=== PATIENT | male | born 1950 | race Caucasian/White ===

== ENCOUNTER 2022-02-27 10:12 | Emergency (ER) | payer MEDICARE, BC, SELFPAY ==
[2022-02-27 11:20] VITALS: BP 164/84; PULSE 88; RESP 22; TEMP 36.7; O2SAT 98; BMI 25.8
[2022-02-27] MEDS: MORPHINE 10 MG/ML inj IM (11:42)
--- NOTE | 2022-02-27 11:45 | ED_ITS ---
HPI - General Adult General Time Seen by Provider: 11:46 Date Seen: 02/27/22 Chief complaint: Lower Extremity Swelling Stated complaint: Sciatica Time Seen by Provider: 02/27/22 11:38 Source: patient Mode of arrival: wheelchair Limitations: no limitations History of Present Illness HPI narrative: Patient is a 71 year white male who [facility] but has had intermittent bouts of sciatic pain on the left leg. He has had an MRI in the past that showed some degenerative changes by his report. I do not have records of these visits. He reports increasing pain over the last couple of days in his left leg, no swelling, no history of blood bleeding or clotting problems. It feels very similar to the sciatica he has had. He has tried a st eroid pack as well as some muscle relaxant that have been that successful. He comes in today quite uncomfortable with pain in his left lateral hip area down into his left thigh. Related Data Home Medications Medication Instructions Recorded Confirmed atorvastatin 40 mg tablet 40 mg PO QHS 02/27/22 02/27/22 buprenorphine 8 mg-naloxone 2 mg 1 film sublingual DAILY 02/27/22 02/27/22 sublingual film cetirizine 10 mg capsule (All Day 10 mg PO DAILY PRN 02/27/22 02/27/22 Allergy (cetirizine)) cholecalciferol (vitamin D3) 25 25 mcg PO DAILY 02/27/22 02/27/22 mcg (1,000 unit) capsule duloxetine HCL 60 mg DAILY 02/27/22 folic acid 1 mg tablet 1 mg PO DAILY 02/27/22 02/27/22 indomethacin 50 mg capsule 50 mg PO TID 02/27/22 02/27/22 lithium carbonate 450 mg 450 mg PO QHS 02/27/22 02/27/22 tablet,extended release methocarbamol 750 mg tablet 750 mg PO TID 02/27/22 02/27/22 polyethylene glycol 3350 17 17 g PO DAILY 02/27/22 02/27/22 gram/dose oral powder (ClearLax) terazosin 2 mg capsule 2 mg PO QHS 02/27/22 02/27/22 Previous Rx's Medication Instructions Recorded hydrocodone 5 mg-acetaminophen 325 1 tab PO Q4-6H PRN pain #14 tabs 02/27/22 mg tablet Allergies Allergy/AdvReac Type Severity Reaction Status Date / Time No Known Drug Allergies Allergy Verified 02/27/22 11:26 Review of Systems Status of ROS: Reports: 6 or more systems reviewed and unremarkable except as noted in History and below [facility] Social History Smoking Status: Never smoker Do you use any of these nicotine containing products: None How often do you have a drink containing alcohol: never How often do you have six or more drinks on one occasion: Never AUDIT-C Alcohol total score: 0 Non-prescribed substance use: denies use Exam Narrative: Exam Narrative: Objective: Patient is in mild distress and discomfort Vital signs show slightly elevated blood pressure otherwise unremarkable Left lower extremity shows positive straight leg raise on the left no swelling or edema the lower extremity Normal strength that is symmetric in the lower extremities Normal sensation in the lower extremities to palpation Procedure: The patient got 10 mg IM morphine Const: Vital Signs, click to edit/add: Vital Signs - 24 hr 02/27/22 11:20 Temperature 98.0 F Pulse Rate [Right Pulse Oximeter] 88 Respiratory Rate 22 Blood Pressure [Ri ght Upper Arm] 164/84 H Pulse Oximetry 98 Oxygen Delivery Me thod Room Air Course Vital Signs Vital signs: Initial Vital Signs Temperature 98.0 F 02/27/22 11:20 Temperature Source Temporal Artery Scan 02/27/22 11:20 Pulse Rate 88 02/27/22 11:20 Respiratory Rate 22 02/27/22 11:20 Blood Pressure 164/84 H 02/27/22 11:20 Blood Pressure Mean 110 02/27/22 11:20 Blood Pressure Position Sitting 02/27/22 11:20 Pulse Oximetry 98 02/27/22 11:20 Oxygen Delivery Method 02/27/22 11:20 Vital Signs Temperature 98.0 F 02/27/22 11:20 Pulse Rate 88 02/27/22 11:20 Respiratory Rate 22 02/27/22 11:20 Blood Pressure 164/84 H 02/27/22 11:20 Pulse Oximetry 98 02/27/22 11:20 Oxygen Delivery Method 02/27/22 11:20 Temperature 98.0 F 02/27/22 11:20 Pulse Rate 88 02/27/22 11:20 Respiratory Rate 22 02/27/22 11:20 Blood Pressure 164/84 H 02/27/22 11:20 Pulse Oximetry 98 02/27/22 11:20 Oxygen Delivery Method 02/27/22 11:20 Medical Decision Making MDM Narrative Medical decision making narrative: Patient has had a history of left-sided sciatica, he has done steroid medication, and muscle relaxant. At this point will give a dose of IM pain medicine, rest light activity icing to the low back, gentle range of motion position of comfort At this point he does not have any swelling or edema consistent with DVT, he has had similar sciatic pain in the past. He will need follow up with his regular physician within the next couple of days for reassessment possible PT needs a possible assessment for repeat MRI scan or consideration of epidural steroid injection in the lumbar spine. Discharge Plan Discharge Clinical Impression: Sciatica Patient Disposition: Home w/ Parent or Adult Additional Instructions: Vicodin as needed short order for pain control, update primary care doctor in the next 48 hours, recommend appointment [facility]. Activity Level: Light activity Discharge Diet: Regular Prescriptions: New hydrocodone-acetaminophen 5-325 mg tablet 1 tab PO Q4-6H PRN (Reason: pain) Qty: 14 0RF No Action duloxetine HCL 60 mg DAILY methocarbamol 750 mg tablet 750 mg PO TID buprenorphine-naloxone 8-2 mg film 1 film sublingual DAILY polyethylene glycol 3350 [ClearLax] 17 gram/dose powder 17 g PO DAILY All Day Allergy (cetirizine) 10 mg capsule 10 mg PO DAILY PRN terazosin 2 mg capsule 2 mg PO QHS folic acid 1 mg tablet 1 mg PO DAILY atorvastatin 40 mg tablet 40 mg PO QHS cholecalciferol (vitamin D3) 25 mcg (1,000 unit) capsule 25 mcg PO DAILY lithium carbonate 450 mg tablet extended release 450 mg PO QHS indomethacin 50 mg capsule 50 mg PO TID Rx Instructions: administer with food or milk Follow Up/Referrals: Maria G Sanon MD [Primary Care Provider] - Stand Alone Forms: [employer] Info Instructions
== END 2022-02-27 14:00 | disposition home or self-care (01) ==
LOC: ED 13:38
PROVIDERS: Emergency Provider Family Medicine; PCP Family Medicine
DX: M54.32 Sciatica, left side (principal)
CPT/HCPCS: 96372; 99283; 99284; J2270

== ENCOUNTER 2023-04-28 07:43 | Outpatient (CLI) | payer MEDICARE, BC, SELFPAY ==
--- OUTSIDE RECORDS SUMMARY | 2023-04-28 07:46 | XMS_ITS | Continuity of Care Document ---
Author Name Unknown Organization [facility] Address [address] [place] [address] Phone Care Team Providers Care News Video Editor Name Role Phone Katherine Patino MD Unavailable Unavailable Allergies, Adverse Reactions, Alerts Substance Reaction Status Criticality No Known Allergies Resolved No Inform ation Medications Medication Instructions Dosage Effective Dates (start - stop) Status Comments allopurinol 100 mg tablet take 2 tablet by oral route every day, take with 300 mg tabs for total dose of 500 mg daily - Active allopurinol 300 mg tablet take 1 tablet by oral route every day 300 MG - Active indomethacin 50 mg capsule take 1 capsule by oral route 3 times every day as needed - Active venlafaxine 75 mg tablet take 2 tablet by oral route 2 times every day with food 150 MG - Active trazodone 50 mg tablet one at bedtime - Ac tive gabapentin 300 mg capsule take 1 capsule by oral route 3 times every day 300 MG - Active Zyrtec 10 mg tablet take 1 Tablet by ora l route every day 10 MG - Active Procedures Procedure Date Office/Outpatient Visit, Est Routine Venipuncture Complete Cbc WAuto Diff Wbc Rbc Sed Rate, Nonautomated Assay Of Serum Albumin Assay Of Creatinine Transferase (Ast) (Sgot) Alanine Amino (Alt) (Sgpt) Assay Of Blood/Uric Acid CReactive Protein X-Ray Exam Of Foot 2v Office/Outpatient Visit, New X-Ray Exam Of Foot 2v Advance Directives Directive Yes / No Effective Date File Name No Information Encounters Encounter Description Practice Location Reason(s) For Visit Diagnoses Date Provider Providers Copied on Encounter [facility], [address], [place], [address], [place] tel:[phone] [facility] , No Information 7 Sukumar Murphy. [facility] [address], [place], [address], [place]. tel:[phone] [facility], [address], [place], [address], [place] tel:[phone] [facility] , No Information 7 Sukumar Murphy. [facility] [address], [place], [address], [place]. tel:[phone] Office/Outpa tient Visit, Est [facility], [address], [place], [address], [place] tel:[phone] [facility] , Follow Up of Gout (chief complaint) Chronic gout w/ tophiOther alf (current) drug therapy 6 Sukumar Murphy. [facility] [address], [place], [address], [place]. tel:[phone] Referring Provider: Katherine Monte, [facility] [address], [place], [address]. tel:[phone] Office/Outpa tient Visit, New [facility], [address], [place], [address], [place] tel:[phone] [facility] , Gout (chief complaint) Chronic gout w/ tophi 201 6 Sukumar Murphy. [facility] [address], [place], [address], [place]. tel:[phone] Referring Provider: Katherine Monte, [facility] [address], [place], [address]. tel:[phone] Family History Family Member Type Diagnosis Age At Onset Father Problem (finding) gout Brother Problem (finding) gout Payers Payer name Insurance type Covered green party ID Authoriza tion(s) [employer] Medicare Advantage/Plat in[employer] Blue [id number] Social History Type Description Quantity Date Captured Comments Alcohol Use Details Unknown Caffeine Use Details Unknown Tobacco Use Status No Information Smoking Status No Information Sex Male Chief Complaint And Reason For Visit No Information Reason For Referral Reason For Referral No Information Plan Of Treatment Date Type Action Status Referral Ordered: X-Ray Exam Of Foot 2v ordered History Of Present Illness Encounter Date Complaint History Of Prese nt Illness Follow Up of Gout Gout Functional Status Date Functional Assessmen t No Information Instructions Date Instruction Additional Infor mation No Information Assessments Type Assessment Date No Information Patient Care Teams Name Effective Dates (start - stop) Status Members No Information
--- OUTSIDE RECORDS SUMMARY | 2023-04-28 07:46 | XMS_ITS | Continuity of Care Document ---
Author Name Unknown Organization [facility] Address [address] [place] [address] Phone Care Team Providers Care Medical Massage Therapist Name Role Phone Stella LLOYD, Amir Unavailable Unavailable Allergies, Adverse Reactions, Alerts Substance Reaction Status Criticality No Known Allergies Active No Inform ation Medications Medication Instructions Dosage Effective Dates (start - stop) Status Comments ATORVASTATIN CALCIUM (unknown strength) Not Available - Active BUPRENORPHINE-NALOXONE (unknown strength) Not Available - Active VITAMIN D3 (unknown strength) Not Available - Active DULOXETINE HCL (unknown strength) Not Available - Active FOLIC ACID (unknown strength) Not Available - Active INDOMETHACIN (unknown strength) Not Available - Active LITHIUM CARBONATE (unknown strength) Not Available - Active NALOXONE HCL (unknown strength) Not Available - Active POLYETHYLENE GLYCOL (unknown strength) Not Available - Active CETIRIZINE HCL (unknown strength) Not Available - Active TACROLIMUS (unknown strength) Not Available - Active TERAZOSIN HCL (unknown strength) Not Available - Active Procedures Procedure Date Office/Outpatient Visit,Est, Mod 2022 Postop Followup Visit TLIF - Includes PSF at the same level - PA TLIF - Additional Level(s) Includes PSF at the same level - PA SYKES FACETC/FRMT ARTHRD LUM 1 SYKES FACTC/FRMT ARTHRD LUM EA Posterior Instrumentation, 3-6 Segments - PA PEEK/ Cage/ Implant, For Interbody Fusio n - PA Autograft, From Same Incision Pa Assist TLIF - Includes PSF at the same level De TLIF - Additional Level(s) Includes PSF at the same level SYKES FACETC/FRMT ARTHRD LUM 1 SYKES FACTC/FRMT ARTHRD LUM EA Posterior Instrumentation, 3-6 Segments PEEK/ Cage/ Implant, For Interbody Fusio n Allograft, Morcelized, and/or BMP Autograft, From Same Incision 2 Office/Outpatient Visit,Est, Mod 2021 X-Ray Exam Lower Spine 2-3 Views 2021 Office/Outpatient Visit,Est, Mod 2021 Office/Outpatient Visit,New, Mod 2019 Advance Directives Directive Yes / No Effective Date File Name No Information Encounters Encounter Description Practice Location Reason(s) For Visit Diagnoses Date Provider Providers Copied on Encounter Office/Outpat ient Visit,Est, Mod [facility], [address], [place], [place], [id number], [place] tel:[phone] [facility] Arthrodesis status 3 Mehbod Amir. [facility], [address] [place] [address], [id number] , [place]. tel:[phone] Referring Provider: Hiram Skeltonformerly [facility] [place], [address]. tel:[phone] [facility], [address], [place], [place], [id number], [place] tel:[phone] [facility] Encounter for other specified surgical aftercare 3 Mehbod Amir. [facility], [address] [place] [address], [place], [place], [id number] , [place]. tel:[phone] Referring Provider: Hiram Skelton[address], [place], [address]. tel:[phone] [facility], [address], [place], [id number], [place] tel:[phone] [facility] No Information 2 Joe Mata. [address] [place] [address], [place], [id number] , [place]. tel: [phone] Referring Provider: Maria G Sanon [facility] [address] [facility], [place], [address]. tel:[phone] [facility], [address], [place], [id number], [place] tel:[phone] [facility] No Information 2 Mehbod Amir. [facility], [address] [place] [address], [facility] [place], [id number] , [place]. tel: [phone] Referring Provider: Maria G Sanon [address], [place], [address]. tel:[phone] Office/Outpat ient Visit,Est, Mod [facility], [address], [place], [id number], [place] tel:[phone] [facility] Spinal stenosis, lumbar region with neurogenic claudicationR adiculopathy, lumbar regionSpinal stenosis, lumbar region without neurogenic jamaal Nov- 2 Mehbod Amir. [facility], [address] [place] [address], [place], [place], [id number] , [place]. tel: [phone] Referring Provider: Maria G Sanon [facility] [address] [facility], [place], [address]. tel:[phone] Office/Outpat ient Visit,Est, Mod [facility], [address], [place], [id number], [place] tel:[phone] [facility] Spinal stenosis, lumbar region with neurogenic claudication Feb- 2 Joe Mata. [address] [place] [address], [facility] [place], [id number] , [place]. tel: [phone] Referring Provider: Maria G Sanon [facility] [address] [facility], [place], [address]. tel:[phone] Office/Outpat ient Visit,New, [facility], [address], [place], [id number], [place] tel:[phone] [facility] No Information 0 Mehbod Amir. [facility], [address], [place], [place], [id number] , [place]. [phone] Referring Provider: Maria G Sanon [facility] [address] [facility], [place], [address]. tel:[phone] Family History Family Member Type Diagnosis Age At Onset No Information Payers Payer name Insurance type Covered republican ID Av francisco(s) [facility] [id number] Medicare [facility] [id number] Social History Type Description Quantity Date Captured Comments Alcohol Use Details Unknown Caffeine Use Details Unknown Tobacco Use Status Ex-cigarette smoker 023 Smoking Status Former smoker Smoking Tobacco Use Details Cigarette: No Details Available Cigarette: No Details Available Non-Smoking Tobacco Use Details : No Details Available : No Details Available Sex Male Vital Signs Date / Time: Height Weight BMI Pulse Rate Blood Pressure Temperature Respiratory Rate Body Surface Area Head Circumference Head Circ. Percentile Wt./Gabe. Percentile BMI percentile Pulse Ox Inhaled Ox 10:39 AM 72.00 in 87.997 kg (194.00 lbs) 26.3 1 kg/m eter (2) Chief Complaint And Reason For Visit No Information Reason For Referral Reason For Referral No Information Plan Of Treatment Date Type Action Status Future Order: Radiology Order AP Lateral Lumbar (APLatLumb), Ordered on: Ordered History Of Present Illness Encounter Date Complaint History Of Prese nt Illness No Information Functional Status Date Functional Assessmen t No Information Instructions Date Instruction Additional Infor mation No Information Assessments Type Assessment Date No Information Patient Care Teams Name Effective Dates (start - stop) Status Members No Information
--- NOTE | 2023-04-28 09:14 | W.ANESCHARGE ---
Anesthesia Charges Start Date/Time Anesthesia Start Date: 04/28/23 Anesthesia Start Time: 08:41 Stop Date/Time Anesthesia Stop Date: 04/28/23 Anesthesia Stop Time: 09:12
--- NOTE | 2023-04-28 11:51 | W.ANESCHARGE ---
Anesthesia Charges Start Date/Time Anesthesia Start Date: 04/28/23 Anesthesia Start Time: 08:41 Stop Date/Time Anesthesia Stop Date: 04/28/23 Anesthesia Stop Time: 09:12 Summary Extremes of Age - Over 70 or under 1: MDA
== END 2023-04-28 07:44 | disposition home or self-care (01) ==
LOC: OP CLINIC 07:44
PROVIDERS: PCP Family Medicine; Visit Provider Internal Medicine Gastroenterology
DX: Z12.11 Encounter for screening for malignant neoplasm of colon (principal); K63.5 Polyp of colon; K62.1 Rectal polyp; Z86.010 Personal history of colon polyps
CPT/HCPCS: 00811; 45380; 88305; 99100; J2704

== ENCOUNTER 2024-06-04 10:09 | Emergency (ER) | payer MEDICARE, BC, SELFPAY ==
--- OUTSIDE RECORDS SUMMARY | 2024-06-04 10:13 | XMS_ITS | Clinical Summary ---
Author Organization [facility] Address [place], [place] [address] Care Team Providers Care Tram Driver Name Role Phone Maria G Sanon MD Primary Care Provide r Allergies No known active allergies Medications folic acid 1 mg tablet Take 1 mg by mouth once daily. Active DULoxetine (CYMBALTA) 60 mg Delayed-release capsule TAKE 1 CAPSULE BY MOUTH EVERY MORNING FOR MOOD 05/16/20 20 Active cetirizine (ZYRTEC) 10 mg tablet Take 10 mg by mouth once daily. 09/22/19 22 Active terazosin (HYTRIN) 2 mg capsule 4 mg at bedtime. 07/26/19 22 Active cholecalciferol (VITAMIN D3) 1,000 unit tablet Take 1,000 units by mouth once daily. Active calcium polycarbophiL (FIBERCON) 625 mg tablet Take 625 mg by mouth two times daily. Active polyethylene glycol (Miralax) 17 g packet Mix 1 Packet in liquid then take by mouth once daily in the afternoon. Active buprenorphine-na loxone (SUBOXONE) 8-2 mg sublingual filmIndications: Encounter for monitoring Suboxone maintenance therapy Place 1 Film under the tongue two times daily. TAKE DIFFERENTLY: starting 05/04 take 0.5 film twice daily. Starting 05/07 take 0.5 films three times daily. Starting 05/09 take 1 film twice daily. 30 Film 05/03/20 22 Active atorvastatin (LIPITOR) 40 mg tablet Take 40 mg by mouth at bedtime. 09/06/19 23 Active gabapentin (NEURONTIN) 300 mg capsule Take 600 mg by mouth three times daily. 03/25/20 Active cyproheptadine (PERIACTIN) 4 mg tablet Take 8 mg by mouth one time if needed. 10/08/19 Active naloxone 8 mg/actuation spry SPRAY 1 DOSE IN ONE NOSTRIL DIRECTED FOR UNRESPONSIVENESS THEN CALL 911 08/07/19 Active Active Problems Problem Noted Date Diagnosed Date Colon polyp 05/05/2023 Overview (05/05/2023): Colonoscopy 04/2023 SSA. TA, repeat in 5 years Bleeding diathesis 04/22/2023 Alcohol dependence 04/30/2022 Cannabis abuse 04/30/2022 Gastroesophageal reflux disease 04/30/2022 Hyperlipidemia 04/30/2022 Sciatica 04/30/2022 Opioid dependence in remission 04/30/2022 Spinal stenosis of lumbar re gion with neurogenic claudication 04/30/2022 S/P posterior lumbar spinal fusion with instrumentation: L3-5 04/30/2022 Suboxone maintenance therapy 04/30/2022 Depression with anxiety 04/30/2022 CKD (chronic kidney disease) stage 3, GFR 30-59 ml/min 04/30/2022 Chronic pain syndrome 04/30/2022 ACP (advance care planning) 04/22/2022 Overview (04/24/2022): Patient has attended the virtual ACP class on 04/24/22 at 10 am. Patient plans to bring HCD with him to surgery- please scan into medical record. TARIQ Vargas Advance Care Planning Educator Sleep apnea 03/19/2018 Katrina bennett 10/17/2015 Chronic fatigue syndrome 06/13/2015 PTSD (post-traumatic stress disorder) 02/23/2015 S/P cervical spinal fusion C6-7 06/10/2011 DDD C4-5 and C5-6 06/10/2011 Displacement of lumbar inter vertebral disc without myelopathy 05/25/2007 Resolved Problems Problem Noted Date Diagnosed Date Resolved Date Cervicalgia 04/30/2022 04/30/2022 Major depressive disorder, r ecurrent episode, moderate 02/23/2015 04/30/2022 S/P cervical spinal fusion 06/10/2011 0 06/10/2011 Major depressive disorder, r ecurrent episode, unspecified 05/25/2007 02/23/2015 Dysthymic disorder 05/25/2007 2 Encounters Date Type Department Care Team Description 06/02/2024 9:10 AM SPA ATTENDANT Telemedicine [facility] [address] [place] [address] Louisa Sena NP Error-please disregard (appt cancellation) 06/02/2024 Travel from Last 3 Months Immunizations Name Administration Dates Next Due AMB Influenza, IIV3 (Age >=3 years)(Flu Clinic Only) 04/13/2010 COVID-19 vaccine (Pfizer-Bio NTech 30mcg/0.3mL) 12YO+ BIVALENT PF, MDV 02/14/2022 COVID-19 vaccine (Pfizer-Bio NTech 30mcg/0.3mL) PF, MDV 03/05/2021,07/31/2020,07/10/2020 HepA-HepB (Twinrix) 10/08/2011,05/09/2011,2010 Influenza A (H1N1), Inactiva jessica (Age >=3 Years) 03/06/2017 Influenza Virus, Unspecified 02/08/2021, 03/14/2020,06/24/2019,2011,02/19/2011,03/10/2003 Influenza, High-dose Inactivated 020,04/01/2017,02/16/2017,2015,04/21/2015,02/16/2015 Influenza, High-dose Quadriv alent Inactivated 01/28/2023 Influenza, IIV3 (Age >=3 years) 02/13/2009,03/02,03/24/2006 Influenza, Inactivated AIIV4 (Age 65+ Years) Preserv Free 02/11/2022 Influenza, Inactivated IIV3 (Age 65+ Years) Preserv Free 03/14/2020,03/19/2018 Pneumococcal Poly,23-Valent (Pneumovax) 05/22/2018 Pneumococcal conj 13-Valent (Prevnar 13) 04/21/2015 Pneumococcal, Unspecified 06/18/2012 Td (Age >=7 Years) 08/21/2003 Tdap 09/05/2022, 3,04/02/2011,2010 Zoster (Shingrix-RZV, recombinant) 05/22/2018, Zoster (Zostavax-ZVL, live) 08/07/2011 Family History Medical History Relation Name Comments Arthritis Father Asthma Father Other Father copd Relation Name Status Comments Father Social History Tobacco Use Types Packs/Day Years Used Date Smoking Tobacco: Former Cigarettes 0.5 45 1 06/13/1963 - 04/13/2009 Passive Smoke Exposure: Never Smokeless Tobacco: Never Tobacco Cessation:Counseling Given: Not Answered Alcohol Use Standard Drinks/Week Comments No 0 (1 standard drink = 0.6 oz pur e alcohol) PHQ-2 Answer Date Recorded PHQ-2 Score 2 07/16/2019 Social Connections Answer Date Recorded Do you often feel lonely or isolated from those around you? 0 04/22/2023 Financial Resource Strain Answer Date R ecorded Difficulty of Paying Living Expenses 3 04/22/2023 Difficulty of Paying Living Expenses Not on file 04/22/2023 Food Insecurity Answer Date Recorded Do you worry your food will run out before you are able to buy more? 1 04/22/2023 Transportation Needs Answer Date Record ed Does lack of transportation keep you from medica l appointments? 1 04/22/2023 Does lack of transportation keep you from work, meetings or getting things that you need? 1 04/22/2023 Housing Stability Answer Date Recorded What is your housing situation today? 1 04/22/2023 Sex and Gender Information Value Date Recorded Sex Assigned at Not on file Legal Sex Male 5:26 AM SPA ATTENDANT Gender Identity Not on file Sexual Orientation Not on file Obstetrics History Last Filed Vital Signs Vital Sign Reading Time Taken Comments Blood Pressure 122/72 04/22/2023 3:51 PM SPA ATTENDANT Pulse 56 04/22/2023 3:51 PM SPA ATTENDANT Temperature 36.6 C (97.9 F) 05/03/2022 11:25 AM SPA ATTENDANT Respiratory Rate 16 05/03/2022 11:25 AM SPA ATTENDANT Oxygen Saturation 97% 04/22/2023 3:51 PM SPA ATTENDANT Inhaled Oxygen Concentration - - Weight 85.1 kg (187 lb 9.6 oz) 04/22/2023 3:51 P M SPA ATTENDANT Height 180.3 cm (5' 11) 04/30/2022 7:03 AM SPA ATTENDANT Body Mass Index 26.16 04/30/2022 7:03 AM SPA ATTENDANT Plan of Treatment Health Maintenance Due Date Last Done Comments Hepatitis C screening for ag e 18-79 09/07/1967 RSV vaccine for adults or (1 - Risk 60-74 years 1-dose series) 2009 Lipids for age 45-75 04/17/2014 04/17/2009, 07/03/2007, 07/14/2006 Medicare Wellness for age 65+ [address] (for lung CA) ag e 50-80 07/07/2018 07/07/2017, 07/16/2016 Depression screening for age 12+ 07/16/2020 07/16/2019, 03/19/2018, 07/07/2017, Additional history exists BMI (ht and wt on same day) for age 18+ 04/19/2023 04/19/2022, 05/02/2020, 04/05/2020, Additional history exists COVID-19 vaccine series (2023- season) 2024 05/28/2023, 02/14/2022, 03/05/2021, Additional history exists Influenza for age 65+ 01/18/2024 01/28/2023 , 02/11/2022, 02/08/2021, Additional history exists Tetanus booster 09/05/2032 09/05/2022, 12/17, 04/02/2011, Additional history exists Colonoscopy through age 75 04/28/203304/28, 04/28/2023, 08/28/2017, Additional history exists Pneumococcal series for age 50+ Completed 05/22/2018, 04/21/2015, 06/18/2012 Zoster (shingles) series for age 50+ Completed 05/22/2018, 02/04/2018, 08/07/2011 Tdap Completed 09/05/2022, 12/17, 04/02/2011, Additional history exists Medical Devices Implanted Type Area Veneer Stock Grader Device Identifier Shelf Expiration Date Model / Serial / Lot [id number] one Matrix 3cc [place] Dbf Putty Dbm Implanted:Qty: 1 on 04/30/2022 by Ella Douglas MD at [facility] [employer] Spine[employer] 02/26/2024 [id number] / [id number] / Bone Matrix 3cc [place] Dbf Putty Db - [id number] Implanted:Qty: 1 on 04/30/2022 by Ella Douglas MD at [facility] [employer] Spine[employer]Orth[employer] 02/26/2024 [id number] / [id number] / Bone 1-4mm 60cc Medtronic Fine Canclls Freeze Dried - [id number] Implanted:Qty: 1 on 04/30/2022 by Ella Douglas MD at [facility] [employer] Spine[employer]Orth[employer] 02/19/2026 [id number] / [id number] / Spacer Lmbr 79m18qn [employer] Tlif Peek - [id number] Implanted:Qty: 1 on 04/30/2022 by Ella Douglas MD at [facility] [employer] Spine/Ortho 05/22/2025 [id number] / / [id number] Spacer Lmbr 66g46ea [employer]stone Tlif Peek - [id number] Implanted:Qty: 1 on 04/30/2022 by Ella Douglas MD at [facility] [employer] Spine/Orth[employer] 12/06/2024 [id number] / / [id number] Set Screw Lmbr Ant 5.5mm Solera Break Off - [id number] Implanted:Qty: 6 on 04/30/2022 by Ella Douglas MD at [facility] [employer] Spine[employer] [id number] / / Wong Lmbr 70x5.5mm Solera 5.5/6 Cvd Titnm - [id number] Implanted:Qty: 2 on 04/30/2022 by Ella Douglas MD at [facility] [employer] Spine[employer]Ortho [id number] / / Screw Lmbr Post 6.5x50mm Solera 5.5/6 Va Cocr - [id number] Implanted:Qty: 6 on 04/30/2022 by Ella Douglas MD at [facility] [employer] Spine[employer]Ortho [id number] / / Procedures Procedure Name Priority Date/Time Associated Diagnosis Comments COLONOSCOPY SCREENING Routine 04/28/2023 8:07 AM SPA ATTENDANT History of colon polyps CT CHEST WO Routine 07/07/2017 11:47 AM SPA ATTENDANT Lung nodule < 6cm on CT LIPID PANEL Routine 04/17/2009 7:59 AM SPA ATTENDANT Unspecified Chest Pain from Last 3 Months or Most Recently Relevant to Health Maintenance Results * CO COLONOSCOPY W/BIOPSY SINGLE/MULTIPLE (04/28/2023 12:00 AM SPA ATTENDANT) us Beto Brito MD PB - DIGESTIVE SYSTEM SER VICES Final Result * CT CHEST WO (07/07/2017 11:47 AM SPA ATTENDANT) Anatomical Region Laterality Modality CHEST, THORAX, HEART Computed To mography 07/07/2017 12:4 0 PM SPA ATTENDANT Narrative 07/07/2017 12:40 PM SPA ATTENDANT INDICATION: Followup ground-glass right upper lobe pulmonary nodule. TECHNIQUE: Unenhanced helical CT of the chest. Sagittal coronal reformats generated. Please add little CT scans at this facility use dose modulation, iterative reconstruction and/or weight-based dosing when appropriate to reduce radiation dose to as low as reasonably achievable. COMPARISON: 07/16/2016. FINDINGS: There is a stable 8 mm ground-glass nodule in the right upper lobe on series 3, image 28. No new significant nodules or pulmonary infiltrates identified. By size criteria, no significantly enlarged intrathoracic lymph nodes are seen. Calcified right hilar lymph nodes consistent with old granulomatous disease. No suspicious axillary lymph nodes are identified. The thoracic aorta is normal in caliber. Mild coronary artery calcifications are seen. The visualized thyroid gland is homogeneous in density. Small nonobstructive nephroliths at the upper pole of the right kidney. Tiny hepatic cysts are present. No suspicious osseous findings. Prior lower cervical spine fusion is partially visualized. IMPRESSION: 1. Stable 8 mm ground-glass opacity in the right upper lobe. Fleischner society 2017 guidelines for management of incidentally detected pulmonary nodules in adults would recommends a CT every 2 years on till 5 years from discovery (discovery date 04/16/[address] 2. 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 3. Tiny hepatic cyst. 4. Small nonobstructive nephrolith upper pole right kidney. Please note that all CT scans at this facility use dose modulation, iterative reconstruction, and/or weight-based dosing when appropriate to reduce radiation dose to as low as reasonably achievable. Dictated by Jairon Coelho DO @ Jul 07 2017 12:40PM (Electronically Signed) Procedure Note Hector Coelho, - 07/07/2017 INDICATION: Followup ground-glass right upper lobe pulmonary nodule. TECHNIQUE: Unenhanced helical CT of the chest. Sagittal coronal reformatsgenerated. Please add little CT scans at this facility use dose modulation, iterativereconstruction and/or weight-based dosing when appropriate to reduceradiation dose to as low as reasonably achievable. COMPARISON: 07/16/2016. FINDINGS: There is a stable 8 mm ground-glass nodule in the right upper lobe onseries 3, image 28. No new significant nodules or pulmonary infiltratesidentified. By size criteria, no significantly enlarged intrathoraciclymph nodes are seen. Calcified right hilar lymph nodes consistent withold granulomatous disease. No suspicious axillary lymph nodes areidentified. The thoracic aorta is normal in caliber. Mild coronary arterycalcifications are seen. The visualized thyroid gland is homogeneous indensity. Small nonobstructive nephroliths at the upper pole of the rightkidney. Tiny hepatic cysts are present. No suspicious osseous findings.Prior lower cervical spine fusion is partially visualized. IMPRESSION: 1. Stable 8 mm ground-glass opacity in the right upper lobe. [facility] 2017 guidelines for management of incidentally detected pulmonarynodules in adults would recommends a CT every 2 years on till 5 years fromdiscovery (discovery date 04/16/[address] 2. 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 3. Tiny hepatic cyst. 4. Small nonobstructive nephrolith upper pole right kidney. Please note that all CT scans at this facility use dose modulation,iterative reconstruction, and/or weight-based dosing when appropriate toreduce radiation dose to as low as reasonably achievable. Dictated by Jairon Coelho DO @ Jul 07 2017 12:40PM (Electronically Signed) us Maria G Sanon MD CT Final Result * (ABNORMAL) LIPID PANEL (04/17/2009 7:59 AM SPA ATTENDANT) CHOLESTEROL,TOTAL 238(H) 110 - 199 mg/dL [facility] TRIGLYCERIDES 58 <150 mg/dL [facility] HDL CHOLESTEROL 63 >40 mg/dL [facility] CHOL/HDL RATIO 3.78 <4.51 [facility] LDL CHOLESTEROL 163(H) <131 mg/dL [facility] PATIENT STATUS Fasting [facility] Blood specimen (specimen) BLOOD SPECIMEN / Unknown 04/17/2009 7:59 AM SPA ATTENDANT 04/17/2009 7:55 AM SPA ATTENDANT us Herbie Simon MD CHEMISTRY Final Re sult [facility] [address] [place] [address] from Last 3 Months or Most Recently Relevant to Health Maintenance Insurance [employer] [place] ONLY MEDICARE PART B HB ONLY MEDICARE PART A HB ONLY [place] [place] [address] [place] [address] Advance Directives * Full Code (Latest Code Status on File) Date Activated Date Inactivated Comments 04/30/2022 6:35 PM 05/03/2022 5:27 PM Question Answer Comments Code Status Discussion: Unable to Assess Preferences, Provider to review later Care Teams Tram Driver Relationship Specialty Start Date End Date Maria G Sanon MD [address] [place] [address] PCP - General Family Practice 08/04/15
[2024-06-04 10:15] VITALS: BP 148/76; PULSE 75; RESP 18; TEMP 36.3; O2SAT 95; BMI 25.8
[2024-06-04 10:58] LABS: Strep A DNA Probe* NOT DETECTED (Not Detectd)
[2024-06-04 11:08] LABS: PCR FLU A Negative PCR FLU A (Negative); PCR FLU B Negative PCR FLU B (Negative); PCR RSV Negative PCR RSV (Negative); SARS PCR* Negative SARS-CoV-2 (Negative)
--- NOTE | 2024-06-04 11:27 | ED_ITS ---
HPI - General Adult General Chief complaint: Cough Stated complaint: sore throat/cough/chills Time Seen by Provider: 06/04/24 11:21 History of Present Illness HPI narrative: Patient is a 73-year-old gentleman comes in today with several days of nasal congestion cough sputum production. He has had no fevers no chills no night sweats. He tested negative for strep influenza COVID RSV. PATIENT'S MAJOR CONCERN IS NASAL CONGESTION PHARYNGITIS. HE HAS NO DIFFICULTIES WITH HIS AIRWAY. NO CHEST PAIN NO ORTHOPNEA NO PND NO NAUSEA NO VOMITING NO ABDOMINAL PAIN NO RASHES. NO RECENT SICK CONTACTS Related Data Home Medications ?Medication ?Instructions ?Recorded ?Confirmed atorvastatin 40 mg tablet 40 mg PO QHS 02/27/22 06/04/24 buprenorphine 8 mg-naloxone 2 mg 1 film sublingual DAILY 02/27/22 06/04/24 sublingual film cetirizine 10 mg capsule (All Day 10 mg PO DAILY PRN 02/27/22 09/26/22 Allergy (cetirizine)) cholecalciferol (vitamin D3) 25 25 mcg PO DAILY 02/27/22 09/26/22 mcg (1,000 unit) capsule duloxetine HCL 60 mg PO DAILY 02/27/22 06/04/24 folic acid 1 mg tablet 1 mg PO DAILY 02/27/22 09/26/22 indomethacin 50 mg capsule 50 mg PO TID 02/27/22 09/26/22 lithium carbonate 450 mg 450 mg PO QHS 02/27/22 09/26/22 tablet,extended release methocarbamol 750 mg tablet 750 mg PO TID 02/27/22 09/26/22 polyethylene glycol 3350 17 17 g PO DAILY 02/27/22 09/26/22 gram/dose oral powder (ClearLax) terazosin 2 mg capsule 2 mg PO QHS 02/27/22 06/04/24 Previous Rx's ?Medication ?Instructions ?Recorded hydrocodone 5 mg-acetaminophen 325 1 tab PO Q4-6H PRN pain #14 tabs 02/27/22 mg tablet prednisone 20 mg tablet 20 mg PO BID #10 tabs 06/04/24 Allergies Allergy/AdvReac Type Severity Reaction Status Date / Time No Known Drug Allergies Allergy Verified 06/04/24 10:15 Review of Systems Status of ROS: Reports: 10 or more systems reviewed and unremarkable except as noted in History and below PFSH PFSH Social History Smoking Status: Never smoker Do you use any of these nicotine containing products: None How often do you have a drink containing alcohol: never How often do you have six or more drinks on one occasion: Never AUDIT-C Alcohol total score: 0 Non-prescribed substance use: denies use Exam Narrative: Exam Narrative: EXAM GENERAL: Patient appears comfortable and well. EYES: No scleral icterus. ENT: Tympanic membranes and oropharynx normal. THYROID: no thyroid nodules or thyromegaly. LYMPH: No supraclavicular or cervical lymphadenopathy. SKIN: Visible skin seen during exam normal or with benign process only. EXT: No dependent lower extremity pedal edema. HEART: Regular rate and rhythm with no murmurs, rubs, or gallops. LUNGS: Clear to auscultation bilaterally with no crackles or wheezes. ABD: Soft, non tender, non distended. PSYCH: Good eye contact, speech is not pressured. Const: Vital Signs, click to edit/add: Vital Signs - 24 hr 06/04/24 10:15 Temperature 97.3 F L Pulse Rate [Pulse Oximeter] 75 Respiratory Rate 18 Blood Pressure [Ri ght Upper Arm] 148/76 H Pulse Oximetry 95 Oxygen Delivery Me thod Room Air Course Course ED Course: Patient seen and examined. Vital Signs Vital signs: Initial Vital Signs Respiratory Effort Normal 06/04/24 10:14 Respiratory Depth Normal 06/04/24 10:14 Vital Signs Temperature 97.3 F L 06/04/24 10:15 Pulse Rate 75 06/04/24 10:15 Respiratory Rate 18 06/04/24 10:15 Blood Pressure 148/76 H 06/04/24 10:15 Pulse Oximetry 95 06/04/24 10:15 Oxygen Delivery Method Room Air 06/04/24 10:15 Temperature 97.3 F L 06/04/24 10:15 Pulse Rate 75 06/04/24 10:15 Respiratory Rate 18 06/04/24 10:15 Blood Pressure 148/76 H 06/04/24 10:15 Pulse Oximetry 95 06/04/24 10:15 Oxygen Delivery Method Room Air 06/04/24 10:15 Medical Decision Making MDM Narrative Medical decision making narrative: Patient is a 73-year-old gentleman who presents with viral syndrome. Swabs are negative as listed above. At this time differential diagnosis includes viral syndrome pneumonia bronchitis bronchiolitis viral syndrome. I did elect to treat with short course of prednisone reassurance follow up with his primary physician as needed. Lab Data Labs: Lab Results 06/04/24 Range/Units 10:25 SARS-CoV-2 (PCR) Negative SARS-CoV-2 (Negative) Influenza Type A (PCR) Negative PCR FLU A (Negative) Influenza Type B (PCR) Negative PCR FLU B (Negative) RSV (PCR) Negative PCR RSV (Negative) Group A Strep DNA NOT DETECTED (Not Detectd) Discharge Plan Discharge Clinical Impression: Acute viral syndrome Patient Disposition: Home, Self-Care Condition: Stable Instructions: Viral Syndrome (ED) Additional Instructions: Prednisone as directed Tylenol Motrin Rest Fluids Activity Level: No Restrictions Discharge Diet: Regular Prescriptions: New prednisone 20 mg tablet 20 mg PO BID Qty: 10 0RF No Action duloxetine HCL 60 mg PO DAILY methocarbamol 750 mg tablet 750 mg PO TID buprenorphine-naloxone 8-2 mg film 1 film sublingual DAILY polyethylene glycol 3350 [ClearLax] 17 gram/dose powder 17 g PO DAILY All Day Allergy (cetirizine) 10 mg capsule 10 mg PO DAILY PRN terazosin 2 mg capsule 2 mg PO QHS folic acid 1 mg tablet 1 mg PO DAILY atorvastatin 40 mg tablet 40 mg PO QHS cholecalciferol (vitamin D3) 25 mcg (1,000 unit) capsule 25 mcg PO DAILY lithium carbonate 450 mg tablet extended release 450 mg PO QHS indomethacin 50 mg capsule 50 mg PO TID Rx Instructions: administer with food or milk hydrocodone-acetaminophen 5-325 mg tablet 1 tab PO Q4-6H PRN (Reason: pain) Qty: 14 0RF Follow Up/Referrals: Maria G Sanon MD [Primary Care Provider] - Stand Alone Forms: [employer] Info Instructions
--- OUTSIDE RECORDS SUMMARY | 2024-06-04 11:47 | XMS_ITS | Encounter Summary ---
Author Name [facility] [place] [facility] [place] Address [address] [place] [address] Care Team Providers Care Rose Grower Name Role Phone STEPHEN WONG Primary Care Provider Unavail le Insurance Providers: All historical and current Section Date Range: From patient's date of to the date document was created. This section includes the names of all active insurance providers for the patient. Insurance Provider Type of Coverage Plan Name Start of Policy Coverage End of Policy Coverage Group Number Member ID Insurance Provider's Telephone Number Policy Merchant's Name Patient's Relationship to Policy Merchant BCBS [facility] (WNR) MEDICARE ADVANTAGE [facility] (WNR) May 19, 2019 [id number] [phone] Lilliam WEBER PATIENT [place] [facility] (WNR) MEDICARE ADVANTAGE [facility] (WNR) May 19, 2019 [id number] [phone] Lilliam WEBER PATIENT [place] [facility] ([place]NR) MEDICARE ADVANTAGE [facility] (WNR) May 19, 2019 [id number] [phone] Lilliam WEBER PATIENT BCBS [facility] (WNR) MEDICARE ADVANTAGE MEDIC ARE CHERRI Alvarado May 19, 2016 [id number] [phone] GUS,M ICHAEL PATIENT Selected Encounter This section includes the information on record at [place] for the Encounter. Date/Time Encounter Type Encounter Description Reason Provider Source May 05, 2024 10:16 AM ADJUNCTIVE PROCEDURE DENTAL ICD-10-CM G47.33 Obstructive sleep apnea (adult) (pediatric) JOSE LE [facility] Encounter Template Text not used by [place] Assessments - Encounter Diagnoses This section includes the primary and secondary diagnoses documented for the Encounter. Date/Time Primary/Secondary Diagnosis Diagnosis Name Provider Source May 05, 2024 10:18 AM PRIMARY Obstructive sleep apnea (adult) (pediatric) JOSE LE [facility] Plan of Treatment: Future Appointments (+ 6 months) and Future Tests (+/- 45 days) The Plan of Treatment section includes future care activities for the [facility] [place] [facility] This section includes future appointments and future orders which are active, pending or scheduled. Future Appointments This section includes appointments that were scheduled to occur 6 months from the date of the Encounter, up to a maximum of 20 appointments. The data comes from all [facility]. Appointment Date/Time Appointment Type Appointme nt Facility Name May 18, 2024 09:30 AM AMBULATORY - SURGERY [facility] May 24, 2024 10:00 AM AMBULATORY - NONE [facility] May 27, 2024 10:00 AM AMBULATORY - PSYCHIATRY [facility] Jul 21, 2024 11:45 AM AMBULATORY - SURGERY [facility] Aug 26, 2024 10:30 AM AMBULATORY - PSYCHIATRY [facility] Sep 03, 2024 09:30 AM AMBULATORY - SURGERY [facility] Active, Pending, and Scheduled Orders This section includes a listing of several types of active, pending, and scheduled orders, including clinic medications orders, diagnostic test orders, procedure orders and consult orders; where the start date of the order is 45 days before the date of the Encounter or 45 days after the date of theEncounter. The data comes from all [facility]. Test Date/Time Test Type Test Details Facility Name Mar 25, 2024 08:41 AM Laboratory - Chemi stry Order DRUG TOXICOLOGY, ORAL FLUID SALIVA WC ONCE [facility] May 06, 2024 02:29 PM Consult Order COMMUNITY CARE-TREATMENT RESISTANT DEPRESSION Cons Marketing Professor's Choice [facility] Social History: Smoking Status (Most current) and Tobacco Use (All prior to encounter date) This section includes the most current, and the historical, smoking and tobacco- related health factors from the [place] facility where the Encounter took place. Current Smoking Status This section includes the most current smoking, or tobacco-related health factor, from the [place] facility where the Encounter took place. Date/Time Current Smoking Status Comment Facil ity Oct 23, 2023 11:00 AM VA-TOBACCO FORMER USER [facility] Tobacco Use History This section includes a history of the smoking, or tobacco-related health factors, that were collected on or before the date of the Encounter. The data comes from the [place] facility where the Encounter took place. Date/Time Smoking Status/Tobacco Use Comment F acility Oct 23, 2023 11:00 AM VA-TOBACCO QUIT 5 TO < [address] [facility] Sep 05, 2022 11:00 AM VA-TOBACCO FORMER USER [facility] Sep 05, 2022 11:00 AM VA-TOBACCO QUIT [address] [facility] Jun 12, 2021 09:51 AM VA-TOBACCO FORMER USER [facility] Jun 12, 2021 09:51 AM VA-TOBACCO QUIT 5 TO < [address] [facility] Jun 13, 2020 09:30 AM VA-TOBACCO FORMER USER [facility] Jun 13, 2020 09:30 AM VA-TOBACCO QUIT 1 TO < [address] [facility] Dec 03, 2018 09:23 AM VA-TOBACCO FORMER USER [facility] Dec 03, 2018 09:23 AM VA-TOBACCO QUIT [address] [facility] Nov 26, 2017 03:17 PM FORMER TOBACCO USE >1Y <7Y [facility] Apr 01, 2017 10:30 AM FORMER TOBACCO USE >1Y <7Y [facility] Nov 27, 2016 01:58 AM INPT NO TOBACCO USE IN LAST [address] [facility] Feb 08, 2016 10:07 AM LIFETIME NON-TOBACCO USER [facility] Oct 18, 2014 08:28 AM FORMER TOBACCO USER 7Y OR GREATE R [facility] Dec 27, 2013 10:02 AM FORMER TOBACCO USE <1Y [facility] Apr 04, 2011 11:33 AM LIFETIME NON-TOBACCO USER [facility] Encounter Notes: All associated encounter notes This section contains the clinical notes associated to the Encounter. Date/Time Encounter Note(s) Provider Source May 05, 2024 10:19 AM ADDENDUM: LOCAL TITLE: Addendum STANDARD TITLE: ADDENDUM DATE OF NOTE: MAY 05, 2024@10:19:09 ENTRY DATE: MAY 05, 2024@10:19:09 AUTHOR: JOSE LE EXP COSIGNER: URGENCY: STATUS: COMPLETED Order placed for patient to be seen in Triage. Please schedule on a Friday morning only. If this doesn't work for the patient, then we will need to do next available appointment in [facility], which currently is in [place]/ JOSE LE DDS STAFF DENTIST Signed: 05/05/2024 10:19 Receipt Acknowledged By: 05/05/2024 11:33 /es/ JADEN CHAPA LEAD DENTAL CERTIFIED NURSES AIDE --- Original Document --- 05/05/24 DENTISTRY SECURE MESSAGING: Patient Name: MOOK WEBER, : 1950, Age: 73 Visit: V: May 05, 2024@10:16:03 [facility] DENTAL SLEEP 2UD. Primary PCE Diagnosis: G47.33 (OBSTRUCTIVE SLEEP APNEA (ADULT) (PEDIATRIC)). Dental Category: 17-OPC, Class . Treatment Status: Maintenance. - - - - - - - - - - - - - - - - - - - - - - - - - - - - - - Appointment: Dental device not working MOOK WEBER (SSN: [id number], : 1950) 04 May 2024 @ 1329 ET [facility] My dental device for sleep apnea is no longer working properly. It has been ineffective for some time. Please schedule me at your earliest convenience. Thank you. Kenny Pritchettrens - - - - - - - - - - - - - - - - - - - - - - - - - - - - - - Appointment: Dental device not working JOSE LE 05 May 2024 @ 0803 ET To: MOOK WEBER (SSN: [id number], : 1950) Hi Mr. Weber, Just for scheduling purposes, is the appliance not helping sleep quality anymore, or is it not fitting properly? Thanks, Dr. Jose Le - - - - - - - - - - - - - - - - - - - - - - - - - - - - - - Appointment: Dental device not working MOOK WEBER (SSN: [id number], : 1950) 05 May 2024 @ 0937 ET To: [facility] # Its both. It is broken and no longer adjustable. Thank you. Kenny Gus - - - - - - - - - - - - - - - - - - - - - - - - - - - - - - Sent: 05 May 2024 @ 1114 ET From: JOSE LE To: GUSMOOK (SSN: [id number], : 1950) Subject: Appointment: Dental device not working Message ID:[id number] Hi Mr. Weber, I will have someone call you to get you scheduled. Bring the appliance with, but there's a good chance we will need to make a new one. -Dr. Le /yung/ JOSE LE DDS STAFF DENTIST Signed: 05/05/2024 10:[address] [facility] May 05, 2024 10:16 AM DENTISTRY SECURE M ESSAGING: LOCAL TITLE: DENTISTRY SECURE MESSAGING STANDARD TITLE: DENTISTRY SECURE MESSAGING DATE OF NOTE: MAY 05, 2024@10:16 ENTRY DATE: MAY 05, 2024@10:18:49 AUTHOR: JOSE LE EXP COSIGNER: URGENCY: STATUS: COMPLETED DENTISTRY SECURE MESSAGING Has ADDENDA Patient Name: MOOK WEBER, : 1950, Age: 73 Visit: V: May 05, 2024@10:16:03 [facility] DENTAL SLEEP 2UD. Primary PCE Diagnosis: G47.33 (OBSTRUCTIVE SLEEP APNEA (ADULT) (PEDIATRIC)). Dental Category: 17-OPC, Class . Treatment Status: Maintenance. - - - - - - - - - - - - - - - - - - - - - - - - - - - - - - Appointment: Dental device not working GUSMOOK (SSN: [id number], : 1950) 04 May 2024 @ 1329 ET To: [facility] # My dental device for sleep apnea is no longer working properly. It has been ineffective for some time. Please schedule me at your earliest convenience. Thank you. Kenny Gus - - - - - - - - - - - - - - - - - - - - - - - - - - - - - - Appointment: Dental device not working JOSE LE 05 May 2024 @ 0803 ET To: MOOK WEBER (N: [id number], : 1950) Mn Mr. Weber, Just for scheduling purposes, is the appliance not helping sleep quality anymore, or is it not fitting properly? Thanks, Dr. Jose Le - - - - - - - - - - - - - - - - - - - - - - - - - - - - - - Appointment: Dental device not working MOOK WEBER (N: [id number], : 1950) 05 May 2024 @ 0937 ET [facility] Its both. It is broken and no longer adjustable. Thank you. Kenny Weber - - - - - - - - - - - - - - - - - - - - - - - - - - - - - - Sent: 05 May 2024 @ 1114 ET From: JOSE LE To: MOOK WEBER (SSN: [id number], : 1950) Subject: Appointment: Dental device not working Message ID:[id number] Mn Mr. Weber, I will have someone call you to get you scheduled. Bring the appliance with, but there's a good chance we will need to make a new one. -Dr. Le /yung/ JOSE LE DDS STAFF DENTIST Signed: 05/05/2024 10:18 05/05/2024 ADDENDUM STATUS: COMPLETED Order placed for patient to be seen in Triage. Please schedule on a Friday morning only. If this doesn't work for the patient, then we will need to do next available appointment in [facility], which currently is in July /daljit LE DDS STAFF DENTIST Signed: 05/05/2024 10:19 Receipt Acknowledged By: * AWAITING SIGNATURE * JADEN CHAPA KEVIN A [facility]
--- OUTSIDE RECORDS SUMMARY | 2024-06-04 11:47 | XMS_ITS | Continuity of Care Document ---
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 PLASMA No comment entered. Ordering Provider: ASHLEY MALONE Report Released Date/Time: Oct 24, 2023 08:46 AM Reporting Lab: [facility] [address] Performing Lab: [facility] [address] [place] [facility] BASIC METABOLI C PANEL+MG GLUCOSE [MASS/VOLU ME] IN SERUM OR PLASMA 99 mg/dL 70 - 100 02/04 Specimen Type: PLASMA No comment entered. Ordering Provider: ASHLEY MALONE Report Released Date/Time: Oct 24, 2023 08:46 AM Reporting Lab: [facility] [address] Performing Lab: [facility] [address] [place] [facility] BASIC METABOLI C PANEL+MG SODIUM [MOLES/VOL UME] IN SERUM OR PLASMA 140 mmol/L 136 - 145 02/04 Specimen Type: PLASMA No comment entered. Ordering Provider: ASHLEY MALONE Report Released Date/Time: Oct 24, 2023 08:46 AM Reporting Lab: [facility] [address] Performing Lab: [facility] [address] [place] [facility] BASIC METABOLI C PANEL+MG POTASSIUM [MOLES/VOL UME] IN SERUM OR PLASMA 4.5 mmol/L 3.5 - 5.1 02/04 Specimen Type: PLASMA No comment entered. Ordering Provider: ASHLEY MALONE Report Released Date/Time: Oct 24, 2023 08:46 AM Reporting Lab: [facility] [address] Performing Lab: [facility] [address] [place] [facility] BASIC METABOLI C PANEL+MG CHLORIDE [MOLES/VOL UME] IN SERUM OR PLASMA 104 mmol/L 98 - 107 02/04 Specimen Type: PLASMA No comment entered. Ordering Provider: ASHLEY MALONE Report Released Date/Time: Oct 24, 2023 08:46 AM Reporting Lab: [facility] [address] Performing Lab: [facility] [address] [place] [facility] BASIC METABOLI C PANEL+MG CARBON DIOXIDE, TOTAL [MOLES/VOL UME] IN SERUM OR PLASMA 30 mmol/L 22 - 29 02/04 H Specimen Type: PLASMA No comment entered. Ordering Provider: ASHLEY MALONE Report Released Date/Time: Oct 24, 2023 08:46 AM Reporting Lab: [facility] [address] Performing Lab: [facility] [address] [place] [facility] BASIC METABOLI C PANEL+MG CALCIUM [MASS/VOLU ME] IN SERUM OR PLASMA 9.5 mg/dL 8.4 - 10.2 02/04 Specimen Type: PLASMA No comment entered. Ordering Provider: ASHLEY MALONE Report Released Date/Time: Oct 24, 2023 08:46 AM Reporting Lab: [facility] [address] Performing Lab: [facility] [address] [place] [facility] BASIC METABOLI C PANEL+MG MAGNESIUM [MASS/VOLU ME] IN SERUM OR PLASMA 2.1 mg/dL 1.6 - 2.6 02/04 Specimen Type: PLASMA No comment entered. Ordering Provider: ASHLEY MALONE Report Released Date/Time: Oct 24, 2023 08:46 AM Reporting Lab: [facility] [address] Performing Lab: [facility] [address] [place] [facility] BASIC METABOLI C PANEL+MG ANION GAP IN SERUM OR PLASMA 6 mmol/L 5 - 15 02/04 Specimen Type: PLASMA No comment entered. Ordering Provider: ASHLEY MALONE Report Released Date/Time: Oct 24, 2023 08:46 AM Reporting Lab: [facility] [address] Performing Lab: [facility] [address] [place] [facility] BASIC METABOLI C PANEL+MG GLOMERULAR FILTRATION RATE/1.73 SQ M.PREDICTE D [VOLUME RATE/AREA] IN SERUM, PLASMA OR BLOOD BY CREATININE -BASED FORMULA (CKD-EPI 2020) 70 60 02/04 Specimen Type: PLASMA No comment entered. Ordering Provider: ASHLEY MALONE Report Released Date/Time: Oct 24, 2023 08:46 AM Reporting Lab: [facility] [address] Performing Lab: [facility] [address] [place] [facility] CBC LEUKOCYTES [#/VOLUME] IN BLOOD BY AUTOMATED COUNT 4.5 4.0 - 11.0 02/04 Specimen Type: BLOOD No comment entered. Ordering Provider: ASHLEY MALONE Report Released Date/Time: Oct 24, 2023 08:46 AM Reporting Lab: [facility] [address] Performing Lab: [facility] [address] [place] [facility] CBC ERYTHROCYT ES [#/VOLUME] IN BLOOD BY AUTOMATED COUNT 4.31 4.60 - 6.20 02/04 L Specimen Type: BLOOD No comment entered. Ordering Provider: ASHLEY MALONE Report Released Date/Time: Oct 24, 2023 08:46 AM Reporting Lab: [facility] [address] Performing Lab: [facility] [address] [place] [facility] CBC HEMOGLOBIN [MASS/VOLU ME] IN BLOOD 13.5 g/dL 13.5 - 17.9 02/04 Specimen Type: BLOOD No comment entered. Ordering Provider: ASHLEY MALONE Report Released Date/Time: Oct 24, 2023 08:46 AM Reporting Lab: [facility] [address] Performing Lab: [facility] [address] [place] [facility] CBC HEMATOCRIT [VOLUME FRACTION] OF BLOOD BY AUTOMATED COUNT 41.7 41 - 54 02/04 Specimen Type: BLOOD No comment entered. Ordering Provider: ASHLEY MALONE Report Released Date/Time: Oct 24, 2023 08:46 AM Reporting Lab: [facility] [address] Performing Lab: [facility] [address] [place] [facility] CBC MCV [ENTITIC VOLUME] BY AUTOMATED COUNT 96.8 fL 80 - 100 02/04 Specimen Type: BLOOD No comment entered. Ordering Provider: ASHLEY MALONE Report Released Date/Time: Oct 24, 2023 08:46 AM Reporting Lab: [facility] [address] Performing Lab: [facility] [address] [place] [facility] CBC MCH [ENTITIC MASS] BY AUTOMATED COUNT 31.3 pg 27 - 33 02/04 Specimen Type: BLOOD No comment entered. Ordering Provider: ASHLEY MALONE Report Released Date/Time: Oct 24, 2023 08:46 AM Reporting Lab: [facility] [address] Performing Lab: [facility] [address] [place] [facility] CBC MCHC [MASS/VOLU ME] BY AUTOMATED COUNT 32.4 g/dL 32.0 - 37.5 02/04 Specimen Type: BLOOD No comment entered. Ordering Provider: ASHLEY MALONE Report Released Date/Time: Oct 24, 2023 08:46 AM Reporting Lab: [facility] [address] Performing Lab: [facility] [address] [place] [facility] CBC PLATELETS [#/VOLUME] IN BLOOD BY AUTOMATED COUNT 182 150 - 400 02/04 Specimen Type: BLOOD No comment entered. Ordering Provider: ASHLEY MALONE Report Released Date/Time: Oct 24, 2023 08:46 AM Reporting Lab: [facility] [address] Performing Lab: [facility] [address] [place] [facility] CBC PLATELET MEAN VOLUME [ENTITIC VOLUME] IN BLOOD BY AUTOMATED COUNT 9.6 fL 9.1 - 13.0 02/04 Specimen Type: BLOOD No comment entered. Ordering Provider: ASHLEY MALONE Report Released Date/Time: Oct 24, 2023 08:46 AM Reporting Lab: [facility] [address] Performing Lab: [facility] [address] [place] [facility] CBC ERYTHROCYT E DISTRIBUTI ON WIDTH [RATIO] BY AUTOMATED COUNT 12.4 11.5 - 14.5 02/04 Specimen Type: BLOOD No comment entered. Ordering Provider: ASHLEY MALONE Report Released Date/Time: Oct 24, 2023 08:46 AM Reporting Lab: [facility] [address] Performing Lab: [facility] [address] [place] [facility] IRON GROUP IRON [MASS/VOLU ME] IN SERUM OR PLASMA 73 ug/dL 65 - 175 02/04 Specimen Type: SERUM No comment entered. Ordering Provider: ASHLEY MALONE Report Released Date/Time: Oct 24, 2023 08:46 AM Reporting Lab: [facility] [address] Performing Lab: [facility] [address] [place] [facility] IRON GROUP IRON BINDING CAPACITY [MASS/VOLU ME] IN SERUM OR PLASMA 278 ug/dL 250 - 425 02/04 Specimen Type: SERUM No comment entered. Ordering Provider: ASHLEY MALONE Report Released Date/Time: Oct 24, 2023 08:46 AM Reporting Lab: [facility] [address] Performing Lab: [facility] [address] [place] [facility] IRON GROUP FERRITIN [MASS/VOLU ME] IN SERUM OR PLASMA 234.4 ng/mL 21.8 - 274.7 02/04 Specimen Type: SERUM No comment entered. Ordering Provider: ASHLEY MALONE Report Released Date/Time: Oct 24, 2023 08:46 AM Reporting Lab: [facility] [address] Performing Lab: [facility] [address] [place] [facility] IRON GROUP IRON SATURATION 26 20 - 50 02/04 Specimen Type: SERUM No comment entered. Ordering Provider: ASHLEY MALONE Report Released Date/Time: Oct 24, 2023 08:46 AM Reporting Lab: [facility] [address] Performing Lab: [facility] [address] [place] [facility] IRON GROUP TRANSFERRI N [MASS/VOLU ME] IN SERUM OR PLASMA 222 mg/dL 163 - 382 02/04 Specimen Type: SERUM No comment entered. Ordering Provider: ASHLEY MALONE Report Released Date/Time: Oct 24, 2023 08:46 AM Reporting Lab: [facility] [address] Performing Lab: [facility] [address] [place] [facility] DRUG SCREEN PANEL,UR INE BARBITURAT ES [PRESENCE] IN URINE BY SCREEN METHOD Negative 11/13 Specimen Type: URINE Comment: Presumptive Positive by screen, results not confirmed. Ordering Provider: MARYJANE MATHEW Report Released Date/Time: Nov 13, 2023 09:43 AM Reporting Lab: [facility] [address] Performing Lab: [facility] [address] [place] [facility] DRUG SCREEN PANEL,UR INE AMPHETAMIN ES [PRESENCE] IN URINE Negative 11/13 Specimen Type: URINE Comment: Presumptive Positive by screen, results not confirmed. Ordering Provider: MARYJANE MATHEW Report Released Date/Time: Nov 13, 2023 09:43 AM Reporting Lab: [facility] [address] Performing Lab: [facility] [address] [place] [facility] DRUG SCREEN PANEL,UR INE COCAINE [PRESENCE] IN URINE Negative 11/13 Specimen Type: URINE Comment: Presumptive Positive by screen, results not confirmed. Ordering Provider: MARYJANE MATHEW Report Released Date/Time: Nov 13, 2023 09:43 AM Reporting Lab: [facility] [address] Performing Lab: [facility] [address] [place] [facility] DRUG SCREEN PANEL,UR INE BENZODIAZE PINES [PRESENCE] IN URINE BY SCREEN METHOD Negative 11/13 Specimen Type: URINE Comment: Presumptive Positive by screen, results not confirmed. Ordering Provider: MARYJANE MATHEW Report Released Date/Time: Nov 13, 2023 09:43 AM Reporting Lab: [facility] [address] Performing Lab: [facility] [address] [place] [facility] DRUG SCREEN PANEL,UR INE CANNABINOI DS [PRESENCE] IN URINE BY SCREEN METHOD Negative 11/13 Specimen Type: URINE Comment: Presumptive Positive by screen, results not confirmed. Ordering Provider: MARYJANE MATHEW Report Released Date/Time: Nov 13, 2023 09:43 AM Reporting Lab: [facility] [address] Performing Lab: [facility] [address] [place] [facility] DRUG SCREEN PANEL,UR INE METHADONE [PRESENCE] IN URINE Negative 11/13 Specimen Type: URINE Comment: Presumptive Positive by screen, results not confirmed. Ordering Provider: MARYJANE MATHEW Report Released Date/Time: Nov 13, 2023 09:43 AM Reporting Lab: [facility] [address] Performing Lab: [facility] [address] [place] [facility] DRUG SCREEN PANEL,UR INE OPIATES [PRESENCE] IN URINE BY SCREEN METHOD Negative 11/13 Specimen Type: URINE Comment: Presumptive Positive by screen, results not confirmed. Ordering Provider: MARYJANE MATHEW Report Released Date/Time: Nov 13, 2023 09:43 AM Reporting Lab: [facility] [address] Performing Lab: [facility] [address] [place] [facility] DRUG SCREEN PANEL,UR INE PHENCYCLID INE [PRESENCE] IN URINE Negative 11/13 Specimen Type: URINE Comment: Presumptive Positive by screen, results not confirmed. Ordering Provider: MARYJANE MATHEW Report Released Date/Time: Nov 13, 2023 09:43 AM Reporting Lab: [facility] [address] Performing Lab: [facility] [address] [place] [facility] DRUG SCREEN PANEL,UR INE ETHANOL [MASS/VOLU ME] IN URINE Negative 11/13 Specimen Type: URINE Comment: Presumptive Positive by screen, results not confirmed. Ordering Provider: MARYJANE MATHEW Report Released Date/Time: Nov 13, 2023 09:43 AM Reporting Lab: [facility] [address] Performing Lab: [facility] [address] [place] [facility] DRUG SCREEN PANEL,UR INE CREATININE [MASS/VOLU ME] IN URINE 181.0 mg/dL 20.0 11/13 Specimen Type: URINE Comment: Presumptive Positive by screen, results not confirmed. Ordering Provider: MARYJANE MATHEW Report Released Date/Time: Nov 13, 2023 09:43 AM Reporting Lab: [facility] [address] Performing Lab: [facility] [address] [place] [facility] DRUG SCREEN PANEL,UR INE OXYCODONE [PRESENCE] IN URINE BY SCREEN METHOD Negative 11/13 Specimen Type: URINE Comment: Presumptive Positive by screen, results not confirmed. Ordering Provider: MARYJANE MATHEW Report Released Date/Time: Nov 13, 2023 09:43 AM Reporting Lab: [facility] [address] Performing Lab: [facility] [address] [place] [facility] DRUG SCREEN PANEL,UR INE BUPRENORPH INE+NORBUP RENORPHINE [PRESENCE] IN URINE POSITIVE 11/13 H Specimen Type: URINE Comment: Presumptive Positive by screen, results not confirmed. Ordering Provider: MARYJANE MATHEW Report Released Date/Time: Nov 13, 2023 09:43 AM Reporting Lab: [facility] [address] Performing Lab: [facility] [address] [place] [facility] DRUG SCREEN PANEL,UR INE TRAMADOL CUTOFF [MASS/VOLU ME] IN URINE FOR SCREEN METHOD Negative 11/13 Specimen Type: URINE Comment: Presumptive Positive by screen, results not confirmed. Ordering Provider: MARYJANE MATHEW Report Released Date/Time: Nov 13, 2023 09:43 AM Reporting Lab: [facility] [address] Performing Lab: [facility] [address] [place] [facility] DRUG SCREEN PANEL,UR INE FENTANYL [PRESENCE] IN URINE Negative 11/13 Specimen Type: URINE Comment: Presumptive Positive by screen, results not confirmed. Ordering Provider: MARYJANE MATHEW Report Released Date/Time: Nov 13, 2023 09:43 AM Reporting Lab: [facility] [address] Performing Lab: [facility] [address] [place] [facility] Vital Signs Combined list of inpatient and outpatient Vital Signs from Department of Defense and Veterans Affairs, ranging from 12 months to all on record, depending upon the facility. Vital Sign Value Date Comments Source SYSTOLIC BLOOD PRESSURE 115 05/18/2024 09:40:27 [facility] DIASTOLIC BLOOD PRESSURE 70 05/18/2024 09:40:27 [facility] TEMPERATURE 97.7 05/18/2024 09:40:27 [facility] PULSE 73 05/18/2024 09:40:27 [facility] SYSTOLIC BLOOD PRESSURE 180 03/25/2024 09:08:14 [facility] DIASTOLIC BLOOD PRESSURE 90 03/25/2024 09:08:14 [facility] PULSE OXIMETRY 96 03/25/2024 09:08:14 [place] [facility] PULSE 71 03/25/2024 09:08:14 [facility] RESPIRATION 14 03/25/2024 09:08:14 [facility] [facility] SYSTOLIC BLOOD PRESSURE 147 02/05/2024 09:23:32 [facility] DIASTOLIC BLOOD PRESSURE 81 02/05/2024 09:23:32 [facility] PULSE OXIMETRY 95 02/05/2024 09:23:32 [place] [facility] WEIGHT 185.7 02/05/2024 09:23:32 [facility] [place] [facility] BMI 25kg/m2 02/05/2024 09:23:32 [place] [facility] PAIN 8 02/05/2024 09:23:32 [facility] [place] [facility] TEMPERATURE 97 02/05/2024 09:23:32 [place] [facility] PULSE 63 02/05/2024 09:23:32 [place] [facility] RESPIRATION 16 02/05/2024 09:23:32 [place] [facility] SYSTOLIC BLOOD PRESSURE 128 10/23/2023 10:24:41 [facility] DIASTOLIC BLOOD PRESSURE 67 10/23/2023 10:24:41 [facility] PULSE OXIMETRY 98 10/23/2023 10:24:41 [place] [facility] WEIGHT 189.5 10/23/2023 10:24:41 [place] [facility] BMI 26kg/m2 10/23/2023 10:24:41 [facility] PAIN 8 10/23/2023 10:24:41 [facility] HEIGHT 72 10/23/2023 10:24:41 [facility] TEMPERATURE 98.2 10/23/2023 10:24:41 [facility] PULSE 60 10/23/2023 10:24:41 [facility] RESPIRATION 14 10/23/2023 10:24:41 [place] [facility] SYSTOLIC BLOOD PRESSURE 130 09/29/2023 08:48:18 [facility] DIASTOLIC BLOOD PRESSURE 71 09/29/2023 08:48:18 [facility] PULSE OXIMETRY 99 09/29/2023 08:48:18 [facility] WEIGHT 188.1 09/29/2023 08:48:18 [facility] BMI 26kg/m2 09/29/2023 08[facility]48:18 [facility] PAIN 8 09/29/2023 08:48:18 [facility] TEMPERATURE 97.6 09/29/2023 08:48:18 [place] [facility] PULSE 50 09/29/2023 08:48:18 [facility] RESPIRATION 16 09/29/2023 08:48:18 [place] [facility] Encounters Combined list of: 1) Encounters from Department of Veterans Affairs facilities going back up to thelast 18 months. 2) Encounters from the Department of Defense facilities going back up to 280 months. Location Location Details Encounter Type Encounter Number Reason For Visit Attending Provider ADM Date DC Date Status Disposition Source [place] [facility] Outpatient Encounter [id number] 11[place]28 [place] [facility] [place] [facility] En[facility] [id number] 12[place]05 [place] [facility] [place] [facility] OFFICE O/P EST HI 40-54 MIN [id number] Diagnos is: ICD-10- CM F43.12 Post-tr aumatic stress disorde r, chronic
MARBIN KNIGHT [facility] HC PRO PHONE CALL 5-10 MIN [id number] Diagnos is: ICD-10- CM F43.10 Post-tr aumatic stress disorde r, unspeci fied
SHANNAN RAMOS 12/17 [facility] Outpatient Encounter [id number] 12/17 [facility] [place] Outpatient Encounter [id number] NICK MORRIS 12/20 [facility] Outpatient Encounter [id number] 12/20 [facility] OFFICE O/P EST HI 40-54 MIN [id number] Diagnos is: ICD-10- CM R53.82 Chronic fatigue , unspeci fied
Unique BRICEÑO 12/24 [facility] [place] Outpatient Encounter [id number] 12/24 [facility] NEEDLE LOCALIZATI ON BY XRAY [id number] Diagnos is: ICD-10- CM M47.896 Other spondyl osis, lumbar region< br/> GILA ALFONSO 12[facility] [place] [facility] Outpatient Encounter [id number] 12/25 [facility] [place] [facility] Outpatient Encounter [id number] 01/07 [facility] OFFICE O/P EST HI 40-54 MIN [id number] Diagnos is: ICD-10- CM F10.20 Alcohol depende nce, uncompl icated< br/> Unique BRICEÑO 01/23 [facility] Outpatient Encounter [id number] 01/28 [facility] OFFICE O/P EST MOD 30-39 MIN [id number] Diagnos is: ICD-10- CM E78.5 Hyperli pidemia , unspeci fied
NEEUT SIERRA 01/28 [facility] Outpatient Encounter [id number] 01/28 [facility] Outpatient Encounter [id number] 02/04 [facility] HC PRO PHONE CALL 5-10 MIN [id number] Diagnos is: ICD-10- CM F33.9 Major depress mare disorde r, recurre nt, unspeci fied
GEGE ESCALERA 02/05 [facility] [facility] Outpatient Encounter [id number] 02/06 [facility] Outpatient Encounter [id number] 02/06 [facility] Outpatient Encounter [id number] Diagnos is: ICD-10- CM F11.21 Opioid depende nce, in remissi on
NICK MORRIS 02/19 [facility] Outpatient Encounter [id number] 02/20 [facility] HC PRO PHONE CALL 5-10 MIN [id number] Diagnos is: ICD-10- CM F43.12 Post-tr aumatic stress disorde r, chronic
LINDSEYJAYANT VERONICA Vyas 02/21 [facility] Outpatient Encounter [id number] 03/11 [facility] ECHO GUIDE FOR BIOPSY [id number] Diagnos is: ICD-10- CM F43.12 Post-tr aumatic stress disorde r, chronic
Zakiya VEGA 03/11 [facility] Outpatient Encounter [id number] Diagnos is: ICD-10- CM F11.21 Opioid depende nce, in remissi on
NICK MORRIS 03/19 [facility] OFFICE O/P EST HI 40-54 MIN [id number] Diagnos is: ICD-10- CM F10.20 Alcohol depende nce, uncompl icated< br/> Unique BRICEÑO ATRICIA J 03/31 [facility] Outpatient Encounter [id number] JOEY ECHAVARRIA ICA D 04/04 [facility] THERAPEUTI C EXERCISES [id number] Diagnos is: ICD-10- CM Z73.3 Stress, not elsewhe re classif ied<br/ > OPHELIA LARSON S 04/09 [facility] Outpatient Encounter [id number] 04/11 [facility] Outpatient Encounter [id number] 04/15 [facility] PT EDUCATION NOC GROUP [id number] Diagnos is: ICD-10- CM Z71.9 Checking Clerk ing, unspeci fied
AT HANNA 04/24 [facility] Outpatient Encounter [id number] 04/28 [facility] OFFICE O/P EST HI 40-54 MIN [id number] Diagnos is: ICD-10- CM F34.1 Dysthym ic disorde r
ELIANA SOOD E 04/29 [facility] Outpatient Encounter [id number] NICK MORRIS E 05/07 [facility] OFFICE O/P EST MOD 30-39 MIN [id number] Diagnos is: ICD-10- CM M43.26 Fusion of spine, lumbar region< br/> MARCO ANTONIO COMBS 05/08 [facility] Outpatient Encounter [id number] JOSE BAE 05/21 [facility] Outpatient Encounter [id number] Diagnos is: ICD-10- CM Z77.29 Contact with and exposur e to other hazardo us substan arturo<br/ > SAE BOLDEN RY B 05/26 [facility] Outpatient Encounter [id number] Diagnos is: ICD-10- CM F11.21 Opioid depende nce, in remissi on
MATHEW,COU RTNEY E 05/27 [facility] Outpatient Encounter [id number] Diagnos is: ICD-10- CM F11.21 Opioid depende nce, in remissi on
MATHEW,COU RTNEY E 05/27 [facility] Outpatient Encounter [id number] Diagnos is: ICD-10- CM Z23 Encount er for immuniz ation<b r/> CAT SAUNDERS 05/28 [facility] OFF/OP EST MAY X REQ PHY/QHP [id number] Diagnos is: ICD-10- CM F11.21 Opioid depende nce, in remissi on
MATHEW,BOB RTNEY E 05/28 [facility] RE-EVAL,ES T PT,PROBLEM FOCUS [id number] Diagnos is: ICD-10- CM G47.33 Obstruc tive sleep apnea (adult) ([facility])
KELSEY VILLANUEVA 06/09 [facility] PRO PHONE CALL 5-10 MIN [id number] Diagnos is: ICD-10- CM F43.12 Post-tr aumatic stress disorde r, chronic
JAYANT PORTILLO OLE M 06/17 [facility] Outpatient Encounter [id number] 06/20 [facility] PRO PHONE CALL 5-10 MIN [id number] Diagnos is: ICD-10- CM F43.12 Post-tr aumatic stress disorde r, chronic
SHANNAN RAMOS L 06/23 [facility] OFF/OP EST MAY X REQ PHY/QHP [id number] Diagnos is: ICD-10- CM F11.21 Opioid depende nce, in remissi on
MATHEW,COU RTNEY E 06/26 [facility] OFFICE O/P EST HI 40 MIN [id number] Diagnos is: ICD-10- CM F34.1 Dysthym ic disorde r
ELIANA SOOD DSEY E 07/04 [facility] Outpatient Encounter [id number] 07/10 [facility] FLUOROGUID E FOR SPINE INJECT [id number] [id number] Diagnos is: ICD-10- CM F43.12 Post-tr aumatic stress disorde r, chronic
PAIDINGILA E 07/10 [facility] Outpatient Encounter [id number] BOB MATHEW RTNEY E [facility] OFF/OP EST MAY X REQ PHY/QHP [id number] [id number] Diagnos is: ICD-10- CM F11.21 Opioid depende nce, in remissi on
BOB MATHEW RTNEY E 07/24 [facility] DENTAL SURFACE SCAN DIR 3D [id number] [id number] Diagnos is: ICD-10- CM G47.33 Obstruc tive sleep apnea (adult) ([facility])
JOSE BAE 07/24 [facility] OFF/OP EST MAY X REQ PHY/QHP [id number] [id number] Diagnos is: ICD-10- CM F11.21 Opioid depende nce, in remissi on
BOB MATHEW RTNEY E 08/21 [facility] Outpatient Encounter [id number] BOB MATHEW RTNEY E 08/28 [facility] OFFICE O/P EST HI 40 MIN [id number] Diagnos is: ICD-10- CM F33.9 Major depress mare disorde r, recurre nt, unspeci fied
ELIANA SOOD DSEY E 08/31 [facility] OCCLUSAL ORTHOTIC APPLIANCE [id number] Diagnos is: ICD-10- CM G47.33 Obstruc tive sleep apnea (adult) ([facility])
RAMP,JOSE A 09/04 [facility] OFF/OP EST MAY X REQ PHY/QHP [id number] [id number] Diagnos is: ICD-10- CM F11.21 Opioid depende nce, in remissi on
BOB MATHEW RTNEY E 09/18 [facility] OFFICE O/P EST HI 40 MIN [id number] [id number] Diagnos is: ICD-10- CM G89.4 Chronic pain syndrom e
OTF,RU PA P 09/28 [facility] Outpatient Encounter [id number] 10/09 [facility] OFF/OP EST MAY X REQ PHY/QHP [id number] [id number] Diagnos is: ICD-10- CM F11.21 Opioid depende nce, in remissi on
BOB MATHEW RTNEY E 10/16 [facility] Outpatient Encounter [id number] BOB MATHEW RTNEY E 10/22 [facility] REPAIR CUST SLEEP APNEA APPL [id number] [id number] Diagnos is: ICD-10- CM G47.33 Obstruc tive sleep apnea (adult) ([facility])
JO[facility] BAE A 10[facility]22 [facility] OFFICE O/P EST HI 40 MIN [id number] [id number] Diagnos is: ICD-10- CM R53.82 Chronic fatigue , unspeci fied
ASHLEY MALONE 10/22 [facility] IMG RTA DETCJ/MNTR DS STAFF [id number] Diagnos is: ICD-10- CM Z01.00 Encount er for exam of eyes and vision w/o abnorma l finding s
CONNER HAUSER J 10/22 [facility] Outpatient Encounter [id number] Diagnos is: ICD-10- CM Z01.01 Encount er for exam of eyes and vision w abnorma l finding s
MAA,10/26 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
ELIANA SOOD DSEY E 10/29 [facility] Outpatient Encounter [id number] 11/03 [facility] OFF/OP EST MAY X REQ PHY/QHP [id number] [id number] Diagnos is: ICD-10- CM F11.21 Opioid depende nce, in remissi on
MATHEW,COU RTNEY E 11/13 [facility] Outpatient Encounter [id number] 11/24 [facility] OFF/OP EST MAY X REQ PHY/QHP [id number] [id number] Diagnos is: ICD-10- CM F11.21 Opioid depende nce, in remissi on
MATHEW,COU RTNEY E 12/11 [facility] Outpatient Encounter [id number] 12/25 [facility] OFFICE O/P EST HI 40 MIN [id number] Diagnos is: ICD-10- CM F34.1 Dysthym ic disorde r
ELIANA SOOD 12/31 [facility] GROUP PSYCHOTHER APY [id number] Diagnos is: ICD-10- CM F10.20 Alcohol depende nce, uncompl icated< br/> WALTER SIMS 01/13 [facility] PRO PHONE CALL 21-30 MIN [id number] Diagnos is: ICD-10- CM F43.10 Post-tr aumatic stress disorde r, unspeci fied
THEA MACKAY 01/29 [facility] Outpatient Encounter [id number] 02/04 [facility] OFFICE O/P EST MOD 30 MIN [id number] Diagnos is: ICD-10- CM H35.371 Puckeri ng of macula, right eye<br/ > Matthew JENSEN 02/04 [facility] Outpatient Encounter [id number] 02/04 [facility] OFFICE O/P EST MOD 30 MIN [id number] Diagnos is: ICD-10- CM R53.82 Chronic fatigue , unspeci fied
ASHLEY MALONE 02/04 [facility] Outpatient Encounter [id number] 02/05 [facility] Outpatient Encounter [id number] 02/16 [facility] Outpatient Encounter [id number] 02/22 [facility] Outpatient Encounter [id number] 02/22 [facility] MTMS BY PHARM EST 15 MIN [id number] [id number] Diagnos is: ICD-10- CM M54.2 Cervica lgia
Queenie VERDUZCO A 02/24 [facility] OFFICE O/P EST HI 40 MIN [id number] Diagnos is: ICD-10- CM F33.9 Major depress mare disorde r, recurre nt, unspeci fied
ELIANA SOOD E 03/25 [facility] OFFICE O/P EST SF 10 MIN [id number] Diagnos is: ICD-10- CM H02.834 Dermato chalasi s of left upper eyelid< br/> Matthew LYONS A 03/25 [facility] Outpatient Encounter [id number] 03/26 [facility] ADJUNCTIVE PROCEDURE [id number] Diagnos is: ICD-10- CM G47.33 Obstruc tive sleep apnea (adult) ([facility])
JOSE BAE A 05/05 [facility] Outpatient Encounter [id number] 05/06 [facility] DENTAL SURFACE SCAN DIR 3D [id number] [id number] Diagnos is: ICD-10- CM G47.33 Obstruc tive sleep apnea (adult) ([facility])
JOSE BAE A 05/18 [facility] SYNCH AUDIO-VIDE O EST HI 40 [id number] Diagnos is: ICD-10- CM F33.9 Major depress mare disorde r, recurre nt, unspeci fied
ELIANA SOOD E 05/27 THAIS HAINES [facility] Social History Combined list of available smoking, tobacco, and other social history from Department of Defense and Veterans Affairs facilities. Social History Type Response Date Comment Sourc e Tobacco smoking status NHIS VA-TOBACCO FORMER USER 10/23/2023 KELLY RODRIGUEZ [facility] History of tobacco use VA-TOBACCO QUIT 5 TO < 15 YRS 10/23/2023 [facility] History of tobacco use VA-TOBACCO FORMER USER 09/05/2022 [facility] History of tobacco use VA-TOBACCO QUIT 5 TO < 15 YRS 06/12/2021 [facility] History of tobacco use VA-TOBACCO FORMER USER 06/13/2020 [facility] History of tobacco use MO-TOBACCO QUIT 1 5 YRS OR MORE 12/03/2018 [facility] History of tobacco use FORMER TOBACCO US E >1Y <7Y 11/26/2017 [facility] History of tobacco use FORMER TOBACCO US E >1Y <7Y 04/01/2017 [facility] History of tobacco use INPT NO TOBACCO U SE IN LAST 30 DAYS 11/27/2016 [facility] History of tobacco use LIFETIME NON-TOBA VISUALIZATION DEVELOPER USER 02/08/2016 [facility] History of tobacco use FORMER TOBACCO US ER 7Y OR GREATER 10/18/2014 [facility] History of tobacco use FORMER TOBACCO USE <1Y 12/27/2013 [facility] History of tobacco use LIFETIME NON-TOBA VISUALIZATION DEVELOPER USER 04/04/2011 [facility] Plan of Care List of future care activities from Department of Veterans Affairs facilities. Additional future care activities may be listed in the Assessment and Plan section. Date/Time Care Activity Care Activity Detail Facili ty 07/21/2024 AMBULATORY - SURGERY AMBULATORY - SURGERY [facility] 08/26/2024 AMBULATORY - PSYCHIATRY AMBULATORY - PSYC HIATRY [facility] 09/03/2024 AMBULATORY - SURGERY AMBULATORY - SURGERY [facility] 05/06/2024 Consult Order COMMUNITY CARE-T REATMENT RESISTANT DEPRESSION Cons Copy Machine Operator's Choice [facility]
--- OUTSIDE RECORDS SUMMARY | 2024-06-04 11:48 | XMS_ITS | Encounter Summary ---
Author Name [facility] [place] [facility] [place] [facility] [place] [facility] [place] Address [address] [place] [address] Care Team Providers Care Honey Blender Name Role Phone STEPHEN WONG Primary Care Provider Unavailab le Insurance Providers: All historical and current [...] Merchant's Name Patient's Relationship to Policy Merchant [facility] (WNR) MEDICARE [facility] (WNR) May 19, 2019 [id number] [phone] Lilliam WEBER PATIENT [facility] (WNR) MEDICARE [facility] (WNR) May 19, 2019 [id number] [phone] Lilliam WEBER PATIENT [facility] (WNR) MEDICARE [facility] (WNR) May 19, 2019 [id number] [phone] Lilliam WEBER PATIENT [facility] (WNR) MEDICARE ADVANTAGE MEDIC ARE CHERRI Alvarado May 19, 2016 [id number] [phone] Lilliam WEBER PATIENT Selected Encounter This section includes the information on record at [place] for the Encounter. Date/Time Encounter Type Encounter Description Reason Pro vider Source May 06, 2024 11:56 AM Outpatient Encounter SUBSTANCE USE DISORDER IND IHE Encounter Template Text not used by [place] Plan of Treatment: Future Appointments (+ 6 months) and Future Tests (+/- 45 days) The Plan of Treatment section includes future care activities for the patient from all [place] [facility] This section includes future appointments and future orders which are active, pending or scheduled. Future Appointments This section includes appointments that were scheduled to occur 6 months from the date of the Encounter, up to a maximum of 20 appointments. The data comes from all [facility]. Appointment Date/Time Appointment Type Appointme nt Facility Name May 18, 2024 09:30 AM AMBULATORY - SURGERY [facility] May 24, 2024 10:00 AM AMBULATORY - NONE [facility] May 27, 2024 10:00 AM AMBULATORY - PSYCHIATRY [facility] Jul 21, 2024 11:45 AM AMBULATORY - SURGERY [facility] Aug 26, 2024 10:30 AM AMBULATORY - PSYCHIATRY [facility] Sep 03, 2024 09:30 AM AMBULATORY - SURGERY [facility] Active, Pending, and Scheduled Orders This section includes a listing of several types of active, pending, and scheduled orders, including clinic medications orders, diagnostic test orders, procedure orders and consult orders; where the start date of the order is 45 days before the date of the Encounter or 45 days after the date of theEncounter. The data comes from all [facility]. Test Date/Time Test Type Test Details Facility Name Mar 25, 2024 08:41 AM Laboratory - Chemi stry Order DRUG TOXICOLOGY, ORAL FLUID SALIVA WC ONCE [facility] May 06, 2024 02:29 PM Consult Order COMMUNITY CARE-TREATMENT RESISTANT DEPRESSION Cons Operations Systems Specialist's Choice [facility] Social History: Smoking Status (Most current) and Tobacco Use (All prior to encounter date) This section includes the most current, and the historical, smoking and tobacco- related health factors from the [place] facility where the Encounter took place. Current Smoking Status This section includes the most current smoking, or tobacco-related health factor, from the [place] facility where the Encounter took place. Date/Time Current Smoking Status Comment Facil ity Oct 23, 2023 11:00 AM VA-TOBACCO FORMER USER [facility] Tobacco Use History This section includes a history of the smoking, or tobacco-related health factors, that were collected on or before the date of the Encounter. The data comes from the [place] facility where the Encounter took place. Date/Time Smoking Status/Tobacco Use Comment F acility Oct 23, 2023 11:00 AM VA-TOBACCO QUIT 5 TO < 15 YRS [facility] Sep 05, 2022 11:00 AM VA-TOBACCO FORMER USER [facility] Sep 05, 2022 11:00 AM VA-TOBACCO QUIT 15 YRS OR MORE [facility] Jun 12, 2021 09:51 AM VA-TOBACCO FORMER USER [facility] Jun 12, 2021 09:51 AM VA-TOBACCO QUIT 5 TO < 15 YRS [facility] Jun 13, 2020 09:30 AM VA-TOBACCO FORMER USER [facility] Jun 13, 2020 09:30 AM VA-TOBACCO QUIT 1 TO < 5 YRS [facility] Dec 03, 2018 09:23 AM VA-TOBACCO FORMER USER [facility] Dec 03, 2018 09:23 AM VA-TOBACCO QUIT 15 YRS OR MORE [facility] Nov 26, 2017 03:17 PM FORMER TOBACCO USE >1Y <7Y [facility] Apr 01, 2017 10:30 AM FORMER TOBACCO USE >1Y <7Y [facility] Nov 27, 2016 01:58 AM INPT NO TOBACCO USE IN LAST 30 D AYS [facility] Feb 08, 2016 10:07 AM LIFETIME NON-TOBACCO USER [facility] Oct 18, 2014 08:28 AM FORMER TOBACCO USER 7Y OR GREATE R [facility] Dec 27, 2013 10:02 AM FORMER TOBACCO USE <1Y [facility] Apr 04, 2011 11:33 AM LIFETIME NON-TOBACCO USER [facility] Encounter Notes: All associated encounter notes This section contains the clinical notes associated to the Encounter. Date/Time Encounter Note(s) Provider Source May 06, 2024 11:56 AM REPORT OF CONTACT: LOCAL TITLE: PATIENT CONTACT NOTE STANDARD TITLE: REPORT OF CONTACT DATE OF NOTE: MAY 06, 2024@11:56 ENTRY DATE: MAY 06, 2024@11:57:43 AUTHOR: CASSIDY CERVANTES EXP COSIGNER: URGENCY: STATUS: COMPLETED PATIENT CONTACT NOTE Has ADDENDA Patient contact Name of [place]: MOOK WEBER Name/Relationship of Contact if other than : Date & Time of Contact: Apr@11:59 Type of Contact: Telephone Reason for Contact: [place] requests call. /yung/ CASSIDY CERVANTES Gas Engine Mechanic Signed: 05/06/2024 11:59 Receipt Acknowledged By: 05/06/2024 14:42 /yung/ MONIQUE CHRISTOPHER MD STAFF PSYCHIATRIST 05/06/2024 14:17 /yung/ DEL MATHEW STAFF NURSE, ARS 1J 05/06/2024 ADDENDUM STATUS: COMPLETED Called at number listed in chart. is currently [facility] treatments in the community and needed a new consult to be put in for community care to schedule follow-up appts. for May. Updated Dr. Christopher who put in a new community consult for Ketamine treatment for the new year. /yung/ DEL MATHEW STAFF NURSE, ARS 1J Signed: 05/06/2024 14:43 CASSIDY CERVANTES [facility]
--- OUTSIDE RECORDS SUMMARY | 2024-06-04 11:49 | XMS_ITS | Encounter Summary ---
Author Name [facility] [place] Organization [place] Address [address] [place] [address] Care Team Providers Care Delivery Truck Driver Name Role Phone STEPHEN WONG Primary Care [...] Merchant's Name Patient's Relationship to Policy Merchant [facility] (WNR) MEDICARE ADVANTAGE [facility] (WNR) May 19, 2019 [id number] [phone] Lilliam WEBER PATIENT [facility] (WNR) MEDICARE ADVANTAGE [facility] (WNR) May 19, 2019 [id number] [phone] Lilliam WEBER PATIENT [facility] (WNR) MEDICARE ADVANTAGE [facility] (WNR) May 19, 2019 [id number] [phone] Lilliam WEBER PATIENT [facility] (WNR) MEDICARE ADVANTAGE MEDIC ARE CHERRI Alvarado May 19, 2016 [id number] [phone] Lilliam WEBER PATIENT Selected Encounter This section includes the information on record at [place] for the Encounter. Date/Time Encounter Type Encounter Description Reason Provider Source May 27, 2024 10:00 AM SYNCH AUDIO-VIDEO EST [facility] - IND ICD-10-CM F33.9 Major depressive disorder, recurrent, unspecified MONIQUE SOOD Encounter Template Text not used by [place] Assessments - Encounter Diagnoses This section includes the primary and secondary diagnoses documented for the Encounter. Date/Time Primary/Secondary Diagnosis Diagnosis Name Provider Source May 27, 2024 11:30 AM PRIMARY Major depressive disorder, recurrent, unspecified MONIQUE SOOD [facility] May 27, 2024 11:30 AM SECONDARY Anxiety disorder, unspecified MONIQUE SOOD [facility] May 27, 2024 11:30 AM SECONDARY Chronic fatigue, unspecified MONIQUE SOOD [facility] May 27, 2024 11:30 AM SECONDARY Opioid dependence, in remission MONIQUE SOOD [facility] May 27, 2024 11:30 AM SECONDARY Post-traumatic stress disorder, unspecified MONIQUE SOOD [facility] Plan of Treatment: Future Appointments (+ 6 months) and Future Tests (+/- 45 days) The Plan of Treatment section includes future care activities for the patient from all [place] [facility]. This section includes future appointments and future orders which are active, pending or scheduled. Future Appointments This section includes appointments that were scheduled to occur 6 months from the date of the Encounter, up to a maximum of 20 appointments. The data comes from all [facility]. Appointment Date/Time Appointment Type Appointme nt Facility Name Jul 21, 2024 11:45 AM AMBULATORY - SURGERY [facility] Aug 26, 2024 10:30 AM AMBULATORY - PSYCHIATRY [facility] Sep 03, 2024 09:30 AM AMBULATORY - SURGERY [facility] Active, Pending, and Scheduled Orders This section includes a listing of several types of active, pending, and scheduled orders, including clinic medications orders, diagnostic test orders, procedure orders and consult orders; where the start date of the order is 45 days before the date of the Encounter or 45 days after the date of theEncounter. The data comes from all [facility]. Test Date/Time Test Type Test Details Facility Name May 06, 2024 02:29 PM Consult Order COMMUNITY CARE-TREATMENT RESISTANT DEPRESSION Cons Senior Java Web Developer's Choice [facility] Social History: Smoking Status (Most current) and Tobacco Use (All prior to encounter date) This section includes the most current, and the historical, smoking and tobacco- related health factors from the [place] facility where the Encounter took place. Current Smoking Status This section includes the most current smoking, or tobacco-related health factor, from the [place] facility where the Encounter took place. Date/Time Current Smoking Status Comment Facil ity Oct 23, 2023 11:00 AM VA-TOBACCO FORMER USER [facility] Tobacco Use History This section includes a history of the smoking, or tobacco-related health factors, that were collected on or before the date of the Encounter. The data comes from the [place] facility where the Encounter took place. Date/Time Smoking Status/Tobacco Use Comment F acility Oct 23, 2023 11:00 AM VA-TOBACCO QUIT 5 TO < 15 YRS [facility] Sep 05, 2022 11:00 AM VA-TOBACCO FORMER USER [facility] Sep 05, 2022 11:00 AM VA-TOBACCO QUIT 15 YRS OR MORE [facility] Jun 12, 2021 09:51 AM VA-TOBACCO FORMER USER [facility] Jun 12, 2021 09:51 AM VA-TOBACCO QUIT 5 TO < 15 YRS [facility] Jun 13, 2020 09:30 AM VA-TOBACCO FORMER USER [facility] Jun 13, 2020 09:30 AM VA-TOBACCO QUIT 1 TO < 5 YRS [facility] Dec 03, 2018 09:23 AM VA-TOBACCO FORMER USER [facility] Dec 03, 2018 09:23 AM VA-TOBACCO QUIT 15 YRS OR MORE [facility] Nov 26, 2017 03:17 PM FORMER TOBACCO USE >1Y <7Y [facility] Apr 01, 2017 10:30 AM FORMER TOBACCO USE >1Y <7Y [facility] Nov 27, 2016 01:58 AM INPT NO TOBACCO USE IN LAST 30 D AYS [facility] Feb 08, 2016 10:07 AM LIFETIME NON-TOBACCO USER [facility] Oct 18, 2014 08:28 AM FORMER TOBACCO USER 7Y OR GREATE R [facility] Dec 27, 2013 10:02 AM FORMER TOBACCO USE <1Y [facility] Apr 04, 2011 11:33 AM LIFETIME NON-TOBACCO USER [facility] Encounter Notes: All associated encounter notes This section contains the clinical notes associated to the Encounter. Date/Time Encounter Note(s) Provider Source May 27, 2024 08:02 AM PSYCHIATRY E & M N OTE: LOCAL TITLE: PSYCHIATRIC EVALUATION & MANAGEMENT STANDARD TITLE: PSYCHIATRY E & M NOTE DATE OF NOTE: MAY 27, 2024@08:02 ENTRY DATE: MAY 27, 2024@08:02:38 AUTHOR: MONIQUE SOOD COSIGNER: URGENCY: STATUS: COMPLETED ARS ([facility]) Medication Management FOLLOW-UP Total time spent on visit (including documentation and supportive psychotherapy): 40min. - Visit conducted by synchronous telehealth. [place] verbal consent obtained. Location/emergency number confirmed. Environment surveyed and all participants identified. Virtual conference room locked. PERTINENT BACKGROUND/ID: hospitalization x1, no history of suicide attempts. Lives with , x1, has children and grandchildren. Strained relationship with daughters, good relationship with son (all children from first marriage). ASSESSMENT: is seen today for follow-up. Ketamine started in the community remains very helpful for mood and PTSD symptoms, eliminated passive SI thoughts, encourage continuing. Will otherwise leave medications unchanged given reported efficacy without side effects, encouraged re-start to using lightbox in the AM. DIAGNOSES: # Persistent Depressive Disorder with intermittent Major depressive episodes, in partial remission # PTSD # Unspecified anxiety disorder, r/o BABITA # h/o OCD traits (OCPD?) # Alcohol use disorder, severe, in sustained remission # Opioid use disorder, severe, in sustained remission on partial agonist # Chronic Fatigue Syndrome (per [facility]) # Chronic pain # Mild Cognitive Impairment (per [facility] neuropsych testing ~) # TBI-- reports h/o 5-6 concussions with loss of consciousness # mild DOMINGUEZ using dental device TREATMENT PLAN: 1. Medications: -continue suboxone 12mg BID for opioid use disorder, pain -continue gabapentin 1800mg daily (taking 900mg BID) for pain, anxiety -continue duloxetine 120mg for mood, trauma, anxiety (and pain) -naloxone spray-has at home 2. Other: *ketamine (infusions in community, the Remedy) *light box - continue daily in the AM for mood, circadian rhythm *stellate ganglion block per pain team for PTSD 3. Psychotherapy: not interested 4. Movement/exercise/nutrition : continue daily exercise, adherence to whole foods diet 5. UDS: periodic given controlled substance script 6. EKG: PRN. 11/2014- Qtc 425ms, NSR 7. Return to clinic: ~2mo Future considerations: -consider the following medications/supplements if depressive sx worsen despite ketamine: Vyvanse, lamotrigine, omega3 (EPA>DHA), MAOI -MOCA/neuropsych if notices worsening of memory/cognition -VBR, ETS groups? ~~~~~~~~~~~~~~~~~~~~~~~~~Ashley icide Risk Assessment~~~~~~~~~~~~~~~~~ ~~~~~~ Chronic risk low, acute risk low RISK FACTORS: - demographics (age, race, gender, status) - chronic mental health issues - frequent/severe nightmares - chronic pain PROTECTIVE FACTORS: - absence of suicidal/homicidal ideation, intent, plan, or behaviors - absence of current substance use problems - perceived social support/connection - responsibility for other (family, children, pets, etc.) - future oriented / hopeful for future - help-seeking / engaging in MH treatments - adequate access to resources INTERVAL HISTORY: At last visit, no changes made. Since our last visit, called our clinic to let us know that he had been taking 120mg of duloxetine and wished to continue this. Today: -ketamine-going very well, denies any ill effects, but wondering about long- term side effects. Discussed some of these, also encouraged him to discuss with his ketamine provider. Once/week right now infusions, wondering about increased frequency? -mood overall good -PTSD nightmares periodically, but not as frequency as pre-ketamine. Similarly with dwelling on past experiences during the day -thinks buprenorphine going well so far, not thinking wants to do Sublocade at this time. -holidays-not real fond of the holidays, but got through with it -have made a few steps forward with one of daughters (have seen a few times now), feels positive -120mg of duloxetine feels like good dose, would like to stay -lightbox in the morning? not using currently, reminded to use -try to walk daily even when cold, go with RECENT SUBSTANCE USE/CRAVINGS: -no urge or cravings to use illicit opioids MEDICATION COMPLIANCE/SIDE EFFECTS: Reports adherence. Tolerating current regimen ~~~~~~~~~~~~~~~~~~~~~~~~~~~ ~~~~~~~~~~~~~~~~~~~~~~~~~~~ ~~~~~~~~~~~~~~~~~~~~~~~ ALLERGIES: Patient has answered NKA RECENT LABS: 03/2024-UDS + only for buprenorphine VITALS: Temperature: 97 F [36.1 C] (02/05/2024 09:23) Blood Pressure: 180/90 (03/25/2024 09:08) Pulse: 71 (03/25/2024 09:08) Respiration: 14 (03/25/2024 09:08) Pain: 8 (02/05/2024 09:23) Pulse Oximetry: 96% (03/25/2024 09:08) MENTAL STATUS EXAM: Appearance: appears stated age Attitude/behavior: calm, cooperative, open Eye contact: normal Speech: normal volume, rate and rhythm Mood: better Affect: congruent to mood, full range Thought process: logical, linear, goal-oriented Thought content: denies SI, HI, hallucinations or delusions Judgement/insight: good Cognition: attention intact to conversation, some subtle memory difficulties present Psychomotor activity, movements: unremarkable, no tremors/tics/involuntary movements noted ~~~~~~~~~~~~~~~~~~~~~~PRIOR TREATMENT HISTORY:~~~~~~~~~~~~~~~~~~~ ~~~~~~~~~ -citalopram: 2005-, no lasting benefit -bupropion: with citalopram 2010, no help, in 2014 caused jaw clenching and no help; no lupe -Zoloft: before citalopram -fluoxetine: before citalopram -venlafaxine: ?thinks he took that -trazodone: does not recall -nortriptyline: 2014 brief trial no help -duloxetine: 2014, helped at first then felt jittery -mirtazapine 2014 -Vilazodone -Vortioxetine -prazosin: trial October 2011- reported worsened dreams -gabapentin: 2011- for sleep retrial 2018 helps with anxiety, sleep -buspirone: brief trial 2014, sedation and jaw clenching in combination with duloxetine -hydroxyzine: he thinks he took it -clonazepam 2017. Ineffective, made him sleepy -[place], 2021 (not effective) -Adderall XR 2017. Jaw clenching, speedy -Concerta 2017. Jaw clenching, speedy -Adderall IR, 2019. Jaw clenching, speedy -Modafinil - 2022, weight loss, felt oversimulated -aripiprazole: 2014, brief trial; patient improved significantly but stopped. 2018 retrial ineffective. -quetiapine: 2014, up to 50 mg, quit and can't say why -naltrexone: ?nausea, does not recall but did not like it -Suboxone, 2019-current, max 28mg daily *No MOAI trials /es/ MONIQUE SOOD MD STAFF PSYCHIATRIST Signed: 05/27/2024 11:30 MONIQUE SOOD [facility]
--- OUTSIDE RECORDS SUMMARY | 2024-06-04 11:49 | XMS_ITS | Encounter Summary ---
Author Name [facility] [place] [facility] Address [address] [place] [address] Care Team Providers Care Tool And Production Planner Name Role Phone STEPHEN WONG Primary Care [...] Merchant's Name Patient's Relationship to Policy Merchant [facility] [place] MEDICARE ADVANTAGE [facility] (WNR) May 19, 2019 [id number] [phone] Lilliam WEBER PATIENT [facility] [place]) MEDICARE ADVANTAGE [facility] (WNR) May 19, 2019 [id number] [phone] Lilliam WEBER PATIENT [facility] (WNR) MEDICARE ADVANTAGE [facility] (WNR) May 19, 2019 [id number] [phone] Lilliam WEBER PATIENT [facility] (WNR) MEDICARE ADVANTAGE MEDIC ARE CHERRI Alvarado May 19, 2016 [id number] [phone] Lilliam WEBER PATIENT Selected Encounter This section includes the information on record at [place] for the Encounter. Date/Time Encounter Type Encounter Description Reason Provider Source May 18, 2024 09:30 AM DENTAL SURFACE SCAN DIR 3D DENTAL ICD-10-CM G47.33 Obstructive sleep apnea (adult) (pediatric) JOSE BAE [facility] Encounter Template Text not used by [place] Assessments - Encounter Diagnoses This section includes the primary and secondary diagnoses documented for the Encounter. Date/Time Primary/Secondary Diagnosis Diagnosis Name Provider Source May 18, 2024 10:28 AM PRIMARY Obstructive sleep apnea (adult) (pediatric) JOSE BAE [facility] Plan of Treatment: Future Appointments (+ 6 months) and Future Tests (+/- 45 days) The Plan of Treatment section includes future care activities for the patient from all [place] [facility]. This section includes future appointments and future orders which are active, pending or scheduled. Future Appointments This section includes appointments that were scheduled to occur 6 months from the date of the Encounter, up to a maximum of 20 appointments. The data comes from all [facility]. Appointment Date/Time Appointment Type Appointme nt Facility Name May 24, 2024 10:00 AM AMBULATORY - NONE [facility] May 27, 2024 10:00 AM AMBULATORY - PSYCHIATRY [facility] Jul 21, 2024 11:45 AM AMBULATORY - SURGERY [facility] Aug 26, 2024 10:30 AM AMBULATORY - PSYCHIATRY [facility] Sep 03, 2024 09:30 AM AMBULATORY - SURGERY [facility] Active, Pending, and Scheduled Orders This section includes a listing of several types of active, pending, and scheduled orders, including clinic medications orders, diagnostic test orders, procedure orders and consult orders; where the start date of the order is 45 days before the date of the Encounter or 45 days after the date of theEncounter. The data comes from all [facility]. Test Date/Time Test Type Test Details Facility Name May 06, 2024 02:29 PM Consult Order COMMUNITY CARE-TREATMENT RESISTANT DEPRESSION Cons Director Corporate's Choice [facility] Vital Signs: All taken on the encounter date This section contains inpatient and outpatient Vital Signs collected on the date of the Encounter. Date/Time Temperature Pulse Blood Pressure Respiratory Rate SP02 Pain Height Weight Body Mass Index Source May 18, 2024 09:40 AM 97.7 73 115/70 [facility] Social History: Smoking Status (Most current) and Tobacco Use (All prior to encounter date) This section includes the most current, and the historical, smoking and tobacco- related health factors from the [place] facility where the Encounter took place. Current Smoking Status This section includes the most current smoking, or tobacco-related health factor, from the [place] facility where the Encounter took place. Date/Time Current Smoking Status Comment Facil ity Oct 23, 2023 11:00 AM VA-TOBACCO FORMER USER [facility] Tobacco Use History This section includes a history of the smoking, or tobacco-related health factors, that were collected on or before the date of the Encounter. The data comes from the [place] facility where the Encounter took place. Date/Time Smoking Status/Tobacco Use Comment F acility Oct 23, 2023 11:00 AM VA-TOBACCO QUIT 5 TO < 15 YRS [facility] Sep 05, 2022 11:00 AM VA-TOBACCO FORMER USER [facility] Sep 05, 2022 11:00 AM VA-TOBACCO QUIT 15 YRS OR MORE [facility] Jun 12, 2021 09:51 AM VA-TOBACCO FORMER USER [facility] Jun 12, 2021 09:51 AM VA-TOBACCO QUIT 5 TO < 15 YRS [facility] Jun 13, 2020 09:30 AM VA-TOBACCO FORMER USER [facility] Jun 13, 2020 09:30 AM VA-TOBACCO QUIT 1 TO < 5 YRS [facility] Dec 03, 2018 09:23 AM VA-TOBACCO FORMER USER [facility] Dec 03, 2018 09:23 AM VA-TOBACCO QUIT 15 YRS OR MORE [facility] Nov 26, 2017 03:17 PM FORMER TOBACCO USE >1Y <7Y [facility] Apr 01, 2017 10:30 AM FORMER TOBACCO USE >1Y <7Y [facility] Nov 27, 2016 01:58 AM INPT NO TOBACCO USE IN LAST 30 D AYS [facility] Feb 08, 2016 10:07 AM LIFETIME NON-TOBACCO USER [facility] Oct 18, 2014 08:28 AM FORMER TOBACCO USER 7Y OR GREATE R [facility] Dec 27, 2013 10:02 AM FORMER TOBACCO USE <1Y [facility] Apr 04, 2011 11:33 AM LIFETIME NON-TOBACCO USER [facility] Encounter Notes: All associated encounter notes This section contains the clinical notes associated to the Encounter. Date/Time Encounter Note(s) Provider Source May 18, 2024 10:25 AM DENTISTRY NOTE: LOCAL TITLE: Dental Clinic Note STANDARD TITLE: DENTISTRY NOTE DATE OF NOTE: MAY 18, 2024@10:25 ENTRY DATE: MAY 18, 2024@10:28:08 AUTHOR: JOSE BAE COSIGNER: URGENCY: STATUS: COMPLETED Patient Name: MOOK WEBER, : 1950, Age: 73 Visit: S: May 18, 2024@09:30 [facility] D[facility]AL TRIAGE CLINIC 2U. Primary PCE Diagnosis: G47.33 (OBSTRUCTIVE SLEEP APNEA (ADULT) (PEDIATRIC)). Dental Category: 17-OPC, Class . Treatment Status: Maintenance. Completed Care: (D0170) RE-EVAL,EST PT,PROBLEM FOCUS. DX: G47.33 Obstructive Sleep Apnea (Adult) (Pediatric) (D0801) DENTAL SURFACE SCAN DIR 3D. DX: G47.33 Obstructive Sleep Apnea (Adult) (Pediatric) - - - - - - - - - - - - - - - - - - - - - - - - - - - - - - Sterilization verification was performed by: Agata Wilson SUBJECTIVE: Pain: 0/10 CHIEF COMPLAINT: Patient is here to get impressions. My sleep appliance broke again! Pt has a history of mild obstructive sleep apnea (AHI 10). Dynaflex delivered 03/14/2020. Appliance relined 06/12/2022, then broke again in May 2023, delivered August 2023. Recently broke and repaired in clinic October 2023. Chandler score: 10 EXTRAORAL: Facial Symmetry: Within Normal Limits Muscles of Mastication: Within Normal Limits Temporomandibular Joint: Within Normal Limits INTRAORAL: Stephan Gauge: Range: to Right Posterior Occlusion: heavy Left Posterior Occlusion: heavy Anterior Occlusion: light Appliance missing both blocks, unable to repair Assessment: Broken MAD, indicated for new appliance PLAN: Stephan gauge protrusive record at +3 mm. Reviewed medical history, reviewed risks and benefits, answered questions and signed consents. Scanned for new appliance today on Spot. Return to clinic in 1 month. Delivery of: Dynaflex Dorsal Accu-Fit- added reinforcement to appliance. Dental Birdcage Assembler: Agata Segundo /yung/ JOSE BAE DDS STAFF DENTIST Signed: 05/18/2024 10:28 JOSE BAE [facility]
== END 2024-06-04 11:43 | disposition home or self-care (01) ==
PROVIDERS: Emergency Provider Internal Medicine; PCP Family Medicine
DX: B34.9 Viral infection, unspecified (principal)
CPT/HCPCS: 87631; 87651; 99283

== ENCOUNTER 2024-06-06 10:55 | Emergency (ER) | payer MEDICARE, BC, SELFPAY ==
--- OUTSIDE RECORDS SUMMARY | 2024-06-06 10:58 | XMS_ITS | Clinical Summary ---
Author Organization [facility] Address [place], [place] [address] Care Team Providers Care Machining Supervisor Name Role Phone Maria G Sanon MD [...] Encounters Date Type Department Care Team Description 06/06/2024 Nurse Triage [facility] [address] [place] [address] Maria G Sanon MD Medication Problem (Suboxone sublingual film) 06/02/2024 9:10 AM SCAFFOLDING HELPER Telemedicine [facility] [place] [address] Louisa Sena NP Error-please disregard (appt cancellation) 06/02/2024 Travel from Last 3 Months Immunizations Name Administration Dates Next Due AMB Influenza, IIV3 (Age >=3 years)(Flu Clinic Only) 04/13/2010 COVID-19 vaccine (H[employer]-Bio NTech 30mcg/0.3mL) 12YO+ BIVALENT PF, MDV 02/14/2022 [...] on file Legal Sex Male 5:26 AM SCAFFOLDING HELPER Gender Identity Not on file Sexual Orientation Not on file Obstetrics History Last Filed Vital Signs Vital Sign Reading Time Taken Comments Blood Pressure 122/72 04/22/2023 3:51 PM SCAFFOLDING HELPER Pulse 56 04/22/2023 3:51 PM SCAFFOLDING HELPER Temperature 36.6 C (97.9 F) 05/03/2022 11:25 AM SCAFFOLDING HELPER Respiratory Rate 16 05/03/2022 11:25 AM SCAFFOLDING HELPER Oxygen Saturation 97% 04/22/2023 3:51 PM SCAFFOLDING HELPER Inhaled Oxygen Concentration - - Weight 85.1 kg (187 lb 9.6 oz) 04/22/2023 3:51 P M SCAFFOLDING HELPER Height 180.3 cm (5' 11) 04/30/2022 7:03 AM SCAFFOLDING HELPER Body Mass Index 26.16 04/30/2022 7:03 AM SCAFFOLDING HELPER Plan of Treatment Health Maintenance Due Date [...] 04/05/2020, Additional history exists COVID-19 vaccine series ( season) 2024 05/28/2023, 02/14/2022, 03/05/2021, Additional history [...] history exists Medical Devices Implanted Type Area Arts And Crafts Teacher Device Identifier Shelf Expiration Date Model / Serial / Lot [id number] one Matrix 3cc Lizet Dbf Putty Dbm Implanted:Qty: 1 on 04/30/2022 by Ella Douglas MD at [facility] Spine Medtronic Spine/Ortho 02/26/2024 [id number] / [id number] / Bone Matrix 3cc Lizet Dbf Putty Dbm - [id number] Implanted:Qty: 1 on 04/30/2022 by Ella Douglas MD at [facility] Spine Med[employer]onic Spine/Ortho 02/26/2024 [id number] / [id number] / Bone 1-4mm 60cc Medtronic Fine Canclls Freeze Dried - [id number] Implanted:Qty: 1 on 04/30/2022 by Ella Douglas MD at [facility] Spine Medtronic Spine/Ortho 02/19/2026 [id number] / [id number] / Spacer Lmbr [id number] Capstone Tlif Peek - [id number] Implanted:Qty: 1 on 04/30/2022 by Ella Douglas MD at [facility] Spine Medtronic Spine/Ortho 05/22/2025 [id number] / / [id number] Spacer Lmbr [id number] Capstone Tlif Peek - [id number] Implanted:Qty: 1 on 04/30/2022 by Ella Douglas MD at [facility] Spine Medtronic Spine/Ortho 12/06/2024 [id number] / / [id number] Set Screw Lmbr Ant 5.5mm Solera Break Off - [id number] Implanted:Qty: 6 on 04/30/2022 by Ella Douglas MD at [facility] Sp[facility] Medtronic Spine/Ortho [id number] / / Wong Lmbr 70x5.5mm Solera 5.5/6 Cvd Titnm - [id number] Implanted:Qty: 2 on 04/30/2022 by Ella Douglas MD at [facility] Spine Medtronic Spine/Ortho [id number] / / Screw Lmbr Post 6.5x50mm Solera 5.5/6 Va Cocr - [id number] Implanted:Qty: 6 on 04/30/2022 by Ella Douglas MD at [facility] Spine Medtronic Spine/Ortho [id number] / / Procedures Procedure Name Priority Date/Time Associated Diagnosis Comments COLONOSCOPY SCREENING Routine 04/28/2023 8:07 AM SCAFFOLDING HELPER History of colon polyps CT CHEST WO Routine 07/07/2017 11:47 AM SCAFFOLDING HELPER Lung nodule < 6cm on CT LIPID PANEL Routine 04/17/2009 7:59 AM SCAFFOLDING HELPER Unspecified Chest Pain from Last 3 Months or Most Recently Relevant to Health Maintenance Results * RI COLONOSCOPY W/BIOPSY SINGLE/MULTIPLE (04/28/2023 12:00 AM SCAFFOLDING HELPER) Beto Brito MD PB - DIGESTIVE SYSTEM SER VICES Final Result * CT CHEST WO (07/07/2017 11:47 AM SCAFFOLDING HELPER) Anatomical Region Laterality Modality CHEST, THORAX, HEART Computed To mography 07/07/2017 12:4 0 PM SCAFFOLDING HELPER Narrative 07/07/2017 12:40 PM SCAFFOLDING HELPER INDICATION: Followup ground-glass right upper lobe pulmonary [...] 2017 12:40PM (Electronically Signed) Procedure Note Hector Coelho DO - 07/07/2017 INDICATION: Followup ground-glass right upper [...] ground-glass opacity in the right upper lobe. [employer] 2017 guidelines for management of incidentally detected [...] low as reasonably achievable. Dictated by Jairon Coelho, @ Jul 07 2017 12:40PM (Electronically Signed) us Maria G Sanon MD CT Final Result * (ABNORMAL) LIPID PANEL (04/17/2009 7:59 AM SCAFFOLDING HELPER) CHOLESTEROL,TOTAL 238(H) 110 - 199 mg/dL [facility] TRIGLYCERIDES 58 <150 mg/dL [facility] HDL CHOLESTEROL 63 >40 mg/dL [facility] CHOL/HDL RATIO 3.78 <4.51 [facility] LDL CHOLESTEROL 163(H) <131 mg/dL [facility] PATIENT STATUS Fasting [facility] Blood specimen (specimen) BLOOD SPECIMEN / Unknown 04/17/2009 7:59 AM SCAFFOLDING HELPER 04/17/2009 7:55 AM SCAFFOLDING HELPER us Herbie Simon MD CHEMISTRY Final Re sult [facility] [address] [place], [place] [id number] from Last 3 Months or Most Recently Relevant to Health Maintenance Insurance [place] HB ONLY MEDICARE PART B HB ONLY MEDICARE PART A HB ONLY [place] BL[place] MR PB ONLY WORKERS COMP Advance Directives * Full Code (Latest Code Status on File) Date Activated Date Inactivated Comments 04/30/2022 6:35 PM 05/03/2022 5:27 PM Question Answer Comments Code Status Discussion: Unable to Assess Preferences, Provider to review later Care Teams Machining Supervisor Relationship Specialty Start Date End Date Maria G Sanon MD [address] [facility] [address] PCP - General Family Practice 08/04/15
[2024-06-06 10:59] VITALS: BP 116/66; PULSE 75; RESP 16; TEMP 36.5; O2SAT 95; BMI 26.4
--- OUTSIDE RECORDS SUMMARY | 2024-06-06 10:59 | XMS_ITS | Continuity of Care Document ---
Author Organization [facility] Address [address] [place] [address] Phone Care Team Providers Care Waste Recycler Name Role Phone Katherine Patino MD Unavailable [...] [address], [place], [address], [place] tel:[phone] [facility] , No Information 7 Sukumar Murphy. [facility] [address], [place], [address], [place]. tel:[phone] [facility], [address], [place], [address], [place] tel:[phone] [facility] , No Information 7 Sukumar Murphy. [facility] [address], [place], [address], [place]. 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 [facility] [address], [place], [address], [place]. tel:[phone] Referring Provider: Katherine Monte, [facility] [address], [place], [address]. tel:[phone] Office/Outpa tient Visit, New [facility], [address], [place], [address], [place] tel:[phone] [facility] , Gout (chief complaint) Chronic gout w/ tophi 201 6 Sukumar Murphy. [facility] [address], [place], [address], [place]. tel:[phone] Referring Provider: Katherine Monte, [facility] [address], [place], [address]. tel:[phone] Family History Family Member Type Diagnosis Age At Onset Father Problem (finding) gout Brother Problem (finding) gout Payers Payer name Insurance type Covered constitution party ID Authoriza tiroberta(s) Bcbs Medicare Advantage/Plat inum Blue BL [id number] Social History Type Description Quantity Date Captured [...]
--- NOTE | 2024-06-06 11:20 | ED_ITS ---
HPI - General Adult General Chief complaint: Unspecified Complaint, Adult Stated complaint: Need new prescription Time Seen by Provider: 06/06/24 11:03 History of Present Illness HPI narrative: Patient is a 73-year-old gentleman who is on Suboxone for history of narcotic addiction. He was seen 2 days ago for viral syndrome I did treat him with prednisone. He has improved. Unfortunately due to the long holiday he is out of his Suboxone and is looking for early refill here at the [facility]. He gets [facility] through the [facility]. he states that the Suboxone was shipped and is actually at the post office which is not open for 2 days. Patient took his last dose 1/2 films of 8 mg this morning. He is otherwise feeling fine with no signs of withdrawal. Related Data Home Medications ?Medication ?Instructions ?Recorded ?Confirmed atorvastatin 40 mg tablet 40 mg PO QHS 02/27/22 06/04/24 buprenorphine 8 mg-naloxone 2 mg 1 film sublingual DAILY 02/27/22 06/04/24 sublingual film cetirizine 10 mg capsule (All Day 10 mg PO DAILY PRN 02/27/22 09/26/22 Allergy (cetirizine)) cholecalciferol (vitamin D3) 25 25 mcg PO DAILY 02/27/22 09/26/22 mcg (1,000 unit) capsule duloxetine HCL 60 mg PO DAILY 02/27/22 06/04/24 folic acid 1 mg tablet 1 mg PO DAILY 02/27/22 09/26/22 indomethacin 50 mg capsule 50 mg PO TID 02/27/22 09/26/22 lithium carbonate 450 mg 450 mg PO QHS 02/27/22 09/26/22 tablet,extended release methocarbamol 750 mg tablet 750 mg PO TID 02/27/22 09/26/22 polyethylene glycol 3350 17 17 g PO DAILY 02/27/22 09/26/22 gram/dose oral powder (ClearLax) terazosin 2 mg capsule 2 mg PO QHS 02/27/22 06/04/24 Previous Rx's ?Medication ?Instructions ?Recorded hydrocodone 5 mg-acetaminophen 325 1 tab PO Q4-6H PRN pain #14 tabs 02/27/22 mg tablet prednisone 20 mg tablet 20 mg PO BID #10 tabs 06/04/24 Allergies Allergy/AdvReac Type Severity Reaction Status Date / Time No Known Drug Allergies Allergy Verified 06/04/24 10:15 Review of Systems Status of ROS: Reports: 10 or more systems reviewed and unremarkable except as noted in History and below [facility] Social History Smoking Status: Never smoker Do you use any of these nicotine containing products: None How often do you have a drink containing alcohol: never How often do you have six or more drinks on one occasion: Never AUDIT-C Alcohol total score: 0 Non-prescribed substance use: denies use Exam Narrative: Exam Narrative: EXAM GENERAL: Patient appears comfortable and well. EYES: No scleral icterus. LYMPH: No supraclavicular or cervical lymphadenopathy. SKIN: Visible skin seen during exam normal or with benign process only. EXT: No dependent lower extremity pedal edema. HEART: Regular rate and rhythm with no murmurs, rubs, or gallops. LUNGS: Clear to auscultation bilaterally with no crackles or wheezes. ABD: Soft, non tender, non distended. PSYCH: Good eye contact, speech is not pressured. Const: Vital Signs, click to edit/add: Vital Signs - 24 hr 06/06/24 10:59 Temperature 97.7 F Pulse Rate [Pulse Oximeter] 75 Respiratory Rate 16 Blood Pressure [Ri ght Upper Arm] 116/66 Pulse Oximetry 95 Oxygen Delivery Me thod Room Air Course Course ED Course: Patient seen and examined. Explained we do not have ability to provide outpatient Suboxone through the ER. He is understanding and will present to the emergency room at the [facility] if he needs a refill before his package arrives. Vital Signs Vital signs: Initial Vital Signs Temperature 97.7 F 06/06/24 10:59 Temperature Source Temporal Artery Scan 06/06/24 10:59 Pulse Rate 75 06/06/24 10:59 Respiratory Rate 16 06/06/24 10:59 Blood Pressure 116/66 06/06/24 10:59 Blood Pressure Mean 82 06/06/24 10:59 Blood Pressure Position Sitting 06/06/24 10:59 Pulse Oximetry 95 06/06/24 10:59 Oxygen Delivery Method Room Air 06/06/24 10:59 Vital Signs Temperature 97.7 F 06/06/24 10:59 Pulse Rate 75 06/06/24 10:59 Respiratory Rate 16 06/06/24 10:59 Blood Pressure 116/66 06/06/24 10:59 Pulse Oximetry 95 06/06/24 10:59 Oxygen Delivery Method Room Air 06/06/24 10:59 Temperature 97.7 F 06/06/24 10:59 Pulse Rate 75 06/06/24 10:59 Respiratory Rate 16 06/06/24 10:59 Blood Pressure 116/66 06/06/24 10:59 Pulse Oximetry 95 06/06/24 10:59 Oxygen Delivery Method Room Air 06/06/24 10:59 Medical Decision Making MDM Narrative Medical decision making narrative: As above Discharge Plan Discharge Clinical Impression: Chronic pain Patient Disposition: Home, Self-Care Condition: Stable Instructions: Chronic Pain (ED) Additional Instructions: Unfortunately we are unable provide Suboxone through the ER. [facility] Activity Level: No Restrictions Discharge Diet: Regular Prescriptions: No Action duloxetine HCL 60 mg PO DAILY methocarbamol 750 mg tablet 750 mg PO TID buprenorphine-naloxone 8-2 mg film 1 film sublingual DAILY polyethylene glycol 3350 [ClearLax] 17 gram/dose powder 17 g PO DAILY All Day Allergy (cetirizine) 10 mg capsule 10 mg PO DAILY PRN terazosin 2 mg capsule 2 mg PO QHS folic acid 1 mg tablet 1 mg PO DAILY atorvastatin 40 mg tablet 40 mg PO QHS cholecalciferol (vitamin D3) 25 mcg (1,000 unit) capsule 25 mcg PO DAILY lithium carbonate 450 mg tablet extended release 450 mg PO QHS indomethacin 50 mg capsule 50 mg PO TID Rx Instructions: administer with food or milk hydrocodone-acetaminophen 5-325 mg tablet 1 tab PO Q4-6H PRN (Reason: pain) Qty: 14 0RF prednisone 20 mg tablet 20 mg PO BID Qty: 10 0RF Follow Up/Referrals: Maria G Sanon MD [Primary Care Provider] - Stand Alone Forms: [employer] Info Instructions
--- OUTSIDE RECORDS SUMMARY | 2024-06-06 11:33 | XMS_ITS | Continuity of Care Document ---
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 Ordering Provider: ASHLEY MALONE Report Released Date/Time: Oct 24, 2023 08:46 AM Reporting Lab: [facility] [address] Performing Lab: [facility] [address] [place] [facility] BASIC METABOLI C PANEL+MG GLOMERULAR FILTRATION RATE/1.73 SQ M.PREDICTE D [VOLUME RATE/AREA] IN SERUM, PLASMA OR BLOOD BY CREATININE -BASED FORMULA (CKD-EPI 2020) 70 60 02/04 Specimen Type: PLASMA No comment entered. Ordering Provider: ASHLEY MALONE Report Released Date/Time: Oct 24, 2023 08:46 AM Reporting Lab: [facility] [address] Performing Lab: [facility] [address] [place] [facility] CBC LEUKOCYTES [#/VOLUME] IN BLOOD BY AUTOMATED COUNT 4.5 4.0 - 11.0 02/04 Specimen Type: BLOOD No comment entered. Ordering Provider: ASHLEY MALONE Report Released Date/Time: Oct 24, 2023 08:46 AM Reporting Lab: [facility] [address] Performing Lab: [facility] [address] [place] [facility] CBC ERYTHROCYT ES [#/VOLUME] IN BLOOD BY AUTOMATED COUNT 4.31 4.60 - 6.20 02/04 L Specimen Type: BLOOD No comment entered. Ordering Provider: ASHLEY MALONE Report Released Date/Time: Oct 24, 2023 08:46 AM Reporting Lab: [facility] [address] Performing Lab: [facility] [address] [place] [facility] CBC HEMOGLOBIN [MASS/VOLU ME] IN BLOOD 13.5 g/dL 13.5 - 17.9 02/04 Specimen Type: BLOOD No comment entered. Ordering Provider: ASHLEY MALONE Report Released Date/Time: Oct 24, 2023 08:46 AM Reporting Lab: [facility] [address] Performing Lab: [facility] [address] [place] [facility] CBC HEMATOCRIT [VOLUME FRACTION] OF BLOOD BY AUTOMATED COUNT 41.7 41 - 54 02/04 Specimen Type: BLOOD No comment entered. Ordering Provider: ASHLEY MALONE Report Released Date/Time: Oct 24, 2023 08:46 AM Reporting Lab: [facility] [address] Performing Lab: [facility] [address] [place] [facility] CBC MCV [ENTITIC VOLUME] BY AUTOMATED COUNT 96.8 fL 80 - 100 02/04 Specimen Type: BLOOD No comment entered. Ordering Provider: ASHLEY MALONE Report Released Date/Time: Oct 24, 2023 08:46 AM Reporting Lab: [facility] [address] Performing Lab: [facility] [address] [place] [facility] CBC MCH [ENTITIC MASS] BY AUTOMATED COUNT 31.3 pg 27 - 33 02/04 Specimen Type: BLOOD No comment entered. Ordering Provider: ASHLEY MALONE Report Released Date/Time: Oct 24, 2023 08:46 AM Reporting Lab: [facility] [address] Performing Lab: [facility] [address] [place] [facility] CBC MCHC [MASS/VOLU ME] BY AUTOMATED COUNT 32.4 g/dL 32.0 - 37.5 02/04 Specimen Type: BLOOD No comment entered. Ordering Provider: ASHLEY MALONE Report Released Date/Time: Oct 24, 2023 08:46 AM Reporting Lab: [facility] [address] Performing Lab: [facility] [address] [place] [facility] CBC PLATELETS [#/VOLUME] IN BLOOD BY AUTOMATED COUNT 182 150 - 400 02/04 Specimen Type: BLOOD No comment entered. Ordering Provider: ASHLEY MALONE Report Released Date/Time: Oct 24, 2023 08:46 AM Reporting Lab: [facility] [address] Performing Lab: [facility] [address] [place] [facility] CBC PLATELET MEAN VOLUME [ENTITIC VOLUME] IN BLOOD BY AUTOMATED COUNT 9.6 fL 9.1 - 13.0 02/04 Specimen Type: BLOOD No comment entered. Ordering Provider: ASHLEY MALONE Report Released Date/Time: Oct 24, 2023 08:46 AM Reporting Lab: [facility] [address] Performing Lab: [facility] [address] [place] [facility] CBC ERYTHROCYT E DISTRIBUTI ON WIDTH [RATIO] BY AUTOMATED COUNT 12.4 11.5 - 14.5 02/04 Specimen Type: BLOOD No comment entered. Ordering Provider: ASHLEY MALONE Report Released Date/Time: Oct 24, 2023 08:46 AM Reporting Lab: [facility] [address] Performing Lab: [facility] [address] [place] [facility] IRON GROUP IRON [MASS/VOLU ME] IN SERUM OR PLASMA 73 ug/dL 65 - 175 02/04 Specimen Type: SERUM No comment entered. Ordering Provider: ASHLEY MALONE Report Released Date/Time: Oct 24, 2023 08:46 AM Reporting Lab: [facility] [address] Performing Lab: [facility] [address] [place] [facility] IRON GROUP IRON BINDING CAPACITY [MASS/VOLU ME] IN SERUM OR PLASMA 278 ug/dL 250 - 425 02/04 Specimen Type: SERUM No comment entered. Ordering Provider: ASHLEY MALONE Report Released Date/Time: Oct 24, 2023 08:46 AM Reporting Lab: [facility] [address] Performing Lab: [facility] [address] [place] [facility] IRON GROUP FERRITIN [MASS/VOLU ME] IN SERUM OR PLASMA 234.4 ng/mL 21.8 - 274.7 02/04 Specimen Type: SERUM No comment entered. Ordering Provider: ASHLEY MALONE Report Released Date/Time: Oct 24, 2023 08:46 AM Reporting Lab: [facility] [address] Performing Lab: [facility] [address] [place] [facility] IRON GROUP IRON SATURATION 26 20 - 50 02/04 Specimen Type: SERUM No comment entered. Ordering Provider: ASHLEY MALONE Report Released Date/Time: Oct 24, 2023 08:46 AM Reporting Lab: [facility] [address] Performing Lab: [facility] [address] [place] [facility] IRON GROUP TRANSFERRI N [MASS/VOLU ME] IN SERUM OR PLASMA 222 mg/dL 163 - 382 02/04 Specimen Type: SERUM No comment entered. Ordering Provider: ASHLEY MALONE Report Released Date/Time: Oct 24, 2023 08:46 AM Reporting Lab: [facility] [address] Performing Lab: [facility] [address] [place] [facility] DRUG SCREEN PANEL,UR INE BARBITURAT ES [PRESENCE] IN URINE BY SCREEN METHOD Negative 11/13 Specimen Type: URINE Comment: Presumptive Positive by screen, results not confirmed. Ordering Provider: MARYJANE MATHEW Report Released Date/Time: Nov 13, 2023 09:43 AM Reporting Lab: [facility] [address] Performing Lab: [facility] [address] [place] [facility] DRUG SCREEN PANEL,UR INE AMPHETAMIN ES [PRESENCE] IN URINE Negative 11/13 Specimen Type: URINE Comment: Presumptive Positive by screen, results not confirmed. Ordering Provider: MARYJANE MATHEW Report Released Date/Time: Nov 13, 2023 09:43 AM Reporting Lab: [facility] [address] Performing Lab: [facility] [address] [place] [facility] DRUG SCREEN PANEL,UR INE COCAINE [PRESENCE] IN URINE Negative 11/13 Specimen Type: URINE Comment: Presumptive Positive by screen, results not confirmed. Ordering Provider: MARYJANE MATHEW Report Released Date/Time: Nov 13, 2023 09:43 AM Reporting Lab: [facility] [address] Performing Lab: [facility] [address] [place] [facility] DRUG SCREEN PANEL,UR INE BENZODIAZE PINES [PRESENCE] IN URINE BY SCREEN METHOD Negative 11/13 Specimen Type: URINE Comment: Presumptive Positive by screen, results not confirmed. Ordering Provider: MARYJANE MATHEW Report Released Date/Time: Nov 13, 2023 09:43 AM Reporting Lab: [facility] [address] Performing Lab: [facility] [address] [place] [facility] DRUG SCREEN PANEL,UR INE CANNABINOI DS [PRESENCE] IN URINE BY SCREEN METHOD Negative 11/13 Specimen Type: URINE Comment: Presumptive Positive by screen, results not confirmed. Ordering Provider: MARYJANE MATHEW Report Released Date/Time: Nov 13, 2023 09:43 AM Reporting Lab: [facility] [address] Performing Lab: [facility] [address] [place] [facility] DRUG SCREEN PANEL,UR INE METHADONE [PRESENCE] IN URINE Negative 11/13 Specimen Type: URINE Comment: Presumptive Positive by screen, results not confirmed. Ordering Provider: MARYJANE MATHEW Report Released Date/Time: Nov 13, 2023 09:43 AM Reporting Lab: [facility] [address] Performing Lab: [facility] [address] [place] [facility] DRUG SCREEN PANEL,UR INE OPIATES [PRESENCE] IN URINE BY SCREEN METHOD Negative 11/13 Specimen Type: URINE Comment: Presumptive Positive by screen, results not confirmed. Ordering Provider: MARYJANE MATHEW Report Released Date/Time: Nov 13, 2023 09:43 AM Reporting Lab: [facility] [address] Performing Lab: [facility] [address] [place] [facility] DRUG SCREEN PANEL,UR INE PHENCYCLID INE [PRESENCE] IN URINE Negative 11/13 Specimen Type: URINE Comment: Presumptive Positive by screen, results not confirmed. Ordering Provider: MARYJANE MATHEW Report Released Date/Time: Nov 13, 2023 09:43 AM Reporting Lab: [facility] [address] Performing Lab: [facility] [address] [place] [facility] DRUG SCREEN PANEL,UR INE ETHANOL [MASS/VOLU ME] IN URINE Negative 11/13 Specimen Type: URINE Comment: Presumptive Positive by screen, results not confirmed. Ordering Provider: MARYJANE MATHEW Report Released Date/Time: Nov 13, 2023 09:43 AM Reporting Lab: [facility] [address] Performing Lab: [facility] [address] [place] [facility] DRUG SCREEN PANEL,UR INE CREATININE [MASS/VOLU ME] IN URINE 181.0 mg/dL 20.0 11/13 Specimen Type: URINE Comment: Presumptive Positive by screen, results not confirmed. Ordering Provider: MARYJANE MATHEW Report Released Date/Time: Nov 13, 2023 09:43 AM Reporting Lab: [facility] [address] Performing Lab: [facility] [address] [place] [facility] DRUG SCREEN PANEL,UR INE OXYCODONE [PRESENCE] IN URINE BY SCREEN METHOD Negative 11/13 Specimen Type: URINE Comment: Presumptive Positive by screen, results not confirmed. Ordering Provider: MARYJANE MATHEW Report Released Date/Time: Nov 13, 2023 09:43 AM Reporting Lab: [facility] [address] Performing Lab: [facility] [address] [place] [facility] DRUG SCREEN PANEL,UR INE BUPRENORPH INE+NORBUP RENORPHINE [PRESENCE] IN URINE POSITIVE 11/13 H Specimen Type: URINE Comment: Presumptive Positive by screen, results not confirmed. Ordering Provider: MARYJANE MATHEW Report Released Date/Time: Nov 13, 2023 09:43 AM Reporting Lab: [facility] [address] Performing Lab: [facility] [address] [place] [facility] DRUG SCREEN PANEL,UR INE TRAMADOL CUTOFF [MASS/VOLU ME] IN URINE FOR SCREEN METHOD Negative 11/13 Specimen Type: URINE Comment: Presumptive Positive by screen, results not confirmed. Ordering Provider: MARYJANE MATHEW Report Released Date/Time: Nov 13, 2023 09:43 AM Reporting Lab: [facility] [address] Performing Lab: [facility] [address] [facility] DRUG SCREEN PANEL,UR INE FENTANYL [PRESENCE] IN URINE Negative 11/13 Specimen Type: URINE Comment: Presumptive Positive by screen, results not confirmed. Ordering Provider: MARYJANE MATHEW Report Released Date/Time: Nov 13, 2023 09:43 AM Reporting Lab: [facility] [address] Performing Lab: [facility] [address] [facility] Vital Signs Combined list of inpatient and outpatient Vital Signs from Department of Defense and Veterans Affairs, ranging from 12 months to all on record, depending upon the facility. Vital Sign Value Date Comments Source SYSTOLIC BLOOD PRESSURE 115 05/18/2024 09:40:27 [facility] DIASTOLIC BLOOD PRESSURE 70 05/18/2024 09:40:27 [facility] TEMPERATURE 97.7 05/18/2024 09:40:27 [facility] 73 05/18/2024 09:40:27 [facility] SYSTOLIC BLOOD PRESSURE 180 03/25/2024 09:08:14 [facility] DIASTOLIC BLOOD PRESSURE 90 03/25/2024 09:08:14 [facility] PULSE OXIMETRY 96 03/25/2024 09:08:14 [place] [facility] PULSE 71 03/25/2024 09:08:14 [facility] RESPIRATION 14 03/25/2024 09:08:14 [facility] SYSTOLIC BLOOD PRESSURE 147 02/05/2024 09:23:32 [facility] DIASTOLIC BLOOD PRESSURE 81 02/05/2024 09:23:32 [facility] PULSE OXIMETRY 95 02/05/2024 09:23:32 [place] [facility] WEIGHT 185.7 02/05/2024 09:23:32 [facility] [place] [facility] BMI 25kg/m2 02/05/2024 09:23:32 [place] [facility] PAIN 8 02/05/2024 09:23:32 [facility] [place] [facility] TEMPERATURE 97 02/05/2024 09:23:32 [place] [facility] PULSE 63 02/05/2024 09:23:32 [place] [facility] RESPIRATION 16 02/05/2024 09:23:32 [place] [facility] SYSTOLIC BLOOD PRESSURE 128 10/23/2023 10:24:41 [facility] DIASTOLIC BLOOD PRESSURE 67 10/23/2023 10:24:41 [facility] PULSE OXIMETRY 98 10/23/2023 10:24:41 [facility] [place] [facility] WEIGHT 189.5 10/23/2023 10:24:41 [facility] BMI 26kg/m2 10/23/2023 10:24:41 [facility] PAIN 8 10/23/2023 10:24:41 [facility] HEIGHT 72 10/23/2023 10:24:41 [facility] TEMPERATURE 98.2 10/23/2023 10:24:41 [facility] PULSE 60 10/23/2023 10:24:41 [facility] RESPIRATION 14 10/23/2023 10:24:41 [facility] SYSTOLIC BLOOD PRESSURE 130 09/29/2023 08:48:18 [facility] DIASTOLIC BLOOD PRESSURE 71 09/29/2023 08:48:18 [facility] PULSE OXIMETRY 99 09/29/2023 08:48:18 [facility] WEIGHT 188.1 09/29/2023 08:48:18 [facility] BMI 26kg/m2 09/29/2023 08:48:18 [facility] PAIN 8 09/29/2023 08:48:18 [facility] TEMPERATURE 97.6 09/29/2023 08:48:18 [facility] PULSE 50 09/29/2023 08:48:18 [facility] RESPIRATION 16 09/29/2023 08:48:18 [facility] Encounters Combined list of: 1) Encounters from Department of Veterans Affairs facilities going back up to thelast 18 months. 2) Encounters from the Department of Defense facilities going back up to 280 months. Location Location Details Encounter Type Encounter Number Reason For Visit Attending Provider ADM Date DC Date Status Disposition Source [place] [facility] Outpatient Encounter [id number] 12/05 [place] [facility] [place] [facility] OFFICE O/P EST HI 40-54 MIN [id number] Diagnos is: ICD-10- CM F43.12 Post-tr aumatic stress disorde r, chronic
MARBIN KNIGHT 12/16 [facility] PRO PHONE CALL 5-10 MIN [id number] Diagnos is: ICD-10- CM F43.10 Post-tr aumatic stress disorde r, unspeci fied
SHANNAN RAMOS 12/17 [facility] Outpatient Encounter [id number] 12/17 [facility] Outpatient Encounter [id number] NICK MORRIS 12/20 [facility] Outpatient Encounter [id number] 12/20 [facility] OFFICE O/P EST HI 40-54 MIN [id number] Diagnos is: ICD-10- CM R53.82 Chronic fatigue , unspeci fied
Unique BRICEÑO 12/24 [facility] Outpatient Encounter [id number] 12/24 [facility] NEEDLE LOCALIZATI ON BY XRAY [id number] Diagnos is: ICD-10- CM M47.896 Other spondyl osis, lumbar region< br/> GILA ALFONSO 12/25 [facility] [place] [facility] Outpatient Encounter [id number] 12[facility] [place] [facility] Outpatient Encounter [id number] 01/07 [facility] OFFICE O/P EST HI 40-54 MIN [id number] Diagnos is: ICD-10- CM F10.20 Alcohol depende nce, uncompl icated< br/> Unique BRICEÑO 01/23 [facility] Outpatient Encounter [id number] 01/28 [facility] OFFICE O/P EST MOD 30-39 MIN [id number] Diagnos is: ICD-10- CM E78.5 Hyperli pidemia , unspeci fied
RIGONEETU Matthew A 01/28 [facility] Outpatient Encounter [id number] 01/28 [facility] Outpatient Encounter [id number] 02/04 [facility] PRO PHONE CALL 5-10 MIN [id number] Diagnos is: ICD-10- CM F33.9 Major depress mare disorde r, recurre nt, unspeci fied
GEGE ESCALERA 02/05 [facility] Outpatient Encounter [id number] 02/06 [facility] Outpatient Encounter [id number] 02/06 [facility] Outpatient Encounter [id number] Diagnos is: ICD-10- CM F11.21 Opioid depende nce, in remissi on
NICK MORRIS 02/19 [facility] Outpatient Encounter [id number] 02/20 [facility] HC PRO PHONE CALL 5-10 MIN [id number] [phone] Diagnos is: ICD-10- CM F43.12 Post-tr aumatic stress disorde r, chronic
JAYANT PORTILLO M 02/21 [facility] Outpatient Encounter [id number] 03/11 [facility] ECHO GUIDE FOR BIOPSY [id number] Diagnos is: ICD-10- CM F43.12 Post-tr aumatic stress disorde r, chronic
Zakiya VEGA 03/11 [facility] Outpatient Encounter [id number] [phone] Diagnos is: ICD-10- CM F11.21 Opioid depende nce, in remissi on
NICK MORRIS 03/19 [facility] OFFICE O/P EST HI 40-54 MIN [id number] Diagnos is: ICD-10- CM F10.20 Alcohol depende nce, uncompl icated< br/> Unique BRICEÑO ATRICIA J 03/31 [facility] Outpatient Encounter [id number] JOEY ECHAVARRIA ICA D 04/04 [facility] THERAPEUTI C EXERCISES [id number] Diagnos is: ICD-10- CM Z73.3 Stress, not elsewhe re classif ied<br/ > OPHELIA LARSON 04/09 [facility] Outpatient Encounter [phone] 04/11 [facility] Outpatient Encounter [phone] 04/15 [facility] [facility] PT EDUCATION NOC GROUP [id number] Diagnos is: ICD-10- CM Z71.9 Signal Repairer ing, unspeci fied
TA HANNA 04/24 [facility] Outpatient Encounter [id number] 04/28 [facility] OFFICE O/P EST HI 40-54 MIN [id number] Diagnos is: ICD-10- CM F34.1 Dysthym ic disorde r
ELIANA SOOD E 04/29 [facility] Outpatient Encounter [id number] NICK MORRIS URTNEY E 05/07 [facility] OFFICE O/P EST MOD 30-39 MIN [id number] Diagnos is: ICD-10- CM M43.26 Fusion of spine, lumbar region< br/> MARCO ANTONIO COMBS A 05/08 [facility] Outpatient Encounter [id number] JOSE BAE A 05/21 [facility] Outpatient Encounter [id number] Diagnos is: ICD-10- CM Z77.29 Contact with and exposur e to other hazardo us substan arturo<br/ > SAE BOLDEN RY B 05/26 [facility] Outpatient Encounter [id number] Diagnos is: ICD-10- CM F11.21 Opioid depende nce, in remissi on
BOB MATHEW RTNEY E 05/27 [facility] Outpatient Encounter [id number] Diagnos is: ICD-10- CM F11.21 Opioid depende nce, in remissi on
PRIYANKA,BOB RTNEY E 05/27 [facility] Outpatient Encounter [id number] Diagnos is: ICD-10- CM Z23 Encount er for immuniz ation<b r/> CAT SAUNDERS 05/28 [facility] OFF/OP EST MAY X REQ PHY/QHP [id number] Diagnos is: ICD-10- CM F11.21 Opioid depende nce, in remissi on
MATHEW,COU RTNEY E 05/28 [facility] RE-EVAL,ES T PT,PROBLEM FOCUS [id number] Diagnos is: ICD-10- CM G47.33 Obstruc tive sleep apnea (adult) (pediat latanya)
KELSEY VILLANUEVA N 06/09 [facility] PRO PHONE CALL 5-10 MIN [id number] Diagnos is: ICD-10- CM F43.12 Post-tr aumatic stress disorde r, chronic
JAYANT PORTILLO 06/17 [facility] Outpatient Encounter [id number] 06/20 [facility] PRO PHONE CALL 5-10 MIN [id number] Diagnos is: ICD-10- CM F43.12 Post-tr aumatic stress disorde r, chronic
SHANNAN RAMOS 06/23 [facility] OFF/OP EST MAY X REQ PHY/QHP [id number] Diagnos is: ICD-10- CM F11.21 Opioid depende nce, in remissi on
MATHEW,COU RTNEY E 06/26 [facility] OFFICE O/P EST HI 40 MIN [id number] Diagnos is: ICD-10- CM F34.1 Dysthym ic disorde r
ELIANA SOODEY E 07/04 [facility] Outpatient Encounter [id number] 07/10 [facility] FLUOROGUID E FOR SPINE INJECT [id number] [id number] Diagnos is: ICD-10- CM F43.12 Post-tr aumatic stress disorde r, chronic
PAIDIN,MAR K E 07/10 [facility] Outpatient Encounter [id number] BOB MATHEW RTNEY E [facility] OFF/OP EST MAY X REQ PHY/QHP [id number] Diagnos is: ICD-10- CM F11.21 Opioid depende nce, in remissi on
BOB MATHEW RTNEY E 07/24 [facility] DENTAL SURFACE SCAN DIR 3D [id number] Diagnos is: ICD-10- CM G47.33 Obstruc tive sleep apnea (adult) (pediat latanya)
RAMP,JOSE A 07/24 [facility] OFF/OP EST MAY X REQ PHY/QHP [id number] Diagnos is: ICD-10- CM F11.21 Opioid depende nce, in remissi on
BOB MATHEW RTNEY E 08/21 [facility] Outpatient Encounter [id number] BOB MATHEW RTNEY E 08/28 [facility] OFFICE O/P EST HI 40 MIN [id number] Diagnos is: ICD-10- CM F33.9 Major depress mare disorde r, recurre nt, unspeci fied
ELIANA SOOD E 08/31 [facility] OCCLUSAL ORTHOTIC APPLIANCE [id number] Diagnos is: ICD-10- CM G47.33 Obstruc tive sleep apnea (adult) (pediat latanya)
RAMP,JOSE A 09/04 [facility] OFF/OP EST MAY X REQ PHY/QHP [id number] [id number] Diagnos is: ICD-10- CM F11.21 Opioid depende nce, in remissi on
MATHEW,COU RTNEY E 09/18 [facility] OFFICE O/P EST HI 40 MIN [id number] Diagnos is: ICD-10- CM G89.4 Chronic pain syndrom e
OTF,ALON PA P 09/28 [facility] Outpatient Encounter [id number] 10/09 [facility] OFF/OP EST MAY X REQ PHY/QHP [id number] [id number] Diagnos is: ICD-10- CM F11.21 Opioid depende nce, in remissi on
PRIYANKA,BOB RTNEY E 10/16 [facility] Outpatient Encounter [id number] BOB MATHEW RTNEY E 10/22 [facility] REPAIR CUST SLEEP APNEA APPL [id number] [id number] Diagnos is: ICD-10- CM G47.33 Obstruc tive sleep apnea (adult) (pediat latanya)
RAMP,JOSE A 10/22 [facility] OFFICE O/P EST HI 40 MIN [id number] Diagnos is: ICD-10- CM R53.82 Chronic fatigue , unspeci fied
ASHLEY MALONE 10/22 [facility] IMG RTA DETCJ/MNTR DS STAFF [id number] Diagnos is: ICD-10- CM Z01.00 Encount er for exam of eyes and vision w/o abnorma l finding s
NAHUMSHAYEBOBBY TAYLORMARCUS Sigala 10/22 [facility] Outpatient Encounter [id number] Diagnos is: ICD-10- CM Z01.01 Encount er for exam of eyes and vision w abnorma l finding s
MAA,10/26 [facility] OFFICE O/P EST HI 40 MIN [id number] Diagnos is: ICD-10- CM F33.9 Major depress mare disorde r, recurre nt, unspeci fied
ELIANA SOOD E 10/29 [facility] Outpatient Encounter [id number] 11/03 [facility] OFF/OP EST MAY X REQ PHY/QHP [id number] [id number] Diagnos is: ICD-10- CM F11.21 Opioid depende nce, in remissi on
BOB MATHEW RTNEY E 11/13 [facility] Outpatient Encounter [id number] 11/24 [facility] OFF/OP EST MAY X REQ PHY/QHP [id number] [id number] Diagnos is: ICD-10- CM F11.21 Opioid depende nce, in remissi on
BOB MATHEW RTNEY E 12/11 [facility] Outpatient Encounter [id number] 12/25 [facility] OFFICE O/P EST HI 40 MIN [id number] [id number] Diagnos is: ICD-10- CM F34.1 Dysthym ic disorde r
ELIANA SOOD 12/31 [facility] GROUP PSYCHOTHER APY [id number] Diagnos is: ICD-10- CM F10.20 Alcohol depende nce, uncompl icated< br/> WALTER SIMS Alfie 01/13 [facility] [place] [facility] HC PRO PHONE CALL 21-30 MIN [id number] [id number] Diagnos is: ICD-10- CM F43.10 Post-tr aumatic stress disorde r, unspeci fied
THEA MACKAY R 01/29 [place] [facility] Outpatient Encounter [id number] 02/04 [facility] OFFICE O/P EST MOD 30 MIN [id number] Diagnos is: ICD-10- CM H35.371 Puckeri ng of macula, right eye<br/ > Matthew JENSEN 02/04 [facility] [place] [facility] Outpatient Encounter [id number] 02/04 [facility] OFFICE O/P EST MOD 30 MIN [id number] [id number] Diagnos is: ICD-10- CM R53.82 Chronic fatigue , unspeci fied
ASHLEY MALONE 02/04 [place] [facility] [place] [facility] Outpatient Encounter [id number] 02/05 [facility] [place] [facility] Outpatient Encounter [id number] 02/16 [facility] [place] [facility] Outpatient Encounter [id number] 02/22 [place] [facility] [place] [facility] Outpatient Encounter [id number] 02/22 [facility] MTMS BY PHARM EST 15 MIN [id number] [id number] Diagnos is: ICD-10- CM M54.2 Cervica lgia
Queenie VERDUZCO A 02/24 [facility] OFFICE O/P EST HI 40 MIN [id number] Diagnos is: ICD-10- CM F33.9 Major depress mare disorde r, recurre nt, unspeci fied
ELIANA SOOD E 03/25 [facility] OFFICE O/P EST SF 10 MIN [id number] Diagnos is: ICD-10- CM H02.834 Dermato chalasi s of left upper eyelid< br/> Matthew LYONS A 03/25 [facility] Outpatient Encounter [id number] 03/26 [facility] ADJUNCTIVE PROCEDURE [id number] Diagnos is: ICD-10- CM G47.33 Obstruc tive sleep apnea (adult) (pediat latanya)
RAMPJOSE A 05/05 [facility] Outpatient Encounter [id number] 05/06 [facility] DENTAL SURFACE SCAN DIR 3D [id number] [id number] Diagnos is: ICD-10- CM G47.33 Obstruc tive sleep apnea (adult) (pediat latanya)
RAMP,JOSE A 05/18 [facility] SYNCH AUDIO-VIDE O EST HI 40 [id number] Diagnos is: ICD-10- CM F33.9 Major depress mare disorde r, recurre nt, unspeci fied
ELIANA SOOD E 05/27 [facility] Outpatient Encounter [id number] 06/06 THAIS HAINES [facility] Social History Combined list of available smoking, tobacco, and other social history from Department of Defense and Veterans Affairs facilities. Social History Type Response Date Comment Sourc e Tobacco smoking status NHIS VA-TOBACCO FORMER USER 10/23/2023 KELLY RODRIGUE[facility] History of tobacco use VA-TOBACCO QUIT 5 TO < 15 YRS 10/23/2023 [facility] History of tobacco use VA-TOBACCO FORMER USER 09/05/2022 [facility] History of tobacco use VA-TOBACCO FORMER USER 06/12/2021 [facility] History of tobacco use VA-TOBACCO FORMER USER 06/13/2020 [facility] History of tobacco use DE-TOBACCO QUIT 1 5 YRS OR MORE 12/03/2018 [facility] History of tobacco use FORMER TOBACCO US E >1Y <7Y 11/26/2017 [facility] History of tobacco use FORMER TOBACCO US E >1Y <7Y 04/01/2017 [facility] History of tobacco use INPT NO TOBACCO U SE IN LAST 30 DAYS 11/27/2016 [facility] History of tobacco use 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 Additional future care activities may be listed in the Assessment and Plan section. Date/Time Care Activity Care Activity Detail Facili ty 07/21/2024 AMBULATORY - SURGERY AMBULATORY - SURGERY [facility] 08/26/2024 AMBULATORY - PSYCHIATRY AMBULATORY - PSYC HIATRY [facility] 09/03/2024 AMBULATORY - SURGERY AMBULATORY - SURGERY [facility] 05/06/2024 Consult Order COMMUNITY CARE-T REATMENT RESISTANT DEPRESSION Cons Site Administrator's Choice [facility]
--- OUTSIDE RECORDS SUMMARY | 2024-06-06 11:34 | XMS_ITS | Continuity of Care Document ---
Author Organization [facility] Address [address] [place] [address] Phone Care Team Providers Care Executive Admin Name Role Phone Stella LLOYD, Amidaja Unavailable Unavailable Allergies, Adverse Reactions, Alerts Substance Reaction Status Criticality No Known Allergies Active No Inform ation Medications Medication Instructions Dosage Effective Dates (start - stop) Status Comments TERAZOSIN HCL (unknown strength) Not Available - Active TACROLIMUS (unknown strength) Not Available - Active CETIRIZINE HCL (unknown strength) Not Available - Active POLYETHYLENE GLYCOL (unknown strength) Not Available - Active NALOXONE HCL (unknown strength) Not Available - Active LITHIUM CARBONATE (unknown strength) Not Available - Active INDOMETHACIN (unknown strength) Not Available - Active FOLIC ACID (unknown strength) Not Available - Active DULOXETINE HCL (unknown strength) Not Available - Active VITAMIN D3 (unknown strength) Not Available - Active BUPRENORPHINE-NALOXONE (unknown strength) Not Available - Active ATORVASTATIN CALCIUM (unknown strength) Not Available - Active Procedures Procedure Date Office/Outpatient Visit,Est, Low 2023 X-Ray Exam Lower Spine 2-3 Views 2023 Office/Outpatient Visit,Est, Mod 2022 Postop Followup Visit [...] Providers Copied on Encounter Office/Outpat ient Visit,Est, Low [facility], [address], [place], [id number], [place] tel:[phone] [facility] Encounter for follow-up examination after completed treatment for conditions other than malignant neoplasm 4 Stella Jaramillo. [facility] [place], [address] [place] [address], [facility] [place], [id number] , [place]. tel:[phone] Referring Provider: Maria G Sanon , [address], [place], [address]. tel:[phone] Office/Outpat ient Visit,Est, Mod [facility], [address], [place], [id number], [place] tel:[phone] [facility] Arthrodesis status 3 Mehblynn Jaramillo. [facility], [address] [place] [address] [address], [place], [place], [id number] , [place]. tel:[phone] Referring Provider: Hiram [employer] [facility], [place], [address]. tel:[phone] [facility], [address], [place], [id number], [place] tel:[phone] [facility] Encounter for other specified surgical aftercare 3 Mehbod Amir. [facility] [place], [address] [place] [address], [place], [place], [id number] , [place]. tel:[phone] Referring Provider: Hiram [employer] [facility], [place], [address]. tel:[phone] [facility], [address], [place], [id number], [place] tel:[phone] [facility] No Information 2 Joe Mata. [address] [place] [address], [place], [place], [id number] , [place]. tel:[phone] Referring Provider: Hiram [employer] [facility], [place], [address]. tel:[phone] [facility], [address], [place], [id number], [place] tel:[phone] [facility] No Information 2 Mehbod Amir. [facility] [place], [address] [place] [address], [place], [place], [id number] , [place]. tel:[phone] Referring Provider: Hiram [employer] Chloe [facility], [place], [address]. tel:[phone] Office/Outpat ient Visit,Est, Mod [facility], [address], [place], [id number], [place] tel:[phone] [facility] [place] Spinal stenosis, lumbar region with neurogenic claudicationR adiculopathy, lumbar regionSpinal stenosis, lumbar region without neurogenic jamaal Nov-2 2 Mehbod Amir. [facility], [address], [place], [place], [id number] , . tel:[phone] Referring Provider: Maria G Sanon [facility], [place], [address]. tel:[phone] Office/Outpat ient Visit,Est, Mod [facility], [address], [place], [place], [id number], [place] tel:[phone] [facility] [place] Spinal stenosis, lumbar region with neurogenic claudication 2 Joe Mata. [address], [place], [place], [id number] , [place]. tel:[phone] Referring Provider: Maria G Sanon [facility] Chloe Fitzpatrick , [place], [address]. tel:[phone] Office/Outpat ient Visit,New, Mod [facility], [address], [place], [place], [id number], [place] tel:[phone] [facility] [place] No Information 0 Mehbod Amir. [facility], [address], [place], [place], [id number] , [place]. [phone] Referring Provider: Maria G Sanon [facility] Chloe [facility], [place], [address]. tel:[phone] Family History Family Member Type Diagnosis Age At Onset No Information Payers Payer name Insurance type Covered republican ID Authorzekea zoëroberta(s) BCBS [id number] Medicare [facility] [id number] 1 Social History Type Description Quantity Date [...]
--- OUTSIDE RECORDS SUMMARY | 2024-06-06 11:34 | XMS_ITS | Clinical Summary ---
Author Organization [facility] Address [place], [place] [address] Care Team Providers Care Manager Strategic Alliances Name Role Phone Maria G Sanon MD [...] Team Description 06/06/2024 Nurse Triage [facility] [address] [place] [address] Maria G Sanon MD Medication Problem (Suboxone sublingual film) 06/02/2024 9:10 AM HEAD OF GEOGRAPHY Telemedicine [facility] [place] [address] Louisa Sena NP Error-please disregard (appt cancellation) 06/02/2024 Travel from Last 3 Months Immunizations Name Administration Dates Next Due AMB Influenza, IIV3 (Age >=3 years)(Flu Clinic Only) 04/13/2010 COVID-19 vaccine ([email or web address] 30mcg/0.3mL) 12YO+ BIVALENT PF, MDV 02/14/2022 [...] on file Legal Sex Male 5:26 AM HEAD OF GEOGRAPHY Gender Identity Not on file Sexual Orientation Not on file Obstetrics History Last Filed Vital Signs Vital Sign Reading Time Taken Comments Blood Pressure 122/72 04/22/2023 3:51 PM HEAD OF GEOGRAPHY Pulse 56 04/22/2023 3:51 PM HEAD OF GEOGRAPHY Temperature 36.6 C (97.9 F) 05/03/2022 11:25 AM HEAD OF GEOGRAPHY Respiratory Rate 16 05/03/2022 11:25 AM HEAD OF GEOGRAPHY Oxygen Saturation 97% 04/22/2023 3:51 PM HEAD OF GEOGRAPHY Inhaled Oxygen Concentration - - Weight 85.1 kg (187 lb 9.6 oz) 04/22/2023 3:51 P M HEAD OF GEOGRAPHY Height 180.3 cm (5' 11) 04/30/2022 7:03 AM HEAD OF GEOGRAPHY Body Mass Index 26.16 04/30/2022 7:03 AM HEAD OF GEOGRAPHY Plan of Treatment Health Maintenance Due Date [...] history exists Medical Devices Implanted Type Area Beekeeper Farmer Device Identifier Shelf Expiration Date Model / Serial / Lot [id number] one Matrix 3cc Lizet Dbf Putty Dbm Implanted:Qty: 1 on 04/30/2022 by Ella Douglas MD at [facility] Spine Med[employer]onic Spine/Ortho 02/26/2024 [id number] / [id number] / Bone Matrix 3cc Lizet Dbf Putty Dbm - [id number] Implanted:Qty: 1 on 04/30/2022 by Ella Douglas MD at [facility] Spine [employer] Spine/Ortho 02/26/2024 [id number] / [id number] / Bone 1-4mm 60cc Medtronic Fine Canclls Freeze Dried - [id number] Implanted:Qty: 1 on 04/30/2022 by Ella Douglas MD at [facility] Spine [employer]onic Spine/Ortho 02/19/2026 [id number] / [id number] / Spacer Lmbr 38d27oc Capstone Tlif Peek - [id number] Implanted:Qty: 1 on 04/30/2022 by Ella Douglas MD at [facility] Spine [employer]tronic Spine/Ortho 05/22/2025 [id number] / / [id number] Spacer Lmbr 29e48eg [employer]stone Tlif Peek - [id number] Implanted:Qty: 1 on 04/30/2022 by Ella Douglas MD at [facility] Spine [employer]onic Spine/Ortho 12/06/2024 [id number] / / [id number] Set Screw Lmbr Ant 5.5mm Solera Break Off - [id number] Implanted:Qty: 6 on 04/30/2022 by Ella Douglas MD at [facility] Spine [employer]tronic Spine/Ortho [id number] / / Wong Lmbr 70x5.5mm Solera 5.5/6 Cvd Titnm - [id number] Implanted:Qty: 2 on 04/30/2022 by Ella Douglas MD at [facility] Spine Medtronic Spine/Ortho [id number] / / Screw Lmbr Post 6.5x50mm Solera 5.5/6 Va Cocr - [id number] Implanted:Qty: 6 on 04/30/2022 by Ella Douglas MD at [facility] Spine [employer] Spine/Ortho [id number] / / Procedures Procedure Name Priority Date/Time Associated Diagnosis Comments COLONOSCOPY SCREENING Routine 04/28/2023 8:07 AM HEAD OF GEOGRAPHY History of colon polyps CT CHEST WO Routine 07/07/2017 11:47 AM HEAD OF GEOGRAPHY Lung nodule < 6cm on CT LIPID PANEL Routine 04/17/2009 7:59 AM HEAD OF GEOGRAPHY Unspecified Chest Pain from Last 3 Months or Most Recently Relevant to Health Maintenance Results * UT COLONOSCOPY W/BIOPSY SINGLE/MULTIPLE (04/28/2023 12:00 AM HEAD OF GEOGRAPHY) Beto Brito MD PB - DIGESTIVE SYSTEM SER VICES Final Result * CT CHEST WO (07/07/2017 11:47 AM HEAD OF GEOGRAPHY) Anatomical Region Laterality Modality CHEST, THORAX, HEART Computed To mography 07/07/2017 12:4 0 PM HEAD OF GEOGRAPHY Narrative 07/07/2017 12:40 PM HEAD OF GEOGRAPHY INDICATION: Followup ground-glass right upper lobe pulmonary [...] * (ABNORMAL) LIPID PANEL (04/17/2009 7:59 AM HEAD OF GEOGRAPHY) CHOLESTEROL,TOTAL 238(H) 110 - 199 mg/dL [facility] TRIGLYCERIDES 58 <150 mg/dL [facility] HDL CHOLESTEROL 63 >40 mg/dL [facility] CHOL/HDL RATIO 3.78 <4.51 [facility] LDL CHOLESTEROL 163(H) <131 mg/dL [facility] PATIENT STATUS Fasting [facility] Blood specimen (specimen) BLOOD SPECIMEN / Unknown 04/17/2009 7:59 AM HEAD OF GEOGRAPHY 04/17/2009 7:55 AM HEAD OF GEOGRAPHY us Herbie Simon MD CHEMISTRY Final Re sult [facility] [address] [place], [place] [id number] from Last 3 Months or Most Recently Relevant to Health Maintenance Insurance [employer] BLUE HB ONLY MEDICARE PART B HB ONLY MEDICARE PART A HB ONLY [employer] BLUE MR PB ONLY WORKERS COMP Advance Directives * Full Code (Latest Code Status on File) Date Activated Date Inactivated Comments 04/30/2022 6:35 PM 05/03/2022 5:27 PM Question Answer Comments Code Status Discussion: Unable to Assess Preferences, Provider to review later Care Teams Manager [employer] Relationship Specialty Start Date End Date Maria G Sanon MD [address] [facility] [id number] [facility] - General Family Practice 08/04/15
--- OUTSIDE RECORDS SUMMARY | 2024-06-06 11:34 | XMS_ITS | Continuity of Care Document ---
Author Organization [facility] Address [address] [place] [address] Phone Care Team Providers Care Hide Splitter Name Role Phone Katherine Patino MD Unavailable [...] [address], [place], [address], [place] tel:[phone] [facility] , No Information 7 Sukumar Murphy. [facility] [address], [place], [address], [place]. tel:[phone] [facility], [address], [place], [address], [place] tel:[phone] [facility] , No Information 7 Sukumar Murphy. [facility] [address], [place], [address], [place]. 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 [facility] [address], [place], [address], [place]. tel:[phone] Referring Provider: Katherine Monte, [facility] [address], [place], [address]. tel:[phone] Office/Outpa tient Visit, New [facility], [address], [place], [address], [place] tel:[phone] [facility] , Gout (chief complaint) Chronic gout w/ tophi 201 6 Sukumar Murphy. [facility] [address], [place], [address], [place]. tel:[phone] Referring Provider: Katherine Monte, [facility] [address], [place], [address]. tel:[phone] Family History Family Member Type Diagnosis Age At Onset Father Problem (finding) gout Brother Problem (finding) gout Payers Payer name Insurance type Covered democrat ID Authoriza tiroberta(s) Bcbs Medicare Advantage/Plat inum Blue BL [id number] Social History Type Description Quantity Date Captured [...]
== END 2024-06-06 11:31 | disposition home or self-care (01) ==
LOC: ED 11:30
PROVIDERS: Emergency Provider Internal Medicine; PCP Family Medicine
DX: B34.9 Viral infection, unspecified (principal); G89.29 Other chronic pain
CPT/HCPCS: 99283

== ENCOUNTER 2024-07-21 11:41 | Emergency (ER) | payer MEDICARE, BC, SELFPAY ==
--- OUTSIDE RECORDS SUMMARY | 2024-07-21 11:43 | XMS_ITS | Encounter Summary ---
Author Name [facility] [place] [facility] [place] Address [address] [place] [address] Care Team Providers Care Traffic Engineer Name Role Phone STEPHEN WONG Primary Care [...] Merchant's Name Patient's Relationship to Policy Merchant [facility] (WNR) MEDICARE ADVANTAGE MCR (WNR) May 19, 2019 [id number] [phone] Lilliam WEBER PATIENT [facility] (WNR) MEDICARE ADVANTAGE [facility] (WNR) May 19, 2019 [id number] [phone] Lilliam WEBER PATIENT [facility] (WNR) MEDICARE ADVANTAGE MCR (WNR) May 19, 2019 [id number] [phone] Lilliam WEBER PATIENT Selected Encounter This section includes the information on record at [place] for the Encounter. Date/Time Encounter Type Encounter Description Reason Provider Source Jun 22, 2024 10:51 AM Outpatient Encounter SUBSTANCE USE DISORDER IND DEL MATHEW Encounter Template Text not used by [place] Plan of Treatment: Future Appointments (+ 6 months) and Future Tests (+/- 45 days) The Plan of Treatment section includes future care activities for the patient [facility] [place] [facility] This section includes future appointments and future orders which are active, pending or scheduled. Future Appointments This section includes appointments that were scheduled to occur 6 months from the date of the Encounter, up to a maximum of 20 appointments. The data comes from all [place] treatment facilities. Appointment Date/Time Appointment Type Appointme nt Facility Name Jul 28, 2024 01:15 PM [facility] Jul 28, 2024 02:00 PM [facility] Aug 18, 2024 07:30 AM AM[facility]ULATORY - SURGERY [facility] Aug 26, 2024 10:30 AM [facility] Sep 03, 2024 09:30 AM AMBULATORY - SURGERY [facility] Social History: Smoking Status (Most current) and Tobacco Use (All prior to encounter date) This section includes the most current, and the historical, smoking and tobacco- related health factors from the [place] facility where the Encounter took place. Current Smoking Status This section includes the most current smoking, or tobacco-related health factor, from the [place] facility where the Encounter took place. Date/Time Current Smoking Status Comment Di jaquez Oct 23, 2023 11:00 AM VA-TOBACCO FORMER USER [facility] Tobacco Use History This section includes a history of the smoking, or tobacco-related health factors, that were collected on or before the date of the Encounter. The data comes from the [place] facility where the Encounter took place. Date/Time Smoking Status/Tobacco Use Comment F diandra Oct 23, 2023 11:00 AM VA-TOBACCO QUIT [...] the Encounter. Date/Time Encounter Note(s) Provider Source Jun 22, 2024 10:51 AM MENTAL HEALTH SECU RE MESSAGING: LOCAL TITLE: MENTAL HEALTH SECURE MESSAGING STANDARD TITLE: MENTAL HEALTH SECURE MESSAGING DATE OF NOTE: JUN 22, 2024@10:51 ENTRY DATE: JUN 22, 2024@09:51:43 AUTHOR: DEL MATHEW EXP COSIGNER: URGENCY: STATUS: COMPLETED ------Original Message ----- Sent: 06/22/2024 08:53 AM ET From: ADOLFO WEBER To: [facility] Mental Health ARS Team % Subject: Medication:Need refills for buprenorphine I have no more refills of buprenorphine and will need to order from pharmacy soon. Please refill at your earliest convenience. Thank you. Adolfo Weber ------Original Message ----- Sent: 06/22/2024 10:51 AM ET From: DEL MATHEW To: ADOLFO WEBER Subject: Medication:Need refills for buprenorphine Justin Mata I sent your Suboxone refill to Dr. Christopher for mail. If you want to switch the order to window pickup please call the pharmacy and they will switch it for you: [phone] (extension [phone]). Hope you have a great day! Del Mathew RN /yung/ DEL MATHEW STAFF NURSE, ARS 1J Signed: 06/22/2024 09:51 DEL MATHEW [facility]
--- OUTSIDE RECORDS SUMMARY | 2024-07-21 11:43 | XMS_ITS | Encounter Summary ---
Author Name [facility] [place] [facility] [place] [facility] [place] Address [address] [place] [address] Care Team Providers Care Sales Force Administrator Name Role Phone STEPHEN WONG Primary Care [...] Merchant's Name Patient's Relationship to Policy Merchant [facility] (WNR) MEDICARE ADVANTAGE [facility] (WNR) May 19, 2019 [id number] [phone] Lilliam WEBER PATIENT BCBS [facility] (WNR) MEDICARE ADVANTAGE [facility] (WNR) May 19, 2019 [id number] [phone] Lilliam WEBER PATIENT BCBS [facility] (WNR) MEDICARE ADVANTAGE [facility] (WNR) May 19, 2019 [id number] [phone] Lilliam WEEBR PATIENT Selected Encounter This section includes the information on record at [place] for the Encounter. Date/Time Encounter Type Encounter Description Reason Pro vider Source Jun 06, 2024 12:40 PM Outpatient Encounter EMERGENCY DEPT I[facility] Encounter Template Text not used by [place] Plan of Treatment: Future Appointments (+ 6 months) and Future Tests (+/- 45 days) The Plan of Treatment section includes future care activities for the patient from all [place] [facility]. This section includes future appointments and future orders which are active, pending or scheduled. Future Appointments This section includes appointments that were scheduled to occur 6 months from the date of the Encounter, up to a maximum of 20 appointments. The data comes from all [facility]. Appointment Date/Time Appointment Type Appointme nt Facility Name Jul 28, 2024 01:15 PM AMBULATORY - NONE [facility] Jul 28, 2024 02:00 PM [facility] Aug 18, 2024 07:30 AM AMBULATORY - SURGERY [facility] Aug 26, 2024 10:30 AM [facility] Sep 03, 2024 09:30 AM AMBULATORY - SURGERY [facility] Active, Pending, and Scheduled Orders This section includes a listing of several types of active, pending, and scheduled orders, including clinic medications orders, diagnostic test orders, procedure orders and consult orders; where the start date of the order is 45 days before the date of the Encounter or 45 days after the date of theEncounter. The data comes from all [facility]. Test Date/Time Test Type Test Details Facility Name May 06, 2024 02:29 PM Consult Order COMMUNITY CARE-TREATMENT RESISTANT DEPRESSION Cons [employer] Designer's Choice [facility] Vital Signs: All taken on the encounter date This section contains inpatient and outpatient Vital Signs collected on the date of the Encounter. Date/Time Temperature Pulse Blood Pressure Respiratory Rate SP02 Pain Height Weight Body Mass Index Source Jun 06, 2024 01:10 PM 97.1 71 151/84 16 [facility] Social History: Smoking Status (Most current) and Tobacco Use (All prior to encounter date) This section includes the most current, and the historical, smoking and tobacco- related health factors from the [place] facility where the Encounter took place. Current Smoking Status This section includes the most current smoking, or tobacco-related health factor, from the [place] facility where the Encounter took place. Date/Time Current Smoking Status Comment Di jaquez Oct 23, 2023 11:00 AM VA-TOBACCO FORMER USER [facility] Tobacco Use History This section includes a history of the smoking, or tobacco-related health factors, that were collected on or before the date of the Encounter. The data comes from the [place] facility where the Encounter took place. Date/Time Smoking Status/Tobacco Use Comment F acility Oct 23, 2023 11:00 AM VA-TOBACCO QUIT 5 TO < 15 YRS [facility] Sep 05, 2022 11:00 AM VA-TOBACCO FORMER USER [facility] Sep 05, 2022 11:00 AM VA-TOBACCO QUIT 15 YRS OR MORE [facility] Jun 12, 2021 09:51 AM VA-TOBACCO FORMER USER [facility] Jun 12, 2021 09:51 AM VA-TOBACCO QUIT 5 TO < 15 YRS [facility] Jun 13, 2020 09:30 AM VA-TOBACCO FORMER USER [facility] Jun 13, 2020 09:30 AM VA-TOBACCO QUIT 1 TO < 5 YRS [facility] Dec 03, 2018 09:23 AM VA-TOBACCO FORMER USER [facility] Dec 03, 2018 09:23 AM VA-TOBACCO QUIT 15 YRS OR MORE [facility] Nov 26, 2017 03:17 PM FORMER TOBACCO USE >1Y <7Y [facility] Apr 01, 2017 10:30 AM FORMER TOBACCO USE >1Y <7Y [facility] Nov 27, 2016 01:58 AM INPT NO TOBACCO USE IN LAST 30 D AYS [facility] Feb 08, 2016 10:07 AM LIFETIME NON-TOBACCO USER [facility] Oct 18, 2014 08:28 AM FORMER TOBACCO USER 7Y OR GREATE R [facility] Dec 27, 2013 10:02 AM FORMER TOBACCO USE <1Y [facility] Apr 04, 2011 11:33 AM LIFETIME NON-TOBACCO USER [facility]
--- OUTSIDE RECORDS SUMMARY | 2024-07-21 11:43 | XMS_ITS | Clinical Summary ---
Author Organization [facility] Address [address] [place] [address] Care Team Providers Care Purchasing Department Clerk Name Role Phone Maria G Sanon MD Primary Care Provide r Allergies No known active allergies Medications folic acid 1 mg tablet Take 1 mg by mouth once daily. Active DULoxetine (CYMBALTA) 60 mg Delayed-release capsule TAKE 1 CAPSULE BY MOUTH EVERY MORNING FOR MOOD 05/16/20 Active cetirizine (ZYRTEC) 10 mg tablet Take 10 mg by mouth once daily. 09/22/19 22 Active terazosin (HYTRIN) 2 mg capsule 4 mg at bedtime. 07/26/19 22 Active cholecalciferol (VITAMIN D3) 1,000 unit tablet Take 1,000 units by mouth once daily. Active calcium polycarbophiL (FIBERCON) 625 mg tablet Take 625 mg by mouth two times daily. Active buprenorphine-na loxone (SUBOXONE) 8-2 mg sublingual [...] mg by mouth three times daily. 03/25/20 23 Active naloxone 8 mg/actuation spry SPRAY 1 DOSE IN ONE NOSTRIL DIRECTED FOR UNRESPONSIVENESS THEN CALL 911 08/07/19 Active polyethylene glycol (Miralax) 17 g packet Mix 1 Packet in liquid then take by mouth once daily in the afternoon. 2024 Disconti nued(*Pa tient states no longer taking) cyproheptadine (PERIACTIN) 4 mg tablet Take 8 mg by mouth one time if needed. 10/08/192024 Disconti nued(*Pa tient states no longer taking) Active Problems Problem Noted Date Diagnosed Date [...] to surgery- please scan into medical record. BUD VargasW Advance Care Planning Educator Sleep apnea 03/19/2018 [...] Department Care Team Description 06/06/2024 Nurse Triage [facility] [address] [place] [address] Maria G Sanon MD Medication Problem (Suboxone sublingual film) 06/02/2024 9:10 AM SUPERVISOR ELECTRIC Telemedicine [facility] [place] [address] Louisa Sena NP Error-please disregard (appt cancellation) 06/02/2024 Travel from Last 3 Months Immunizations Name Administration Dates Next Due AMB Influenza, IIV3 (Age >=3 years)(Flu Clinic Only) 04/13/2010 COVID-19 vaccine ([employer] NTech 30mcg/0.3mL) 12YO+ BIVALENT PF, MDV 02/14/2022 COVID-19 vaccine ([employer] NTech 30mcg/0.3mL) PF, MDV 03/05/2021,07/31/2020,07/10/2020 HepA-HepB (Twinrix) 10/08/2011,05/09/2011,2010 Hepatitis A (Adult) 07/30/2017 Hepatitis B (Adult) 07/30/2017 Influenza A (H1N1), Inactiva jessica (Age >=3 Years) 03/06/2017 Influenza Virus, Unspecified 02/08/2021, 03/14/2020,06/24/2019,2011,02/19/2011,03/10/2003 Influenza, High-dose Inactivated 024,06/24/2019,04/01/2017,2016,02/08/2016,04/21/2015,02/16/2015 Influenza, High-dose Quadriv alent Inactivated 01/28/2023 Influenza, IIV3 (Age >=3 years) 02/13/2009,03/02,03/24/2006 Influenza, Inactivated AIIV4 (Age 65+ Years) Preserv Free 02/11/2022 Influenza, Inactivated IIV3 (Age 65+ Years) Preserv Free 03/14/2020,03/19/2018 Pneumococcal Poly,23-Valent (Pneumovax) 05/22/2018,07/30/2017 Pneumococcal conj 13-Valent (Prevnar 13) 04/21/2015 Pneumococcal, Unspecified 06/18/2012 Td (Age >=7 Years) 09/13/2003,08/21/2003 Tdap 09/05/2022, 3,04/02/2011,2010 Zoster (Shingrix-RZV, recombinant) 05/22/2018,,07/30/2017 Zoster (Zostavax-ZVL, live) 08/07/2011 Family History Medical [...] is your housing situation today? 1 04/22/2023 Utilities Answer Date Recorded Do you have trouble paying f or utilities (for example, heat, electricity, water, phone)? 1 04/22/2023 Sex and Gender Information Value Date Recorded Sex Assigned at Not on file Legal Sex Male 5:26 AM SUPERVISOR ELECTRIC Gender Identity Not on file Sexual Orientation Not on file Obstetrics History Last Filed Vital Signs Vital Sign Reading Time Taken Comments Blood Pressure 122/72 04/22/2023 3:51 PM SUPERVISOR ELECTRIC Pulse 56 04/22/2023 3:51 PM SUPERVISOR ELECTRIC Temperature 36.6 C (97.9 F) 05/03/2022 11:25 AM SUPERVISOR ELECTRIC Respiratory Rate 16 05/03/2022 11:25 AM SUPERVISOR ELECTRIC Oxygen Saturation 97% 04/22/2023 3:51 PM SUPERVISOR ELECTRIC Inhaled Oxygen Concentration - - Weight 85.1 kg (187 lb 9.6 oz) 04/22/2023 3:51 P M SUPERVISOR ELECTRIC Height 180.3 cm (5' 11) 04/30/2022 7:03 AM SUPERVISOR ELECTRIC Body Mass Index 26.16 04/30/2022 7:03 AM SUPERVISOR ELECTRIC Plan of Treatment Upcoming Encounters Date Type Department Care Team (Late st Contact Info) Description 08/05/2024 10:20 AM CDT Office Visit [facility] [address] [place] [address] Maria G Sanon MD [address] [place] [address] Health Maintenance Due Date Last Done Comments [...] 2024 05/28/2023, 02/14/2022, 03/05/2021, Additional history exists Tetanus booster 09/05/2032 09/05/2022, 12/17, 04/02/2011, Additional history exists Colonoscopy through age 75 04/28/203304/28, 04/28/2023, 08/28/2017, Additional history exists Pneumococcal series for age 50+ Completed 05/22/2018, 07/30/2017, 04/21/2015, Additional history exists Zoster (shingles) series for age 50+ Completed 05/22/2018, 02/04/2018, 07/30/2017, Additional history exists Tdap Completed 09/05/2022, 12/17, 04/02/2011, Additional history exists Influenza for age 65+ Completed 02/05/2024 , 01/28/2023, 02/11/2022, Additional history exists Medical Devices Implanted Type Area Cell Installer Device Identifier Shelf Expiration Date Model / Serial / Lot [id number] one Matrix 3cc [place] Dbf Putty Dbm Implanted:Qty: 1 on 04/30/2022 by Ella Douglas MD at [facility] [employer] Spine[employer] 02/26/2024 [id number] / [id number] / Bone Matrix 3cc Lizet Dbf Putty Dbm - [id number] Implanted:Qty: 1 on 04/30/2022 by Ella Douglas MD at [facility] [employer] Spine[employer] 02/26/2024 [id number] / [id number] / Bone 1-4mm 60cc Medtronic Fine Canclls Freeze Dried - [id number] Implanted:Qty: 1 on 04/30/2022 by Ella Douglas MD at [facility] [employer] Spine[employer] 02/19/2026 [id number] / [id number] / Spacer Lmbr 17u67cv Capstone Tlif Peek - [id number] Implanted:Qty: 1 on 04/30/2022 by Ella Douglas MD at [facility] [employer] Spine[employer] 05/22/2025 [id number] / / [id number] Spacer Lmbr 39p69gz [employer] Tlif Peek - [id number] Implanted:Qty: 1 on 04/30/2022 by Ella Douglas MD at [facility] [employer] Spine[employer] 12/06/2024 [id number] / / [id number] Set Screw Lmbr Ant 5.5mm Solera Break Off - [id number] Implanted:Qty: 6 on 04/30/2022 by Ella Douglas MD at [facility] [employer] Sp[employer] [id number] / / Wong Lmbr 70x5.5mm Solera 5.5/6 Cvd Titnm - [id number] Implanted:Qty: 2 on 04/30/2022 by Ella Douglas MD at [facility] [employer] Spine[employer]Or[employer] [id number] / / Screw Lmbr Post 6.5x50mm Solera 5.5/6 Va Cocr - [id number] Implanted:Qty: 6 on 04/30/2022 by Ella Douglas MD at [facility] [employer] Spine[employer]Ortho [id number] / / Procedures Procedure Name Priority Date/Time Associated Diagnosis Comments COLONOSCOPY SCREENING Routine 04/28/2023 8:07 AM SUPERVISOR ELECTRIC History of colon polyps CT CHEST WO Routine 07/07/2017 11:47 AM SUPERVISOR ELECTRIC Lung nodule < 6cm on CT LIPID PANEL Routine 04/17/2009 7:59 AM SUPERVISOR ELECTRIC Unspecified Chest Pain from Last 3 Months or Most Recently Relevant to Health Maintenance Results * LA COLONOSCOPY W/BIOPSY SINGLE/MULTIPLE (04/28/2023 12:00 AM SUPERVISOR ELECTRIC) us Beto Brito MD PB - DIGESTIVE SYSTEM SER VICES Final Result * CT CHEST WO (07/07/2017 11:47 AM SUPERVISOR ELECTRIC) Anatomical Region Laterality Modality CHEST, THORAX, HEART Computed To mography 07/07/2017 12:4 0 PM SUPERVISOR ELECTRIC Narrative 07/07/2017 12:40 PM SUPERVISOR ELECTRIC INDICATION: Followup ground-glass right upper lobe pulmonary [...] ground-glass opacity in the right upper lobe. [facility] 2017 guidelines for management of incidentally detected [...] * (ABNORMAL) LIPID PANEL (04/17/2009 7:59 AM SUPERVISOR ELECTRIC) CHOLESTEROL,TOTAL 238(H) 110 - 199 mg/dL [facility] TRIGLYCERIDES 58 <150 mg/dL [facility] HDL CHOLESTEROL 63 >40 mg/dL [facility] CHOL/HDL RATIO 3.78 <4.51 [facility] LDL CHOLESTEROL 163(H) <131 mg/dL [facility] PATIENT STATUS Fasting [facility] Blood specimen (specimen) BLOOD SPECIMEN / Unknown 04/17/2009 7:59 AM SUPERVISOR ELECTRIC 04/17/2009 7:55 AM SUPERVISOR ELECTRIC us Herbie Simon MD CHEMISTRY Final Re sult [facility] [address] [place] [address] from Last 3 Months or Most Recently Relevant to Health Maintenance Insurance [place] BLUE HB ONLY MEDICARE PART B HB ONLY MEDICARE PART A HB ONLY [place] [id number] Advance Directives * Full Code (Latest Code Status on File) Date Activated Date Inactivated Comments 04/30/2022 6:35 PM 05/03/2022 5:27 PM Question Answer Comments Code Status Discussion: Unable to Assess Preferences, Provider to review later Care Teams Purchasing Department Clerk Relationship Specialty Start Date End Date Maria G Sanon MD [address] [place] [address] PCP - General Family Practice 08/04/15
--- OUTSIDE RECORDS SUMMARY | 2024-07-21 11:44 | XMS_ITS | Encounter Summary ---
Author Name [facility] of Vetera Affairs ([place]) Organization [facility] ([place]) Address [address] [place] [address] Care Team Providers Care Form Grader Operator Name Role Phone STEPHEN WONG Primary Care [...] Merchant's Name Patient's Relationship to Policy Merchant [facility] (WNR) MEDICARE ADVANTAGE M[facility] (WNR) May 19, 2019 [id number] [phone] Lilliam WEBER PATIENT BCBS [facility] (WNR) MEDICARE [facility] (WNR) May 19, 2019 [id number] [phone] Lilliam WEBER PATIENT BCBS [facility] (WNR) MEDICARE ADVANTAGE M[facility] (WNR) May 19, 2019 [id number] [phone] Lilliam WEBER PATIENT Selected Encounter This section includes the information on record at MD for the Encounter. Date/Time Encounter Type Encounter Description Reason Pro vider Source Jun 06, 2024 11:41 AM Outpatient Encounter TELEPHONE TRIAGE IHE Encounter Template Text not used by MD Plan of Treatment: Future Appointments (+ 6 months) and Future Tests (+/- 45 days) The Plan of Treatment section includes future care activities for the patient from all [facility]. This section includes future appointments and future orders which are active, pending or scheduled. Future Appointments This section includes appointments that were scheduled to occur 6 months from the date of the Encounter, up to a maximum of 20 appointments. The data comes from all [facility]. Appointment Date/Time Appointment Type Appointme nt Facility Name Jul 28, 2024 01:15 PM [facility] Jul 28, 2024 02:00 PM AMBULATORY - MEDICINE [facility] Aug 18, 2024 07:30 AM AMBULATORY - SURGERY [facility] Aug 26, 2024 10:30 AM [facility] Sep 03, 2024 09:30 AM AMBULATORY - SURGERY [facility] Active, Pending, and Scheduled Orders This section includes a listing of several types of active, pending, and scheduled orders, including clinic medications orders, diagnostic test orders, procedure orders and consult orders; where the start date of the order is 45 days before the date of the Encounter or 45 days after the date of theEncounter. The data comes from all [facility]. Test Date/Time Test Type Test Details Facility Name May 06, 2024 02:29 PM Consult Order COMMUNITY CARE-TREATMENT RESISTANT DEPRESSION Cons Tension Worker's Choice [facility] Vital Signs: All taken on the encounter date This section contains inpatient and outpatient Vital Signs collected on the date of the Encounter. Date/Time Temperature Pulse Blood Pressure Respiratory Rate SP02 Pain Height Weight Body Mass Index Source Jun 06, 2024 01:10 PM 97.1 71 151/84 16 [facility] Social History: Smoking Status (Most current) and Tobacco Use (All prior to encounter date) This section includes the most current, and the historical, smoking and tobacco- related health factors from the MD facility where the Encounter took place. Current Smoking Status This section includes the most current smoking, or tobacco-related health factor, from the MD facility where the Encounter took place. Date/Time Current Smoking Status Jamey jaquez Oct 23, 2023 11:00 AM VA-TOBACCO FORMER USER [facility] Tobacco Use History This section includes a history of the smoking, or tobacco-related health factors, that were collected on or before the date of the Encounter. The data comes from the MD facility where the Encounter took place. Date/Time Smoking Status/Tobacco Use Comment F acility Oct 23, 2023 11:00 AM VA-TOBACCO QUIT 5 TO < 15 YRS [facility] Sep 05, 2022 11:00 AM VA-TOBACCO FORMER USER [facility] Sep 05, 2022 11:00 AM VA-TOBACCO QUIT 15 YRS OR MORE [facility] Jun 12, 2021 09:51 AM VA-TOBACCO FORMER USER [facility] Jun 12, 2021 09:51 AM VA-TOBACCO QUIT 5 TO < 15 YRS [facility] Jun 13, 2020 09:30 AM VA-TOBACCO FORMER USER [facility] Jun 13, 2020 09:30 AM VA-TOBACCO QUIT 1 TO < 5 YRS [facility] Dec 03, 2018 09:23 AM VA-TOBACCO FORMER USER [facility] Dec 03, 2018 09:23 AM VA-TOBACCO QUIT 15 YRS OR MORE [facility] Nov 26, 2017 03:17 PM FORMER TOBACCO USE >1Y <7Y [facility] Apr 01, 2017 10:30 AM FORMER TOBACCO USE >1Y <7Y [facility] Nov 27, 2016 01:58 AM INPT NO TOBACCO USE IN LAST 30 D AYS [facility] Feb 08, 2016 10:07 AM LIFETIME NON-TOBACCO USER [facility] Oct 18, 2014 08:28 AM FORMER TOBACCO USER 7Y OR GREATE R [facility] Dec 27, 2013 10:02 AM FORMER TOBACCO USE <1Y [facility] Apr 04, 2011 11:33 AM LIFETIME NON-TOBACCO USER [facility] Encounter Notes: All associated encounter notes This section contains the clinical notes associated to the Encounter. Date/Time Encounter Note(s) Provider Source Jun 06, 2024 10:42 AM RN PROGRESS NOTE: [facility] TITLE: CCC: CLINICAL TRIAGE STANDARD TITLE: RN PROGRESS NOTE DATE OF NOTE: JUN 06, 2024@10:42 ENTRY DATE: JUN 06, 2024@10:42 AUTHOR: TAMMIE RANGEL COSIGNER: URGENCY: STATUS: COMPLETED Patient Demographics Patient Name: MOOK WEBER Patient Primary Address: [address] [place] [address] [place] [address] Patient Primary Phone: [phone] Patient : 1950 Patient Age: 73 Call Back Number: [id number] Caller/Recipient Relation to Patient: Caregiver Caller Name: Marietta Emergency Contact: MARIETTA WEBER Nursing Plan and Disposition Other course(s) of action Generated msg to PACT/Provider Provided guidance for worsening symptoms: *Caller/Patient* advised to call facilities MD Clinical Contact Center or seek immediate medical attention for new or worsening symptoms Nurse Summary Nurse Summary: [facility] , Marietta, called with questions regarding obtaining BUPRENORPHINE 8MG/NALOXONE 2MG SL FILM. Marietta states that she was informed that the medication was mailed overnight a few days ago. Medication has not arrived. [facility] is out of the medication. Marietta would like to know if she brought to the [facility], would the medication be prescribed for a couple of days until mailed medication arrives. Triage nurse contacted the AOD, who confirmed that would need to check in, ER provider can look up and order the medication. Pharmacy outpatient closes at 5pm today. Marietta made aware. Understanding verbalized. Denies any new or worsening symptoms for . Please be advised. Clinical Contact Center Codes Clinic/Location: V23 [facility] PHONE CCC RN IMPORTANT: This note was created by [facility] Clinical Contact Center staff. Please do not alert the staff member by adding them as a signer for future communications. Alerts are not monitored by this user. /yung/ Tammie BARRETT, RN Signed: 06/06/2024 10:42 Receipt Acknowledged By: 06/08/2024 10:52 /es/ STEPHEN WONG M.D. MEDICAL STAFF 06/08/2024 09:31 /yung/ NAHID VEE RN RN, BSN TAMMIE RANGEL [facility]
--- OUTSIDE RECORDS SUMMARY | 2024-07-21 11:44 | XMS_ITS | Continuity of Care Document ---
Author Organization [facility] Address [address] [place] [address] Phone Care Team Providers Care Supervisor Force Adjustment Name Role Phone Stella LLOYD, Amidaja Unavailable [...] [facility], [address], [place], [id number], [place] tel:[phone] [facility] Encounter for follow-up examination after completed treatment for conditions other than malignant neoplasm 4 Stella Jaramillo. [facility], [address] [place] [address] [address], [facility] [place], [id number] , [place]. tel:[phone] Referring Provider: Maria G Sanon , [address], [place], [address]. tel:[phone] Office/Outpat ient Visit,Est, Mod [facility], [address], [place], [id number], [place] tel:[phone] [facility] Arthrodesis status 3 Mehblynn Jaramillo. [facility], [address] [place] [address] [address], [place], [place], [id number] , [place]. tel:[phone] Referring Provider: Hiram SkeltonSingularu [facility], [place], [address]. tel:[phone] [facility], [address], [place], [id number], [place] tel:[phone] [facility] Encounter for other specified surgical aftercare 3 Mehbod Amir. [facility], [address] [place] [address] 600, [place], [place], [id number] , [place]. tel:[phone] Referring Provider: Hiram SkeltonSingularu [facility], [place], [address]. tel:[phone] [facility], [address], [place], [id number], [place] tel:[phone] [facility] No Information 2 Joe Mata. [address] [place] [address] 600, [place], [place], [id number] , [place]. tel:[phone] Referring Provider: Hiram Skel[employer] [facility], [place], [address]. tel:[phone] [facility], [address], [place], [id number], [place] tel:[phone] [facility] No Information 2 Mehbod Amir. [facility], [address] [place] [address] [address], [place], [place], [id number] , [place]. tel:[phone] Referring Provider: Hiram SkeltonBo[employer] Chloe [facility], [place], [address]. tel:[phone] Office/Outpat ient Visit,Est, Mod [facility], [address], [place], [id number], [place] tel:[phone] [facility] [place] Spinal stenosis, lumbar region with neurogenic claudicationR adiculopathy, lumbar regionSpinal stenosis, lumbar region without neurogenic jamaal Nov-2 2 Mehbod Amir. [facility], [address], [place], [place], [id number] , . tel:[phone] Referring Provider: Maria G Sanon [facility], [place], [address]. tel:[phone] Office/Outpat ient Visit,Est, Mod [facility], [address], [place], [place], [id number], [place] tel:[phone] [facility] [place] Spinal stenosis, lumbar region with neurogenic claudication 2 Joe Mata. [address], [place], [place], [id number] , [place]. tel:[phone] Referring Provider: Maria G Sanon [facility] Chloe Fitzpatrick , [place], [address]. tel:[phone] Office/Outpat ient Visit,New, Mod [facility], [address], [place], [place], [id number], [place] tel:[phone] [facility] [place] No Information 0 Mehbod Amir. [facility], [address], [place], [place], [id number] , [place]. [phone] Referring Provider: Maria G Sanon [facility] Chloe [facility], [place], [address]. tel:[phone] Family History Family Member Type Diagnosis Age At Onset No Information Payers Payer name Insurance type Covered libertarian ID Authorzekea zoëroberta(s) BCBS [id number] Medicare [facility] [id number] Social History Type Description Quantity Date [...]
--- OUTSIDE RECORDS SUMMARY | 2024-07-21 11:44 | XMS_ITS | Encounter Summary ---
Author Name [facility] Organization [facility] [place] Address [address] [place] [address] Care Team Providers Care Assisted Living Manager Name Role Phone STEPHEN WONG Primary Care [...] Merchant's Name Patient's Relationship to Policy Merchant [facility] (WNR) MEDICARE ADVANTAGE [facility] (WNR) May 19, 2019 [id number] [phone] Lilliam WEBER PATIENT BS [facility] (WNR) MEDICARE ADVANTAGE [facility] (WNR) May 19, 2019 [id number] [phone] Lilliam WEBER PATIENT [facility] (WNR) MEDICARE [facility] (WNR) May 19, 2019 [id number] [phone] Lilliam WEBER PATIENT Selected Encounter This section includes the information on record at [place] for the Encounter. Date/Time Encounter Type Encounter Description Reason Provider Source Jun 06, 2024 12:40 PM Outpatient Encounter EMERGENCY DEPT RODRIGUEZ,CHRISTOPHER R IHE Encounter Template Text not used by [place] Plan of Treatment: Future Appointments (+ 6 months) and Future Tests (+/- 45 days) The Plan of Treatment section includes future care activities for the patient from all [place] [facility]. This section includes future appointments and future orders which are active, pending or scheduled. Future Appointments This section includes appointments that were scheduled to occur 6 months from the date of the Encounter, up to a maximum of 20 appointments. The data comes from all [facility]. Appointment Date/Time Appointment Type Appointme nt Facility Name Jul 28, 2024 01:15 PM [facility]ONE [facility] Jul 28, 2024 02:00 PM [facility] Aug 18, 2024 07:30 AM AMBULATORY - SURGERY [facility] Aug 26, 2024 10:30 AM AMBULATORY [facility] PS[facility]IATRY [facility] Sep 03, 2024 09:30 AM AMBULATORY [...] of theEncounter. The data comes from all [facility]. Test Date/Time Test Type Test Details Facility Name May 06, 2024 02:29 PM Consult Order COMMUNITY CARE-TREATMENT RESISTANT DEPRESSION Cons Vp Product Marketing's Choice [facility] Vital Signs: All taken on the encounter date This section contains inpatient and outpatient Vital Signs collected on the date of the Encounter. Date/Time Temperature Pulse Blood Pressure Respiratory Rate SP02 Pain Height Weight Body Mass Index Source Jun 06, 2024 01:10 PM 97.1 71 151/84 16 [facility] Social History: Smoking Status (Most current) and Tobacco Use (All prior to encounter date) This section includes the most current, and the historical, smoking and tobacco- related health factors from the [place] facility where the Encounter took place. Current Smoking Status This section includes the most current smoking, or tobacco-related health factor, from the [place] facility where the Encounter took place. Date/Time Current Smoking Status Comment Di jaquez Oct 23, 2023 11:00 AM VA-TOBACCO FORMER USER [facility] Tobacco Use History This section includes a history of the smoking, or tobacco-related health factors, that were collected on or before the date of the Encounter. The data comes from the [place] facility where the Encounter took place. Date/Time Smoking Status/Tobacco Use Comment F acility Oct 23, 2023 11:00 AM VA-TOBACCO QUIT 5 TO < 15 YRS [facility] Sep 05, 2022 11:00 AM VA-TOBACCO FORMER USER [facility] Sep 05, 2022 11:00 AM VA-TOBACCO QUIT 15 YRS OR MORE [facility] Jun 12, 2021 09:51 AM VA-TOBACCO FORMER USER [facility] Jun 12, 2021 09:51 AM VA-TOBACCO QUIT 5 TO < 15 YRS [facility] Jun 13, 2020 09:30 AM VA-TOBACCO FORMER USER [facility] Jun 13, 2020 09:30 AM VA-TOBACCO QUIT 1 TO < 5 YRS [facility] Dec 03, 2018 09:23 AM VA-TOBACCO FORMER USER [facility] Dec 03, 2018 09:23 AM VA-TOBACCO QUIT 15 YRS OR MORE [facility] Nov 26, 2017 03:17 PM FORMER TOBACCO USE >1Y <7Y [facility] Apr 01, 2017 10:30 AM FORMER TOBACCO USE >1Y <7Y [facility] Nov 27, 2016 01:58 AM INPT NO TOBACCO USE IN LAST 30 D AYS [facility] Feb 08, 2016 10:07 AM LIFETIME NON-TOBACCO USER [facility] Oct 18, 2014 08:28 AM FORMER TOBACCO USER 7Y OR GREATE R [facility] Dec 27, 2013 10:02 AM FORMER TOBACCO USE <1Y [facility] Apr 04, 2011 11:33 AM LIFETIME NON-TOBACCO USER [facility] Encounter Notes: All associated encounter notes This section contains the clinical notes associated to the Encounter. Date/Time Encounter Note(s) Provider Source Jun 06, 2024 01:09 PM EMERGENCY DEPT TRIAGE NOTE: LOCAL TITLE: EMERGENCY DEPARTMENT TRIAGE STANDARD TITLE: EMERGENCY DEPT TRIAGE NOTE DATE OF NOTE: JUN 06, 2024@13:09 ENTRY DATE: JUN 06, 2024@13:09:14 AUTHOR: JEREMIAH VERA EXP COSIGNER: URGENCY: STATUS: COMPLETED Emergency Department/Urgent Care Center Triage Patient age:73 Sex in chart: MALE Mode of Arrival: Private vehicle Mode of Mobility: * Walk Chief Complaint: med refill mig welder Note (Subjective/Objective): pts BUPRENORPHINE 8MG/NALOXONE 2MG has yet to arrive in the mail. requesting a fill here Level of Consciousness (AVPU): Alert = Appears aware of and responsive to the environment on their own. Follows commands, opens eyes spontaneously, and tracks objects. Vital Signs: Temperature 97.1 F (36.2 C) Pulse 71 Respirations 16 Blood Pressure 151/84 Pulse Oximetry 96 Room Air Pain: No pain Suicide Screen: [place] Suicide Severity Rating Scale (C-SSRS) screener 1. Over the past month, have you wished you were or wished you could go to sleep and not wake up? No 2. Over the past month, have you had any actual thoughts of killing yourself? No 3. Over the past month, have you been thinking about how you might do this? Response not required due to responses to other questions. 4. Over the past month, have you had these thoughts and had some intention of acting on them? Response not required due to responses to other questions. 5. Over the past month, have you started to work out or worked out the details of how to kill yourself? Response not required due to responses to other questions. 6. If yes, at any time in the past month did you intend to carry out this plan? Response not required due to responses to other questions. 7. In your lifetime, have you ever done anything, started to do anything, or prepared to do anything to end your life (for example, collected pills, obtained a gun, gave away valuables, went to the roof but didn't jump)? No 8. If YES, was this within the past 3 months? Response not required due to responses to other questions. Emergency Severity Index (LITA) level: Level 5 Previously documented allergies: Patient has answered NKA Current Problems: Substance Abuse (ICD-9-CM 305.90) Personal History of Exposure to Agent Mcdonald (ICD-9-CM V15.89) Limitation of motion of the cervical spiCervicalgia (SCT 28392664) Low back pain (SCT 452962098) Personal History of Tobacco Use (ICD-9-CM V15.82) Acute alcoholic intoxication in alcoholiDysphagia, Pharyngeal Phase (ICD-9-CM 787.23) Gastroesophageal Reflux Disorder (SLO-2-Nttzsfkk rhinitis (ICD-9-CM 477.9) Hyperlipidemia (SCT 28861781) Alcohol dependence (SCT 01902895) Anxiety disorder (SCT 824486263) Urinary Hesitancy (ICD-9-CM 788.64) Elevated blood pressure reading without Screening for Malignant Neoplasms of colon (ICD-9-CM V76.51) Hypertensive disorder (SCT 19029898) Obstructive sleep apnea syndrome (SCT 80801548) Dysthymia (SCT 04390337) Major depression (SCT 165192056) Opioid dependence in remission (SCT 1918Cannabis abuse (SCT 17705025) Chronic fatigue syndrome (SCT 56150587) Stress, not elsewhere classified (ICD-10-CM Z73.3) History of lumbar fusion (SCT 3143048376Wiacy of colon (SCT 66592985) 7279-7500 [place] EXPOSURE TO 2, 3, 7, [address] [place] EXPOSURE TO OPEN BURN PITS (CECILIA DETACHMENT TO 11TH CAVLARY/CH[facility]AH [facility] [place] [facility] INFANTRY/FIRE SUPPORT BASE [facility]/[employer]/RANK E6/MOS-96D/JOB-IMAGERY INTERPRETATION/AERIAL RECONAISSANCE) (ICD-10-CM R69.) 6817-1874 [facility] EXPOSURE TO M16 ASSAULLow back pain ([facility] 452049294) Exposure to potentially hazardous substaPosttraumatic stress disorder ([facility] 43400459) History of adenomatous polyp of colon (S /es/ JEREMIAH VERA, CITY MANAGER NURSE Signed: 06/06/2024 13:13 JEREMIAH VERA [facility]
--- OUTSIDE RECORDS SUMMARY | 2024-07-21 11:45 | XMS_ITS | Continuity of Care Document ---
Author Organization [facility] Address [address] [place] [address] Phone Care Team Providers Care Unix Analyst Name Role Phone Katherine Patino MD Unavailable Unavailable Allergies, Adverse Reactions, Alerts Substance Reaction Status Criticality No Known Allergies Resolved No Inform ation Medications Medication Instructions Dosage Effective Dates (start - stop) Status Comments allopurinol 100 mg tablet take 2 tablet by oral route every day, take with 300 mg tabs for total dose of 500 mg daily - Active Zyrtec 10 mg tablet take 1 Tablet by ora l route every day 10 MG - Active gabapentin 300 mg capsule take 1 capsule by oral route 3 times every day 300 MG - Active trazodone 50 mg tablet one at bedtime - Ac tive venlafaxine 75 mg tablet take 2 tablet by oral route 2 times every day with food 150 MG - Active indomethacin 50 mg capsule take 1 capsule by oral route 3 times every day as needed - Active allopurinol 300 mg tablet take 1 tablet by oral route every day 300 MG - Active Procedures Procedure Date Office/Outpatient [...] [address], [place], [address], [place] tel:[phone] [facility] , No Information 7 Sukumar Murphy. [facility] [address], [place], [address], [place]. tel:[phone] [facility], [address], [place], [address], [place] tel:[phone] [facility] , No Information 7 Sukumar Murphy. [facility] [address], [place], [address], [place]. tel:[phone] Office/Outpa tient Visit, Est [facility], [address], [place], [address], [place] tel:[phone] [facility] , Follow Up of Gout (chief complaint) Chronic gout w/ tophiOther intermediate frame tender (current) drug therapy 6 Sukumar Murphy. [facility] [address], [place], [address], [place]. tel:[phone] Referring Provider: Katherine Monte, [facility] [address], [place], [address]. tel:[phone] Office/Outpa tient Visit, New [facility], [address], [place], [address], [place] tel:[phone] [facility] , Gout (chief complaint) Chronic gout w/ tophi 201 6 Sukumar Murphy. [facility] [address], [place], [address], [place]. tel:[phone] Referring Provider: Katherine Monte, [facility] [address], [place], [address]. tel:[phone] Family History Family Member Type Diagnosis Age At Onset Father Problem (finding) gout Brother Problem (finding) gout Payers Payer name Insurance type Covered green party ID Authoriza tiroberta(s) Bcbs Medicare Advantage/Plat inum Blue BL [id number] Social History Type Description Quantity Date Captured [...]
[2024-07-21 11:52] VITALS: BP 111/70; PULSE 78; RESP 20; TEMP 36.4; O2SAT 95; BMI 26.0
--- NOTE | 2024-07-21 12:28 | CRLHL7_ITS ---
For Patients: As a result of the Century Cures Act, medical imaging exams and procedure reports are released immediately into your electronic medical record. You may view this report before your referring provider. If you have questions, please contact your health care provider. Indication: Cough Technique: Chest 2 views Comparison: Chest x-ray 09/26/2022 Findings/Impression: Cardiovascular and mediastinum: Heart size and vasculature are normal in caliber and appearance. Mediastinum is within normal limits. Lungs and pleural spaces: Lungs are clear. No sign of infiltrate or mass. No sign of pleural effusion. No pneumothorax. Bones and soft tissues: Status post cervicothoracic junction surgery Dictated by Vin Anderson MD @ 07/21/2024 12:52:25 PM (Electronically Signed)
[2024-07-21 12:45] LABS: PCR FLU A Negative PCR FLU A (Negative); PCR FLU B Negative PCR FLU B (Negative); PCR RSV Negative PCR RSV (Negative); SARS PCR* Negative SARS-CoV-2 (Negative)
--- NOTE | 2024-07-21 12:52 | ED.GENADULT ---
HPI - General Adult General Date Seen: 07/21/24 Chief complaint: Shortness of Breath/Dyspnea Stated complaint: Short of breath, weakness, fever Time Seen by Provider: 07/21/24 11:56 History of Present Illness HPI narrative: Patient is a 73-year-old male here with his for primary complaint of severe fatigue and feeling worn out. He notes that symptoms have been ongoing for 2-4 weeks, where he just does not have the ability to do any activities without getting extremely tired and needing to rest. 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 He denies any chest pain. He does feel short of breath with activity. He has no symptoms at rest. He attributes this to a respiratory illness, says he has had a cough with some sputum production over the past couple of weeks. He has had some nasal congestion as well. He has not had fevers. He denies any vomiting or diarrhea, black or bloody stools, unexplained weight loss. Does not have a history of coronary artery disease, does have a history of high cholesterol, on atorvastatin. He also tells me that he has a history of chronic fatigue syndrome and wonders if this is a flare of that related to an illness. He does not smoke. Related Data Home Medications ?Medication ?Instructions ?Recorded ?Confirmed atorvastatin 40 mg tablet 40 mg PO QHS 02/27/22 07/21/24 buprenorphine 8 mg-naloxone 2 mg 1 film sublingual DAILY 02/27/22 07/21/24 sublingual film cholecalciferol (vitamin D3) 25 25 mcg PO DAILY 02/27/22 07/21/24 mcg (1,000 unit) capsule duloxetine HCL 60 mg PO DAILY 02/27/22 07/21/24 folic acid 1 mg tablet 1 mg PO DAILY 02/27/22 07/21/24 polyethylene glycol 3350 17 17 g PO DAILY 02/27/22 07/21/24 gram/dose oral powder (ClearLax) terazosin 2 mg capsule 2 mg PO QHS 02/27/22 07/21/24 Allergies Allergy/AdvReac Type Severity Reaction Status Date / Time No Known Drug Allergies Allergy Verified 07/21/24 11:58 Review of Systems Status of ROS: Reports: 10 or more systems reviewed and unremarkable except as noted in History and below [facility] Social History Smoking Status: Never smoker Do you use any of these nicotine containing products: None How often do you have a drink containing alcohol: never How often do you have six or more drinks on one occasion: Never AUDIT-C Alcohol total score: 0 Non-prescribed substance use: denies use Exam Narrative: Exam Narrative: Vital signs reviewed In general, alert, nontoxic Head: Normocephalic, atraumatic. Eyes: Sclera clear. Pupils equal and reactive. ENT: Mucous membranes moist. Neck: Supple without adenopathy. Heart: Regular rate and rhythm without murmur, specifically no aortic murmur. Lungs: Clear. No increased work of breathing, crackles or wheezes. Abdomen: Soft, nontender to palpation. Extremities: Well perfused, pulses intact. No significant edema. Neurologic: Alert, conversant. Speech fluent, face symmetric. Moves all extremities equally. Skin: Warm, dry well perfused. Affect: Normal. Const: Vital Signs, click to edit/add: Vital Signs - 24 hr 07/21/24 11:52 07/21/24 13:23 Temperature 97.5 F L Pulse Rate [Pulse Oximeter] 78 Respiratory Rate 20 Blood Pressure [Ri ght Upper Arm] 111/70 Pulse Oximetry 95 93 Oxygen Delivery Me thod Room Air Documenting provider has reviewed patient's vital signs: yes Course Course ED Course: Differential diagnosis is broad at this time and includes infectious problems, cardiac ischemia, anemia, metabolic derangement, and pulmonary disease processes such as pulmonary embolism or pleural effusion. Exam is unrevealing. Will evaluate broadly with EKG, troponin, D-dimer as well as other routine labs. He is asymptomatic at rest, no specific therapy needed at this time. Workup here is unrevealing. He had an EKG which by my review shows a sinus rhythm, ventricular rate of 62, no acute ST segment changes, unremarkable T-waves. His troponin is 0. His D-dimer was 0.37, viral swab was negative. He is very mildly anemic with a hemoglobin of 12.3 but white count is normal, LFTs are normal, BNP is normal. CRP is less than 0.5. Chest x-ray by my review did not show any findings, negative per Radiology. TSH was normal as well. Discussed all this with the patient and his . I do not have a clear explanation for his symptoms but I do have some concerns that this may represent atypical angina. Given that he is asymptomatic, has not had any worsening of his symptoms over the past month, has a normal EKG and troponin, I think he can be safely managed with an outpatient stress test. I am setting him up for a dobutamine stress test, he has an outpatient clinic appointment scheduled with Dr. Sanon later in the month which he can keep, if possible can be seen by her sooner for recheck. Discussed that if at any time he has significant symptoms particularly if at rest, has exertional symptoms which did not resolve with rest, has new symptoms such as diaphoresis, nausea, vomiting, fainting etcetera or certainly if he has chest pain, he should come back to the ER, recommend 911. Vital Signs Vital signs: Initial Vital Signs Temperature 97.5 F L 07/21/24 11:52 Temperature Source Temporal Artery Scan 07/21/24 11:52 Pulse Rate 78 07/21/24 11:52 Respiratory Rate 20 07/21/24 11:52 Blood Pressure 111/70 07/21/24 11:52 Blood Pressure Mean 83 07/21/24 11:52 Blood Pressure Position Sitting 07/21/24 11:52 Pulse Oximetry 95 07/21/24 11:52 Oxygen Delivery Method Room Air 07/21/24 11:52 Vital Signs Temperature 97.5 F L 07/21/24 11:52 Pulse Rate 78 07/21/24 11:52 Respiratory Rate 20 07/21/24 11:52 Blood Pressure 111/70 07/21/24 11:52 Pulse Oximetry 95 07/21/24 11:52 Oxygen Delivery Method Room Air 07/21/24 11:52 Temperature 97.5 F L 07/21/24 11:52 Pulse Rate 78 07/21/24 11:52 Respiratory Rate 20 07/21/24 11:52 Blood Pressure 111/70 07/21/24 11:52 Pulse Oximetry 93 07/21/24 13:23 Oxygen Delivery Method Room Air 07/21/24 11:52 Medical Decision Making Lab Data Labs: Lab Results 07/21/24 07/21/24 07/21/24 Range/Units 12:01 12:52 13:05 WBC 6.23 (4.50-11.00) K/uL RBC 3.94 L (4.30-5.90) m/uL Hgb 12.3 L (13.5-17.5) gm/dL Hct 37.6 (37.0-53.0) % MCV 95 (80-100) fL MCH 31 (26-34) pg MCHC 33 (32-36) gm/dL RDW Coeff of Robert 12.4 (11.5-15.5) % Plt Count 172 (140-440) K/uL Neut % (Auto) 79.5 H (42.0-72.0) % Lymph % (Auto) 10.4 L (20-44) % [place] % (Auto) 7.7 (0.0-11.0) % Eos % (Auto) 1.9 (0.0-7.0) % Baso % (Auto) 0.3 (0.0-3.0) % Neut # (Auto) 5.00 (1.7-7.0) K/uL Lymph # (Auto) 0.60 L (0.90-2.90) K/uL [place] # (Auto) 0.50 (0.00-0.90) K/UL Eos # (Auto) 0.12 (0.00-0.50) K/uL Baso # (Auto) 0.02 (0.00-0.30) K/uL Abs Immat Gran (auto) 0.01 (0.00-0.30) K/uL Imm/Tot Granulo (auto) 0.2 % D-Dimer Quant (PE/DVT) 0.37 (0.00-0.50) ug/ml Sodium 139 (135-149) mmol/L Potassium 4.7 (3.6-5.1) mmol/L Chloride 102 (96-114) mmol/L Carbon Dioxide 29 (20-32) mmol/L Anion Gap 8 (7-15) mEq/L BUN 22 (7-30) mg/dL Creatinine 1.3 (0.5-1.5) mg/dL Estimated Creat Clear 54.72 Estimated GFR 58 ml/min Glucose 120 H (60-115) mg/dL Calcium 9.6 (8.4-10.6) mg/dL Total Bilirubin 0.7 (0.1-1.5) mg/dL Direct Bilirubin 0.3 (0.0-0.5) mg/dL AST 26 (12-35) U/L ALT 19 (4-50) U/L Alkaline Phosphatase 60 (40-150) U/L C-Reactive Protein < 0.5 L (0.5-1.0) mg/dL NT-Pro-B Natriuret Pep 324 pg/mL Total Protein 6.7 (6.0-8.3) g/dL Albumin 4.3 (3.3-5.0) g/dL TSH 1.470 (0.270-4.200) uIU/mL SARS-CoV-2 (PCR) Negative SARS-CoV-2 (Negative) Influenza Type A (PCR) Negative PCR FLU A (Negative) Influenza Type B (PCR) Negative PCR FLU B (Negative) RSV (PCR) Negative PCR RSV (Negative) POC Troponin I 0.01 (0.01-0.04) ng/ml Imaging Data Chest x-ray: Attestation: I have reviewed the pertinent imaging results. Radiologist's impression: Patient: Adolfo Mcallister MR#: [id number] : 1950 Acct:[id number] Loc: ED Service Date: 07/21/[address]: Ordering Physician: Edyta Caceres M.D. Date of Service: 07/21/24 Procedure(s): XR chest 2V Accession Number(s): [id number] cc: Edyta Caceres M.D.; Maria G Sanon M.D.~ For Patients: As a result of the Cures Act, medical imaging exams and procedure reports are released immediately into your electronic medical record. You may view this report before your referring provider. If you have questions, please contact your health care provider. Indication: Cough Technique: Chest 2 views Comparison: Chest x-ray 09/26/2022 Findings/Impression: Cardiovascular and mediastinum: Heart size and vasculature are normal in caliber and appearance. Mediastinum is within normal limits. Lungs and pleural spaces: Lungs are clear. No sign of infiltrate or mass. No sign of pleural effusion. No pneumothorax. Bones and soft tissues: Status post cervicothoracic junction surgery Dictated by Vin Anderson MD @ 07/21/2024 12:52:25 PM Discharge Plan Discharge Clinical Impression: EASON (dyspnea on exertion) Patient Disposition: Home, Self-Care Condition: Stable Instructions: Dyspnea (ED) Additional Instructions: All of your test today, including chest x-ray, CBC, basic metabolic panel, D-dimer, troponin, thyroid liver function tests are unremarkable. Cause for your symptoms is unclear, but I think we need to rule out a cardiac cause such as atypical angina. We will set up a stress test for you as an outpatient. You should follow-up with Dr. Sanon as planned, earlier if possible. Stress test results should go to Dr. Sanon but you will be notified if there is evidence of something that needs to be evaluated more urgently. If at any time you have severe symptoms or symptoms at rest, return to the ER. Prescriptions: No Action duloxetine HCL 60 mg PO DAILY buprenorphine-naloxone 8-2 mg film 1 film sublingual DAILY polyethylene glycol 3350 [ClearLax] 17 gram/dose powder 17 g PO DAILY terazosin 2 mg capsule 2 mg PO QHS folic acid 1 mg tablet 1 mg PO DAILY atorvastatin 40 mg tablet 40 mg PO QHS cholecalciferol (vitamin D3) 25 mcg (1,000 unit) capsule 25 mcg PO DAILY Follow Up/Referrals: Maria G Sanon MD [Primary Care Provider] - Stand Alone Forms: [employer] Info Instructions
--- OUTSIDE RECORDS SUMMARY | 2024-07-21 12:57 | XMS_ITS | Clinical Summary ---
Author Organization [facility] Address [address] [place] [id number] Care Team Providers Care Pest Management Supervisor Name Role Phone Maria G Sanon [...] Department Care Team Description 06/06/2024 Nurse Triage [facility] [address] [place] [address] Maria G Sanon MD Medication Problem (Suboxone sublingual film) 06/02/2024 9:10 AM MECHANICAL MAINTENANCE WORKER Telemedicine [facility] [place] [address] Louisa Sena NP Error-please disregard (appt cancellation) 06/02/2024 Travel from Last 3 Months Immunizations Name Administration Dates Next Due AMB Influenza, IIV3 (Age >=3 years)(Flu Clinic Only) 04/13/2010 COVID-19 vaccine ([facility] 30mcg/0.3mL) 12YO+ BIVALENT PF, MDV 02/14/2022 COVID-19 vaccine ([facility] 30mcg/0.3mL) PF, MDV 03/05/2021,07/31/2020,07/10/2020 HepA-HepB ([facility]) [...] on file Legal Sex Male 5:26 AM MECHANICAL MAINTENANCE WORKER Gender Identity Not on file Sexual Orientation Not on file Obstetrics History Last Filed Vital Signs Vital Sign Reading Time Taken Comments Blood Pressure 122/72 04/22/2023 3:51 PM MECHANICAL MAINTENANCE WORKER Pulse 56 04/22/2023 3:51 PM MECHANICAL MAINTENANCE WORKER Temperature 36.6 C (97.9 F) 05/03/2022 11:25 AM MECHANICAL MAINTENANCE WORKER Respiratory Rate 16 05/03/2022 11:25 AM MECHANICAL MAINTENANCE WORKER Oxygen Saturation 97% 04/22/2023 3:51 PM MECHANICAL MAINTENANCE WORKER Inhaled Oxygen Concentration - - Weight 85.1 kg (187 lb 9.6 oz) 04/22/2023 3:51 P M MECHANICAL MAINTENANCE WORKER Height 180.3 cm (5' 11) 04/30/2022 7:03 AM MECHANICAL MAINTENANCE WORKER Body Mass Index 26.16 04/30/2022 7:03 AM MECHANICAL MAINTENANCE WORKER Plan of Treatment Upcoming Encounters Date Type Department Care Team (Late st Contact Info) Description 08/05/2024 10:20 AM CDT Office Visit [facility] [address] [place] [address] Maria G Sanon MD [address] [place] [address] Health Maintenance Due Date Last Done Comments [...] history exists Medical Devices Implanted Type Area Mechanism Assembler Device Identifier Shelf Expiration Date Model / Serial / Lot [id number] one Matrix 3cc Onawa Dbf Putty Dbm Implanted:Qty: 1 on 04/30/2022 by Ella Douglas MD at [facility] [employer] Spine[employer] 02/26/2024 [id number] / [id number] / Bone Matrix 3cc Lizet Dbf Putty Dbm - [id number] Implanted:Qty: 1 on 04/30/2022 by Ella Douglas MD at [facility] [employer] 02/26/2024 [id number] / [id number] / Bone 1-4mm 60cc Med[employer]onic Fine Canclls Freeze Dried - [id number] Implanted:Qty: 1 on 04/30/2022 by Ella Douglas MD at [facility] [employer] Sp[employer] 02/19/2026 [id number] / [id number] / Spacer Lmbr 68h73wh Capstone Tlif Peek - [id number] Implanted:Qty: 1 on 04/30/2022 by Ella Douglas MD at [facility] [employer] Spine[employer] 05/22/2025 [id number] / / [id number] Spacer Lmbr 52z80lf [employer] Tlif Peek - [id number] Implanted:Qty: 1 on 04/30/2022 by Ella Douglas MD at [facility] [employer] Spine[employer] 12/06/2024 [id number] / / [id number] Set Screw Lmbr Ant 5.5mm Solera Break Off - [id number] Implanted:Qty: 6 on 04/30/2022 by Ella Douglas MD at [facility] [employer] Sp[employer] [id number] / / Wong Lmbr 70x5.5mm Solera 5.5/6 Cvd Titnm - [id number] Implanted:Qty: 2 on 04/30/2022 by Ella Douglas MD at [facility] [employer] Spine[employer] [id number] / / Screw Lmbr Post 6.5x50mm Solera 5.5/6 Va Cocr - [id number] Implanted:Qty: 6 on 04/30/2022 by Ella Douglas MD at [facility] [employer] Spine[employer]Orth[employer] [id number] / / Procedures Procedure Name Priority Date/Time Associated Diagnosis Comments COLONOSCOPY SCREENING Routine 04/28/2023 8:07 AM MECHANICAL MAINTENANCE WORKER History of colon polyps CT CHEST WO Routine 07/07/2017 11:47 AM MECHANICAL MAINTENANCE WORKER Lung nodule < 6cm on CT LIPID PANEL Routine 04/17/2009 7:59 AM MECHANICAL MAINTENANCE WORKER Unspecified Chest Pain from Last 3 Months or Most Recently Relevant to Health Maintenance Results * SD COLONOSCOPY W/BIOPSY SINGLE/MULTIPLE (04/28/2023 12:00 AM MECHANICAL MAINTENANCE WORKER) us Beto Brito MD PB - DIGESTIVE SYSTEM SER VICES Final Result * CT CHEST WO (07/07/2017 11:47 AM MECHANICAL MAINTENANCE WORKER) Anatomical Region Laterality Modality CHEST, THORAX, HEART Computed To mography 07/07/2017 12:4 0 PM MECHANICAL MAINTENANCE WORKER Narrative 07/07/2017 12:40 PM MECHANICAL MAINTENANCE WORKER INDICATION: Followup ground-glass right upper lobe pulmonary [...] ground-glass opacity in the right upper lobe. [facility] 2017 guidelines for management of incidentally [...] * (ABNORMAL) LIPID PANEL (04/17/2009 7:59 AM MECHANICAL MAINTENANCE WORKER) CHOLESTEROL,TOTAL 238(H) 110 - 199 mg/dL [facility] TRIGLYCERIDES 58 <150 mg/dL [facility] HDL CHOLESTEROL 63 >40 mg/dL [facility] CHOL/HDL RATIO 3.[address] [facility] LDL CHOLESTEROL 163(H) <131 mg/dL [facility] PATIENT STATUS Fasting [facility] Blood specimen (specimen) BLOOD SPECIMEN / Unknown 04/17/2009 7:59 AM MECHANICAL MAINTENANCE WORKER 04/17/2009 7:55 AM MECHANICAL MAINTENANCE WORKER us Herbie Simon MD CHEMISTRY Final Re sult [facility] [address] [place] [address] from Last 3 Months or Most Recently Relevant to Health Maintenance Insurance [employer] [place] [place] MEDICARE PART B HB ONLY MEDICARE PART A HB ONLY [employer] [place] [id number] Advance Directives * Full Code (Latest Code Status on File) Date Activated Date Inactivated Comments 04/30/2022 6:35 PM 05/03/2022 5:27 PM Question Answer Comments Code Status Discussion: Unable to Assess Preferences, Provider to review later Care Teams Pest Management Supervisor Relationship Specialty Start Date End Date Maria G Sanon MD [address] [place] [address] PCP - General Family Practice 08/04/15
--- OUTSIDE RECORDS SUMMARY | 2024-07-21 12:57 | XMS_ITS | Continuity of Care Document ---
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 [facility] BASIC METABOLI C PANEL+MG CARBON DIOXIDE, TOTAL [MOLES/VOL UME] IN SERUM OR PLASMA 30 mmol/L 22 - 29 02/04 H Specimen Type: PLASMA No comment entered. Ordering Provider: ASHLEY MALONE Report Released Date/Time: Oct 24, 2023 08:46 AM Reporting Lab: [facility] [address] Performing Lab: [facility] [address] [place] [facility] BASIC METABOLI C PANEL+MG CALCIUM [MASS/VOLU ME] IN SERUM OR PLASMA 9.5 mg/dL 8.4 - 10.2 02/04 Specimen Type: PLASMA No comment entered. Ordering Provider: ASHLEY MALONE Report Released Date/Time: Oct 24, 2023 08:46 AM Reporting Lab: [facility] [address] Performing Lab: [facility] [address] [place] [facility] BASIC METABOLI C PANEL+MG MAGNESIUM [MASS/VOLU ME] IN SERUM OR PLASMA 2.1 mg/dL 1.6 - 2.6 02/04 Specimen Type: PLASMA No comment entered. Ordering Provider: ASHLEY MALONE Report Released Date/Time: Oct 24, 2023 08:46 AM Reporting Lab: [facility] [address] Performing Lab: [facility] [address] [place] [facility] BASIC METABOLI C PANEL+MG ANION GAP IN SERUM OR PLASMA 6 mmol/L 5 - 15 02/04 Specimen Type: PLASMA No comment entered. Ordering Provider: ASHLEY MALONE Report Released Date/Time: Oct 24, 2023 08:46 AM Reporting Lab: [facility] [address] Performing Lab: [facility] [address] [place] [facility] BASIC METABOLI C PANEL+MG GLOMERULAR FILTRATION RATE/1.73 SQ M.PREDICTE D [VOLUME RATE/AREA] IN SERUM, PLASMA OR BLOOD BY CREATININE -BASED FORMULA (CKD-EPI 2020) 70 60 02/04 Specimen Type: PLASMA No comment entered. Ordering Provider: ASHLEY MALONE Report Released Date/Time: Oct 24, 2023 08:46 AM Reporting Lab: [facility] [address] Performing Lab: [facility] [address] [place] [facility] CBC LEUKOCYTES [#/VOLUME] IN BLOOD BY AUTOMATED COUNT 4.5 4.0 - 11.0 02/04 Specimen Type: BLOOD No comment entered. Ordering Provider: ASHLEY MALONE Report Released Date/Time: Oct 24, 2023 08:46 AM Reporting Lab: [facility] [address] Performing Lab: [facility] [address] [place] [facility] CBC ERYTHROCYT ES [#/VOLUME] IN BLOOD BY AUTOMATED COUNT 4.31 4.60 - 6.20 02/04 L Specimen Type: BLOOD No comment entered. Ordering Provider: ASHLEY MALONE Report Released Date/Time: Oct 24, 2023 08:46 AM Reporting Lab: [facility] [address] Performing Lab: [facility] [address] [place] [facility] CBC HEMOGLOBIN [MASS/VOLU ME] IN BLOOD 13.5 g/dL 13.5 - 17.9 02/04 Specimen Type: BLOOD No comment entered. Ordering Provider: ASHLEY MALONE Report Released Date/Time: Oct 24, 2023 08:46 AM Reporting Lab: [facility] [address] Performing Lab: [facility] [address] [place] [facility] CBC HEMATOCRIT [VOLUME FRACTION] OF BLOOD BY AUTOMATED COUNT 41.7 41 - 54 02/04 Specimen Type: BLOOD No comment entered. Ordering Provider: ASHLEY MALONE Report Released Date/Time: Oct 24, 2023 08:46 AM Reporting Lab: [facility] [address] Performing Lab: [facility] [address] [place] [facility] CBC MCV [ENTITIC VOLUME] BY AUTOMATED COUNT 96.8 fL 80 - 100 02/04 Specimen Type: BLOOD No comment entered. Ordering Provider: ASHLEY MALONE Report Released Date/Time: Oct 24, 2023 08:46 AM Reporting Lab: [facility] [address] Performing Lab: [facility] [address] [place] [facility] CBC MCH [ENTITIC MASS] BY AUTOMATED COUNT 31.3 pg 27 - 33 02/04 Specimen Type: BLOOD No comment entered. Ordering Provider: ASHLEY MALONE Report Released Date/Time: Oct 24, 2023 08:46 AM Reporting Lab: [facility] [address] Performing Lab: [facility] [address] [place] [facility] CBC MCHC [MASS/VOLU ME] BY AUTOMATED COUNT 32.4 g/dL 32.0 - 37.5 02/04 Specimen Type: BLOOD No comment entered. Ordering Provider: ASHLEY MALONE Report Released Date/Time: Oct 24, 2023 08:46 AM Reporting Lab: [facility] [address] Performing Lab: [facility] [address] [place] [facility] CBC PLATELETS [#/VOLUME] IN BLOOD BY AUTOMATED COUNT 182 150 - 400 02/04 Specimen Type: BLOOD No comment entered. Ordering Provider: ASHLEY MALONE Report Released Date/Time: Oct 24, 2023 08:46 AM Reporting Lab: [facility] [address] Performing Lab: [facility] [address] [place] [facility] CBC PLATELET MEAN VOLUME [ENTITIC VOLUME] IN BLOOD BY AUTOMATED COUNT 9.6 fL 9.1 - 13.0 02/04 Specimen Type: BLOOD No comment entered. Ordering Provider: ASHLEY MALONE Report Released Date/Time: Oct 24, 2023 08:46 AM Reporting Lab: [facility] [address] Performing Lab: [facility] [address] [place] [facility] CBC ERYTHROCYT E DISTRIBUTI ON WIDTH [RATIO] BY AUTOMATED COUNT 12.4 11.5 - 14.5 02/04 Specimen Type: BLOOD No comment entered. Ordering Provider: ASHLEY MALONE Report Released Date/Time: Oct 24, 2023 08:46 AM Reporting Lab: [facility] [address] Performing Lab: [facility] [address] [place] [facility] IRON GROUP IRON [MASS/VOLU ME] IN SERUM OR PLASMA 73 ug/dL 65 - 175 02/04 Specimen Type: SERUM No comment entered. Ordering Provider: ASHLEY MALONE Report Released Date/Time: Oct 24, 2023 08:46 AM Reporting Lab: [facility] [address] Performing Lab: [facility] [address] [place] [facility] IRON GROUP IRON BINDING CAPACITY [MASS/VOLU ME] IN SERUM OR PLASMA 278 ug/dL 250 - 425 02/04 Specimen Type: SERUM No comment entered. Ordering Provider: ASHLEY MALONE Report Released Date/Time: Oct 24, 2023 08:46 AM Reporting Lab: [facility] [address] Performing Lab: [facility] [address] [place] [facility] IRON GROUP FERRITIN [MASS/VOLU ME] IN SERUM OR PLASMA 234.4 ng/mL 21.8 - 274.7 02/04 Specimen Type: SERUM No comment entered. Ordering Provider: ASHLEY MALONE Report Released Date/Time: Oct 24, 2023 08:46 AM Reporting Lab: [facility] [address] Performing Lab: [facility] [address] [place] [facility] IRON GROUP IRON SATURATION 26 20 - 50 02/04 Specimen Type: SERUM No comment entered. Ordering Provider: ASHLEY MALONE Report Released Date/Time: Oct 24, 2023 08:46 AM Reporting Lab: [facility] [address] Performing Lab: [facility] [address] [place] [facility] IRON GROUP TRANSFERRI N [MASS/VOLU ME] IN SERUM OR PLASMA 222 mg/dL 163 - 382 02/04 Specimen Type: SERUM No comment entered. Ordering Provider: ASHLEY MALONE Report Released Date/Time: Oct 24, 2023 08:46 AM Reporting Lab: [facility] [address] Performing Lab: [facility] [address] [place] [facility] DRUG SCREEN PANEL,UR INE BARBITURAT ES [PRESENCE] IN URINE BY SCREEN METHOD Negative 11/13 Specimen Type: URINE Comment: Presumptive Positive by screen, results not confirmed. Ordering Provider: MARYJANE MATHEW Report Released Date/Time: Nov 13, 2023 09:43 AM Reporting Lab: [facility] [address] Performing Lab: [facility] [address] [place] [facility] DRUG SCREEN PANEL,UR INE AMPHETAMIN ES [PRESENCE] IN URINE Negative 11/13 Specimen Type: URINE Comment: Presumptive Positive by screen, results not confirmed. Ordering Provider: MARYJANE MATHEW Report Released Date/Time: Nov 13, 2023 09:43 AM Reporting Lab: [facility] [address] Performing Lab: [facility] [address] [place] [facility] DRUG SCREEN PANEL,UR INE COCAINE [PRESENCE] IN URINE Negative 11/13 Specimen Type: URINE Comment: Presumptive Positive by screen, results not confirmed. Ordering Provider: MARYJANE MATHEW Report Released Date/Time: Nov 13, 2023 09:43 AM Reporting Lab: [facility] [address] Performing Lab: [facility] [address] [place] [facility] DRUG SCREEN PANEL,UR INE BENZODIAZE PINES [PRESENCE] IN URINE BY SCREEN METHOD Negative 11/13 Specimen Type: URINE Comment: Presumptive Positive by screen, results not confirmed. Ordering Provider: MARYJANE MATHEW Report Released Date/Time: Nov 13, 2023 09:43 AM Reporting Lab: [facility] [address] Performing Lab: [facility] [address] [place] [facility] DRUG SCREEN PANEL,UR INE CANNABINOI DS [PRESENCE] IN URINE BY SCREEN METHOD Negative 11/13 Specimen Type: URINE Comment: Presumptive Positive by screen, results not confirmed. Ordering Provider: MARYJANE MATHEW Report Released Date/Time: Nov 13, 2023 09:43 AM Reporting Lab: [facility] [address] Performing Lab: [facility] [address] [place] [facility] DRUG SCREEN PANEL,UR INE METHADONE [PRESENCE] IN URINE Negative 11/13 Specimen Type: URINE Comment: Presumptive Positive by screen, results not confirmed. Ordering Provider: MARYJANE MATHEW Report Released Date/Time: Nov 13, 2023 09:43 AM Reporting Lab: [facility] [address] Performing Lab: [facility] [address] [place] [facility] DRUG SCREEN PANEL,UR INE OPIATES [PRESENCE] IN URINE BY SCREEN METHOD Negative 11/13 Specimen Type: URINE Comment: Presumptive Positive by screen, results not confirmed. Ordering Provider: MARYJANE MATHEW Report Released Date/Time: Nov 13, 2023 09:43 AM Reporting Lab: [facility] [address] Performing Lab: [facility] [address] [place] [facility] DRUG SCREEN PANEL,UR INE PHENCYCLID INE [PRESENCE] IN URINE Negative 11/13 Specimen Type: URINE Comment: Presumptive Positive by screen, results not confirmed. Ordering Provider: MARYJANE MATHEW Report Released Date/Time: Nov 13, 2023 09:43 AM Reporting Lab: [facility] [address] Performing Lab: [facility] [address] [place] [facility] DRUG SCREEN PANEL,UR INE ETHANOL [MASS/VOLU ME] IN URINE Negative 11/13 Specimen Type: URINE Comment: Presumptive Positive by screen, results not confirmed. Ordering Provider: MARYJANE MATHEW Report Released Date/Time: Nov 13, 2023 09:43 AM Reporting Lab: [facility] [address] Performing Lab: [facility] [address] [place] [facility] DRUG SCREEN PANEL,UR INE CREATININE [MASS/VOLU ME] IN URINE 181.0 mg/dL 20.0 11/13 Specimen Type: URINE Comment: Presumptive Positive by screen, results not confirmed. Ordering Provider: MARYJANE MATHEW Report Released Date/Time: Nov 13, 2023 09:43 AM Reporting Lab: [facility] [address] Performing Lab: [facility] [address] [place] [facility] DRUG SCREEN PANEL,UR INE OXYCODONE [PRESENCE] IN URINE BY SCREEN METHOD Negative 11/13 Specimen Type: URINE Comment: Presumptive Positive by screen, results not confirmed. Ordering Provider: MARYJANE MATHEW Report Released Date/Time: Nov 13, 2023 09:43 AM Reporting Lab: [facility] [address] Performing Lab: [facility] [address] [place] [facility] DRUG SCREEN PANEL,UR INE BUPRENORPH INE+NORBUP RENORPHINE [PRESENCE] IN URINE POSITIVE 11/13 H Specimen Type: URINE Comment: Presumptive Positive by screen, results not confirmed. Ordering Provider: MARYJANE MATHEW Report Released Date/Time: Nov 13, 2023 09:43 AM Reporting Lab: [facility] [address] Performing Lab: [facility] [address] [place] [facility] DRUG SCREEN PANEL,UR INE TRAMADOL CUTOFF [MASS/VOLU ME] IN URINE FOR SCREEN METHOD Negative 11/13 Specimen Type: URINE Comment: Presumptive Positive by screen, results not confirmed. Ordering Provider: MARYJANE MATHEW Report Released Date/Time: Nov 13, 2023 09:43 AM Reporting Lab: [facility] [address] Performing Lab: [facility] [address] [facility] DRUG SCREEN PANEL,UR INE FENTANYL [PRESENCE] IN URINE Negative 11/13 Specimen Type: URINE Comment: Presumptive Positive by screen, results not confirmed. Ordering Provider: MARYJANE MATHEW Report Released Date/Time: Nov 13, 2023 09:43 AM Reporting Lab: [facility] [address] Performing Lab: [facility] [address] [facility] Vital Signs Combined list of inpatient and outpatient Vital Signs from Department of Defense and Veterans Affairs, ranging from 12 months to all on record, depending upon the facility. Vital Sign Value Date Comments Source SYSTOLIC BLOOD PRESSURE 151 06/06/2024 13:10:00 [facility] DIASTOLIC BLOOD PRESSURE 84 06/06/2024 13:10:00 [facility] TEMPERATURE 97.1 06/06/2024 13:10:00 [place] [facility] PULSE 71 06/06/2024 13:10:00 [facility] RESPIRATION 16 06/06/2024 13:10:00 [facility] SYSTOLIC BLOOD PRESSURE 115 05/18/2024 09:40:27 [facility] DIASTOLIC BLOOD PRESSURE 70 05/18/2024 09:40:27 [facility] TEMPERATURE 97.7 05/18/2024 09:40:27 [place] [facility] PULSE 73 05/18/2024 09:40:27 [facility] SYSTOLIC BLOOD PRESSURE 180 03/25/2024 09:08:14 [facility] DIASTOLIC BLOOD PRESSURE 90 03/25/2024 09:08:14 [facility] PULSE OXIMETRY 96 03/25/2024 09:08:14 [place] [facility] PULSE 71 03/25/2024 09:08:14 [place] [facility] RESPIRATION 14 03/25/2024 09:08:14 [place] [facility] SYSTOLIC BLOOD PRESSURE 147 02/05/2024 09:23:32 [facility] DIASTOLIC BLOOD PRESSURE 81 02/05/2024 09:23:32 [facility] PULSE OXIMETRY 95 02/05/2024 09:23:32 [facility] WEIGHT 185.7 02/05/2024 09:23:32 [facility] BMI 25 kg/m2 02/05/2024 09:23:32 [facility] PAIN 8 02/05/2024 09:23:32 [facility] TEMPERATURE 97 02/05/2024 09:23:32 [facility] 63 02/05/2024 09:23:32 [facility] RESPIRATION 16 02/05/2024 09:23:32 [facility] SYSTOLIC BLOOD PRESSURE 128 10/23/2023 10:24:41 [facility] DIASTOLIC BLOOD PRESSURE 67 10/23/2023 10:24:41 [facility] PULSE OXIMETRY 98 10/23/2023 10:24:41 [facility] WEIGHT 189.5 10/23/2023 10:24:41 [facility] BMI 26 kg/m2 10/23/2023 10:24:41 [facility] PAIN 8 10/23/2023 10:24:41 [facility] HEIGHT 72 10/23/2023 10:24:41 [facility] TEMPERATURE 98.2 10/23/2023 10:24:41 [facility] 60 10/23/2023 10:24:41 [facility] RESPIRATION 14 10/23/2023 10:24:41 [facility] Encounters Combined list of: 1) Encounters from Department of Veterans Affairs facilities going backup to the last 18 months, not all VA inpatient encounters are included; 2) Encounters from the Department of Defense facilities going backup to 280 months. Location Location Details Encounter Type Encounter Number Reason For Visit Attending Provider ADM Date DC Date Status Disposition Source [facility] OFFICE O/P EST HI 40-54 MIN [id number] Diagnos is: ICD-10- CM F10.20 Alcohol depende nce, uncompl icated Unique BRICEÑO ATRICIA J 01/23 [facility] Outpatient Encounter [id number] 01/28 [facility] OFFICE O/P EST MOD 30-39 MIN [id number] Diagnos is: ICD-10- CM E78.5 Hyperli pidemia , unspeci fiNEETU Obrien 01/28 [facility] Outpatient Encounter [id number] [facility] Outpatient Encounter [id number] 02/04 [facility] HC PRO PHONE CALL 5-10 MIN [id number] Diagnos is: ICD-10- CM F33.9 Major depress mare disorde r, recurre nt, unspeci fiGEGE Hayes 02/05 [facility] Outpatient Encounter [id number] 02/06 [facility] Outpatient Encounter [id number] 02/06 [facility] Outpatient Encounter [id number] Diagnos is: ICD-10- CM F11.21 Opioid depende nce, in remissi on NICK MORRIS E 02/19 [facility] Outpatient Encounter [id number] 02/20 [facility] HC PRO PHONE CALL 5-10 MIN [id number] Diagnos is: ICD-10- CM F43.12 Post-tr aumatic stress disorde r, chronic PORTILLO,JAYANT OLE M 02/21 [facility] Outpatient Encounter [id number] 03/11 [facility] ECHO GUIDE FOR BIOPSY [id number] Diagnos is: ICD-10- CM F43.12 Post-tr aumatic stress disorde r, chronic Zakiya VEGA 03/11 [place] [facility] Outpatient Encounter [id number] Diagnos is: ICD-10- CM F11.21 Opioid depende nce, in remissi on MORRIS,CO URTNEY E 03/19 [facility] OFFICE O/P EST HI 40-54 MIN [id number] Diagnos is: ICD-10- CM F10.20 Alcohol depende nce, uncompl icated Unique BRICEÑO ATRICIA J 03/31 [facility] Outpatient Encounter [id number] JOEY ECHAVARRIA ICA D 04/04 [facility] THERAPEUTI C EXERCISES [id number] [phone] Diagnos is: ICD-10- CM Z73.3 Stress, not elsewhe re classif ied OPHELIA LARSON 04/09 [facility] [facility] Outpatient Encounter [id number] 04/11 [facility] Outpatient Encounter [id number] 04/15 [facility] PT EDUCATION NOC GROUP [id number] Diagnos is: ICD-10- CM 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 Outpatient Encounter [id number] NICK MORRIS URTNEY E 05/07 [facility] OFFICE O/P EST MOD 30-39 MIN [id number] Diagnos is: ICD-10- CM M43.26 Fusion of spine, lumbar region MARCO ANTONIO COMBS 05/08 [facility] Outpatient Encounter [id number] JOSE BAE 05/21 [facility] Outpatient Encounter [id number] Diagnos is: ICD-10- CM Z77.29 Contact with and exposur e to other hazardo us substan SAE Martini 05/26 [facility] Outpatient Encounter [id number] Diagnos is: ICD-10- CM F11.21 Opioid depende nce, in remissi on BOB MATHEW RTNEY E 05/27 [facility] Outpatient Encounter [id number] Diagnos is: ICD-10- CM F11.21 Opioid depende nce, in remissi on BOB MATHEW RTNEY E 05/27 [facility] Outpatient Encounter [id number] Diagnos is: ICD-10- CM Z23 Encount er for immuniz CAT King 05/28 [facility] OFF/OP EST MAY X REQ PHY/QHP [id number] Diagnos is: ICD-10- CM F11.21 Opioid depende nce, in remissi on MATHEW,COU RTNEY E 05/28 [facility] RE-EVAL,ES T PT,PROBLEM FOCUS [id number] Diagnos is: ICD-10- CM G47.33 Obstruc tive sleep apnea (adult) ([facility]) KELSEY VILLANUEVA N 06/09 [facility] PRO PHONE CALL 5-10 MIN [id number] Diagnos is: ICD-10- CM F43.12 Post-tr aumatic stress disorde r, chronic PORTILLO,JAYANT OLE M 06/17 [facility] Outpatient Encounter [id number] 06/20 [facility] PRO PHONE CALL 5-10 MIN [id number] Diagnos is: ICD-10- CM F43.12 Post-tr aumatic stress disorde r, chronic SHANNAN RAMOS HLSEA L 06/23 [facility] OFF/OP EST MAY X REQ PHY/QHP [id number] Diagnos is: ICD-10- CM F11.21 Opioid depende nce, in remissi on BOB MATHEW NEY E 06/26 [facility] OFFICE O/P EST HI 40 MIN [id number] Diagnos is: ICD-10- CM F34.1 Dysthym ic disorde r ELIANA SOOD DSEY E 07/04 [facility] Outpatient Encounter [id number] 07/10 [facility] FLUOROGUID E FOR SPINE INJECT [id number] Diagnos is: ICD-10- CM F43.12 Post-tr aumatic stress disorde r, chronic PAIDIN,MAR K E 07/10 [facility] Outpatient Encounter [id number] [facility] RTNEY E [facility] OFF/OP EST MAY X REQ PHY/QHP [id number] Diagnos is: ICD-10- CM F11.21 Opioid depende nce, in remissi on DAVIS,[facility] RTNEY E 07/24 [facility] DENTAL SURFACE SCAN DIR 3D [id number] Diagnos is: ICD-10- CM G47.33 Obstruc tive sleep apnea (adult) ([facility]) JOSE BAE A 07/24 [facility] OFF/OP EST MAY X REQ PHY/QHP [id number] Diagnos is: ICD-10- CM F11.21 Opioid depende nce, in remissi on DAVIS,[facility] RTNEY E 08/21 [facility] Outpatient Encounter [id number] [facility] 08/28 [facility] OFFICE O/P EST HI 40 MIN [id number] Diagnos is: ICD-10- CM F33.9 Major depress mare disorde r, recurre nt, unspeci fied ELIANA SOOD E 08/31 [facility] OCCLUSAL ORTHOTIC APPLIANCE [id number] Diagnos is: ICD-10- CM G47.33 Obstruc tive sleep apnea (adult) ([facility]) JOSE BAE A 09/04 [facility] OFF/OP EST MAY X REQ PHY/QHP [id number] Diagnos is: ICD-10- CM F11.21 Opioid depende nce, in remissi on DAVIS,COU RTNEY E 09/18 [facility] OFFICE O/P EST HI 40 MIN [id number] Diagnos is: ICD-10- CM G89.4 Chronic pain syndrom e OTF,RU ELEANOR P 09/28 [facility] Outpatient Encounter [id number] 10/09 [facility] OFF/OP EST MAY X REQ PHY/QHP [id number] [id number] Diagnos is: ICD-10- CM F11.21 Opioid depende nce, in remissi on PRIYANKABOB RTNEY E 10/16 [facility] Outpatient Encounter [id number] PRIYANKABOB RTNEY E 10/22 [facility] REPAIR CUST SLEEP APNEA APPL [id number] [id number] Diagnos is: ICD-10- CM G47.33 Obstruc tive sleep apnea (adult) ([facility]) JOSE BAE 10/22 [facility] OFFICE O/P EST HI 40 MIN [id number] Diagnos is: ICD-10- CM R53.82 Chronic fatigue , unspeci ASHLEY Kendrick 10/22 [facility] IMG RTA DETCJ/MNTR DS STAFF [id number] Diagnos is: ICD-10- CM Z01.00 Encount er for exam of eyes and vision w/o abnorma l finding s CONNER HAUSER 10/22 [facility] Outpatient Encounter [id number] Diagnos is: ICD-10- CM Z01.01 Encount er for exam of eyes and vision w abnorma l finding s ALEXANDRE10/26 [facility] OFFICE O/P EST HI 40 MIN [id number] Diagnos is: ICD-10- CM F33.9 Major depress mare disorde r, recurre nt, unspeci fied ELIANA SOOD DSEY E 10/29 [facility] Outpatient Encounter [id number] 11/03 [facility] OFF/OP EST MAY X REQ PHY/QHP [id number] Diagnos is: ICD-10- CM F11.21 Opioid depende nce, in remissi on [facility] 11/13 [facility] Outpatient Encounter [id number] 11/24 [facility] OFF/OP EST MAY X REQ PHY/QHP [id number] [id number] Diagnos is: ICD-10- CM F11.21 Opioid depende nce, in remissi on [facility] RTNEY E 12/11 [facility] Outpatient Encounter [id number] 12/25 [facility] OFFICE O/P EST HI 40 MIN [id number] Diagnos is: ICD-10- CM F34.1 Dysthym ic disorde r ELIANA SOODEY E 12/31 [facility] GROUP PSYCHOTHER APY [id number] Diagnos is: ICD-10- CM F10.20 Alcohol depende nce, uncompl icated LEVIWALTER O 01/13 [facility] PRO PHONE CALL 21-30 MIN [id number] [id number] Diagnos is: ICD-10- CM F43.10 Post-tr aumatic stress disorde r, unspeci fiTHEA Benavides R 01/29 [facility] Outpatient Encounter [id number] 02/04 [facility] OFFICE O/P EST MOD 30 MIN [id number] Diagnos is: ICD-10- CM H35.371 Puckeri ng of macula, right eye CAMILAMatthew Garcia 02/04 [facility] Outpatient Encounter [id number] 02/04 [facility] OFFICE O/P EST MOD 30 MIN [id number] [id number] Diagnos is: ICD-10- CM R53.82 Chronic fatigue , unspeci ASHLEY Kendrick 02/04 [facility] Outpatient Encounter [id number] 02/05 [facility] Outpatient Encounter [id number] 02/16 [facility] Outpatient Encounter [id number] 02/22 [facility] Outpatient Encounter [id number] 02/22 [facility] MTMS BY PHARM EST 15 MIN [id number] Diagnos is: ICD-10- CM M54.2 Cervica larryia Queenie VERDUZCO A 02/24 [facility] OFFICE O/P EST HI 40 MIN [id number] Diagnos is: ICD-10- CM F33.9 Major depress mare disorde r, recurre nt, unspeci ELIANA Contreras E 03/25 [facility] OFFICE O/P EST SF 10 MIN [id number] [id number] Diagnos is: ICD-10- CM H02.834 Dermato chalasi s of left upper eyelid Matthew LYONS 03/25 [facility] Outpatient Encounter [id number] 03/26 [facility] ADJUNCTIVE PROCEDURE [id number] Diagnos is: ICD-10- CM G47.33 Obstruc tive sleep apnea (adult) ([facility]) JOSE BAE Karin 05/05 [facility] Outpatient Encounter [id number] 05/06 [facility] DENTAL SURFACE SCAN DIR 3D [id number] Diagnos is: ICD-10- CM G47.33 Obstruc tive sleep apnea (adult) ([facility]) CATALINOJOSE Karin 05/18 [facility] SYNCH AUDIO-VIDE O EST HI 40 [id number] Diagnos is: ICD-10- CM F33.9 Major depress mare disorde r, recurre nt, unspeci fied ELIANA SOOD E 05/27 [facility] Outpatient Encounter [id number] 06/06 [facility] Outpatient Encounter [id number] 06/06 [facility] Outpatient Encounter [id number] CODY RODRIGUEZ R 06/06 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 Social History Type Response Date Comment [facility] e Tobacco smoking status NHIS AK-TOBACCO FORMER USER 10/23/2023 [facility] History of tobacco use AK-TOBACCO QUIT 5 TO < 15 YRS 10/23/2023 [facility] History of tobacco use AK-TOBACCO FORMER USER 09/05/2022 [facility] History of tobacco use AK-TOBACCO FORMER USER 06/12/2021 [facility] History of tobacco use VA-TOBACCO FORMER USER 06/13/2020 [facility] History of tobacco use VA-TOBACCO QUIT 1 5 YRS OR MORE 12/03/2018 [facility] History of tobacco use FORMER TOBACCO US E >1Y <7Y 11/26/2017 [facility] History of tobacco use FORMER TOBACCO US E >1Y <7Y 04/01/2017 [facility] History of tobacco use INPT NO TOBACCO U SE IN LAST 30 DAYS 11/27/2016 [facility] History of 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 Additional future care activities may be listed in the Assessment and Plan section. Date/Time Care Activity Care Activity Detail Facili ty 07/28/2024 AMBULATORY - NONE AMBULATORY - NONE [facility] 07/28/2024 AMBULATORY - MEDICINE AMBULATORY - MEDICI NE [facility] 08/18/2024 AMBULATORY - SURGERY AMBULATORY - SURGERY [facility] 08/26/2024 AMBULATORY - PSYCHIATRY AMBULATORY - PSYC HIATRY [facility] 09/03/2024 AMBULATORY - SURGERY AMBULATORY - SURGERY [facility]
--- OUTSIDE RECORDS SUMMARY | 2024-07-21 12:57 | XMS_ITS | Continuity of Care Document ---
Author Organization [facility] Address [address] [place] [address] Phone Care Team Providers Care Workplace Rehabilitation Officer Name Role Phone Katherine Patino MD Unavailable Unavailable Allergies, Adverse Reactions, Alerts Substance Reaction Status Criticality No Known Allergies Resolved No Inform ation Medications Medication Instructions Dosage Effective Dates (start - stop) Status Comments allopurinol 100 mg tablet take 2 tablet by oral route every day, take with 300 mg tabs for total dose of 500 mg daily - Active venlafaxine 75 mg tablet take [...] route every day 10 MG - Active indomethacin 50 mg capsule [...] [address], [place], [address], [place] tel:[phone] [facility] , No Information 7 Sukumar Murphy. [facility] [address], [place], [address], [place]. tel:[phone] [facility], [address], [place], [address], [place] tel:[phone] [facility] , No Information 7 Sukumar Murphy. [facility] [address], [place], [address], [place]. 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 [facility] [address], [place], [address], [place]. tel:[phone] Referring Provider: Katherine Monte, [facility] [address], [place], [address]. tel:[phone] Office/Outpa tient Visit, New [facility], [address], [place], [address], [place] tel:[phone] [facility] , Gout (chief complaint) Chronic gout w/ tophi 201 6 Sukumar Murphy. [facility] [address], [place], [address], [place]. tel:[phone] Referring Provider: Katherine Monte, [facility] [address], [place], [address]. tel:[phone] Family History Family Member Type Diagnosis Age At Onset Father Problem (finding) gout Brother Problem (finding) gout Payers Payer name Insurance type Covered green party ID Authoriza tiroberta(s) Bcbs Medicare Advantage/Plat inum Blue BL [id number] Social History Type Description Quantity Date Captured [...]
--- OUTSIDE RECORDS SUMMARY | 2024-07-21 12:57 | XMS_ITS | Continuity of Care Document ---
Author Organization [facility] Address [address] [place] [address] Phone Care Team Providers Care Vacuum Cooker Operator Name Role Phone Stella LLOYD, Amidaja Unavailable [...] [facility], [address], [place], [id number], [place] tel:[phone] [facility] Encounter for follow-up examination after completed treatment for conditions other than malignant neoplasm 4 Stella Jaramillo. [facility] [place], [address] [place] [address], [facility] [place], [id number] , [place]. tel:[phone] Referring Provider: Maria G Sanon , [address], [place], [address]. tel:[phone] Office/Outpat ient Visit,Est, Mod [facility], [address], [place], [id number], [place] tel:[phone] [facility] Arthrodesis status 3 Mehblynn Jaramillo. [facility] [place], [address] [place] [address] [address], [place], [place], [id number] , [place]. tel:[phone] Referring Provider: Hiram SkeltonAccess MediQuip [facility], [place], [address]. tel:[phone] [facility], [address], [place], [id number], [place] tel:[phone] [facility] Encounter for other specified surgical aftercare 3 Mehbod Amir. [facility] [place], [address] [place] [address], [place], [place], [id number] , [place]. tel:[phone] Referring Provider: Hiram SkeltonAccess [facility], [place], [address]. tel:[phone] [facility], [address], [place], [id number], [place] tel:[phone] [facility] No Information 2 Joe Mata. [address] [place] [address], [place], [place], [id number] , [place]. tel:[phone] Referring Provider: Hiram SkeltonPlay It Interactive [facility], [place], [address]. tel:[phone] [facility], [address], [place], [id number], [place] tel:[phone] [facility] No Information 2 Mehbod Amir. [facility] [place], [address] [place] [address], [place], [place], [id number] , [place]. tel:[phone] Referring Provider: Hiram SkeltonPlay It Interactive Chloe [facility], [place], [address]. tel:[phone] Office/Outpat ient Visit,Est, Mod [facility], [address], [place], [id number], [place] tel:[phone] [facility] [place] Spinal stenosis, lumbar region with neurogenic claudicationR adiculopathy, lumbar regionSpinal stenosis, lumbar region without neurogenic jamaal Nov-2 2 Mehbod Amir. [facility], [address], [place], [place], [id number] , . tel:[phone] Referring Provider: Maria G Sanon [facility], [place], [address]. tel:[phone] Office/Outpat ient Visit,Est, Mod [facility], [address], [place], [place], [id number], [place] tel:[phone] [facility] [place] Spinal stenosis, lumbar region with neurogenic claudication 2 Joe Mata. [address], [place], [place], [id number] , [place]. tel:[phone] Referring Provider: Maria G Sanon [facility] Chloe [place] , [place], [address]. tel:[phone] Office/Outpat ient Visit,New, Mod [facility], [address], [place], [place], [id number], [place] tel:[phone] [facility] [place] No Information 0 Mehbod Amir. [facility], [address], [place], [place], [id number] , [place]. [phone] Referring Provider: Maria G Sanon [facility] Chloe [facility], [place], [address]. tel:[phone] Family History Family Member Type Diagnosis Age At Onset No Information Payers Payer name Insurance type Covered democrat ID Authorzekea zoëroberta(s) [id number] Medicare [facility] [id number] Social History Type Description Quantity Date [...]
[2024-07-21 13:16] LABS: Basophils Absolute Auto 0.02 K/uL (0.00-0.30); Basophils Percent Auto 0.3 % (0.0-3.0); Eosinophils Absolute Auto 0.12 K/uL (0.00-0.50); Eosinophils Percent Auto 1.9 % (0.0-7.0); Hematocrit 37.6 % (37.0-53.0); Hemoglobin* 12.3 gm/dL (13.5-17.5); Immature Granulocytes Abs Auto 0.01 K/uL (0.00-0.30); Immature Granulocytes Pct Auto 0.2 %; Lymphocytes Percent Auto 10.4 % (20-44); Mean Corpuscular HGB Conc 33 gm/dL (32-36); Mean Corpuscular Hemoglobin 31 pg (26-34); Mean Corpuscular Volume 95 fL (80-100); Monocytes Percent Auto 7.7 % (0.0-11.0); Neutrophils Percent Auto 79.5 % (42.0-72.0); Platelet Count* 172 K/uL (140-440); RDW Coefficient of Variation % 12.4 % (11.5-15.5); Red Blood Count 3.94 m/uL (4.30-5.90); White Blood Count* 6.23 K/uL (4.50-11.00)
[2024-07-21 13:23] VITALS: O2SAT 93
[2024-07-21 13:24] LABS: Troponin, Point-of-Care* 0.01 ng/ml (0.01-0.04)
[2024-07-21 13:33] LABS: Albumin* 4.3 g/dL (3.3-5.0); Chloride* 102 mmol/L (96-114)
[2024-07-21 13:34] LABS: Potassium* 4.7 mmol/L (3.6-5.1); Sodium* 139 mmol/L (135-149)
[2024-07-21 13:35] LABS: Bilirubin Direct* 0.3 mg/dL (0.0-0.5); Bilirubin Total* 0.7 mg/dL (0.1-1.5)
[2024-07-21 13:36] LABS: Alanine Aminotransferase* 19 U/L (4-50); Alkaline Phosphatase* 60 U/L (40-150); Aspartate Amino Transferase* 26 U/L (12-35); Blood Urea Nitrogen* 22 mg/dL (7-30); Creatinine* 1.3 mg/dL (0.5-1.5); Est. Creatinine Clearance* 54.72; Estimated Glomerular Filt Rate 58 ml/min; Total Protein* 6.7 g/dL (6.0-8.3)
[2024-07-21 13:37] LABS: Anion Gap 8 mEq/L (7-15); Calcium* 9.6 mg/dL (8.4-10.6); Carbon Dioxide* 29 mmol/L (20-32); Glucose* 120 mg/dL (60-115)
[2024-07-21 13:38] LABS: D Dimer Quantitative* 0.37 ug/ml (0.00-0.50)
[2024-07-21 13:40] LABS: C Reactive Protein* < 0.5 mg/dL (0.5-1.0)
[2024-07-21 13:41] LABS: Slide Review Reflex No
[2024-07-21 13:45] LABS: NT Pro B Type NatriureticPept* 324 pg/mL
== END 2024-07-21 15:21 | disposition home or self-care (01) ==
PROVIDERS: Emergency Provider Emergency Medicine; PCP Family Medicine
DX: R06.09 Other forms of dyspnea (principal)
CPT/HCPCS: 36415; 71046; 80048; 80076; 83880; 84443; 84484; 85025; 85379; 86140; 87631; 93005; 94761; 99284

== ENCOUNTER 2024-09-25 00:13 | Emergency (ER) | payer MEDICARE, BC, SELFPAY ==
--- OUTSIDE RECORDS SUMMARY | 2024-09-25 00:16 | XMS_ITS | Clinical Summary ---
Author Organization [facility] Address [address] [place] [id number] Care Team Providers Care Glassware Finisher Name Role Phone Maria G Valdivia MD Primary Care Provide r Allergies No known active allergies Medications folic acid 1 mg tablet Take 1 mg by mouth once daily. Active DULoxetine (CYMBALTA) 60 mg Delayed-release capsule TAKE 1 CAPSULE BY MOUTH EVERY MORNING FOR MOOD 05/16/20 Active cetirizine (ZYRTEC) 10 mg tablet Take 10 mg by mouth once daily. 09/22/19 22 Active cholecalciferol (VITAMIN D3) 1,000 unit [...] DIRECTED FOR UNRESPONSIVENESS THEN CALL 911 08/07/19 23 Active terazosin (HYTRIN) 2 mg capsuleIndicatio ns:BPH without urinary obstruction Take 1 Capsule (2 mg) by mouth at bedtime. 07/23/19 25 Active Active Problems Problem Noted Date Diagnosed [...] Encounters Date Type Department Care Team Description 07/28/2024 9:00 AM CDT Ancillary Procedure [facility] [address] [facility] [address] [place] [address] 07/28/2024 Travel 07/26/2024 Telephone [facility] [address] [facility] [place] [address] Maria G Valdivia MD Questions (CT CARDIAC CORONARY ARTERIES RAD DUAL READ/CT CARDIAC CORONARY ARTERIES CV DUAL READ/) 07/23/2024 Travel 07/22/2024 3:05 PM DIRECTOR OF MIDWIFERY/STAFF MIDWIFE Office Visit [facility] [address] [place] [address] Maria G Valdivia MD Concerns (ER visit- everything came back good in the ER /Patient feels like something is off with his heart /Jerky motions /Dizzy spells ) 07/22/2024 Travel 07/21/2024 Orders Only [facility] Scanner 1 scan: (1-Ord) NORMAL ECG, 07/21/2024 07/21/2024 Orders Only [facility] Scanner 1 scan: (1-Ord) [facility] MULTIPLE LABS, 07/21/2024 07/21/2024 Orders Only [facility] Scanner 1 scan: (1-Ord) [facility], XR CHEST 2V, 07/21/2024 07/21/2024 Telephone [facility] [address] [place] [address] Maria G Valdivia MD Appointment Request from Last 3 Months Immunizations Immunization Administration Dates Next Due AMB Influenza, IIV3 [...] or isolated from those around you? 0 07/22/2024 Financial Resource Strain Answer Date R ecorded Difficulty of Paying Living Expenses 3 07/22/2024 Difficulty of Paying Living Expenses Not on file 07/22/2024 Food Insecurity Answer Date Recorded Do you worry your food will run out before you are able to buy more? 1 07/22/2024 Transportation Needs Answer Date Record ed Does lack of transportation keep you from medica l appointments? 1 07/22/2024 Does lack of transportation keep you from work, meetings or getting things that you need? 1 07/22/2024 Housing Stability Answer Date Recorded What is your housing situation today? 1 07/22/2024 Utilities Answer Date Recorded Do you have trouble paying f or utilities (for example, heat, electricity, water, phone)? 1 07/22/2024 Sex and Gender Information Value Date Recorded Sex Assigned at Not on file Legal Sex Male 5:26 AM DIRECTOR OF MIDWIFERY/STAFF MIDWIFE Gender Identity Not on file Sexual Orientation Not on file Obstetrics History Last Filed Vital Signs Vital Sign Reading Time Taken Comments Blood Pressure 92/61 07/22/2024 3:08 PM DIRECTOR OF MIDWIFERY/STAFF MIDWIFE Pulse 83 07/22/2024 3:08 PM DIRECTOR OF MIDWIFERY/STAFF MIDWIFE Temperature 36.6 C (97.9 F) 05/03/2022 11:25 AM DIRECTOR OF MIDWIFERY/STAFF MIDWIFE Respiratory Rate 16 05/03/2022 11:25 AM DIRECTOR OF MIDWIFERY/STAFF MIDWIFE Oxygen Saturation 99% 07/22/2024 3:08 PM DIRECTOR OF MIDWIFERY/STAFF MIDWIFE Inhaled Oxygen Concentration - - Weight 87.6 kg (193 lb 1.6 oz) 07/22/2024 3:08 P M DIRECTOR OF MIDWIFERY/STAFF MIDWIFE Height 180.3 cm (5' 11) 04/30/2022 7:03 AM DIRECTOR OF MIDWIFERY/STAFF MIDWIFE Body Mass Index 26.93 04/30/2022 7:03 AM DIRECTOR OF MIDWIFERY/STAFF MIDWIFE Plan of Treatment Health Maintenance Due Date Last Done Comments Hepatitis C screening for ag e 18-79 09/07/1968 Lipids for age 45-75 04/17/2014 04/17/2009, 07/03/2007, [...] 2024 05/28/2023, 02/14/2022, 03/05/2021, Additional history exists RSV vaccine for adults or (1 - 1-dose 75+ series) 2024 Tetanus booster 09/05/2032 09/05/2022, 12/17, 04/02/2011, Additional history exists Colonoscopy through age 75 04/28/203304/28, 04/28/2023, 08/28/2017, Additional history exists Pneumococcal series for age 50+ Completed 05/22/2018, 07/30/2017, 04/21/2015, Additional history exists Zoster (shingles) series for age 50+ Completed 05/22/2018, 02/04/2018, 07/30/2017, Additional history exists Tdap Completed 09/05/2022, 12/17, 04/02/2011, Additional history exists Influenza Vaccine Completed 02/05/2024, , 02/08/2021, Additional history exists Medical Devices Implanted Type Area Process Architect Device Identifier Shelf Expiration Date Model / Serial / Lot [id number] one Matrix 3cc Lizet Dbf Putty Dbm Implanted:Qty: 1 on 04/30/2022 by Ella Douglas MD at [facility] Spine [employer] Spine/Ortho 02/26/2024 [id number] / [id number] / Bone Matrix 3cc Smyth Dbf Putty Dbm - [id number] Implanted:Qty: 1 on 04/30/2022 by Ella Douglas MD at [facility] Spine [employer] Spine/Ortho 02/26/2024 [id number] / [id number] / Bone 1-4mm 60cc Medtronic Fine Canclls Freeze Dried - [id number] Implanted:Qty: 1 on 04/30/2022 by Ella Douglas MD at [facility] Spine [employer] Spine/Ortho 02/19/2026 [id number] / [id number] / Spacer Lmbr 77n54ct Capstone Tlif Peek - [id number] Implanted:Qty: 1 on 04/30/2022 by Ella Douglas MD at [facility] Spine [employer] Spine/Ortho 05/22/2025 [id number] / / [id number] Spacer Lmbr 58r09iq Capstone Tlif Peek - [id number] Implanted:Qty: 1 on 04/30/2022 by Ella Douglas MD at [facility] Spine [employer] Spine/Ortho 12/06/2024 [id number] / / [id number] Set Screw Lmbr Ant 5.5mm Solera Break Off - [id number] Implanted:Qty: 6 on 04/30/2022 by Ella Douglas MD at [facility] Spine [employer] Spine/Ortho [id number] / / Wong Lmbr 70x5.5mm Solera 5.5/6 Cvd Titnm - [id number] Implanted:Qty: 2 on 04/30/2022 by Ella Douglas MD at [facility] Spine [employer] Spine/Ortho [id number] / / Screw Lmbr Post 6.5x50mm Solera 5.5/6 Va Cocr - [id number] Implanted:Qty: 6 on 04/30/2022 by Ella Douglas MD at [facility] Spine [employer] Spine/Ortho [id number] / / Procedures Procedure Name Priority Date/Time Associated Diagnosis Comments CT CARDIAC CORONARY ARTERIES CV DUAL READ Routine 07/28/2024 9:59 AM CDT Atypical chest pain CT CARDIAC CORONARY ARTERIES RAD DUAL READ Routine 07/28/2024 9:59 AM CDT Atypical chest pain CBC WITH AUTO DIFFERENTIAL Routine 07/22/2024 4:25 PM DIRECTOR OF MIDWIFERY/STAFF MIDWIFE Anemia, unspecified type FERRITIN Routine 07/22/2024 4:25 PM DIRECTOR OF MIDWIFERY/STAFF MIDWIFE Anemia, unspecified type VITAMIN B12 Routine 07/22/2024 4:25 PM DIRECTOR OF MIDWIFERY/STAFF MIDWIFE Anemia, unspecified type SCAN-ELECTROCARDIOGRA M EKG 07/21/2024 12:00 AM DIRECTOR OF MIDWIFERY/STAFF MIDWIFE SCAN-LABORATORY REPORT 07/21/2024 12:00 AM DIRECTOR OF MIDWIFERY/STAFF MIDWIFE SCAN-RADIOLOGY REPORT 07/21/2024 12:00 AM DIRECTOR OF MIDWIFERY/STAFF MIDWIFE COLONOSCOPY SCREENING Routine 04/28/2023 8:07 AM DIRECTOR OF MIDWIFERY/STAFF MIDWIFE History of colon polyps CT CHEST WO Routine 07/07/2017 11:47 AM DIRECTOR OF MIDWIFERY/STAFF MIDWIFE Lung nodule < 6cm on CT LIPID PANEL Routine 04/17/2009 7:59 AM DIRECTOR OF MIDWIFERY/STAFF MIDWIFE Unspecified Chest Pain from Last 3 Months or Most Recently Relevant to Health Maintenance Results * CT CARDIAC CORONARY ARTERIES CV DUAL READ (07/28/2024 9:59 AM CDT) Anatomical Region Laterality Modality HEART Computed Tomogra phy 07/28/2024 8:29 AM CDT Narrative 07/28/2024 2:25 PM CDT [facility] Cardiac CT Report Name: GUS MOOK Katarzyna : Scan Date: Accession Number: [id number] Status: Final Electronically signed by Mook Martinez 12:03:37 VITALS HEIGHT: 71 in (180 cm) WEIGHT: 193 lbs (88 kgs) BSA: 2.08 m^2 BMI: 27 kg/m^2 BP: 151 / 82 mmHg BASELINE HR: 47 BPM HEART RHYTHM: Normal Sinus Rhythm FINAL IMPRESSION 1. No evidence of any obstructive coronary artery disease. 2. Mild burden of atherosclerosis, CAC score of 80, 32nd percentile for age/sex. 3. Normal size ascending aorta without acute pathology. STUDY QUALITY: Study quality is good. CAD-RADS: CAD-RADS Classification 1 (<25% stenosis). CALCIUM SCORING: Total coronary artery calcium score 80. [place] percentile based on age, gender, and race is 32. DOMINANCE: Right dominant coronary artery system. LM: The LM is normal. LAD: The proximal LAD has calcified atherosclerosis. There is a <25% proximal LAD stenosis. The mid LAD has calcified atherosclerosis. There is a <25% mid LAD stenosis. There is no distal LAD stenosis. D1: The first diagonal is normal. LCX: The LCx is normal. OM1: The first obtuse marginal is normal. OM2: The second obtuse marginal is normal. OM3: The third obtuse marginal is normal. RCA: The proximal RCA has calcified atherosclerosis. There is a <25% proximal RCA stenosis. There is no mid RCA stenosis. There is no distal RCA stenosis. RIGHT PDA: The right PDA is normal. RIGHT PLB: The right posterolateral branch is normal. OTHER FINDINGS: Ascending thoracic aorta measures 3.3 cm. There is no calcification of the thoracic aorta. There is no mitral annulus calcification. Hiatal hernia not present. CALCIUM SCORING TABLE . . Number of Lesions Pattern of Calcium Volume Total Score +-------+ + +--------+ + LM 0 LAD 70 LCx 0 RCA 10 Ramus '-------+ + +--------+ ' SCAN INFO TEST TYPE: Calcium score, Coronary CT Angiography SCANNER HABILITATION ASSISTANT: SIEMENS SCANNER MODEL: SOMATOM RSI ([employer]) DOSE REDUCTION ALGORITHM: Prospective/Itvb-mkj-ycdut PHASE UNITS: % START PHASE: 65 % END PHASE: 75 % EKG GATED: Yes PRE-CONTRAST: Yes POST-CONTRAST: Yes 3D RECONSTRUCTION: Yes GENERAL CONTRAST AGENT CONTRAST AGENT USED?: Yes TYPE: Omnipaque 350 DOSE: 84 ml RATE: 6.5 ml/s ROUTE: IV ARM: Left BOLUS TECHNIQUE: Biphasic ADVERSE REACTION: No SERUM CREATININE: 1.3 mg/dL GFR: 57.35 ml/min/1.73m^2 CREATININE DATE: CT CONTRAST REACTION: None CONTRAST/SALINE ADMINISTRATION: Blended CONTRAST TIMING: Bolus Tracking Method MEDICATION ADMINISTERED DURING SCAN TYPE: Nitroglycerin, sublingual, B-Blockers NITROGLYCERIN, TOTAL DOSE: 0.8 mg B-VIKA TYPE: Oral B-VIKA NAME, ORAL: Metoprolol tartrate B-BLOCKERS, ORAL DOSE: 50 mg RADIATION DOSE DLP: 203 KV: 100 SETUP PATIENT TYPE: Outpatient REASON(S) FOR SCAN: Chest pain REFERRING PHYSICIAN: MARIA G VALDIVIA TECHNOLOGIST: Adrianna Brandon Patient Account [id number] ICD10 Codes R07.89 Report generated by [employer], a product of [employer] us Maria G Valdivia MD CT Final Result * CT CARDIAC CORONARY ARTERIES RAD DUAL READ (07/28/2024 9:59 AM CDT) Anatomical Region Laterality Modality HEART Computed Tomogra phy 07/28/2024 11:3 2 AM CDT Impressions 07/28/2024 11:32 AM CDT : 1. See separate cardiology report for cardiac findings. 2. No acute abnormalities of the extracardiac structures identified. Please note that all CT scans at this facility use dose modulation, iterative reconstruction, and/or weight-based dosing when appropriate to reduce radiation dose to as low as reasonably achievable. Dictated by Jus Deshpande MD @ 07/28/2024 11:32:40 AM (Electronically Signed) Narrative 07/28/2024 11:32 AM CDT For Patients: As a result of the Cures Act, medical imaging exams and procedure reports are released immediately into your electronic medical record. You may view this report before your referring provider. If you have questions, please contact your health care provider. THIS IS THE RADIOLOGY OVER READ REPORT OF A DUAL READ STUDY. READ THE SEPARATE CARDIOLOGY REPORT FOR CARDIOVASCULAR FINDINGS. REPORTS MAY BE FINALIZED AT DIFFERENT TIMES. : COMPARISON: : Chest CT scan dated 07 July 2017. TECHNIQUE: : Please see cardiology report for technical information. This exam is being performed in conjunction with the services provided by the [facility] ([facility]). INDICATION: Cardiac over-read. FINDINGS: No lower central pulmonary emboli. No lower hilar adenopathy. The visualized portions of the lungs show no focal pulmonary opacities. No pneumothorax. Degenerative changes of the spine. No other bony or soft tissue abnormalities identified. Procedure Note Jus Deshpande MD - 07/28/2024 For Patients: As a result of the Cures Act, medical imagingexams and procedure reports are released immediately into your electronicmedical record. You may view this report before your referring provider.If you have questions, please contact your health care provider. THIS IS THE RADIOLOGY OVER READ REPORT OF A DUAL READ STUDY. READ THESEPARATE CARDIOLOGY REPORT FOR CARDIOVASCULAR FINDINGS. REPORTS MAY BEFINALIZED AT DIFFERENT TIMES. : COMPARISON: : Chest CT scan dated 07 July 2017. TECHNIQUE: : Please see cardiology report for technical information. This exam is being performed in conjunction with the services provided bythe [facility] ([facility]). INDICATION: Cardiac over-read. FINDINGS: No lower central pulmonary emboli. No lower hilar adenopathy. The visualized portions of the lungs show no focal pulmonary opacities. Nopneumothorax. Degenerative changes of the spine. No other bony or softtissue abnormalities identified. IMPRESSION: : 1. See separate cardiology report for cardiac findings. 2. No acute abnormalities of the extracardiac structures identified. Please note that all CT scans at this facility use dose modulation,iterative reconstruction, and/or weight-based dosing when appropriate toreduce radiation dose to as low as reasonably achievable. Dictated by Jus Deshpande MD @ 07/28/2024 11:32:40 AM (Electronically Signed) us Maria G Valdivia MD CT Final Result * (ABNORMAL) CBC AND DIFFERENTIAL (07/22/2024 4:25 PM DIRECTOR OF MIDWIFERY/STAFF MIDWIFE) WHITE BLOOD CELL COUNT 6.1 3.8 - 10.8 Thousand/u L [facility] RED BLOOD CELL COUNT 4.06(L) 4.20 - 5.80 Million/uL [facility] HEMOGLOBIN 12.7(L) 13.2 - 17.1 g/dL [facility] HEMATOCRIT 38.2(L) 38.5 - 50.0 % [facility] MCV 94.1 80.0 - 100.0 fL [facility] MCH 31.3 27.0 - 33.0 pg [facility] MCHC 33.2 32.0 - 36.0 g/dL [facility] Comment: For adults, a slight decrease in the calculated MCHC value (in the range of 30 to 32 g/dL) is most likely not clinically significant; however, it should be interpreted with caution in correlation with other red cell parameters and the patient's clinical condition. RDW 12.8 11.0 - 15.0 % [facility] PLATELET COUNT 202 140 - 400 Thousand/u L [facility] MPV 11.2 7.5 - 12.5 fL [facility] ABSOLUTE NEUTROPHILS 4,349 1,500 - 7,800 cells/uL [facility] ABSOLUTE LYMPHOCYTES 909 850 - 3,900 cells/uL [facility] ABSOLUTE MONOCYTES 592 200 - 950 cells/uL [facility] ABSOLUTE EOSINOPHILS 220 15 - 500 cells/uL [facility] ABSOLUTE BASOPHILS 31 0 - 200 cells/uL [facility] NEUTROPHILS 71.3 % [facility] LYMPHOCYTES 14.9 % [facility] MONOCYTES 9.7 % [facility] EOSINOPHILS 3.6 % [facility] BASOPHILS 0.5 % [facility] Blood BLOOD SPECIMEN / Unknown 07/22/2024 4:25 PM DIRECTOR OF MIDWIFERY/STAFF MIDWIFE 07/22/2024 4:25 PM DIRECTOR OF MIDWIFERY/STAFF MIDWIFE Maria G Valdivia MD HEMATOLOGY Final Result [facility] [address] [place] [address], [place] [phone] [facility] [address] [place] [address] * FERRITIN (07/22/2024 4:25 PM DIRECTOR OF MIDWIFERY/STAFF MIDWIFE) [facility] FERRITIN 179 24 - 380 ng/mL [facility] Blood BLOOD SPECIMEN / Unknown 07/22/2024 4:25 PM DIRECTOR OF MIDWIFERY/STAFF MIDWIFE 07/22/2024 4:25 PM DIRECTOR OF MIDWIFERY/STAFF MIDWIFE Maria G Valdivia MD CHEMISTRY Final Result [facility] [address] [facility] [place] [address], [place] [phone] [facility] [address] [place] [address] * VITAMIN B12 (07/22/2024 4:25 PM DIRECTOR OF MIDWIFERY/STAFF MIDWIFE) [facility] VITAMIN B12 487 200 - 1,100 pg/mL [facility] Blood BLOOD SPECIMEN / Unknown 07/22/2024 4:25 PM DIRECTOR OF MIDWIFERY/STAFF MIDWIFE 07/22/2024 4:25 PM DIRECTOR OF MIDWIFERY/STAFF MIDWIFE us Maria G Valdivia MD CHEMISTRY Final Result [facility] [address] [place] [address], [facility] [address] [place] [address] * SCAN-RADIOLOGY REPORT (07/21/2024 12:00 AM DIRECTOR OF MIDWIFERY/STAFF MIDWIFE) Anatomical Region Laterality Modality Other us Scanner OTHER Final Result * SCAN-LABORATORY REPORT (07/21/2024 12:00 AM DIRECTOR OF MIDWIFERY/STAFF MIDWIFE) us Scanner OTHER Final Result * SCAN-ELECTROCARDIOGRAM EKG (07/21/2024 12:00 AM DIRECTOR OF MIDWIFERY/STAFF MIDWIFE) us Scanner OTHER Final Result * SD COLONOSCOPY W/BIOPSY SINGLE/MULTIPLE (04/28/2023 12:00 AM DIRECTOR OF MIDWIFERY/STAFF MIDWIFE) us Beto Brito MD PB - DIGESTIVE SYSTEM SER VICES Final Result * CT CHEST WO (07/07/2017 11:47 AM DIRECTOR OF MIDWIFERY/STAFF MIDWIFE) Anatomical Region Laterality Modality CHEST, THORAX, HEART Computed To mography 07/07/2017 12:4 0 PM DIRECTOR OF MIDWIFERY/STAFF MIDWIFE Narrative 07/07/2017 12:40 PM DIRECTOR OF MIDWIFERY/STAFF MIDWIFE INDICATION: Followup ground-glass right upper lobe pulmonary [...] ground-glass opacity in the right upper lobe. [facility] 2017 guidelines for management of incidentally detected [...] 2017 12:40PM (Electronically Signed) us Maria G Valdivia MD CT Final Result * (ABNORMAL) LIPID PANEL (04/17/2009 7:59 AM DIRECTOR OF MIDWIFERY/STAFF MIDWIFE) CHOLESTEROL,TOTAL 238(H) 110 - 199 mg/dL [facility] TRIGLYCERIDES 58 <150 mg/dL [facility] HDL CHOLESTEROL 63 >40 mg/dL [facility] CHOL/HDL RATIO 3.78 <4.51 [facility] LDL CHOLESTEROL 163(H) <131 mg/dL [facility] PATIENT STATUS Fasting [facility] Blood specimen (specimen) BLOOD SPECIMEN / Unknown 04/17/2009 7:59 AM DIRECTOR OF MIDWIFERY/STAFF MIDWIFE 04/17/2009 7:55 AM DIRECTOR OF MIDWIFERY/STAFF MIDWIFE us Herbie Simon MD CHEMISTRY Final Re sult [facility] [address] [place] [address] from Last 3 Months or Most Recently Relevant to Health Maintenance Insurance [employer] BL[employer] HB ONLY MEDICARE PART B HB ONLY MEDICARE PART A HB ONLY [employer] BLUE MR PB ONLY WORKERS COMP Advance Directives * Full Code (Latest Code Status on File) Date Activated Date Inactivated Comments 04/30/2022 6:35 PM 05/03/2022 5:27 PM Question Answer Comments Code Status Discussion: Unable to Assess Preferences, Provider to review later Care Teams Glassware Finisher Relationship Specialty Start Date End Date Maria G Valdivia MD [address] [place] [address] PCP - General Family Practice 08/04/15
--- OUTSIDE RECORDS SUMMARY | 2024-09-25 00:17 | XMS_ITS | Encounter Summary ---
Author Name [facility] [place] [facility] [place] Address [address] [place] [address] Care Team Providers Care Veterinary Virus Serum Inspector Name Role Phone ASHLEY MALONE Primary Care Provider Unavailabl e Insurance Providers: All historical and current Section Date Range: From patient's date of to the date document was created. This section includes the names of all active insurance providers for the patient. Insurance Provider Type of Coverage Plan Name Start of Policy Coverage End of Policy Coverage Group Number Member ID Insurance Provider's Telephone Number Policy Merchant's Name Patient's Relationship to Policy Merchant [facility] (WNR) MEDICARE ADVANTAGE [facility] (WNR) May 19, 2019 [id number] [phone] Lilliam WEBER PATIENT [facility] (WNR) MEDICARE ADVANTAGE [facility] (WNR) May 19, 2019 [id number] [phone] Lilliam WEBER PATIENT [facility] (WNR) MEDICARE ADVANTAGE [facility] (WNR) May 19, 2019 [id number] [phone] Lilliam WEBER PATIENT Selected Encounter This section includes the information on record at [place] for the Encounter. Date/Time Encounter Type Encounter Description Reason Pro vider Source Jun 06, 2024 12:40 PM Outpatient Encounter EMERGENCY DEPT IHE Encounter Template Text not used by [place] Plan of Treatment: Future Appointments (+ 6 months) and Future Tests (+/- 45 days) The Plan of Treatment section includes future care activities for the patient from all [facility]. This section includes future appointments and future orders which are active, pending or scheduled. Future Appointments This section includes appointments that were scheduled to occur 6 months from the date of the Encounter, up to a maximum of 20 appointments. The data comes from all [facility]. Appointment Date/Time Appointment Type Appointme nt Facility Name Jul 28, 2024 01:15 PM AMBULATORY - NONE [facility] Jul 28, 2024 02:00 PM AMBULATORY - MEDICINE [facility] Sep 02, 2024 10:30 AM AMBULATORY - PSYCHIATRY [facility] Sep 03, 2024 09:30 AM AMBULATORY - SURGERY [facility] Sep 15, 2024 03:00 PM AMBULATORY - REHAB [facility]IC[facility] Nov 09, 2024 07:00 AM AMBULATORY - NONE [facility] Nov 25, 2024 09:00 AM AMBULATORY - SURGERY [facility] Nov 25, 2024 09:45 AM AMBULATORY - MEDICINE [facility] Nov 25, 2024 10:45 AM AMBULATORY - SURGERY [facility] Dec 02, 2024 10:30 AM AMBULATORY - PSYCHIATRY [facility] Active, Pending, and Scheduled Orders This section includes a listing of several types of active, pending, and scheduled orders, including clinic medications orders, diagnostic test orders, procedure orders and consult orders; where the start date of the order is 45 days before the date of the Encounter or 45 days after the date of theEncounter. The data comes from all [facility]. Test Date/Time Test Type Test Details Facility Name May 06, 2024 02:29 PM Consult Order COMMUNITY CARE-TREATMENT RESISTANT DEPRESSION Cons Pigment Weigher's Choice [facility] Vital Signs: All taken on the encounter date This section contains inpatient and outpatient Vital Signs collected on the date of the Encounter. Date/Time Temperature Pulse Blood Pressure Respiratory Rate SP02 Pain Height Weight Body Mass Index Source Jun 06, 2024 01:10 PM 97.1 71 151/84 16 [facility] Social History: Smoking Status (Most current) and Tobacco Use (All prior to encounter date) This section includes the most current, and the historical, smoking and tobacco- related health factors from the [place] facility where the Encounter took place. Current Smoking Status This section includes the most current smoking, or tobacco-related health factor, from the [place] facility where the Encounter took place. Date/Time Current Smoking Status Comment Facil ity Oct 23, 2023 11:00 AM VA-TOBACCO FORMER USER [facility] Tobacco Use History This section includes a history of the smoking, or tobacco-related health factors, that were collected on or before the date of the Encounter. The data comes from the [place] facility where the Encounter took place. Date/Time Smoking Status/Tobacco Use Comment F acility Oct 23, 2023 11:00 AM VA-TOBACCO QUIT 5 TO < 15 YRS [facility] Sep 05, 2022 11:00 AM VA-TOBACCO FORMER USER [facility] Sep 05, 2022 11:00 AM VA-TOBACCO QUIT 15 YRS OR MORE [facility] Jun 12, 2021 09:51 AM VA-TOBACCO FORMER USER [facility] Jun 12, 2021 09:51 AM VA-TOBACCO QUIT 5 TO < 15 YRS [facility] Jun 13, 2020 09:30 AM VA-TOBACCO FORMER USER [facility] Jun 13, 2020 09:30 AM VA-TOBACCO QUIT 1 TO < 5 YRS [facility] Dec 03, 2018 09:23 AM VA-TOBACCO FORMER USER [facility] Dec 03, 2018 09:23 AM VA-TOBACCO QUIT 15 YRS OR MORE [facility] Nov 26, 2017 03:17 PM FORMER TOBACCO USE >1Y <7Y [facility] Apr 01, 2017 10:30 AM FORMER TOBACCO USE >1Y <7Y [facility] Nov 27, 2016 01:58 AM INPT NO TOBACCO USE IN LAST 30 D AYS [facility] Feb 08, 2016 10:07 AM LIFETIME NON-TOBACCO USER [facility] Oct 18, 2014 08:28 AM FORMER TOBACCO USER 7Y OR GREATE R [facility] Dec 27, 2013 10:02 AM FORMER TOBACCO USE <1Y [facility] Apr 04, 2011 11:33 AM LIFETIME NON-TOBACCO USER [facility]
--- OUTSIDE RECORDS SUMMARY | 2024-09-25 00:17 | XMS_ITS | Continuity of Care Document ---
Author Organization [facility] Address [address] [place] [address] Phone Care Team Providers Care Engagement Director Name Role Phone Katherine Patino MD Unavailable [...] [facility], [address], [place], [address], [place] tel:[phone] [facility] , No Information 7 Sukumar Murphy. [facility] [address], [place], [address], [place]. tel:[phone] [facility], [address], [place], [address], [place] tel:[phone] [facility] , No Information 7 Sukumar Murphy. [facility] [address], [place], [address], [place]. tel:[phone] Office/Outpa tient Visit, Est [facility], [address], [place], [address], [place] tel:[phone] [facility] , Follow Up of Gout (chief complaint) Chronic gout w/ tophiOther intermediate manager (current) drug therapy 6 Sukumar Murphy. [facility] [address], [place], [address], [place]. tel:[phone] Referring Provider: Katherine Monte, [facility] [address], [place], [address]. tel:[phone] Office/Outpa tient Visit, New [facility], [address], [place], [address], [place] tel:[phone] [facility] , Gout (chief complaint) Chronic gout w/ tophi 201 6 Sukumar Murphy. [facility] [address], [place], [address], [place]. tel:[phone] Referring Provider: Katherine Monte, [facility] [address], [place], [address]. tel:[phone] Family History Family Member Type Diagnosis Age At Onset Father Problem (finding) gout Brother Problem (finding) gout Payers Payer name Insurance type Covered democrat ID Authoriza tiroberta(s) Bcbs Medicare Advantage/Plat inum Blue BL [id number] Social History Type Description Quantity Date Captured [...]
--- OUTSIDE RECORDS SUMMARY | 2024-09-25 00:17 | XMS_ITS | Encounter Summary ---
Author Name [facility] [place] [facility] [place] [facility] [place] Address [address] [place] [address] Care Team Providers Care Whipped Topping Finisher Name Role Phone ASHLEY MALONE Primary Care [...] Merchant's Name Patient's Relationship to Policy Merchant [facility] (WNR) MEDICARE ADVANTAGE [facility] (WNR) May 19, 2019 [id number] [phone] Lilliam WEBER PATIENT BS [facility] (WNR) MEDICARE ADVANTAGE [facility] (WNR) May 19, 2019 [id number] [phone] Lilliam WEBER PATIENT [facility] (WNR) MEDICARE ADVANTAGE [facility] (WNR) May 19, 2019 [id number] [phone] Lilliam WEBER PATIENT Selected Encounter This section includes the information on record at [place] for the Encounter. Date/Time Encounter Type Encounter Description Reason Provider Source Sep 15, 2024 03:00 PM OFFICE O/P [place] 60 MIN NEUROLOGY ICD-10-CM R55 Syncope and collapse MIKA GUNN [facility] Encounter Template Text not used by [place] Assessments - Encounter Diagnoses This section includes the primary and secondary diagnoses documented for the Encounter. Date/Time Primary/Secondary Diagnosis Diagnosis Name Provider Source Sep 15, 2024 03:54 PM PRIMARY Syncope and collapse MIKA GUNN [facility] Plan of Treatment: Future Appointments (+ 6 months) and Future Tests (+/- 45 days) The Plan of Treatment section includes future care activities for the [facility] [place] [facility] This section includes future appointments and future orders which are active, pending or scheduled. Future Appointments This section includes appointments that were scheduled to occur 6 months from the date of the Encounter, up to a maximum of 20 appointments. The data comes from all [place] treatment facilities. Appointment Date/Time Appointment Type Appointme nt Facility Name Nov 09, 2024 07:00 AM [facility] Nov 25, 2024 09:00 AM AMBULATORY - SURGERY [facility] Nov 25, 2024 09:45 AM [facility] Nov 25, 2024 10:45 AM AMBULATORY - SURGERY [facility] Dec 02, 2024 10:30 AM AMBULATORY - PS[facility]CHIATRY [facility] Dec 15, 2024 01:30 PM AMBULATORY - REHAB MEDICIN [facility] Dec 17, 2024 11:30 AM AMBULATORY - SURGERY [facility] Jan 06, 2025 08:00 AM AMBULATORY - SURGERY [facility] Jan 28, 2025 10:00 AM AMBULATORY - SURGERY [facility] Vital Signs: All taken on the encounter date This section contains inpatient and outpatient Vital Signs collected on the date of the Encounter. Date/Time Temperature Pulse Blood Pressure Respiratory Rate SP02 Pain Height Weight Body Mass Index Source Sep 15, 2024 02:54 PM 71 137/75 18 95 7 196.5 27 [facility] Social History: Smoking Status (Most current) and Tobacco Use (All prior to encounter date) This section includes the most current, and the historical, smoking and tobacco- related health factors from the [place] facility where the Encounter took place. Current Smoking Status This section includes the most current smoking, or tobacco-related health factor, from the [place] facility where the Encounter took place. Date/Time Current Smoking Status Comment Di jaquez Oct 23, 2023 11:00 AM VA-TOBACCO FORMER USER [facility] Tobacco Use History This section includes a history of the smoking, or tobacco-related health factors, that were collected on or before the date of the Encounter. The data comes from the [place] facility where the Encounter took place. Date/Time Smoking Status/Tobacco Use Comment F acility Oct 23, 2023 11:00 AM VA-TOBACCO QUIT 5 TO < 15 YRS [facility] Sep 05, 2022 11:00 AM VA-TOBACCO FORMER USER [facility] Sep 05, 2022 11:00 AM VA-TOBACCO QUIT 15 YRS OR MORE [facility] Jun 12, 2021 09:51 AM VA-TOBACCO FORMER USER [facility] Jun 12, 2021 09:51 AM VA-TOBACCO QUIT 5 TO < 15 YRS [facility] Jun 13, 2020 09:30 AM VA-TOBACCO FORMER USER [facility] Jun 13, 2020 09:30 AM VA-TOBACCO QUIT 1 TO < 5 YRS [facility] Dec 03, 2018 09:23 AM VA-TOBACCO FORMER USER [facility] Dec 03, 2018 09:23 AM VA-TOBACCO QUIT 15 YRS OR MORE [facility] Nov 26, 2017 03:17 PM FORMER TOBACCO USE >1Y <7Y [facility] Apr 01, 2017 10:30 AM FORMER TOBACCO USE >1Y <7Y [facility] Nov 27, 2016 01:58 AM INPT NO TOBACCO USE IN LAST 30 D AYS [facility] Feb 08, 2016 10:07 AM LIFETIME NON-TOBACCO USER [facility] Oct 18, 2014 08:28 AM FORMER TOBACCO USER 7Y OR GREATE R [facility] Dec 27, 2013 10:02 AM FORMER TOBACCO USE <1Y [facility] Apr 04, 2011 11:33 AM LIFETIME NON-TOBACCO USER [facility] Encounter Notes: All associated encounter notes This section contains the clinical notes associated to the Encounter. Date/Time Encounter Note(s) Provider Source Sep 15, 2024 03:57 PM NEUROLOGY CONSULT: LOCAL TITLE: NEUROLOGY CONSULT STANDARD TITLE: NEUROLOGY CONSULT DATE OF NOTE: SEP 15, 2024@15:57 ENTRY DATE: SEP 15, 2024@15:57:36 AUTHOR: ANT MORSE EXP COSIGNER: URGENCY: STATUS: COMPLETED NEUROLOGY RESIDENT CONSULT NOTE Reason for Consultation: No syncopal event, but had presyncope. Needing to catch himself while standing. Also has sudden jerking arm movements when symptoms occur. This started 3 to 4 months ago. Requesting Provider: ASHLEY MALONE HISTORY OF PRESENT ILLNESS: Mook Weber is a 74-year-old male, with PMH including alcohol/substance use use in remission, GERD, depression, HLD, DOMINGUEZ, and PTSD, who presents to the neurology clinic for evaluation of spells involving dizziness. The patient reports that starting in March or April of last year he started having events of varying severity, in which he would feel like I was going to fall down. These would include some degree of lightheadedness. They would last for 30 seconds at a time. At their worst, they were happening every other day. At that time, he was dealing with a upper respiratory infection. He never had any maria del carmen falls, but will lose his balance and have to catch himself. The events have been getting better over the past month, and the patient's last spell was in the mid-July. The patient says that there has consistently been a postural component to this, but the spells only happening when he goes from sitting to standing. They sometimes will happen with exertion shortly after standing. He was on tamsulosin, and his symptoms improved when the dose was decreased. Otherwise, the patient does endorse some constipation which she attributes to buprenorphine use. His says that he has been thrashing in his sleep since he was in his 40s, sometimes ended up on the floor. He denies micrographia. He endorses change in his sense of smell. His states that the patient's memory is not good. This is characterized by going down to the basement and forgetting what he went there for. He has not been getting lost. Overall, the patient has are relieved that the spells are getting better. Their main goal is to try to get more concerning causes or cardiac causes ruled out. They have been undergoing a robust cardiac evaluation. PAST MEDICAL/SURGICAL HISTORY: Active problems - Computerized Problem List is the source for the followin. Substance Abuse * - in Remission 2. Personal History of Exposure to Agent [place] 3. Limitation of motion of the cervical spine 4. Cervicalgia (SNOMED CT 62190629) 5. Low back pain (SNOMED CT 264595960) 6. Personal History of Tobacco Use 7. Acute alcoholic intoxication in alcoholism, in remission 8. Dysphagia, Pharyngeal Phase 9. Gastroesophageal Reflux Disorder 10. Allergic rhinitis 11. Hyperlipidemia (SNOMED CT 18471531) 12. Alcohol dependence (SNOMED CT 19675858) 13. Anxiety disorder (SNOMED CT 295455867) 14. Urinary Hesitancy 15. Elevated blood pressure reading without diagnosis of hypertension 16. Screening for Malignant Neoplasms of colon 17. Hypertensive disorder 18. Obstructive sleep apnea syndrome 19. Dysthymia (SNOMED CT 07199828) 20. Major depression (SNOMED CT 953859322) 21. Opioid dependence in remission (SNOMED CT 768490318) 22. Cannabis abuse 23. Chronic fatigue syndrome 24. Stress, not elsewhere classified 25. History of lumbar fusion - done in apr 2022 at [facility] 26. Polyp of colon 27. [facility] EXPOSURE TO 2, 3, 7, 8 [id number] -TCDD AG 28. EXPOSURE TO OPEN BURN PITS (CECILIA DETACHMENT TO 11TH CAVLAR 29. EXPOSURE TO M16 ASSAULT RIFLES (CECILIA DETACHMENT TO 11TH CA 30. Low back pain 31. Exposure to potentially hazardous substance 32. Posttraumatic stress disorder 33. History of adenomatous polyp of colon - Colonoscopy 2022, reccomend 5 year f/u ALLERGIES: Patient has answered NKA MEDICATIONS: Active Outpatient Medications (including Supplies): Active Outpatient Medications Status 1) BUPRENORPHINE 8MG/NALOXONE 2MG SL FILM ONE FILM UNDER THE ACTIVE TONGUE TWICE A DAY AND ONE HALF FILM TWICE A DAY Indication: FOR SOBRIETY 2) CHOLECALCIF 25MCG (D3-1,000UNIT) TAB TAKE ONE TABLET BY ACTIVE MOUTH EVERY DAY 3) DULOXETINE HCL 60MG EC CAP TAKE TWO CAPSULES BY MOUTH EVERY ACTIVE MORNING FOR MOOD Indication: FOR DEPRESSION 4) FLUTICASONE PROP 50MCG 120D NASAL INHL SPRAY 2 SPRAYS IN ACTIVE EACH NOSTRIL EVERY DAY Indication: FOR ALLERGIES 5) FOLIC ACID 1MG TAB TAKE ONE TABLET BY MOUTH EVERY DAY ACTIVE 6) GABAPENTIN 300MG CAP TAKE TWO CAPSULES BY MOUTH TWICE A DAY ACTIVE/PARKED Indication: FOR PAIN 7) POLYETHYLENE GLYCOL 3350 ORAL PWDR TAKE 17 GRAMS BY MOUTH ACTIVE EVERY DAY *MIX IN 4 TO 8 OUNCES OF LIQUID DIRECTED*USE COVER TO MEASURE POWDER* NEUROLOGIC EXAM: Vital signs: Wgt 196.5 lb [89.13 kg] (09/15/2024 14:54) Temp 98.4 F [36.9 C] (09/03/2024 09:28) HR 71 (09/15/2024:) BP 137/75 (09/15/2024 14:54) RR 18 (09/15/2024 14:) *Mental Status: Fully alert, attentive and oriented x3. Speech clear and fluent without paraphasic errors. No extinction or neglect. The patient was able to draw a clock, initially making some errors regarding the positioning of the hands but the he was able to recall 1/3 words after 5 minutes, but this improved to 3/3 with multiple-choice and category clues. *Cranial Nerves: - II: PERRL. Visual apple intact. - III, IV, : EOMI with normal smooth pursuit. - V: Facial sensation intact/symmetric in V1, V2 & V3. - VII: Facial movements symmetric. - VIII: Hearing intact bilaterally. - IX, X: Phonation normal. No dysarthria. - XI: Shoulder shrug strong bilaterally. - XII: Tongue protrusion midline. *Motor: Question of a very mild resting tremor on the left, in addition to a reemergent postural tremor on the left and a more mild intention tremor. The patient did not have any significant bradykinesia. His tone was relatively normal. Strength was 5/5 in the proximal and distal extremities bilaterally. *Reflexes: Normal and symmetric. *Sensory: Light touch sensation intact/symmetric throughout upper and lower extremities. Negative Romberg. *Coordination: Gdfcdk-dxsd-jewydy and heel-jorgensen intact bilaterally without dysmetria. Some intention tremor with FNF testing on the left. *Station/Gait: Decreased arm swing on the left DATA: As discussed in HPI. IMPRESSION: This is a 74-year-old male, with PMH including alcohol/substance use use in remission, GERD, depression, HLD, DOMINGUEZ, and PTSD, who presents to the neurology clinic for evaluation of spells involving dizziness. On exam, he has some mild features consistent with parkinsonism including a resting tremor of the left upper extremity. Overall, we would assess the patient's spells as described to be consistent with orthostatic hypotension. He does describe some other review of systems items consistent with a parkinsonian disorder, including anosmia, abnormal movements during sleep and constipation. We will proceed with diagnostic testing for parkinsonian disorders, with MRI of the brain. Orthostatic vital signs obtained in our clinic were normal, though the patient does say that reducing his dose of tamsulosin has had some improvement in his symptoms. RECOMMENDATIONS: -MRI of the brain -Orthostatic vital signs in our clinic were obtained and were normal -Management of tamsulosin per PCP, though we would say if the patient's orthostasis returns or gets worse we would recommend discontinuing this medication if possible -RTC in 3 months Patient was seen and discussed with Neurology attending, Dr. Colby, who agrees with the assessment and plan. Signed, Ant Morse MD Neurology Resident, PGY3 /es/ ANT MORSE MD NEUROLOGY RESIDENT Signed: 09/22/2024 10:14 Receipt Acknowledged By: 09/22/2024 15:00 /es/ MD Professor JOHNNY ARIAS ANDREW J [facility] Sep 15, 2024 03:52 PM NEUROLOGY ATTENDING NOTE: LOCAL TITLE: NEUROLOGY CLINIC NOTE STANDARD TITLE: NEUROLOGY ATTENDING NOTE DATE OF NOTE: SEP 15, 2024@15:52 ENTRY DATE: SEP 15, 2024@15:53 AUTHOR: EVELIO GUNN EXP COSIGNER: URGENCY: STATUS: COMPLETED To whom it may concern This is to certify that Mr. Weber has Parkinson's disease. He was exposed to agent orange which is likely the culprit. /yung/ EVELIO GUNN MD Professor Signed: 09/15/2024 15:54 EVELIO GUNN [facility] Sep 15, 2024 02:55 PM NEUROLOGY NURSING OUTPATIENT NOTE: LOCAL TITLE: NEUROLOGY CLINIC NURSING NOTE STANDARD TITLE: NEUROLOGY NURSING OUTPATIENT NOTE DATE OF NOTE: SEP 15, 2024@14:55 ENTRY DATE: SEP 15, 2024@14:55:51 AUTHOR: SAL CHAIDEZ EXP COSIGNER: URGENCY: STATUS: COMPLETED Type of visit: Appointment Check In Reason for Visit: Here on consult Gets all medication from the [place]. Vital Signs: Blood Pressure: 137/75 (09/15/2024 14:54) Pulse: 71 (09/15/2024 14:54) Respiration: 18 (09/15/2024 14:54) Temperature: 98.4 F [36.9 C] (09/03/2024 09:28) Weight: 196.5 lb [89.13 kg] (09/15/2024 14:54) Height: 72 in [182.9 cm] (07/28/2024 13:54) BMI: 26.7 Pain: 7 (09/15/2024 14:54) Allergies: Patient has answered NKA Medications: Active Outpatient Medications and Supplies: Active Outpatient Medications (including Supplies): Active Outpatient Medications Status 1) BUPRENORPHINE 8MG/NALOXONE 2MG SL FILM ONE FILM UNDER THE ACTIVE TONGUE TWICE A DAY AND ONE HALF FILM TWICE A DAY Indication: FOR SOBRIETY 2) CHOLECALCIF 25MCG (D3-1,000UNIT) TAB TAKE ONE TABLET BY ACTIVE MOUTH EVERY DAY 3) DULOXETINE HCL 60MG EC CAP TAKE TWO CAPSULES BY MOUTH EVERY ACTIVE MORNING FOR MOOD Indication: FOR DEPRESSION 4) FLUTICASONE PROP 50MCG 120D NASAL INHL SPRAY 2 SPRAYS IN ACTIVE EACH NOSTRIL EVERY DAY Indication: FOR ALLERGIES 5) FOLIC ACID 1MG TAB TAKE ONE TABLET BY MOUTH EVERY DAY ACTIVE 6) GABAPENTIN 300MG CAP TAKE TWO CAPSULES BY MOUTH TWICE A DAY ACTIVE/PARKED Indication: FOR PAIN 7) POLYETHYLENE GLYCOL 3350 ORAL PWDR TAKE 17 GRAMS BY MOUTH ACTIVE EVERY DAY *MIX IN 4 TO 8 OUNCES OF LIQUID DIRECTED*USE COVER TO MEASURE POWDER* Patient reports the following changes regarding the current pharmacy list of medications: The above medication list confirmed with patient. A copy of the above medication list given to the MD for review and update. Provider will give printed copy of medication list to patient with any changes documented on printed medication list. /yung/ SAL CHAIDEZ LPN CLINICAL LICENSED PRACTICAL NURSE Signed: 09/15/2024 14:56 SAL CHAIDEZ [facility]
--- OUTSIDE RECORDS SUMMARY | 2024-09-25 00:17 | XMS_ITS | Encounter Summary ---
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 (WNR) MEDICARE ADVANTAGE [facility] (WNR) May 19, 2019 [id number] [phone] Lilliam WEBER PATIENT [employer] [facility] (WNR) MEDICARE ADVANTAGE [facility] (WNR) May 19, 2019 [id number] [phone] Lilliam WEBER PATIENT [facility] (WNR) MEDICARE ADVANTAGE [facility] (WNR) May 19, 2019 [id number] [phone] Lilliam WEBER PATIENT Selected Encounter This section includes the information on record at [place] for the Encounter. Date/Time Encounter Type Encounter Description Reason Provider Source Sep 02, 2024 10:30 AM SYNCH AUDIO-VIDEO EST [facility] - IND ICD-10-CM F33.9 Major depressive disorder, recurrent, unspecified MONIQUE SOOD [facility] Encounter Template Text not used by [place] Assessments - Encounter Diagnoses This section includes the primary and secondary diagnoses documented for the Encounter. Date/Time Primary/Secondary Diagnosis Diagnosis Name Provider Source Sep 02, 2024 11:23 AM PRIMARY Major depressive disorder, recurrent, unspecified MONIQUE SOOD [facility] Sep 02, 2024 11:23 AM SECONDARY Chronic fatigue, unspecified MONIQUE SOOD [facility] Sep 02, 2024 11:23 AM SECONDARY Opioid dependence, in remission MONIQUE SOOD [facility] Sep 02, 2024 11:23 AM SECONDARY Post-traumatic stress disorder, unspecified INDIGOMONIQUE [facility] Plan of Treatment: Future Appointments (+ 6 months) and Future Tests (+/- 45 days) The Plan of Treatment section includes future care activities for the patient from all [place] [facility]. This section includes future appointments and future orders which are active, pending or scheduled. Future Appointments This section includes appointments that were scheduled to occur 6 months from the date of the Encounter, up to a maximum of 20 appointments. The data comes from all [place] treatment facilities. Appointment Date/Time Appointment Type Appointme nt Facility Name Sep 03, 2024 09:30 AM AMBULATORY - SURGERY [facility] Sep 15, 2024 03:00 PM AMBULATORY - REHAB MEDICIN E [facility] Nov 09, 2024 07:00 AM AMBULATORY - NONE [facility] Nov 25, 2024 09:00 AM AMBULATORY - SURGERY [facility] Nov 25, 2024 09:45 AM AMBULATORY [place]IC[place] [facility] Nov 25, 2024 10:45 AM AMBULATORY - SURGERY [facility] Dec 02, 2024 10:30 AM AMBULATORY - [place] [facility] Dec 15, 2024 01:30 PM AMBULATORY - REHAB MEDICIN E [facility] Dec 17, 2024 11:30 AM AMBULATORY - SURGERY [facility] Jan 06, 2025 08:00 AM AMBULATORY - SURGERY [facility] Jan 28, 2025 10:00 AM AMBULATORY - SURGERY [facility] Social History: Smoking Status (Most current) and Tobacco Use (All prior to encounter date) This section includes the most current, and the historical, smoking and tobacco- related health factors from the [place] facility where the Encounter took place. Current Smoking Status This section includes the most current smoking, or tobacco-related health factor, from the [place] facility where the Encounter took place. Date/Time Current Smoking Status Comment Facil ity Oct 23, 2023 11:00 AM VA-TOBACCO FORMER USER [facility] Tobacco Use History This section includes a history of the smoking, or tobacco-related health factors, that were collected on or before the date of the Encounter. The data comes from the [place] facility where the Encounter took place. Date/Time [...] Encounter. Date/Time Encounter Note(s) Provider Source Sep 02, 2024 08:03 AM PSYCHIATRY E & M N OTE: LOCAL TITLE: PSYCHIATRIC EVALUATION & MANAGEMENT STANDARD TITLE: PSYCHIATRY E & M NOTE DATE OF NOTE: SEP 02, 2024@08:03 ENTRY DATE: SEP 02, 2024@08:03:25 AUTHOR: MONIQUE SOOD EXP COSIGNER: URGENCY: STATUS: COMPLETED ARS ([facility]) Medication Management FOLLOW-UP Total time spent on visit (including documentation and supportive psychotherapy): 45min. - Visit conducted by synchronous telehealth. [place] verbal consent obtained. Location/emergency number confirmed. Environment surveyed and all participants identified. Virtual conference room locked. PERTINENT BACKGROUND/ID: MH hospitalization x1, no history of suicide attempts. Lives with , x1, has children and grandchildren. Strained relationship with daughters, good relationship with son (all children from first marriage). ASSESSMENT: [place] is seen today for follow-up. Ketamine started in the community remains very helpful for mood and PTSD symptoms, eliminated passive SI thoughts, encourage continuing. Will otherwise leave medications unchanged given reported efficacy without side effects. Did discuss option to transition back to Sublocade given annoyance with taking Suboxone BID, he to call our clinic to schedule with my RN partner if he wishes to make this switch. Tolerated Sublocade well in the past. 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 Medications: -continue suboxone 12mg BID for opioid use disorder, pain -continue gabapentin 1200mg daily (taking 600mg BID) for pain, anxiety -continue duloxetine 120mg for mood, trauma, anxiety (and pain) -naloxone spray-has at home 2. Other: *ketamine (infusions in community, the Remedy, weekly) *light box - continue daily in the AM for mood, circadian rhythm *stellate ganglion block per pain team for PTSD 3. Psychotherapy: not interested 4. Movement/exercise/nutrition : continue daily exercise, adherence to whole foods diet 5. UDS: periodic given controlled substance script 6. EKG: PRN. 11/2014- Qtc 425ms, NSR 7. Return to clinic: ~2-3mo Future considerations: -consider the following medications/supplements if depressive sx worsen despite ketamine: Vyvanse, lamotrigine, omega3 (EPA>DHA), MAOI -MOCA/neuropsych if interested (given report of worsening memory) -VBR, ETS groups? ~~~~~~~~~~~~~~~~~~~~~~~~~Ashley icide Risk Assessment~~~~~~~~~~~~~~~~~ [...] HISTORY: At last visit, no changes made. Today: - doing ok overall, still above ground! little bit of depression, but not too bad - continues with ketamine weekly. Not quite as potent feeling as when initially started, but no bad experiencs. Overall feels beneficial miguel for PTSD - feels on top of things, pretty sharp cognitively. Later in appt noted that his recall is quite poor. Discussed option to repeat neuropsych testing, not interested right now, but may be in the future - nightmares persist, but not as often - 74th bday coming up, is having a big shindig for him with several friends etc. next week - ~2-3 weeks ago had an anniversary of [place], couple days of struggling with this. Went in for an extra ketamine infusion, helpful - psychotherapy? not interested at this time, again discussed past experience of past therapy worsening PTSD symptoms - have been out working in the yard quite a bit, starting some tomatoes inside - walk daily with for the most part - buprenorphine-definitely works, helps feel better mentally and physically. May be interested in switching back to sublocade - duloxetine-feels helpful, would like to keep unchanged - gabapentin - typically taking twice daily, not TID. Not sure if particularly effective for pain or anxiety RECENT SUBSTANCE USE/CRAVINGS: -no urge or cravings to use illicit opioids MEDICATION COMPLIANCE/SIDE EFFECTS: Reports adherence. Tolerating current regimen ~~~~~~~~~~~~~~~~~~~~~~~~~~~ ~~~~~~~~~~~~~~~~~~~~~~~~~~~ ~~~~~~~~~~~~~~~~~~~~~~~ ALLERGIES: Patient has answered NKA RECENT LABS: 03/2024-UDS + only for buprenorphine VITALS: Temperature: 97.5 F [36.4 C] (07/28/2024 13:54) Blood Pressure: 121/70 (07/28/2024 13:54) Pulse: 59 (07/28/2024 13:54) Respiration: 20 (07/28/2024 13:54) Pain: 0 (07/28/2024 13:54) Pulse Oximetry: 96% (07/28/2024 13:54) MENTAL STATUS EXAM: Appearance: appears stated age Attitude/behavior: calm, cooperative, open Eye contact: normal Speech: normal volume, rate and rhythm Mood: alright Affect: congruent to mood, full range Thought [...] trial October 2011- reported worsened dreams -gabapentin: for sleep retrial 2018 helps with anxiety, sleep -buspirone: brief trial 2014, sedation and jaw clenching in combination with duloxetine -hydroxyzine: he thinks he took it -clonazepam 2018. Ineffective, made him sleepy -[place], 2021 (not effective) -Adderall XR 2018. Jaw clenching, speedy -Concerta 2018. Jaw clenching, speedy -Adderall IR, 2019. Jaw [...] /es/ MONIQUE SOOD MD STAFF PSYCHIATRIST Signed: 09/02/2024 11:23 MONIQUE SOOD [facility]
[2024-09-25 00:18] VITALS: BP 185/85; PULSE 97; RESP 28; TEMP 36.9; O2SAT 99; BMI 25.8
--- OUTSIDE RECORDS SUMMARY | 2024-09-25 00:19 | XMS_ITS | Encounter Summary ---
Author Name [facility] of [facility] Affairs ([place]) Organization [facility] Address [address] [place] [address] Care Team Providers Care Dietetic Assistant Name Role Phone ASHLEY MALONE Primary Care [...] Name Patient's Relationship to Policy Merchant [facility] (WNR) MEDICARE ADVANTAGE [facility] (R) May 19, 2019 [id number] [phone] Lilliam WEBER PATIENT BS [facility] (WNR) MEDICARE ADVANTAGE [facility] (WNR) May 19, 2019 [id number] [phone] Lilliam WEBER PATIENT [facility] (WNR) MEDICARE ADVANTAGE [facility] (WNR) May 19, 2019 [id number] [phone] Lilliam WEBER PATIENT Selected Encounter This section includes the information on record at [place] for the Encounter. Date/Time Encounter Type Encounter Description Reason Provider Source Jul 28, 2024 02:00 PM OFFICE O/P EST HI 40 MIN PRIMARY CARE/MEDICINE ICD-10-CM F34.1 Dysthymic disorder ASHLEY MALONE Mell Encounter Template Text not used by [place] Assessments - Encounter Diagnoses This section includes the primary and secondary diagnoses documented for the Encounter. Date/Time Primary/Secondary Diagnosis Diagnosis Name Provider Source Jul 29, 2024 09:22 AM PRIMARY Dysthymic disorder ASHLEY MALONE [facility] Jul 29, 2024 09:22 AM SECONDARY Alcohol dependence, uncomplicated ASHLEY MALONE [facility] Jul 29, 2024 09:22 AM SECONDARY Anxiety disorder, unspecified ASHLEY MALONE [facility] Jul 29, 2024 09:22 AM SECONDARY Cannabis abuse, uncomplicated ASHLEY MALONE [facility] Jul 29, 2024 09:22 AM SECONDARY Cervicalgia ASHLEY MALONE [facility] Jul 29, 2024 09:22 AM SECONDARY Chronic fatigue, unspecified ASHLEY MALONE [facility] Jul 29, 2024 09:22 AM SECONDARY Hyperlipidemia, unspecified ASHLEY MALONE [facility] Jul 29, 2024 09:22 AM SECONDARY Major depressive disorder, recurrent, unspecified ASHLEY MALONE [facility] Jul 29, 2024 09:22 AM SECONDARY Obstructive sleep apnea (adult) (pediatric) ASHLEY MALONE [facility] Jul 29, 2024 09:22 AM SECONDARY Opioid dependence, in remission ASHLEY MALONE [facility] Jul 29, 2024 09:22 AM SECONDARY Polyp of colon ASHLEY MALONE [facility] Plan of Treatment: Future Appointments (+ 6 months) and Future Tests (+/- 45 days) The Plan of Treatment section includes future care activities for the patient from all [place] [facility] This section includes future appointments and future orders which are active, pending or scheduled. Future Appointments This section includes appointments that were scheduled to occur 6 months from the date of the Encounter, up to a maximum of 20 appointments. The data comes from all [facility]. Appointment Date/Time Appointment Type Appointme nt Facility Name Sep 02, 2024 10:30 AM AMBULATORY [place] [facility] Sep 03, 2024 09:30 AM AMBULATORY - SURGERY [facility] Sep 15, 2024 03:00 PM AMBULATORY - REHAB MEDICIN E [facility] Nov 09, 2024 07:00 AM [facility] Nov 25, 2024 09:00 AM AMBULATORY - [facility] Nov 25, 2024 09:45 AM AMBULATORY - [place]ICINE [place] [facility] Nov 25, 2024 10:45 AM AMBULATORY - SURGERY [facility] Dec 02, 2024 10:30 AM [facility] [place] [facility] Dec 15, 2024 01:30 PM AMBULATORY - REHAB MEDICIN E [facility] Dec 17, 2024 11:30 AM AMBULATORY - SURGERY [facility] Jan 06, 2025 08:00 AM AMBULATORY - SURGERY [facility] Jan 28, 2025 10:00 AM AMBULATORY - SURGERY [facility] Lab Results: +/- 30 days of the encounter This section includes the Chemistry and Hematology Lab Results on record with [place] for the patient. Radiology Reports and Pathology Reports are provided separately, in subsequent sections. Lab Results This section contains the Chemistry/Hematology Results that were resulted 30 days before or 30 daysafter the date of the Encounter. Date/Time Source Result Type Result - Unit Interpretation Reference Range Specimen Type Comment Jul 28, 2024 12:34 PM [facility] HEMOGLOBIN A1C BLOOD Specimen Type: BLOOD Comment: Values obtained from A1C measurements can vary. For typical A1C assays, a reported value of 7.0 could actually be between 6.7 and 7.3 if measured by a reference method. A reported value of 9.0 could actually be between 8.7 and 9.3. Ref: http://www.ngsp .org/CAPdata.as p Ordering Provider: ASHLEY MALONE Report Released Date/Time: Oct 24, 2023 02:23 PM Reporting Lab: [facility] [id number] Performing Lab: [facility] [id number] HEMOGLOBIN A1C 5.6 4.0-6.0 Jul 28, 2024 12:34 PM [facility] LIPID PANEL,NON-FASTING PLASMA Spec imen Type: PLASMA No comment entered. Ordering Provider: ASHLEY MALONE Report Released Date/Time: Oct 24, 2023 02:23 PM Reporting Lab: [facility] [id number] Performing Lab: [facility] [id number] CHOLESTEROL 171 mg/dL <199 .HDL 57 mg/dL >40 LDL CALCULATION 101 mg/dL H <99 VLDL CALCULATION 13 mg/dL <29 NON HDL CHOLESTEROL 114 mg/dL <129 TRIG(NON FASTING) 67 mg/dL <149 Jul 28, 2024 12:34 PM [facility] CBC BLOOD Specimen Type: BLOOD No comment entered. Ordering Provider: ASHLEY MALONE Report Released Date/Time: Oct 24, 2023 02:23 PM Reporting Lab: [facility] [id number] Performing Lab: [facility] [id number] WBC 6.9 4.0-11.0 RBC 4.06 L 4.60-6.20 HGB 12.7 g/dL L 13.5-17.9 HCT 38.5 L 41.0-54.0 MCV 94.8 fL 80.0-100.0 MCH 31.3 pg 27.0-33.0 MCHC 33.0 g/dL 32.0-37.5 PLT 235 150-400 MPV 9.6 fL 9.1-13.0 RDW 12.6 11.5-14.5 Jul 28, 2024 12:34 PM [facility] BASIC METABOLIC PANEL+MG PLASMA Spe cimen Type: PLASMA No comment entered. Ordering Provider: ASHLEY MALONE Report Released Date/Time: Oct 24, 2023 02:23 PM Reporting Lab: [facility] [id number] Performing Lab: [facility] [id number] CREATININE 1.3 mg/dL H 0.7-1.2 UREA NITROGEN 22 mg/dL 8-26 GLUCOSE 101 mg/dL H 70-100 SODIUM 136 mmol/L 136-145 POTASSIUM 4.8 mmol/L 3.5-5.1 CHLORIDE 102 mmol/L 98-107 CO2 30 mmol/L H 22-29 CALCIUM 9.4 mg/dL 8.4-10.2 MAGNESIUM 2.2 mg/dL 1.6-2.6 ANION GAP 4 mmol/L L 5-15 .CREAT EGFR(CKD-EPI) 58 L >60 Vital Signs: All taken on the encounter date This section contains inpatient and outpatient Vital Signs collected on the date of the Encounter. Date/Time Temperature Pulse Blood Pressure Respiratory Rate SP02 Pain Height Weight Body Mass Index Source Jul 28, 2024 01:54 PM 97.5 59 121/70 20 96 0 72 196.5 27 [place] [facility] Social History: Smoking Status (Most [...] the Encounter. Date/Time Encounter Note(s) Provider Source Jul 28, 2024 02:38 PM INTERNAL MEDICINE NOTE: LOCAL TITLE: MEDICINE CLINIC NOTE STANDARD TITLE: INTERNAL MEDICINE NOTE DATE OF NOTE: JUL 28, 2024@14:38 ENTRY DATE: JUL 27, 2024@16:17:57 AUTHOR: ASHLEY MALONEIGNER: URGENCY: STATUS: COMPLETED MEDICINE CLINIC NOTE Has ADDENDA ASSESSMENT/PLAN: ### Chest pain while shoveling snow -Went to local emergency department and had angiogram today -Reviewed results of angiogram which were quite reassuring -Minimally obstructed coronary arteries -Mild calcium calcification of arteries -Is on atorvastatin for secondary prevention ### Dizzy/lightheadedness w/arm jerking movements -Started 3 to 4 months ago -Has had varying blood pressures -EKG WNL at local ED -Blood pressure has been highly variable, not on blood pressure meds but is taking terazosin recently reduced to 1 tab -Desi-Hallpike maneuver negative -Zio patch ordered -Orthostatic WNL minimal drop on clinic, (BP 118/74 HR 52 laying down, to 103/69 HR 59 after one minute), denies symptoms, however baseline blood pressure relatively low and if it was much lower could have experienced orthostasis due to low baseline BP -States that symptoms started several months after ketamine infusions, did not think ketamine was related to symptoms -Neurology consult placed ### Chronic fatigue syndrome ### Depression ### Anxiety ### PTSD -Follows closely with mental health -Now is receiving ketamine -Reports doing very well with ketamine, mental health symptoms stable ### Chronic Pain ### Fibromyalgia -Following closely with mental health and pain pharmacist - On suboxone, previously when senior medical writer met with patient he would discuss his pain and request opioids however that did not occur during this appointment -Pain was not exclusively discussed at appointment today -For full details about patient's pain, medication history please refer to pain pharmacist and mental health notes ### Opioid Use Disorder h/o heroin addiction while in [place] ### Alcohol Use Disorder -In Remission -Takes Suboxone -Follows w/[facility] ### Normocytic Anemia -Hgb 12.7 was an 11 send last year was in the 's -Last year iron stores WNL -Will continue to monitor ### Seasonal Allergies -Taking cetirizine daily -Added fluticasone for daily use ### HLP -On Atorvastatin ### Mild DOMINGUEZ -Device broke, scheduled w/sleep Co-managed care: Also receives care [facility] Routine Health Maintenance: -ASCVD risk (40-75): 11.3% -DM-II: HEMOGLOBIN A1C 5.4 (10/23/23) -Colon cancer (45-75): Colonoscopy fall 2022 -Lung cancer (50-80): -AAA (65-75 if ever smoked): -HIV (15-65): 06/26/2011 11:30 SERUM HIV AG/AB SCREEN NONREACTIVE -HCV (18-79): 04/09/2011 11:39 SERUM ANTI-HEP C(EIA) NEGATIVE -Last PSA (55-69): PSA____ RTC: Follow-up after Zio patch, neuro consult placed SUBJECTIVE CC: Annual HPI: Patient presents today for annual appointment. Let's senior medical writer know that he completed an angiogram today with [place] outside of the [place]. States that earlier this winter he experienced chest pain while shoveling went to the emergency department and overall workup was reassuring. Did not feel like he could complete stress test so pursued an angiogram. Reviewed the results today which showed minimally obstructed coronary arteries. Also had mild calcification of coronary arteries. Overall it was very reassuring. Patient and spouse also discuss symptoms of lightheadedness and presyncope. This happens often from sitting to standing. This started 3 to 4 months ago. He feels that he needs his to catch himself on a table and often has sudden jerking arm movements when symptoms occur. Patient is not on blood pressure medication but does take terazosin for urinary symptoms. Was recommended by outside provider to cut down to 1 tab from 2 tabs which senior medical writer agrees with. Patient started ketamine treatment about 6 months ago which he reports is going very well. Previously senior medical writer had extensive discussion about opioids and pain management however patient did not bring this up today. Of note patient follows closely with mental health and pain pharmacist team. Social History: (not discussed if blank) Substance use: (not discussed if blank) -Tobacco: -Alcohol: -Other: Allergies: Patient has answered NKA Medical Hx: Active problems - Computerized Problem List is the source for the followin. Substance Abuse * - in Remission 2. Personal History of Exposure to Agent [place] 3. Limitation of motion of the cervical spine 4. Cervicalgia (SNOMED CT 81253226) 5. Low back pain (SNOMED CT 422236226) 6. Personal History of Tobacco Use 7. Acute alcoholic intoxication in alcoholism, in remission 8. Dysphagia, Pharyngeal Phase 9. Gastroesophageal Reflux Disorder 10. Allergic rhinitis 11. Hyperlipidemia (SNOMED CT 94479011) 12. Alcohol dependence (SNOMED CT 19475215) 13. Anxiety disorder (SNOMED CT 396989926) 14. Urinary Hesitancy 15. Elevated blood pressure reading without diagnosis of hypertension 16. Screening for Malignant Neoplasms of colon 17. Hypertensive disorder 18. Obstructive sleep apnea syndrome 19. Dysthymia (SNOMED CT 80502488) 20. Major depression (SNOMED CT 350639124) 21. Opioid dependence in remission (SNOMED CT 587495200) 22. Cannabis abuse 23. Chronic fatigue syndrome 24. Stress, not elsewhere classified 25. History of lumbar fusion - done in apr 2022 at [facility] 26. Polyp of colon 27. 1613-2340 [place] EXPOSURE TO 2, 3, 7, 8 [id number] -TCDD AG 28. [facility] EXPOSURE TO OPEN BURN PITS (CECILIA DETACHMENT TO CAVLAR 29. [place] EXPOSURE TO M16 ASSAULT RIFLES (CECILIA DETACHMENT TO CA 30. Low back pain 31. Exposure to potentially hazardous substance 32. Posttraumatic stress disorder 33. History of adenomatous polyp of colon - Colonoscopy 2022, recommend 5 year f/u Surgical Hx: SURGERIES - NONE FOUND OBJECTIVE: EXAM: Vitals: Temp: 97.5 F [36.4 C] (07/28/2024 13:54) BP: 121/70 (07/28/2024 13:54) Pulse:59 (07/28/2024 13:54) Resp: 20 (07/28/2024 13:54) BMI/Wt:26.7/196.5 lb [89.13 kg] (07/28/2024 13:54) SpO2: 96% (07/28/2024 13:54) Orthostatics: Position BP Pulse Laying Down 118/74 52 Standing (1min) 103/69 59 Standing (3min) 101/65 56 ASYMPTOMATIC WHILE STANDING GENERAL: NAD. HEENT: Normocephalic/atraumatic, PERRLA, EOMI; Oropharynx pink, no tonsillar hypertrophy, nares clear. Neck: Supple, no lymphadenopathy. Normal ROM CV: RRR. Normal s1, s2. No murmur. LUNGS: Non-labored breathing. Clear to auscultation bilaterally. ABDOMEN: Active bowel sounds. Abdomen soft, non-tender. MSK: No LE edema. Skin: Warm, dry. NEURO: Normal gait. No gross focal neuro deficits. CN II-XII intact. LABS/RADIOLOGY: Lipids: CHOLESTEROL 171 (07/28/24) HDL 57 (07/28/24) LDL CALCULATION 101 H (07/28/24) MEASURED LDL____ TRIGLYCERIDE____ SMA-7: SODIUM 136 (07/28/24) POTASSIUM 4.8 (07/28/24) CHLORIDE 102 (07/28/24) CO2 30 H (07/28/24) UREA NITROGEN 22 (07/28/24) CREATININE 1.3 H (07/28/24) GLUCOSE 101 H (07/28/24) CBC: WBC 6.9 (07/28/24) HGB 12.7 L (07/28/24) HCT 38.5 L (07/28/24) MCV 94.8 (07/28/24) PLT 235 (07/28/24) LFTs: SGOT 25 (10/23/23) SGPT 16 (10/23/23) TSH 1.44 (02/05/24) HEMOGLOBIN A1C 5.6 (07/28/24) This note was completed in part using voice recognition software, and occasional typographic errors may result. /yung/ ASHLEY MALONE APRN NURSE PRACTITIONER Signed: 07/29/2024 09:23 08/26/2024 ADDENDUM STATUS: COMPLETED Zio patch results reassuring and are below: HEART RATE IN SINUS RHYTHM MIN 47 AVERAGE 75 MAX 150 PVC% <1% PAC% <1% INTERPRETATION 1. The underlying rhythm is sinus with first-degree AV block 2. There were 0 patient reported events 3. There were 9 episodes of SVT, the longest was 17 beats 4. There was a brief episode (less than 2 seconds) with possible atrial tachycardia with block /yung/ ASHLEY MALONE APRN NURSE PRACTITIONER Signed: 08/26/2024 08:50 ASHLEY MALONE [facility] Jul 28, 2024 02:03 PM INTERNAL MEDICINE OUTPATIENT NOTE: LOCAL TITLE: MEDICINE CLINIC NURSING NOTE STANDARD TITLE: INTERNAL MEDICINE OUTPATIENT NOTE DATE OF NOTE: JUL 28, 2024@14:03 ENTRY DATE: JUL 28, 2024@14:03:05 AUTHOR: BEENA,JORDENBONG WATKINS COSIGNER: URGENCY: STATUS: COMPLETED MEDICINE CLINIC NURSING NOTE Has ADDENDA TYPE OF VISIT: Appointment Check In Type of appointment: In-person appointment REASON FOR VISIT: Pt concerns ALLERGIES: Patient has answered NKA VITAL SIGNS: Blood Pressure: 121/70 (07/28/2024 13:54) Pulse: 59 (07/28/2024 13:54) Respiration: 20 (07/28/2024 13:54) Temperature: 97.5 F [36.4 C] (07/28/2024 13:54) Weight: 196.5 lb [89.13 kg] (07/28/2024 13:54) Height: 72 in [182.9 cm] (07/28/2024 13:54) BMI: 26.7 O2 Sat: 96% (07/28/2024 13:54) Pain: 0 (07/28/2024 13:54) MEDICATION Over the Counter/Herbal Medications: The patient denies taking any outside medications or herbals. Nursing Annual Screening: Whole Health Screening Why is addressing your overall health important to you? My couldnt live without me. That's a 'no blade aligner' What do you want your health for (why do you want to be healthy)? ---- Fall History Screen During the past 12 months, have you had any falls? Patient reports having had 2 or more falls within the past 12 months. MEDICATIONS: Patient is on one of the following medication classes: Antihypertensives, Antidepressants, Antipsychotics, Diuretics, or Controlled substance medication used for pain. Script Talk Screen Are you able to read your prescription bottles with your glasses, magnifiers or other aids? Yes or patient not taking any prescriptions. Skin Screen Patient reports any current pressure ulcers, a history of pressure ulcers, or a wound from a medical device assembler or Patient is bed-confined or a wheelchair-user or Patient requires assistance to transfer/change position No, Skin Screen is Negative Home Abuse/Violence Screen Is your home free of abuse and violence? Yes MOVE! Program Screen Body Mass Index (BMI)= 26.7 [place]: Collection DT Specimen Test Name Result Units Ref Range 07/28/2024 12:34 BLOOD !! HEMOGLOBIN A1C 5.6 % 4.0 - 6.0 !! Indicates COMMENTS AVAILABLE...Refer to Interim Lab Report. [place] Hgb A1C: No data available [place] Hgb A1C: No data available Point of Care Hgb A1C: POC HGB A1C____ Outpatient Nutrition Screen Body Mass Index (BMI)= 26.7 [place]: Collection DT Specimen Test Name Result Units Ref Range 07/28/2024 12:34 BLOOD !! HEMOGLOBIN A1C 5.6 % 4.0 - 6.0 !! Indicates COMMENTS AVAILABLE...Refer to Interim Lab Report. [place] Hgb A1C: No data available [place] Hgb A1C: No data available Point of Care Hgb A1C: POC HGB A1C____ Is patient's BMI less than 18.5? No Does patient have swallowing, coughing, or chewing problems affecting oral intake? No Has patient experienced unplanned weight loss or gain greater than 10 pounds over the last 2 months? No Is patient's Hgb A1C (Glycosylated Hemoglobin) greater than 9.5? No Is patient receiving Total Parenteral Nutrition (TPN) or Tube Feedings? No Patient Health Education Screen BARRIERS/SPECIAL NEEDS: Visual limitations PREFERRED STYLE OF LEARNING: Watching something Client Assistive Service (DEANN) Screen Does the patient require assistance with outpatient visit? No Homelessness/Food Insecurity Screen: In the past 2 months, have you been living in stable housing that you own, rent, or stay in as part of a household? Yes - Living in stable housing. Are you worried or concerned that in the next 2 months you may NOT have stable housing that you own, rent, or stay in as part of a household? No - Not worried about housing near future [facility] [place] reports the following: Within the past 12 months, you worried whether your food would run out before you got money to buy more. Never true Within the past 12 months, the food you bought just didn't last and you didn't have money to get more. Never true Food Assistance Programs [facility] Food Assistance Programs [facility] COVID-19 Immunization: Refused Pfizer Monovalent COVID-19 vaccine Immunization: COVID-19 (PFIZER), MRNA, LNP-S, PF, CARMELO-SUCROSE, 30 MCG/0.3 ML (AGES 12+ YEARS) Refusal Reason: PATIENT DECISION Patient refuses all immunization(s) in the COVID-19 group Date Documented: 07/28/24 14:07 RSV Immunization: Respiratory Syncytial Virus (RSV) Vaccine: Refused Pfizer (Abrysvo, RSVpreF vaccine). Immunization: RSV, BIVALENT, PROTEIN SUBUNIT RSVPREF, DILUENT RECONSTITUTED, 0.5 ML, PF Refusal Reason: PATIENT DECISION Patient refuses all immunization(s) in the RSV group Date Documented: 07/28/24 14:07 /daljit HARGROVE LPN Signed: 07/28/2024 14:08 07/28/2024 ADDENDUM STATUS: COMPLETED Procedure: Orthostatic Vital Signs: Lying Blood Pressure: 118/74 Heart Rate: 52 Standing Blood Pressure: 103/69 Heart Rate: 59 Standing Blood Pressure: 101/65 Heart Rate: 56 Is patient orthostatic: Asymptomatic Notified: Provider /daljit HARGROVE LPN Signed: 07/28/2024 15:13 JORDEN HARGROVE [facility]
--- OUTSIDE RECORDS SUMMARY | 2024-09-25 00:19 | XMS_ITS | Encounter Summary ---
Author Name [facility] [place] Organization [facility] Address [address] [place] [address] Care Team Providers Care Journalists And Other Writers Name Role Phone ASHLEY MALONE Primary Care [...] Merchant's Name Patient's Relationship to Policy Merchant [facility] (WNR) MEDICARE ADVANTAGE [facility] (WNR) May 19, 2019 [id number] [phone] Lilliam WEBER PATIENT BC[facility] (WNR) MEDICARE ADVANTAGE [facility] (WNR) May 19, 2019 [id number] [phone] Lilliam WEBER PATIENT [facility] (WNR) MEDICARE ADVANTAGE [facility] (WNR) May 19, 2019 [id number] [phone] Lilliam WEBER PATIENT Selected Encounter This section includes the information on record at [place] for the Encounter. Date/Time Encounter Type Encounter Description Reason Pro vider Source September 22, 2024 10:19 AM Outpatient Encounter ADMIN PAT ACTIVTIES (MASNONCT) IHE Encounter Template Text not used by [place] Plan of Treatment: Future Appointments (+ 6 months) and Future Tests (+/- 45 days) The Plan of Treatment section includes future care activities for the patient from all [place] [facility]. This section includes future appointments and future orders which are active, pending or scheduled. Future Appointments This section includes appointments that were scheduled to occur 6 months from the date of the Encounter, up to a maximum of 20 appointments. The data comes from all [facility] facilities. Appointment Date/Time Appointment Type Appointme nt Facility Name Nov 09, 2024 07:00 AM AMBULATORY - NONE [place] [facility] Nov 25, 2024 09:00 AM AMBULATORY - SURGERY [facility] Nov 25, 2024 09:45 AM [facility] Nov 25, 2024 10:45 AM AMBULATORY - SURGERY [facility] Dec 02, 2024 10:30 AM AMBULATORY - PS[facility]CHIATRY [facility] Dec 15, 2024 01:30 PM AMBULATORY - REHAB MEDICIN E [facility] Dec 17, 2024 11:30 AM AMBULATORY - SURGERY [facility] Jan 06, 2025 08:00 AM AMBULATORY - SURGERY [facility] Jan 28, 2025 10:00 AM AMBULATORY - SURGERY [facility] Social History: Smoking Status [...] 23, 2023 11:00 AM VA-TOBACCO FORMER USER [facility] Tobacco Use History This section includes a history of the smoking, or tobacco-related health factors, that were collected on or before the date of the Encounter. The data comes from the [place] facility where the Encounter took place. Date/Time Smoking Status/Tobacco Use Comment F diandra Oct 23, 2023 11:00 AM VA-TOBACCO QUIT 5 TO < 15 YRS [facility] Sep 05, 2022 11:00 AM VA-TOBACCO FORMER USER [facility] Sep 05, 2022 11:00 AM CO-TOBACCO QUIT 15 YRS OR MORE [facility] Jun 12, 2021 09:51 AM VA-TOBACCO FORMER USER [facility] Jun 12, 2021 09:51 AM VA-TOBACCO QUIT 5 TO < 15 YRS [facility] Jun 13, 2020 09:30 AM VA-TOBACCO FORMER USER [facility] Jun 13, 2020 09:30 AM VA-TOBACCO QUIT 1 TO < 5 YRS [facility] Dec 03, 2018 09:23 AM VA-TOBACCO FORMER USER [facility] Dec 03, 2018 09:23 AM VA-TOBACCO QUIT 15 YRS OR MORE [facility] Nov 26, 2017 03:17 PM FORMER TOBACCO USE >1Y <7Y [facility] Apr 01, 2017 10:30 AM FORMER TOBACCO USE >1Y <7Y [facility] Nov 27, 2016 01:58 AM INPT NO TOBACCO USE IN LAST 30 D AYS [facility] Feb 08, 2016 10:07 AM LIFETIME NON-TOBACCO USER [facility] Oct 18, 2014 08:28 AM FORMER TOBACCO USER 7Y OR GREATE R [facility] Dec 27, 2013 10:02 AM FORMER TOBACCO USE <1Y [facility] Apr 04, 2011 11:33 AM LIFETIME NON-TOBACCO USER [facility] Encounter Notes: All associated encounter notes This section contains the clinical notes associated to the Encounter. Date/Time Encounter Note(s) Provider Source September 22, 2024 10:19 AM REPORT OF CONTACT: LOCAL TITLE: APPOINTMENT SCHEDULING NOTE STANDARD TITLE: REPORT OF CONTACT DATE OF NOTE: SEPTEMBER 22, 2024@10:19 ENTRY DATE: SEPTEMBER 22, 2024@10:19:42 AUTHOR: AUSTIN BEAN EXP COSIGNER: URGENCY: STATUS: COMPLETED Attempted to schedule Return to clinic (RTC) Contact attempt made to [place] 1st attempt Telephone 2nd attempt Letter - Sent letter by regular [place] mail to address on file: MOOK WEBER [address] [place], [place] [address] Disposition order request after September Left message on voice mail to call back to this number [phone] If calls back, schedule appt for: MRI BRAIN NON CON 4.30.25 /es/ AUSTIN BEAN A AND P TECHNICIAN Signed: 09/22/2024 10:20 AUSTIN BEAN [facility]
--- OUTSIDE RECORDS SUMMARY | 2024-09-25 00:19 | XMS_ITS | Encounter Summary ---
Author Name [facility] [place] Organization [facility] [place] Address [address] [place] [address] Care Team Providers Care Freezer Worker Name Role Phone ASHLEY MALONE Primary Care [...] Merchant's Name Patient's Relationship to Policy Merchant [facility] (WNR) MEDICARE ADVANTAGE [facility] (WNR) May 19, 2019 [id number] [phone] Lilliam WEBER PATIENT [facility] (WNR) MEDICARE ADVANTAGE [facility] (WNR) May 19, 2019 [id number] [phone] Lilliam WEBER PATIENT [facility] (WNR) MEDICARE ADVANTAGE [facility] (WNR) May 19, 2019 [id number] [phone] Lilliam WEBER PATIENT Selected Encounter This section includes the information on record at [place] for the Encounter. Date/Time Encounter Type Encounter Description Reason Provider Source Aug 25, 2024 10:22 AM EXT ECG>[id number] REV&INTERPJ AMB ECG MONITORING ICD-10-CM R42 Dizziness and giddiness STEFFI BLOUNT IHE Encounter Template Text not used by VA Assessments - Encounter Diagnoses This section includes the primary and secondary diagnoses documented for the Encounter. Date/Time Primary/Secondary Diagnosis Diagnosis Name Provider Source Aug 25, 2024 10:26 AM PRIMARY Dizziness and giddiness STEFFI BLOUNT [facility] Plan of Treatment: Future Appointments (+ 6 months) and Future Tests (+/- 45 days) The Plan of Treatment section includes future care activities for the patient from all [place] treatmentfacilities. This section includes future appointments and future orders which are active, pending or scheduled. Future Appointments This section includes appointments that were scheduled to occur 6 months from the date of the Encounter, up to a maximum of 20 appointments. The data comes from all [place] treatment facilities. Appointment Date/Time Appointment Type Appointme nt Facility Name Sep 02, 2024 10:30 AM AMBULATORY - PSYCHIATRY [facility] Sep 03, 2024 09:30 AM AMBULATORY - SURGERY [facility] Sep 15, 2024 03:00 PM AMBULATORY - REHAB MEDICIN E [facility] Nov 09, 2024 07:00 AM [facility] Nov 25, 2024 09:00 AM AMBULATORY - SURGERY [facility] Nov 25, 2024 09:45 AM [facility] Nov 25, 2024 10:45 AM AMBULATORY - SURGERY [facility] Dec 02, 2024 10:30 AM AMBULATORY - PSYCHIATRY CT [facility] Dec 15, 2024 01:30 PM AMBULATORY - REHAB MEDICAR E [facility] Dec 17, 2024 11:30 AM AMBULATORY - SURGERY [facility] Jan 06, 2025 08:00 AM AMBULATORY - SURGERY [facility] Jan 28, 2025 10:00 AM AMBULATORY - SURGERY [facility] Lab Results: +/- 30 days of the encounter This section includes the Chemistry and Hematology Lab Results on record with [place] for the patient. Radiology Reports and Pathology Reports are provided separately, in subsequent sections. Lab Results This section contains the Chemistry/Hematology Results that were resulted 30 days before or 30 daysafter the date of the Encounter. Date/Time Source Result Type Result - Unit Interpretation Reference Range Specimen Type Comment Jul 28, 2024 12:34 PM [facility] HEMOGLOBIN A1C BLOOD Specimen Type: BLOOD Comment: [...] Oct 24, 2023 02:23 PM Reporting Lab: [facility] [id number] Performing Lab: [facility] [id number] HEMOGLOBIN A1C 5.6 4.0-6.0 Jul 28, 2024 12:34 PM [facility] LIPID PANEL,NON-FASTING PLASMA Spec imen Type: PLASMA No comment entered. Ordering Provider: ASHLEY MALONE Report Released Date/Time: Oct 24, 2023 02:23 PM Reporting Lab: [facility] [id number] Performing Lab: [facility] [id number] CHOLESTEROL 171 mg/dL <199 .HDL 57 mg/dL >40 LDL CALCULATION 101 mg/dL H <99 VLDL CALCULATION 13 mg/dL <29 NON HDL CHOLESTEROL 114 mg/dL <129 TRIG(NON FASTING) 67 mg/dL <149 Jul 28, 2024 12:34 PM [facility] BASIC METABOLIC PANEL+MG PLASMA Spe cimen Type: PLASMA No comment entered. Ordering Provider: ASHLEY MALONE Report Released Date/Time: Oct 24, 2023 02:23 PM Reporting Lab: [facility] [id number] Performing Lab: [facility] [id number] CREATININE 1.3 mg/dL H 0.7-1.2 UREA NITROGEN 22 mg/dL 8-26 GLUCOSE 101 mg/dL H 70-100 SODIUM 136 mmol/L 136-145 POTASSIUM 4.8 mmol/L 3.5-5.1 CHLORIDE 102 mmol/L 98-107 CO2 30 mmol/L H 22-29 CALCIUM 9.4 mg/dL 8.4-10.2 MAGNESIUM 2.2 mg/dL 1.6-2.6 ANION GAP 4 mmol/L L 5-15 .CREAT EGFR(CKD-EPI) 58 L >60 Jul 28, 2024 12:34 PM [facility] CBC BLOOD Specimen Type: BLOOD No comment entered. Ordering Provider: ASHLEY MALONE Report Released Date/Time: Oct 24, 2023 02:23 PM Reporting Lab: [facility] [id number] Performing Lab: [facility] [id number] WBC 6.9 4.0-11.0 RBC 4.06 L 4.60-6.20 HGB 12.7 g/dL L 13.5-17.9 HCT 38.5 L 41.0-54.0 MCV 94.8 fL 80.0-100.0 MCH 31.3 pg 27.0-33.0 MCHC 33.0 g/dL 32.0-37.5 PLT 235 150-400 MPV 9.6 fL 9.1-13.0 RDW 12.6 11.5-14.5 Social History: Smoking Status (Most current) and Tobacco Use (All prior to encounter date) This section includes the most current, and the historical, smoking and tobacco- related health factors from the [place] facility where the Encounter took place. Current Smoking Status This section includes the most current smoking, or tobacco-related health factor, from the [place] facility where the Encounter took place. Date/Time Current Smoking Status Comment iD jaquez Oct 23, 2023 11:00 AM VA-TOBACCO QUIT 5 TO < 15 YRS [facility] Tobacco Use History This section includes a history of the smoking, or tobacco-related health factors, that were collected on or before the date of the Encounter. The data comes from the [place] facility where the Encounter took place. Date/Time Smoking Status/Tobacco Use Comment F diandra Oct 23, 2023 11:00 AM VA-TOBACCO QUIT 5 TO < 15 YRS [facility] Sep 05, 2022 11:00 AM VA-TOBACCO FORMER USER [facility] Sep 05, 2022 11:00 AM VA-TOBACCO QUIT 15 YRS OR MORE [facility] Jun 12, 2021 09:51 AM VA-TOBACCO FORMER USER [facility] Jun 12, 2021 09:51 AM VA-TOBACCO QUIT 5 TO < 15 YRS [facility] Jun 13, 2020 09:30 AM VA-TOBACCO FORMER USER [facility] Jun 13, 2020 09:30 AM VA-TOBACCO QUIT 1 TO < 5 YRS [facility] Dec 03, 2018 09:23 AM VA-TOBACCO FORMER USER [facility] Dec 03, 2018 09:23 AM VA-TOBACCO QUIT 15 YRS OR MORE [facility] Nov 26, 2017 03:17 PM FORMER TOBACCO USE >1Y <7Y [facility] Apr 01, 2017 10:30 AM FORMER TOBACCO USE >1Y <7Y [facility] Nov 27, 2016 01:58 AM INPT NO TOBACCO USE IN LAST 30 D AYS [facility] Feb 08, 2016 10:07 AM LIFETIME NON-TOBACCO USER [facility] Oct 18, 2014 08:28 AM FORMER TOBACCO USER 7Y OR GREATE R [facility] Dec 27, 2013 10:02 AM FORMER TOBACCO USE <1Y [facility] Apr 04, 2011 11:33 AM LIFETIME NON-TOBACCO USER [facility] Encounter Notes: All associated encounter notes This section contains the clinical notes associated to the Encounter. Date/Time Encounter Note(s) Provider Source Aug 26, 2024 08:51 AM LETTERS: LOCAL TITLE: FOLLOW UP RESULTS LETTER STANDARD TITLE: LETTERS DATE OF NOTE: AUG 26, 2024@08:51 ENTRY DATE: AUG 26, 2024@08:51:47 AUTHOR: ASHLEY MALONE EXP COSIGNER: URGENCY: STATUS: COMPLETED [facility] [address] [place] [address] Aug MOOK WEBER [address] [facility] [id number] Dear : I am writing to inform you of the results of testing that you had done recently at the [facility]. Additional Comments: Justin Mata, It was great to see you last month. Your heart monitor results arebelow and they are quite reassuring and do not explain the lightheadedness/dizziness and arm jerking movements. I think the best thing at this time is to follow up with neurology who has you scheduled on September 15. Thanks! -Ashley HEART RATE IN SINUS RHYTHM MIN 47 AVERAGE 75 MAX 150 PVC% <1% PAC% <1% INTERPRETATION 1. The underlying rhythm is sinus with first-degree AV block 2. There were 0 patient reported events 3. There were 9 episodes of SVT, the longest was 17 beats 4. There was a brief episode (less than 2 seconds) with possible atrial tachycardia with block If you have any further questions or problems, please contact our nursing staff or provider at the following number: [phone]. Sincerely, ASHLEY MALONE APRN NURSE PRACTITIONER ASHLEY MALONE [facility] Aug 25, 2024 10:22 AM CARDIOLOGY DIAGNOS TIC STUDY CONSULT: LOCAL TITLE: EKG CONSULT STANDARD TITLE: CARDIOLOGY DIAGNOSTIC STUDY CONSULT DATE OF NOTE: AUG 25, 2024@10:22 ENTRY DATE: AUG 25, 2024@10:22:40 AUTHOR: STEFFI BLOUNT COSIGNER: URGENCY: STATUS: COMPLETED Event monitor (SCP [employer]) ECG REPORT 7 day heart monitor August 11 through August 18, 2024 INDICATION: Dizziness and giddiness HEART RATE IN SINUS RHYTHM MIN 47 AVERAGE 75 MAX 150 PVC% <1% PAC% <1% INTERPRETATION 1. The underlying rhythm is sinus with first-degree AV block 2. There were 0 patient reported events 3. There were 9 episodes of SVT, the longest was 17 beats 4. There was a brief episode (less than 2 seconds) with possible atrial tachycardia with block /es/ STEFFI BLOUNT MD PHYSICIAN Signed: 08/25/2024 10:26 STEFFI BLOUNT [facility]
--- OUTSIDE RECORDS SUMMARY | 2024-09-25 00:19 | XMS_ITS | Encounter Summary ---
Author Name Department of [facility]a Affairs ([place]) Organization [facility] Address [address] [place] [address] Care Team Providers Care Family Law Paralegal Name Role Phone ASHLEY MALONE Primary Care [...] Merchant's Name Patient's Relationship to Policy Merchant [facility] (WNR) MEDICARE ADVANTAGE MCR ([facility]) May 19, 2019 [id number] [phone] Lilliam WEBER PATIENT BS [facility] (WNR) MEDICARE ADVANTAGE [facility] (WNR) May 19, 2019 [id number] [phone] Lilliam WEBER PATIENT [facility] (WNR) MEDICARE ADVANTAGE MCR (R) May 19, 2019 [id number] [phone] Lilliam WEBER PATIENT Selected Encounter This section includes the information on record at [place] for the Encounter. Date/Time Encounter Type Encounter Description Reason Provider Source Sep 03, 2024 09:30 AM ORAL DEVICE/APPLIANC E CUSFAB DENTAL ICD-10-CM G47.33 Obstructive sleep apnea (adult) (pediatric) JOSE BAE [facility] Encounter Template Text not used by MD Assessments - Encounter Diagnoses This section includes the primary and secondary diagnoses documented for the Encounter. Date/Time Primary/Secondary Diagnosis Diagnosis Name Provider Source Sep 03, 2024 10:06 AM PRIMARY Obstructive sleep apnea (adult) (pediatric) JOSE BAE [facility] Plan of Treatment: Future Appointments (+ 6 months) and Future Tests (+/- 45 days) The Plan of Treatment section includes future care activities for the patient from all [place] [facility]. This section includes future appointments and future orders which are active, pending or scheduled. Future Appointments This section includes appointments that were scheduled to occur 6 months from the date of the Encounter, up to a maximum of 20 appointments. The data comes from all [place] treatment facilities. Appointment Date/Time Appointment Type Appointme nt Facility Name Sep 15, 2024 03:00 PM AMBULATORY - REHAB MEDICIN E [facility] Nov 09, 2024 07:00 AM [facility] Nov 25, 2024 09:00 AM AMBULATORY - SURGERY [facility] Nov 25, 2024 09:45 AM [facility] Nov 25, 2024 10:45 AM AMBULATORY - SURGERY [facility] Dec 02, 2024 10:30 AM [facility] Dec 15, 2024 01:30 PM AMBULATORY - REHAB MEDICMS E [facility] Dec 17, 2024 11:30 AM AMBULATORY - SURGERY [facility] Jan 06, 2025 08:00 AM AMBULATORY - SURGERY [facility] Jan 28, 2025 10:00 AM AMBULATORY - SURGERY [facility] Vital Signs: All taken on the encounter date This section contains inpatient and outpatient Vital Signs collected on the date of the Encounter. Date/Time Temperature Pulse Blood Pressure Respiratory Rate SP02 Pain Height Weight Body Mass Index Source Sep 03, 2024 09:28 AM 98.4 75 162/102 [facility] Social History: Smoking Status (Most current) and [...] 23, 2023 11:00 AM VA-TOBACCO FORMER USER [facility] Tobacco Use History This section includes a history of the smoking, or tobacco-related health factors, that were collected on or before the date of the Encounter. The data comes from the [place] facility where the Encounter took place. Date/Time Smoking Status/Tobacco Use Comment F acility Oct 23, 2023 11:00 AM VA-TOBACCO QUIT 5 TO < 15 YRS [facility] Sep 05, 2022 11:00 AM VA-TOBACCO FORMER USER [facility] Sep 05, 2022 11:00 AM VA-TOBACCO QUIT 15 YRS OR MORE [facility] Jun 12, 2021 09:51 AM VA-TOBACCO FORMER USER [facility] Jun 12, 2021 09:51 AM VA-TOBACCO QUIT 5 TO < 15 YRS [facility] Jun 13, 2020 09:30 AM VA-TOBACCO FORMER USER [facility] Jun 13, 2020 09:30 AM VA-TOBACCO QUIT 1 TO < 5 YRS [facility] Dec 03, 2018 09:23 AM VA-TOBACCO FORMER USER [facility] Dec 03, 2018 09:23 AM VA-TOBACCO QUIT 15 YRS OR MORE [facility] Nov 26, 2017 03:17 PM FORMER TOBACCO USE >1Y <7Y [facility] Apr 01, 2017 10:30 AM FORMER TOBACCO USE >1Y <7Y [facility] Nov 27, 2016 01:58 AM INPT NO TOBACCO USE IN LAST 30 D AYS [facility] Feb 08, 2016 10:07 AM LIFETIME NON-TOBACCO USER [facility] Oct 18, 2014 08:28 AM FORMER TOBACCO USER 7Y OR GREATE R [facility] Dec 27, 2013 10:02 AM FORMER TOBACCO USE <1Y [facility] Apr 04, 2011 11:33 AM LIFETIME NON-TOBACCO USER [facility] Encounter Notes: All associated encounter notes This section contains the clinical notes associated to the Encounter. Date/Time Encounter Note(s) Provider Source Sep 03, 2024 10:02 AM DENTISTRY NOTE: LOCAL TITLE: Dental Clinic Note STANDARD TITLE: DENTISTRY NOTE DATE OF NOTE: SEP 03, 2024@10:02 ENTRY DATE: SEP 03, 2024@10:06:59 AUTHOR: JOSE BAE COSIGNER: URGENCY: STATUS: COMPLETED Patient Name: MOOK WEBER, : 1950, Age: 73 Visit: S: Sep 03, 2024@09:30 [facility] DENTAL SLEEP 2UD. Primary PCE Diagnosis: G47.33 (OBSTRUCTIVE SLEEP APNEA (ADULT) (PEDIATRIC)). Dental Category: 17-OPC, Class . Treatment Status: Maintenance. Completed Care: ([id number]) OCCLUSAL ORTHOTIC APPLIANCE. DX: G47.33 Obstructive Sleep Apnea (Adult) (Pediatric) (E0486) ORAL DEVICE/APPLIANCE CUSFAB. DX: G47.33 Obstructive Sleep Apnea (Adult) (Pediatric) - - - - - - - - - - - - - - - - - - - - - - - - - - - - - - Sterilization verification was performed by: Nighat Mercado LDA Time out completed to verify patient ID SUBJECTIVE: Patient presents to sleep clinic for delivery of sleep appliance. Dental pain scale: 0/10 CHIEF COMPLAINT: im here to oyster picker my new sleep appliance HISTORY OF PRESENT ILLNESS: Pt has a history of snoring, mild obstructive sleep apnea (AHI 10) Had his appliance fracture a few times, here for delivery of new appliance with added reinforcement to it. OBJECTIVE: Type of appliance: Dynaflex Dorsal Accu-Fit [place]: 9 EXTRAORAL: Facial Symmetry: Within Normal Limits Muscles of Mastication: Within Normal Limits Temporomandibular Joint: Within Normal Limits INTRAORAL: Dentition: Right Posterior Occlusion: heavy Left Posterior Occlusion: heavy Anterior Occlusion: light Overjet: 2mm Overbite: 2mm Occlusion is: stable AM Dry Cure Worker: fabricated AM strapping machine operator and gave HCI to wear every morning for 10-15 minutes Sleep Appliance Retention: fitted maxillary and mandibular appliances ASSESSMENT: 73 year old with snoring, mild obstructive sleep apnea using a dental sleep appliance with Good prognosis. PLAN: Today: Delivery of: Dynaflex Dorsal Accu-Fit Maxillary and Mandibular appliances seated completely. Maxillary and Mandibular appliances stable occlusion. Retention good. Fabricated AM realigner. INSTRUCTIONS GIVEN TO PATIENT: Seat sleep appliances with hands/do NOT bite into place., DO NOT warm before seating, Use AM Dry Cure Worker for 10-15 minutes Patient demonstrated ability to place and remove sleep appliance. Return to clinic: Other: 1 year F/U guerline Dental Cogeneration Operator: PAULY Disla /yung/ JOSE BAE DDS STAFF DENTIST Signed: 09/03/2024 10:06 JOSE BAE [facility]
--- OUTSIDE RECORDS SUMMARY | 2024-09-25 00:19 | XMS_ITS | Encounter Summary ---
Author Name [facility] [place] [facility] [place] Address [address] [place] [address] Care Team Providers Care Missile Pad Mechanic Name Role Phone ASHLEY MALONE Primary Care [...] Name Patient's Relationship to Policy Merchant [facility] (WNR) MEDICARE ADVANTAGE [facility] (WNR) May 19, 2019 [id number] [phone] Lilliam WEBER PATIENT [facility] (WNR) MEDICARE ADVANTAGE [facility] (WNR) May 19, 2019 [id number] [phone] Lilliam WEBER PATIENT [facility] (WNR) MEDICARE ADVANTAGE [facility] (WNR) May 19, 2019 [id number] [phone] Lilliam WEBER PATIENT Selected Encounter This section includes the information on record at [place] for the Encounter. Date/Time Encounter Type Encounter Description Reason Provider Source Jun 06, 2024 12:40 PM Outpatient Encounter EMERGENCY DEPT ELVI RODRIGUEZ Encounter Template Text not used by [place] Plan of Treatment: Future Appointments (+ 6 months) and Future Tests (+/- 45 days) The Plan of Treatment section includes future care activities for the patient from all [place] [facility]. This section includes future appointments and future orders which are active, pending or scheduled. Future Appointments This section includes appointments that were scheduled to occur 6 months from the date of the Encounter, up to a maximum of 20 appointments. The data comes from all [facility]. Appointment Date/Time Appointment Type Appointme nt Facility Name Jul 28, 2024 01:15 PM AMBULATORY - NONE [facility] Jul 28, 2024 02:00 PM AMBULATORY - MEDICINE [facility] Sep 02, 2024 10:30 AM AMBULATORY - PSYCHIATRY [facility] Sep 03, 2024 09:30 AM AMBULATORY - SURGERY [facility] Sep 15, 2024 03:00 PM [facility] Nov 09, 2024 07:00 AM AMBULATORY - NONE [facility] Nov 25, 2024 09:00 AM AMBULATORY - SURGERY [facility] Nov 25, 2024 09:45 AM AMBULATORY - MEDICINE [facility] Nov 25, 2024 10:45 AM AMBULATORY - SURGERY [facility] Dec 02, 2024 10:30 AM AMBULATORY - PSYCHIATRY [facility] Active, Pending, and Scheduled Orders This section includes a listing of several types of active, pending, and scheduled orders, including clinic medications orders, diagnostic test orders, procedure orders and consult orders; where the start date of the order is 45 days before the date of the Encounter or 45 days after the date of theEncounter. The data comes from all [facility]. Test Date/Time Test Type Test Details Facility Name May 06, 2024 02:29 PM Consult Order COMMUNITY CARE-TREATMENT RESISTANT DEPRESSION Cons Printed Circuit Board Reworker's Choice [facility] Vital Signs: All taken on the encounter date This section contains inpatient and outpatient Vital Signs collected on the date of the Encounter. Date/Time Temperature Pulse Blood Pressure Respiratory Rate SP02 Pain Height Weight Body Mass Index Source Jun 06, 2024 01:10 PM 97.1 71 151/84 16 [facility] Social History: Smoking Status (Most current) and Tobacco Use (All prior to encounter date) This section includes the most current, and the historical, smoking and tobacco- related health factors from the [place] facility where the Encounter took place. Current Smoking Status This section includes the most current smoking, or tobacco-related health factor, from the [place] facility where the Encounter took place. Date/Time Current Smoking Status Comment Facil ity Oct 23, 2023 11:00 AM VA-TOBACCO FORMER USER [facility] Tobacco Use History This section includes a history of the smoking, or tobacco-related health factors, that were collected on or before the date of the Encounter. The data comes from the [place] facility where the Encounter took place. Date/Time Smoking Status/Tobacco Use Comment F acility Oct 23, 2023 11:00 AM VA-TOBACCO QUIT 5 TO < 15 YRS [facility] Sep 05, 2022 11:00 AM VA-TOBACCO FORMER USER [facility] Sep 05, 2022 11:00 AM VA-TOBACCO QUIT 15 YRS OR MORE [facility] Jun 12, 2021 09:51 AM VA-TOBACCO FORMER USER [facility] Jun 12, 2021 09:51 AM VA-TOBACCO QUIT 5 TO < 15 YRS [facility] Jun 13, 2020 09:30 AM VA-TOBACCO FORMER USER [facility] Jun 13, 2020 09:30 AM VA-TOBACCO QUIT 1 TO < 5 YRS [facility] Dec 03, 2018 09:23 AM VA-TOBACCO FORMER USER [facility] Dec 03, 2018 09:23 AM VA-TOBACCO QUIT 15 YRS OR MORE [facility] Nov 26, 2017 03:17 PM FORMER TOBACCO USE >1Y <7Y [facility] Apr 01, 2017 10:30 AM FORMER TOBACCO USE >1Y <7Y [facility] Nov 27, 2016 01:58 AM INPT NO TOBACCO USE IN LAST 30 D AYS [facility] Feb 08, 2016 10:07 AM LIFETIME NON-TOBACCO USER [facility] Oct 18, 2014 08:28 AM FORMER TOBACCO USER 7Y OR GREATE R [facility] Dec 27, 2013 10:02 AM FORMER TOBACCO USE <1Y [facility] Apr 04, 2011 11:33 AM LIFETIME NON-TOBACCO USER [facility] Encounter Notes: All associated encounter notes This [...] Mobility: * Walk 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 [...] 305.90) Personal History of Exposure to Agent [place] (ICD-9-CM V15.89) Limitation of motion of the cervical spiCervicalgia (SCT 35266501) Low back pain (SCT 108441598) Personal History of Tobacco Use (ICD-9-CM V15.82) Acute alcoholic intoxication in alcoholiDysphagia, Pharyngeal Phase (ICD-9-CM 787.23) Gastroesophageal Reflux Disorder (QKB-6-Zqvfqdeu rhinitis (ICD-9-CM 477.9) Hyperlipidemia (SCT 29930194) Alcohol dependence (SCT 16793272) Anxiety disorder (SCT 207022396) Urinary Hesitancy (ICD-9-CM 788.64) Elevated blood pressure reading without Screening for Malignant Neoplasms of colon (ICD-9-CM V76.51) Hypertensive disorder (SCT 25490702) Obstructive sleep apnea syndrome (SCT 76665418) Dysthymia (SCT 34865341) Major depression (SCT 213538631) Opioid dependence in remission (SCT 1918Cannabis abuse (SCT 85187462) Chronic fatigue syndrome (SCT 94794727) Stress, not elsewhere classified (ICD-10-CM Z73.3) History of lumbar fusion (SCT 7466720912Mwazu of colon ([facility] 01557563) 6330-4185 [place] EXPOSURE TO 2, 3, 7, [address] [place] EXPOSURE TO OPEN BURN PITS (CECILIA DETACHMENT TO 11TH [facility]/FIRE SUPPORT [facility]/[employer]/RANK E6/MOS-96D/JOB-IMAGERY INTERPRETATION/AERIAL RECONAISSANCE) (ICD-10-CM R69.) 9581-8514 [place] EXPOSURE TO M16 ASSAULLow back pain (SCT 025921616) Exposure to potentially hazardous substaPosttraumatic stress disorder ([facility] 84516692) History of adenomatous polyp of colon (S /es/ JEREMIAH VERA, FORKLIFT TRUCK MECHANIC NURSE Signed: 06/06/2024 13:13 JEREMIAH VERA [facility]
--- OUTSIDE RECORDS SUMMARY | 2024-09-25 00:20 | XMS_ITS ---
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 Name Role Phone ASHLEY MALONE Primary Care [...] Merchant's Name Patient's Relationship to Policy Merchant [facility] (WNR) MEDICARE ADVANTAGE [facility] (WNR) May 19, 2019 [id number] [phone] Lilliam WEBER PATIENT [facility] (WNR) MEDICARE ADVANTAGE [facility] (WNR) May 19, 2019 [id number] [phone] Lilliam WEBER PATIENT [facility] (WNR) MEDICARE ADVANTAGE [facility] (WNR) May 19, 2019 [id number] [phone] Lilliam WEBER PATIENT Selected Encounter This section includes the information on record at [place] for the Encounter. Date/Time Encounter Type Encounter Description Reason Provider Source May 27, 2024 10:00 AM SYNCH AUDIO-VIDEO EST [facility] - IND ICD-10-CM F33.9 Major depressive disorder, recurrent, unspecified MONIQUE SOOD Mell Encounter Template Text not used by [place] Assessments - Encounter Diagnoses This section includes the primary and secondary diagnoses documented for the Encounter. Date/Time Primary/Secondary Diagnosis Diagnosis Name Provider Source May 27, 2024 11:30 AM PRIMARY Major depressive disorder, recurrent, unspecified MONIQUE SOOD [facility] May 27, 2024 11:30 AM SECONDARY Anxiety disorder, unspecified MONIQUE SOOD [facility] May 27, 2024 11:30 AM SECONDARY Chronic fatigue, unspecified MONIQUE SOOD [facility] May 27, 2024 11:30 AM SECONDARY Opioid dependence, in remission MONIQUE SOOD [facility] May 27, 2024 11:30 AM SECONDARY Post-traumatic stress disorder, unspecified MONIQUE SOOD [facility] Plan of Treatment: Future Appointments (+ 6 months) and Future Tests (+/- 45 days) The Plan of Treatment section includes future care activities for the patient [facility] [place] [facility]. This section includes future appointments and future orders which are active, pending or scheduled. Future Appointments This section includes appointments that were scheduled to occur 6 months from the date of the Encounter, up to a maximum of 20 appointments. The data comes from all [facility]. Appointment Date/Time Appointment Type Appointme nt Facility Name Jul 28, 2024 01:15 PM AMBULATORY - NONE [facility] Jul 28, 2024 02:00 PM AMBULATORY - [facility]IC[facility] Sep 02, 2024 10:30 AM [facility] Sep 03, 2024 09:30 AM AMBULATORY - SURGERY [facility] Sep 15, 2024 03:00 PM AMBULATORY - REHAB MEDIC[facility] Nov 09, 2024 07:00 AM AMBULATORY - NONE [facility] Active, Pending, and Scheduled Orders This section includes a listing of several types of active, pending, and scheduled orders, including clinic medications orders, diagnostic test orders, procedure orders and consult orders; where the start date of the order is 45 days before the date of the Encounter or 45 days after the date of theEncounter. The data comes from all [facility]. Test Date/Time Test Type Test Details Facility Name May 06, 2024 02:29 PM Consult Order COMMUNITY CARE-TREATMENT RESISTANT DEPRESSION Cons Physical Education Teacher's Choice [facility] Social History: Smoking Status (Most [...] 23, 2023 11:00 AM VA-TOBACCO FORMER USER [facility] Tobacco Use History This section includes a history of the smoking, or tobacco-related health factors, that were collected on or before the date of the Encounter. The data comes from the [place] facility where the Encounter took place. Date/Time Smoking Status/Tobacco Use Comment F acility Oct 23, 2023 11:00 AM VA-TOBACCO QUIT 5 TO < 15 YRS [facility] Sep 05, 2022 11:00 AM VA-TOBACCO FORMER USER [facility] Sep 05, 2022 11:00 AM VA-TOBACCO QUIT 15 YRS OR MORE [facility] Jun 12, 2021 09:51 AM VA-TOBACCO FORMER USER [facility] Jun 12, 2021 09:51 AM VA-TOBACCO QUIT 5 TO < 15 YRS [facility] Jun 13, 2020 09:30 AM VA-TOBACCO FORMER USER [facility] Jun 13, 2020 09:30 AM VA-TOBACCO QUIT 1 TO < 5 YRS [facility] Dec 03, 2018 09:23 AM VA-TOBACCO FORMER USER [facility] Dec 03, 2018 09:23 AM VA-TOBACCO QUIT 15 YRS OR MORE [facility] Nov 26, 2017 03:17 PM FORMER TOBACCO USE >1Y <7Y [facility] Apr 01, 2017 10:30 AM FORMER TOBACCO USE >1Y <7Y [facility] Nov 27, 2016 01:58 AM INPT NO TOBACCO USE IN LAST 30 D AYS [facility] Feb 08, 2016 10:07 AM LIFETIME NON-TOBACCO USER [facility] Oct 18, 2014 08:28 AM FORMER TOBACCO USER 7Y OR GREATE R [facility] Dec 27, 2013 10:02 AM FORMER TOBACCO USE <1Y [facility] Apr 04, 2011 11:33 AM LIFETIME NON-TOBACCO USER [facility] Encounter Notes: All associated encounter notes This [...] 40min. - Visit conducted by synchronous telehealth. verbal consent obtained. Location/emergency number confirmed. Environment surveyed and all participants identified. Virtual conference room locked. PERTINENT BACKGROUND/ID: hospitalization x1, no history of suicide attempts. Lives with , x1, has children and grandchildren. Strained relationship with daughters, good relationship with son (all children from first marriage). ASSESSMENT: [place] is seen today for follow-up. Ketamine started [...] partial agonist # Chronic Fatigue Syndrome (per [facility]) # Chronic pain # Mild Cognitive Impairment (per [facility] neuropsych testing ~) # TBI-- reports h/o [...] it -clonazepam 2017. Ineffective, made him sleepy -[place], 2021 (not effective) -Adderall XR 2018. Jaw [...] STAFF PSYCHIATRIST Signed: 05/27/2024 11:30 MONIQUE SOOD [facility]
--- OUTSIDE RECORDS SUMMARY | 2024-09-25 00:20 | XMS_ITS | Continuity of Care Document ---
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 PLASMA 9.4 mg/dL 8.4 - 10.2 07/28 Specimen Type: PLASMA No comment entered. Ordering Provider: ASHLEY MALONE Report Released Date/Time: Oct 24, 2023 02:23 PM Reporting Lab: [facility] [address] Performing Lab: [facility] [address] [place] [facility] BASIC METABOLI C PANEL+MG MAGNESIUM [MASS/VOLU ME] IN SERUM OR PLASMA 2.2 mg/dL 1.6 - 2.6 07/28 Specimen Type: PLASMA No comment entered. Ordering Provider: ASHLEY MALONE Report Released Date/Time: Oct 24, 2023 02:23 PM Reporting Lab: [facility] [address] Performing Lab: [facility] [address] [place] [facility] BASIC METABOLI C PANEL+MG ANION GAP IN SERUM OR PLASMA 4 mmol/L 5 - 15 07/28 L Specimen Type: PLASMA No comment entered. Ordering Provider: ASHLEY MALONE Report Released Date/Time: Oct 24, 2023 02:23 PM Reporting Lab: [facility] [address] Performing Lab: [facility] [address] [place] [facility] BASIC METABOLI C PANEL+MG GLOMERULAR FILTRATION RATE/1.73 SQ M.PREDICTE D [VOLUME RATE/AREA] IN SERUM, PLASMA OR BLOOD BY CREATININE -BASED FORMULA (CKD-EPI 2020) 58 60 07/28 L Specimen Type: PLASMA No comment entered. Ordering Provider: ASHLEY MALONE Report Released Date/Time: Oct 24, 2023 02:23 PM Reporting Lab: [facility] [address] Performing Lab: [facility] [address] [place] [facility] DRUG SCREEN PANEL,UR INE BARBITURAT ES [PRESENCE] IN URINE BY SCREEN METHOD Negative 03/25 Specimen Type: URINE Comment: Presumptive Positive by screen, results not confirmed. Ordering Provider: MARYJANE MATHEW Report Released Date/Time: Mar 25, 2024 08:40 AM Reporting Lab: [facility] [address] Performing Lab: [facility] [address] [place] [facility] DRUG SCREEN PANEL,UR INE AMPHETAMIN ES [PRESENCE] IN URINE Negative 03/25 Specimen Type: URINE Comment: Presumptive Positive by screen, results not confirmed. Ordering Provider: MARYJANE MATHEW Report Released Date/Time: Mar 25, 2024 08:40 AM Reporting Lab: [facility] [address] Performing Lab: [facility] [address] [place] [facility] DRUG SCREEN PANEL,UR INE COCAINE [PRESENCE] IN URINE Negative 03/25 Specimen Type: URINE Comment: Presumptive Positive by screen, results not confirmed. Ordering Provider: MARYJANE MATHEW Report Released Date/Time: Mar 25, 2024 08:40 AM Reporting Lab: [facility] [address] Performing Lab: [facility] [address] [place] [facility] DRUG SCREEN PANEL,UR INE BENZODIAZE PINES [PRESENCE] IN URINE BY SCREEN METHOD Negative 03/25 Specimen Type: URINE Comment: Presumptive Positive by screen, results not confirmed. Ordering Provider: MARYJANE MATHEW Report Released Date/Time: Mar 25, 2024 08:40 AM Reporting Lab: [facility] [address] Performing Lab: [facility] [address] [place] [facility] DRUG SCREEN PANEL,UR INE CANNABINOI DS [PRESENCE] IN URINE BY SCREEN METHOD Negative 03/25 Specimen Type: URINE Comment: Presumptive Positive by screen, results not confirmed. Ordering Provider: MARYJANE MATHEW Report Released Date/Time: Mar 25, 2024 08:40 AM Reporting Lab: [facility] [address] Performing Lab: [facility] [address] [place] [facility] DRUG SCREEN PANEL,UR INE METHADONE [PRESENCE] IN URINE Negative 03/25 Specimen Type: URINE Comment: Presumptive Positive by screen, results not confirmed. Ordering Provider: MARYJANE MATHEW Report Released Date/Time: Mar 25, 2024 08:40 AM Reporting Lab: [facility] [address] Performing Lab: [facility] [address] [place] [facility] DRUG SCREEN PANEL,UR INE OPIATES [PRESENCE] IN URINE BY SCREEN METHOD Negative 03/25 Specimen Type: URINE Comment: Presumptive Positive by screen, results not confirmed. Ordering Provider: MARYJANE MATHEW Report Released Date/Time: Mar 25, 2024 08:40 AM Reporting Lab: [facility] [address] Performing Lab: [facility] [address] [place] [facility] DRUG SCREEN PANEL,UR INE PHENCYCLID INE [PRESENCE] IN URINE Negative 03/25 Specimen Type: URINE Comment: Presumptive Positive by screen, results not confirmed. Ordering Provider: MARYJANE MATHEW Report Released Date/Time: Mar 25, 2024 08:40 AM Reporting Lab: [facility] [address] Performing Lab: [facility] [address] [place] [facility] DRUG SCREEN PANEL,UR INE ETHANOL [MASS/VOLU ME] IN URINE Negative 03/25 Specimen Type: URINE Comment: Presumptive Positive by screen, results not confirmed. Ordering Provider: MARYJANE MATHEW Report Released Date/Time: Mar 25, 2024 08:40 AM Reporting Lab: [facility] [address] Performing Lab: [facility] [address] [place] [facility] DRUG SCREEN PANEL,UR INE CREATININE [MASS/VOLU ME] IN URINE 63.5 mg/dL 20.0 03/25 Specimen Type: URINE Comment: Presumptive Positive by screen, results not confirmed. Ordering Provider: MARYJANE MATHEW Report Released Date/Time: Mar 25, 2024 08:40 AM Reporting Lab: [facility] [address] Performing Lab: [facility] [address] [place] [facility] DRUG SCREEN PANEL,UR INE OXYCODONE [PRESENCE] IN URINE BY SCREEN METHOD Negative 03/25 Specimen Type: URINE Comment: Presumptive Positive by screen, results not confirmed. Ordering Provider: MARYJANE MATHEW Report Released Date/Time: Mar 25, 2024 08:40 AM Reporting Lab: [facility] [address] Performing Lab: [facility] [address] [place] [facility] DRUG SCREEN PANEL,UR INE BUPRENORPH INE+NORBUP RENORPHINE [PRESENCE] IN URINE POSITIVE 03/25 H Specimen Type: URINE Comment: Presumptive Positive by screen, results not confirmed. Ordering Provider: MARYJANE MATHEW Report Released Date/Time: Mar 25, 2024 08:40 AM Reporting Lab: [facility] [address] Performing Lab: [facility] [address] [place] [facility] DRUG SCREEN PANEL,UR INE TRAMADOL CUTOFF [MASS/VOLU ME] IN URINE FOR SCREEN METHOD Negative 03/25 Specimen Type: URINE Comment: Presumptive Positive by screen, results not confirmed. Ordering Provider: MARYJANE MATHEW Report Released Date/Time: Mar 25, 2024 08:40 AM Reporting Lab: [facility] [address] Performing Lab: [facility] [address] [place] [facility] DRUG SCREEN PANEL,UR INE FENTANYL [PRESENCE] IN URINE Negative 03/25 Specimen Type: URINE Comment: Presumptive Positive by screen, results not confirmed. Ordering Provider: MARYJANE MATHEW Report Released Date/Time: Mar 25, 2024 08:40 AM Reporting Lab: [facility] [address] Performing Lab: [facility] [address] [place] [facility] B 12 COBALAMIN (VITAMIN B12) [MASS/VOLU ME] IN SERUM OR PLASMA 433 pg/mL 213 - 816 02/04 Specimen Type: SERUM No comment entered. Ordering Provider: MANNY SOOD Report Released Date/Time: Jan 01, 2024 11:17 AM Reporting Lab: [facility] [address] Performing Lab: [facility] [address] [facility] FOLATE FOLATE [MASS/VOLU ME] IN SERUM OR PLASMA >20.0ng/ mL 7.0 02/04 Specimen Type: PLASMA No comment entered. Ordering Provider: MANNY SOOD Report Released Date/Time: Jan 01, 2024 11:17 AM Reporting Lab: [facility] [address] Performing Lab: [facility] [address] [place] [facility] VIT D 25-OH,TO YNES 25-HYDROXY VITAMIN D3 [MASS/VOLU ME] IN SERUM OR PLASMA 42 ng/mL 12 - 50 02/04 Specimen Type: SERUM No comment entered. Ordering Provider: MANNY SOOD Report Released Date/Time: Jan 01, 2024 11:17 AM Reporting Lab: [facility] [address] Performing Lab: [facility] [address] [facility] TESTOSTE ZAHRA TESTOSTERO NE [MASS/VOLU ME] IN SERUM OR PLASMA 293 ng/dL 221 - 870 02/04 Specimen Type: SERUM No comment entered. Ordering Provider: MANNY SOOD Report Released Date/Time: Jan 01, 2024 11:17 AM Reporting Lab: [facility] [address] Performing Lab: [facility] [address] [facility] TSH W/REFLEX TO FREE T4 THYROTROPI N [UNITS/VOL UME] IN SERUM OR PLASMA 1.44 u[IU]/mL 0.35 - 4.94 02/04 Specimen Type: PLASMA No comment entered. Ordering Provider: MANNY SOOD Report Released Date/Time: Jan 01, 2024 11:17 AM Reporting Lab: [facility] [address] Performing Lab: [facility] [address] [facility] Vital Signs Combined list of inpatient and outpatient Vital Signs from Department of Defense and Veterans Affairs, ranging from 12 months to all on record, depending upon the facility. Vital Sign Value Date Comments Source SYSTOLIC BLOOD PRESSURE 137 09/15/2024 14:54:24 [facility] DIASTOLIC BLOOD PRESSURE 75 09/15/2024 14:54:24 [facility] PULSE OXIMETRY 95 09/15/2024 14:54:24 [facility] WEIGHT 196.5 09/15/2024 14:54:24 [facility] BMI 27 kg/m2 09/15/2024 14:54:24 [facility] PAIN 7 09/15/2024 14:54:24 [facility] PULSE 71 09/15/2024 14:54:24 [facility] RESPIRATION 18 09/15/2024 14:54:24 [facility] SYSTOLIC BLOOD PRESSURE 162 09/03/2024 09:28:06 [facility] DIASTOLIC BLOOD PRESSURE 102 09/03/2024 09:28:06 [facility] TEMPERATURE 98.4 09/03/2024 09:28:06 [facility] PULSE 75 09/03/2024 09:28:06 [facility] SYSTOLIC BLOOD PRESSURE 121 07/28/2024 13:54:53 [facility] DIASTOLIC BLOOD PRESSURE 70 07/28/2024 13:54:53 [facility] PULSE OXIMETRY 96 07/28/2024 13:54:53 [facility] WEIGHT 196.5 07/28/2024 13:54:53 [facility] BMI 27 kg/m2 07/28/2024 13:54:53 [facility] PAIN 0 07/28/2024 13:54:53 [facility] HEIGHT 72 07/28/2024 13:54:53 [facility] TEMPERATURE 97.5 07/28/2024 13:54:53 [facility] PULSE 59 07/28/2024 13:54:53 [facility] RESPIRATION 20 07/28/2024 13:54:53 [facility] SYSTOLIC BLOOD PRESSURE 151 06/06/2024 13:10:00 [facility] DIASTOLIC BLOOD PRESSURE 84 06/06/2024 13:10:00 [facility] TEMPERATURE 97.1 06/06/2024 13:10:00 [facility] PULSE 71 06/06/2024 13:10:00 [facility] RESPIRATION 16 06/06/2024 13:10:00 [facility] SYSTOLIC BLOOD PRESSURE 115 05/18/2024 09:40:27 [place] DIASTOLIC BLOOD PRESSURE 70 05/18/2024 09:40:27 [facility] TEMPERATURE 97.7 05/18/2024 09:40:27 [facility] P[facility] 73 05/18/2024 09:40:27 [facility] Encounters Combined list of: 1) Encounters from [facility] facilities going backup to the last 18 months, not all [place] inpatient encounters are included; 2) Encounters from the Department of [facility] facilities going backup to 280 months. Location Location Details Encounter Type Encounter Number Reason For Visit Attending Provider ADM Date DC Date Status Disposition Source [facility] OFFICE O/P EST HI 40-54 MIN [id number] Diagnos is: ICD-10- CM F10.20 Alcohol depende nce, uncompl icated Unique BRICEÑO ATRICIA J 03/31 [facility] [place] [facility] Outpatient Encounter [id number] JOEY ECHAVARRIA ICA D 04/04 [facility] THERAPEUTI C EXERCISES [id number] Diagnos is: ICD-10- CM Z73.3 Stress, not elsewhe re classif ied OPHELIA LARSON 04/09 [facility] [place] [facility] Outpatient Encounter [id number] 04/11 [facility] [place] [facility] Outpatient Encounter [id number] 04/15 [facility] PT EDUCATION NOC GROUP [id number] Diagnos is: ICD-10- CM Z71.9 Custom Furrier ing, unspeci TA Orr 04/24 [facility] [place] [facility] Outpatient Encounter [id number] 04/28 [facility] [place] [facility] OFFICE O/P EST HI 40-54 MIN [id number] Diagnos is: ICD-10- CM F34.1 Dysthym ic disorde r INDIGO,ELIANA DSEY E 04/29 [facility] Outpatient Encounter [id number] NICK MORRIS URTNEY E 05/07 [facility] OFFICE O/P EST MOD 30-39 MIN [id number] Diagnos is: ICD-10- CM M43.26 Fusion of spine, lumbar region MARCO ANTONIO COMBS 05/08 [facility] Outpatient Encounter [id number] JOSE BAE A 05/21 [facility] Outpatient Encounter [id number] Diagnos is: ICD-10- CM Z77.29 Contact with and exposur e to other hazardo us substan SAE Martini B 05/26 [facility] Outpatient Encounter [id number] Diagnos is: ICD-10- CM F11.21 Opioid depende nce, in remissi on BOB MATHEW RTNEY E 05/27 [facility] Outpatient Encounter [id number] Diagnos is: ICD-10- CM F11.21 Opioid depende nce, in remissi on BOB MATHEW RTNEY E 05/27 [facility] Outpatient Encounter [id number] Diagnos is: ICD-10- CM Z23 Encount er for immuniz CAT King 05/28 [facility] OFF/OP EST MAY X REQ PHY/QHP [id number] Diagnos is: ICD-10- CM F11.21 Opioid depende nce, in remissi on MATHEW,BOB RTNEY E 05/28 [facility] RE-EVAL,ES T PT,PROBLEM FOCUS [id number] Diagnos is: ICD-10- CM G47.33 Obstruc tive sleep apnea (adult) ([facility]) VILLANUEVAKELSEY MARIA GUADALUPE N 06/09 [facility] PRO PHONE CALL 5-10 MIN [id number] Diagnos is: ICD-10- CM F43.12 Post-tr aumatic stress disorde r, chronic PORTILLO,JAYANT OLE M 06/17 [facility] Outpatient Encounter [id number] 06/20 [facility] PRO PHONE CALL 5-10 MIN [id number] Diagnos is: ICD-10- CM F43.12 Post-tr aumatic stress disorde r, chronic WIPPLER, HLEY L 06/23 [facility] OFF/OP EST MAY X REQ PHY/QHP [id number] Diagnos is: ICD-10- CM F11.21 Opioid depende nce, in remissi on BOB MATHEW RTJUSTIN E 06/26 [facility] OFFICE O/P EST HI 40 MIN [id number] Diagnos is: ICD-10- CM F34.1 Dysthym ic disorde r ELIANA SOODEY E 07/04 [facility] Outpatient Encounter [id number] 07/10 [facility] FLUOROGUID E FOR SPINE INJECT [id number] Diagnos is: ICD-10- CM F43.12 Post-tr aumatic stress disorde r, chronic PAIDIN,MAR K E 07/10 [facility] Outpatient Encounter [id number] [facility] OFF/OP EST MAY X REQ PHY/QHP [id number] Diagnos is: ICD-10- CM F11.21 Opioid depende nce, in remissi on [place] RTNEY E 07/24 [place] [facility] DENTAL SURFACE SCAN DIR 3D [id number] Diagnos is: ICD-10- CM G47.33 Obstruc tive sleep apnea (adult) ([facility]) CATALINOJOSE Frazier 07/24 [facility] OFF/OP EST MAY X REQ PHY/QHP [id number] Diagnos is: ICD-10- CM F11.21 Opioid depende nce, in remissi on [place] RTNEY E 08/21 [facility] Outpatient Encounter [id number] [facility] RTNEY E 08/28 [facility] OFFICE O/P EST HI 40 MIN [id number] Diagnos is: ICD-10- CM F33.9 Major depress mare disorde r, recurre nt, unspeci fied ELIANA SOOD E 08/31 [facility] OCCLUSAL ORTHOTIC APPLIANCE [id number] Diagnos is: ICD-10- CM G47.33 Obstruc tive sleep apnea (adult) ([facility]) JOSE BAE 09/04 [facility] OFF/OP EST MAY X REQ PHY/QHP [id number] Diagnos is: ICD-10- CM F11.21 Opioid depende nce, in remissi on [place] RTNEY E 09/18 [facility] OFFICE O/P EST HI 40 MIN [id number] Diagnos is: ICD-10- CM G89.4 Chronic pain syndrom e OTF,RU PA P 09/28 [facility] Outpatient Encounter [id number] 10/09 [facility] OFF/OP EST MAY X REQ PHY/QHP [id number] Diagnos is: ICD-10- CM F11.21 Opioid depende nce, in remissi on PRIYANKABOB RTNEY E 10/16 [facility] Outpatient Encounter [id number] BOB MATHEW RTNEY E 10/22 [facility] REPAIR CUST SLEEP APNEA APPL [id number] Diagnos is: ICD-10- CM G47.33 Obstruc tive sleep apnea (adult) ([facility]) JOSE BAE 10/22 [facility] OFFICE O/P EST HI 40 MIN [id number] Diagnos is: ICD-10- CM R53.82 Chronic fatigue , unspeci ASHLEY Kendrick 10/22 [facility] IMG RTA DETCJ/MNTR DS STAFF [id number] Diagnos is: ICD-10- CM Z01.00 Encount er for exam of eyes and vision w/o abnorma l finding s CONNER HAUSER 10/22 [facility] Outpatient Encounter [id number] Diagnos is: ICD-10- CM Z01.01 Encount er for exam of eyes and vision w abnorma l finding s ALEXANDRE10/26 [facility] OFFICE O/P EST HI 40 MIN [id number] Diagnos is: ICD-10- CM F33.9 Major depress mare disorde r, recurre nt, unspeci ELIANA Contreras 10/29 [facility] Outpatient Encounter [id number] 11/03 [facility] OFF/OP EST MAY X REQ PHY/QHP [id number] Diagnos is: ICD-10- CM F11.21 Opioid depende nce, in remissi on [facility],[facility] RTNEY E 11/13 [facility] Outpatient Encounter [id number] 11/24 [facility] OFF/OP EST MAY X REQ PHY/QHP [id number] Diagnos is: ICD-10- CM F11.21 Opioid depende nce, [facility]i [facility]11 [facility] Outpatient Encounter [id number] 12/25 [facility] OFFICE O/P EST HI 40 MIN [id number] Diagnos is: ICD-10- CM F34.1 Dysthym ic disorde r ELIANA SOOD E 12/31 [facility] GROUP PSYCHOTHER APY [id number] Diagnos is: ICD-10- CM F10.20 Alcohol depende nce, uncompl icated WALTER SIMS O 01/13 [facility] HC PRO PHONE CALL 21-30 MIN [id number] Diagnos is: ICD-10- CM F43.10 Post-tr aumatic stress disorde r, unspeci fiTHEA Benavides 01/29 [facility] Outpatient Encounter [id number] 02/04 [facility] OFFICE O/P EST MOD 30 MIN [id number] Diagnos is: ICD-10- CM H35.371 Puckeri ng of macula, right eye Matthew JENSEN 02/04 [facility] [place] [facility] Outpatient [facility]counter [id number] 02/04 [facility] OFF[facility] O/P EST MOD 30 MIN [id number] Diagnos is: ICD-10- CM R53.82 Chronic fatigue , unspeci ASHLEY Kendrick 02/04 [facility] [place] [facility] Outpatient Encounter [id number] 02/05 [facility] Outpatient [facility]counter [id number] 02/16 [facility] Out[facility]counter [id number] 02/22 [facility] [place] [facility] [facility] En[facility] [id number] 02/22 [facility] MTMS BY PHARM EST 15 MIN [id number] Diagnos is: ICD-10- CM M54.2 Cervica Queenie Polk 02/24 [facility] OFFICE O/P EST HI 40 MIN [id number] Diagnos is: ICD-10- CM F33.9 Major depress mare disorde r, recurre nt, unspeci fiELIANA Trinidad E 03/25 [facility] OFF[facility] O/P EST SF 10 MIN [id number] Diagnos is: ICD-10- CM H02.834 Dermato chalasi s of left upper eyelid Matthew LYONS 03/25 [facility] Outpatient Encounter [id number] 03/26 [place] [facility] ADJUNCTIVE PROCEDURE [id number] Diagnos is: ICD-10- CM G47.33 Obstruc tive sleep apnea (adult) ([facility]) JOSE BAE A 05/05 [facility] [place] [facility] Outpatient Encounter [id number] 05/06 [facility] DENTAL SURFACE SCAN DIR 3D [id number] Diagnos is: ICD-10- CM G47.33 Obstruc tive sleep apnea (adult) ([facility]) JOSE BAE A 05/18 [facility] SY[place] 40 [id number] Diagnos is: ICD-10- CM F33.9 Major depress mare disorde r, recurre nt, unspeci fied ELIANA SOOD E 05/27 [facility] [place] [facility] Outpatient Encounter [id number] 06/06 [facility] [place] [facility] Outpatient Encounter [id number] 06/06 [facility] [place] [facility] Outpatient Encounter [id number] CODY RODRIGUEZ R 06/06 [facility] [place] [facility] Outpatient Encounter [id number] BOB MATHEW E 06/22 [facility] OFFICE O/P EST HI 40 MIN [id number] Diagnos is: ICD-10- CM F34.1 Dysthym ic disorde r ASHLEY MALONE 07/28 [facility] [place] [facility] Outpatient Encounter [id number] 08/04 [facility] EXT ECG>48HR<7 D REV&INTERP J [id number] Diagnos is: ICD-10- CM R42 Dizzine ss and giddine ss LAUREN BLOUNT A 08/25 [facility] SY[place] 40 [id number] Diagnos is: ICD-10- CM F33.9 Major depress mare disorde r, recurre nt, unspeci fied ELIANA SOODEY E 09/02 [facility] PH1 ASSMT&MGMT NQHP 11-20 [id number] Diagnos is: ICD-10- CM Z71.89 Other specifi ed personal counselor SIN Lancaster A 09/02 [facility] ORAL DEVICE/RIGOBERTO LIANCE CUSFAB [id number] Diagnos is: ICD-10- CM G47.33 Obstruc tive sleep apnea (adult) ([facility]) JOSE BAE A 09/03 [facility] OFFICE O/P NEW HI 60 MIN [id number] Diagnos is: ICD-10- CM R55 Syncope and collaps e SIDRA GUNN O 09/15 [facility] Outpatient Encounter [id number] 09/22 [facility] Social History Combined list of available smoking, tobacco, and other social history from [facility] and [facility] facilities. Social History Type Response Date Comment Sourc e Tobacco smoking status SDIS VA-TOBACCO FORMER USER 10/23/2023 [facility] History of tobacco use NM-TOBACCO QUIT 5 TO < 15 YRS 10/23/2023 [facility] History of tobacco use VA-TOBACCO FORMER USER 09/05/2022 [facility] History of tobacco use VA-TOBACCO FORMER USER 06/12/2021 [facility] History of tobacco use VA-TOBACCO FORMER USER 06/13/2020 [facility] History of tobacco use NM-TOBACCO QUIT 1 5 YRS OR MORE 12/03/2018 [facility] History of tobacco use FORMER TOBACCO US E >1Y <7Y 11/26/2017 [facility] History of tobacco use FORMER TOBACCO US E >1Y <7Y 04/01/2017 [facility] History of tobacco use INPT NO TOBACCO U SE IN LAST 30 DAYS 11/27/2016 [facility] History of tobacco use 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 Additional future care activities may be listed in the Assessment and Plan section. Date/Time Care Activity Care Activity Detail Facili ty 11/09/2024 AMBULATORY - NONE AMBULATORY - NONE [facility]
--- OUTSIDE RECORDS SUMMARY | 2024-09-25 00:22 | XMS_ITS | Encounter Summary ---
Author Name [facility] [place] [facility] [place] Address [address] [place] [address] Care Team Providers Care Clinic Clerk Name Role Phone ASHLEY MALONE Primary Care [...] Merchant's Name Patient's Relationship to Policy Merchant [facility] (WNR) MEDICARE ADVANTAGE [facility] (WNR) May 19, 2019 [id number] [phone] Lilliam WEBER PATIENT [facility] (WNR) MEDICARE ADVANTAGE [facility] (WNR) May 19, 2019 [id number] [phone] Lilliam WEBER PATIENT [facility] (WNR) MEDICARE ADVANTAGE [facility] (WNR) May 19, 2019 [id number] [phone] Lilliam WEBER PATIENT Selected Encounter This section includes the information on record at [place] for the Encounter. Date/Time Encounter Type Encounter Description Reason Provider Source Sep 02, 2024 02:42 PM PH1 ASSMT&MGMT NQHP 11-20 TELEPHONE/SURGERY ICD-10-CM Z71.89 Other specified counseling CODY NESS [facility] Encounter Template Text not used by [place] Assessments - Encounter Diagnoses This section includes the primary and secondary diagnoses documented for the Encounter. Date/Time Primary/Secondary Diagnosis Diagnosis Name Provider Source Sep 02, 2024 02:42 PM PRIMARY Other specified counseling CODY NESS [facility] Plan of Treatment: Future Appointments (+ 6 months) and Future Tests (+/- 45 days) The Plan of Treatment section includes future care activities for the patient from all [place] [facility]. This section includes future appointments and future orders which are active, pending or scheduled. Future Appointments This section includes appointments that were scheduled to occur 6 months from the date of the Encounter, up to a maximum of 20 appointments. The data comes from all [place] treatment facilities. Appointment Date/Time Appointment Type Appointme nt Facility Name Sep 03, 2024 09:30 AM AMBULATORY - SURGERY [facility] Sep 15, 2024 03:00 PM AMBULATORY - REHAB MEDICIN E [facility] Nov 09, 2024 07:00 AM AMBUL[place]ORY - NONE [place] [facility] Nov 25, 2024 09:00 AM AMBULATORY - SURGERY [facility] Nov 25, 2024 09:45 AM AMBULATORY - [place]ICINE [place] [facility] Nov 25, 2024 10:45 AM AMBULATORY - SURGERY [facility] Dec 02, 2024 10:30 AM AMBULATORY - [place] [facility] Dec 15, 2024 01:30 PM AMBULATORY - REHAB MEDICIN E [facility] Dec 17, 2024 11:30 AM AMBULATORY - SURGERY [facility] Jan 06, 2025 08:00 AM AMBULATORY - SURGERY [facility] Jan 28, 2025 10:00 AM AMBULATORY - SURGERY [facility] Social History: Smoking Status (Most current) and Tobacco Use (All prior to encounter date) This section includes the most current, and the historical, smoking and tobacco- related health factors from the [place] facility where the Encounter took place. Current Smoking Status This section includes the most current smoking, or tobacco-related health factor, from the [place] facility where the Encounter took place. Date/Time Current Smoking Status Comment Di jaquez Oct 23, 2023 11:00 AM VA-TOBACCO FORMER USER [facility] Tobacco Use History This section includes a history of the smoking, or tobacco-related health factors, that were collected on or before the date of the Encounter. The data comes from the [place] facility where the Encounter took place. Date/Time Smoking Status/Tobacco Use Comment F acility Oct 23, 2023 11:00 AM VA-TOBACCO QUIT 5 TO < 15 YRS [facility] Sep 05, 2022 11:00 AM VA-TOBACCO FORMER USER [facility] Sep 05, 2022 11:00 AM VA-TOBACCO QUIT 15 YRS OR MORE [facility] Jun 12, 2021 09:51 AM VA-TOBACCO FORMER USER [facility] Jun 12, 2021 09:51 AM VA-TOBACCO QUIT 5 TO < 15 YRS [facility] Jun 13, 2020 09:30 AM VA-TOBACCO FORMER USER [facility] Jun 13, 2020 09:30 AM VA-TOBACCO QUIT 1 TO < 5 YRS [facility] Dec 03, 2018 09:23 AM VA-TOBACCO FORMER USER [facility] Dec 03, 2018 09:23 AM VA-TOBACCO QUIT 15 YRS OR MORE [facility] Nov 26, 2017 03:17 PM FORMER TOBACCO USE >1Y <7Y [facility] Apr 01, 2017 10:30 AM FORMER TOBACCO USE >1Y <7Y [facility] Nov 27, 2016 01:58 AM INPT NO TOBACCO USE IN LAST 30 D AYS [facility] Feb 08, 2016 10:07 AM LIFETIME NON-TOBACCO USER [facility] Oct 18, 2014 08:28 AM FORMER TOBACCO USER 7Y OR GREATE R [facility] Dec 27, 2013 10:02 AM FORMER TOBACCO USE <1Y [facility] Apr 04, 2011 11:33 AM LIFETIME NON-TOBACCO USER [facility] Encounter Notes: All associated encounter notes This section contains the clinical notes associated to the Encounter. Date/Time Encounter Note(s) Provider Source Sep 02, 2024 02:51 PM SURGERY CASE MANAG ER NOTE: LOCAL TITLE: SURGERY COORDINATOR NOTE STANDARD TITLE: SURGERY CRITICAL CARE PARAMEDIC NOTE DATE OF NOTE: SEP 02, 2024@14:51 ENTRY DATE: SEP 02, 2024@14:51:08 AUTHOR: FROILAN NESS COSIGNER: URGENCY: STATUS: COMPLETED Spoke with via telephone today following his previous clinic appointment on 03/25/25. Per Dr. Parks patient ready to proceed with surgery. Discussed process for scheduling, timing, and confirmation of surgical procedure and all related appointments. Finalization of surgical date will be based on the patient's successful completion of scheduled pre-operative appointments. will return to surgical consult clinic on 11/25/24 to sign surgical consent. Surgery Information: Surgery Date: 12/17/24 Arrival Time: 1130 Surgical Procedure: BULB / Eyebrowpexy Staff Surgeon: Kasey Resident: Edwardo Consent: Consent completed: Not at time of this note. Surgical Site: Bilateral upper eyelids To be completed day of surgery: NO Will be obtained in clinic prior to day of surgery. Preoperative Assessment: H&P: 11/25/24 0900 Site: [facility] PRE-OP EKG completed: 11/25/24 0930 Labs: 07/28/24 Smoking cessation prior to surgery discussed: Yes Anticoagulation consult and plan: N/A Physical Assessment: Level of consciousness/mental status intact: Yes Ambulatory status: Independent Non-ambulatory or requires ceiling lift: No Hard of hearing/hearing aids: No Visual: [place] uses visual aids-glasses Medication management: Patient reports they are independent Diabetes: Patient reports that they do not have diabetes Obstructive airway: Yes, currently not using CPAP because it needs maintenance or he needs a new one, he has made an appointment to get this done. 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 No food, gum, candy, orange juice or dairy after midnight. No jewelry, piercings, money or valuables Smoking cessation prior to surgery if applicable. DISCHARGE INSTRUCTIONS: Post op follow-up: Date: 01/06/25 800 Location: [facility] READINESS TO LEARN Barriers: No barriers Participants: Patient Teaching strategy: 1:1, Written Learning needs: Objectives: Patient/significant other correctly states surgery date, time, and location, Patient/significant other states understanding of surgical preps and medication. Medication: Patient/Significant other states understanding of surgical preps and medication. PRINTED MATERIALS The following perioperative materials were discussed; printed materials and written preoperative instructions MAILED to patient. Patient given written instructions regarding post-op activity restrictions. -No Bending with eye lower than heart for 1 week. -No lifting more than 10lbs for 1 week. -No Strenuous Activity for 1 Week. -No Swimming or submerging under water for 1 Month. -No Eye Rubbing. -When Showering do not let water pressure land directly on face. -Wear protective eye shield while sleeping for 1 Week after surgery. PATIENT/FAMILY RESPONSE(OUTCOME) Patient states understanding and has surgery coordinator's direct contact information for follow-up or additional concerns. Total amount of time spent on this encounter - 15 Minutes /yung/ FROILAN NESS RN REGISTERED NURSE Signed: 09/02/2024 14:56 Receipt Acknowledged By: 09/03/2024 08:53 /yung/ SHEILA PARKS MD STAFF FINISH PATCHER FROILAN NESS [facility]
[2024-09-25 00:28] LABS: Creatinine, Point-of-Care* 1.5 mg/dl (0.6-1.3)
--- NOTE | 2024-09-25 00:31 | CRLHL7_ITS ---
For Patients: As a result of the Century Cures Act, medical imaging exams and procedure reports are released immediately into your electronic medical record. You may view this report before your referring provider. If you have questions, please contact your health care provider. INDICATION: Right lower quadrant pain. TECHNIQUE: CT abdomen and pelvis acquired with 100 cc Omnipaque 350 IV contrast. COMPARISON: None. FINDINGS: Lower chest: Scattered atelectasis. Liver: Unremarkable. Normal in size and attenuation. No suspicious masses. Gallbladder and bile ducts: Unremarkable. No stones or inflammation. No biliary dilatation. Pancreas: Unremarkable. No mass or inflammation. Spleen: Unremarkable. Normal in size. No masses. Adrenal glands: Unremarkable. No nodules. Kidneys: Mild right-sided hydroureteronephrosis secondary to 7 millimeter obstructing right UVJ stone. Additional tiny nonobstructing bilateral renal stones. GI tract: Colonic diverticulosis without diverticulitis. Normal in caliber. No sign of mass or inflammation. Normal appendix. Vasculature: Mild aortoiliac arterial calcifications. Abdominal aorta is normal in caliber. Mesenteric arteries are patent. Lymph nodes: No lymphadenopathy. Peritoneum/Abdominal Wall: Unremarkable. No sign of mass or infiltration. No free air or significant free fluid. Pelvis: Prostatomegaly. Mildly distended bladder with circumferential wall thickening. Recommend correlation with urinalysis if UTI is suspected. Bones: Prior L3-L5 hardware fixation. IMPRESSION: Mild right-sided hydroureteronephrosis secondary to 7 millimeter obstructing right UVJ stone. Colonic diverticulosis without diverticulitis. No appendicitis. Additional chronic findings as above. Please note that all CT scans at this facility use dose modulation, iterative reconstruction, and/or weight-based dosing when appropriate to reduce radiation dose to as low as reasonably achievable. Dictated by Samy Ruth MD @ 09/25/2024 1:07:51 AM (Electronically Signed)
--- NOTE | 2024-09-25 00:33 | ED.GENADULT ---
HPI - General Adult General Chief complaint: Abdominal Pain Stated complaint: abdominal pain Time Seen by Provider: 09/25/24 00:23 Source: patient and family Mode of arrival: ambulatory History of Present Illness HPI narrative: 74-year-old male presents the emergency department with 3 hours of abdominal pain centering in the periumbilical and radiating down the right lower quadrant/right groin area. Achy constant worsening in nature. Did not try any interventions to help with symptoms prior to coming to the ED such is pain medication. tried giving Metamucil with no improvement. No diarrhea, no vomiting. No bloody stools. No dysuria. No history of kidney stones. Denies prior history of any abdominal surgery. Denies prior history of similar symptoms. I asked about chronic medical problems he tells me he has none. When I asked about his medications, he tells me they are in the computer. When I ask if he would be able to clarify them quickly for me as it would help during the quick interview as I was hoping to get him pain medicine quickly, his less me know that they are in the computer. It is a bit unusual that they did not clarify the answer. Denies any recent surgeries. Chart reports that he is a nonsmoker. He does not receive his care typically through our primary care team and therefore his chronic medical problems and medical history are not loaded into our computer system. ROS is notable for abdominal pain. He quickly denies any other concerns times 12 systems but I would not consider that ROS completely reliable as he does seem to be in pain and wanting to end the interview rather quickly. Related Data Home Medications ?Medication ?Instructions ?Recorded ?Confirmed atorvastatin 40 mg tablet 40 mg PO QHS 02/27/22 09/25/24 buprenorphine 8 mg-naloxone 2 mg 1 film sublingual DAILY 02/27/22 09/25/24 sublingual film cholecalciferol (vitamin D3) 25 25 mcg PO DAILY 02/27/22 09/25/24 mcg (1,000 unit) capsule duloxetine HCL 60 mg PO DAILY 02/27/22 09/25/24 folic acid 1 mg tablet 1 mg PO DAILY 02/27/22 09/25/24 terazosin 2 mg capsule 2 mg PO QHS 02/27/22 09/25/24 Previous Rx's ?Medication ?Instructions ?Recorded ketorolac 10 mg tablet 10 mg PO Q6H PRN pain 5 days #20 09/25/24 tabs Allergies Allergy/AdvReac Type Severity Reaction Status Date / Time No Known Drug Allergies Allergy Verified 09/25/24 00:56 [facility] Medical History (Updated 09/25/24 @ 01:42 by France Richards MD) PTSD (post-traumatic stress disorder) ?F43.10 - Post-traumatic stress disorder, unspecified (ICD-10) Gouty tophi ?M1A.9XX1 - Chronic gout, unspecified, with tophus (tophi) (ICD-10) CKD (chronic kidney disease) ?N18.9 - Chronic kidney disease, unspecified (ICD-10) Encounter for monitoring Suboxone maintenance therapy ?Z51.81 - Encounter for therapeutic drug level monitoring (ICD-10) ?Z79.891 - shelter (current) use of opiate analgesic (ICD-10) Hyperlipidemia ?E78.5 - Hyperlipidemia, unspecified (ICD-10) GERD (gastroesophageal reflux disease) ?K21.9 - Gastro-esophageal reflux disease without esophagitis (ICD-10) Cannabis abuse ?F12.10 - Cannabis abuse, uncomplicated (ICD-10) Alcohol dependence ?F10.20 - Alcohol dependence, uncomplicated (ICD-10) Bleeding diathesis ?D69.9 - Hemorrhagic condition, unspecified (ICD-10) Substance use disorder ?F19.90 - Other psychoactive substance use, unspecified, uncomplicated (ICD-10) DOMINGUEZ (obstructive sleep apnea) ?G47.33 - Obstructive sleep apnea (adult) (pediatric) (ICD-10) Major depressive disorder ?F32.9 - Major depressive disorder, single episode, unspecified (ICD-10) Degeneration of lumbar or lumbosacral intervertebral disc ?M51.379 - Other intervertebral disc degeneration, lumbosacral region without mention of lumbar back pain or lower extremity pain (ICD-10) Degeneration of cervical intervertebral disc ?M50.30 - Other cervical disc degeneration, unspecified cervical region (ICD-10) Colon polyp ?K63.5 - Polyp of colon (ICD-10) Chronic pain syndrome ?G89.4 - Chronic pain syndrome (ICD-10) Surgical History (Updated 09/25/24 @ 01:05 by Neftali Roe RN) History of spinal fusion ?Z98.1 - Arthrodesis status (ICD-10) History of colonoscopy ?Z98.890 - Other specified postprocedural states (ICD-10) History of fusion of cervical spine ?Z98.1 - Arthrodesis status (ICD-10) History of shoulder surgery ?Z98.890 - Other specified postprocedural states (ICD-10) Social History Smoking Status: Never smoker Do you use any of these nicotine containing products: None Second hand tobacco smoke exposure: No How often do you have a drink containing alcohol: never How often do you have six or more drinks on one occasion: Never AUDIT-C Alcohol total score: 0 Non-prescribed substance use: denies use Exam Const: Vital Signs, click to edit/add: Vital Signs - 24 hr 09/25/24 00:18 09/25/24 00:37 09/25/24 01:05 Temperature 98.4 F 98.4 F Pulse Rate [Pulse Oximeter] 97 60 Respiratory Rate 28 H 24 Blood Pressure [Ri ght Upper Arm] 185/85 H 180/82 H Pulse Oximetry 99 99 99 Oxygen Delivery Me thod Room Air Room Air Documenting provider has reviewed patient's vital signs: yes Common normals: alert Other: Mild distress due to pain. Appears well nourished, well hydrated. No obvious signs of injury or trauma. HENMT: Common normals: moist oral mucous membranes and oropharynx normal Head and scalp: normal to inspection Face and sinus: normal facial exam Mouth: oral and palatal mucosa normal Eye: Common normals: conjunctivae normal General eye: normal appearance of both eyes Conjunctiva: conjunctiva(e) normal Neck & C-Spine: Common normals: full ROM and no lymphadenopathy General: normal visual inspection Chest: Common normals: inspection of chest normal and palpation of chest normal Resp: Common normals: normal respiratory effort and no use of accessory muscles Effort & inspection: able to speak in complete sentences Cardio: Common normals: regular rate, regular rhythm, S1 normal heart sound, S2 normal heart sound and no murmurs Rate: regular rate Rhythm: regular rhythm Heart sounds: S1 normal and S2 normal GI: Other: Abdomen does not seem distended but bowel sounds are hyperactive throughout. No obvious mass. Tender to palpation right lower quadrant. No obvious hernia. Liver and spleen are not enlarged. Extremity: Common normals: normal to inspection and normal capillary refill Neuro: Common normals: moves all extremities Sensorium/orientation: alert Speech: speech normal Motor exam: no movement abnormalities noted Psych: Appearance: grossly normal Attention/concentration: attention grossly intact Memory/cognition: memory grossly intact Insight: insight good Judgement: judgment good Skin: Common normals: no rashes or lesions noted General skin exam: no rashes or lesions noted Course Course ED Course: 74-year-old male with right lower quadrant abdominal pain of 3 hours duration, nontraumatic. Differential diagnosis including nephrolithiasis, intestinal obstruction, internal hernia, volvulus, bowel obstruction, appendicitis, colitis, urinary infection, ischemic bowel, amongst others. Will place peripheral IV, administer 0.5 mg of Dilaudid, Zofran for nausea. CT of the abdomen and pelvis and typical intra-abdominal labs. No signs of initial hypoxia, fever or pulse. I do think that the elevated respiratory rate is secondary to pain, not initially suspicious of secondary respiratory source. Reevaluation(s) Time of Reevaluation #1: 01:44 Reevaluation #1: Dilaudid was initially not very helpful, Toradol given for pain which was more helpful. Labs reassuring. CT showing 7 mm right UVJ stone, does clinically fit with symptoms. Counseled patient that this may require intervention to pass though the fact that it has reached the UVJ is somewhat reassuring. Advise that he double up on his trazodone. Counseled on pushing fluids, frequent movement. Discussed pain control, prescription for Toradol given 1 pill every 6-8 hours as needed for severe pain, counseled on Tylenol 1000 mg as needed as well. Alarm symptoms like high fever, feelings of infection, severe weakness discussed as indications to come back to the ED right away. He will call [facility] to secure an appointment. If the stone passes, he may cancel the appointment. Counseled that it can take several weeks for the stone to pass. Written instructions provided, copy of CT report given. All questions answered. Vital Signs Vital signs: Initial Vital Signs Temperature 98.4 F 09/25/24 00:18 Temperature Source Temporal Artery Scan 09/25/24 00:18 Pulse Rate 97 09/25/24 00:18 Respiratory Rate 28 H 09/25/24 00:18 Blood Pressure 185/85 H 09/25/24 00:18 Blood Pressure Mean 118 H 09/25/24 00:18 Blood Pressure Position Sitting 09/25/24 00:18 Pulse Oximetry 99 09/25/24 00:18 Oxygen Delivery Method Room Air 09/25/24 00:18 Vital Signs Temperature 98.4 F 09/25/24 00:18 Pulse Rate 97 09/25/24 00:18 Respiratory Rate 28 H 09/25/24 00:18 Blood Pressure 185/85 H 09/25/24 00:18 Pulse Oximetry 99 09/25/24 00:18 Oxygen Delivery Method Room Air 09/25/24 00:18 Temperature 98.4 F 09/25/24 01:05 Pulse Rate 60 09/25/24 01:05 Respiratory Rate 24 09/25/24 01:05 Blood Pressure 180/82 H 09/25/24 01:05 Pulse Oximetry 99 09/25/24 01:05 Oxygen Delivery Method Room Air 09/25/24 01:05 Medications Administered Medications: Discontinued Medications Generic Name Dose Route Start Last Admin Trade Name Freq PRN Reason Stop Dose Admin Hydromorphone HCl 0.5 mg 09/25/24 00:31 09/25/24 00:35 Hydromorphone 0.5 Mg/0.5 Ml Inj IVP 09/25/24 00:32 0.5 mg ONCE ONE Administration Ketorolac Tromethamine 15 mg 09/25/24 01:04 09/25/24 01:23 Ketorolac 15 Mg/Ml Inj IVP 09/25/24 01:05 15 mg ONCE ONE Administration Ondansetron HCl 4 mg 09/25/24 00:31 09/25/24 00:35 Ondansetron 2 Mg/Ml Inj IVP 09/25/24 00:32 4 mg ONCE ONE Administration Medical Decision Making Lab Data Lab results reviewed: Yes I reviewed the patient's lab results Lab results narrative: No significant leukocytosis. Kidney function appears stable. Normal electrolytes, normal CRP. Urinalysis not suggestive of infection. Stable hemoglobin. Labs: Lab Results 09/25/24 09/25/24 09/25/24 Range/Units 00:20 00:25 01:18 WBC 8.79 (4.50-11.00) K/uL RBC 4.00 L (4.30-5.90) m/uL Hgb 12.7 L (13.5-17.5) gm/dL Hct 38.6 (37.0-53.0) % MCV 97 (80-100) fL MCH 32 (26-34) pg MCHC 33 (32-36) gm/dL RDW Coeff of Robert 12.9 (11.5-15.5) % Plt Count 188 (140-440) K/uL Neut % (Auto) 77.4 H (42.0-72.0) % Lymph % (Auto) 11.8 L (20-44) % Banner % (Auto) 7.8 (0.0-11.0) % Eos % (Auto) 1.3 (0.0-7.0) % Baso % (Auto) 0.3 (0.0-3.0) % Neut # (Auto) 6.80 (1.7-7.0) K/uL Lymph # (Auto) 1.00 (0.90-2.90) K/uL Banner # (Auto) 0.70 (0.00-0.90) K/UL Eos # (Auto) 0.11 (0.00-0.50) K/uL Baso # (Auto) 0.03 (0.00-0.30) K/uL Abs Immat Gran (auto) 0.12 (0.00-0.30) K/uL Imm/Tot Granulo (auto) 1.4 % Sodium 138 (135-149) mmol/L Potassium 3.8 (3.6-5.1) mmol/L Chloride 103 (96-114) mmol/L Carbon Dioxide 24 (20-32) mmol/L Anion Gap 11 (7-15) mEq/L BUN 22 (7-30) mg/dL Creatinine 1.4 (0.5-1.5) mg/dL Estimated Creat Clear 50.04 Estimated GFR 52 ml/min Glucose 117 H (60-115) mg/dL Lactate 1.6 (0.5-1.9) mmol/L Calcium 10.0 (8.4-10.6) mg/dL Total Bilirubin 0.8 (0.1-1.5) mg/dL AST 53 H (12-35) U/L ALT 32 (4-50) U/L Alkaline Phosphatase 77 (40-150) U/L C-Reactive Protein < 0.5 L (0.5-1.0) mg/dL Total Protein 7.2 (6.0-8.3) g/dL Albumin 4.8 (3.3-5.0) g/dL Lipase 87 (23-300) U/L Urine Color Yellow (Yellow) Urine Appearance Clear (Clear) Urine pH 8.5 (5.0-8.5) Ur Specific [place] 1.015 (1.000-1.030) Urine Protein Negative (Negative) Urine Glucose (UA) Negative (Negative) Urine Ketones Trace A (Negative) Urine Blood 1+ A (Negative) Urine Nitrite Negative (Negative) Urine Bilirubin Negative (Negative) Urine Urobilinogen 0.2 (0.2-1.0) Ur Leukocyte Esterase Negative (Negative) Urine RBC 0-2 (0-2) Urine WBC 0-2 (0-5) Ur Squamous Epith Cells None (None-Few) Urine Bacteria None (None) POC Creatinine 1.5 H (0.6-1.3) mg/dl Imaging Data CT scan - abdomen: Attestation: I have reviewed the pertinent imaging results. My impression: 6-7 mm kidney stone at the right distal ureter. No severe hydronephrosis or intestinal abnormalities. Radiologist's impression: IMPRESSION: Mild right-sided hydroureteronephrosis secondary to 7 millimeter obstructing right UVJ stone. Colonic diverticulosis without diverticulitis. No appendicitis. Additional chronic findings as above. Discharge Plan Discharge Clinical Impression: Calculus of ureterovesical junction (UVJ) Patient Disposition: Home w/ Parent or Adult Condition: Stable Instructions: Ureteral Stones (ED) Additional Instructions: As we discussed, you have a 7 mm kidney stone at the junction between the ureter and the bladder. The stone has passed most of the way through your urinary system and often does get hung up just before it enters the bladder. Yours is a size where it may require a urologist to perform an intervention to help it pass. It is important that you are moving frequently and drinking lots of water to help flush the stone through. Please call [facility] to make an appointment. They have 2 separate divisions, please try both for the 1st available appointment. The best number is: [phone]. A 2nd number for the other locations is: [phone]. Please tell them that you were advised to follow-up from the emergency department. You have a 7 mm stone at the right UVJ, no severe hydronephrosis. They will know what all of this means. If you have difficulty securing an appointment, please contact your primary care provider for assistance. You should come back to the emergency department if you start running a high fever or feel very weak. Rarely, these can get infected but would require emergent intervention. Otherwise, our primary goal is pain control. I have submitted a prescription for Toradol 1 pill up to every 6-8 hours as needed for pain. You may also use oumb-eyr-zsbrror Tylenol 1000 mg every 6 hours. It appears as though you are prescribed to rads a sin for your prostate. I would like for you to double up on this medication, taking 2 pills rather than 1 daily to help the stone try to pass. This does help dilate open the urinary channels. Continue the remainder of your medications as prescribed. Activity Level: Activity as Tolerated Discharge Diet: Regular Prescriptions: New ketorolac 10 mg tablet 10 mg PO Q6H PRN (Reason: pain) 5 Days Qty: 20 0RF No Action duloxetine HCL 60 mg PO DAILY buprenorphine-naloxone 8-2 mg film 1 film sublingual DAILY terazosin 2 mg capsule 2 mg PO QHS folic acid 1 mg tablet 1 mg PO DAILY atorvastatin 40 mg tablet 40 mg PO QHS cholecalciferol (vitamin D3) 25 mcg (1,000 unit) capsule 25 mcg PO DAILY Follow Up/Referrals: Maria G Sanon MD [Primary Care Provider] - Stand Alone Forms: [employer] Info Instructions
[2024-09-25] MEDS: HYDROmorphone 0.5 mg/0.5 ml inj IVP (00:35)
[2024-09-25] MEDS: ONDANSETRON 2 MG/ML inj 4 MG IVP (00:35)
[2024-09-25 00:37] VITALS: O2SAT 99
--- OUTSIDE RECORDS SUMMARY | 2024-09-25 00:38 | XMS_ITS | Continuity of Care Document ---
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 [facility] [address], [place], [address], [place]. tel:[phone] [facility], [address], [place], [address], [place] tel:[phone] [facility] , No Information 7 Sukumar Murphy. [facility] [address], [place], [address], [place]. 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 [facility] [address], [place], [address], [place]. tel:[phone] Referring Provider: Katherine Monte, [facility] [address], [place], [address]. tel:[phone] Office/Outpa tient Visit, New [facility], [address], [place], [address], [place] tel:[phone] [facility] , Gout (chief complaint) Chronic gout w/ tophi 201 6 Sukumar Murphy. [facility] [address], [place], [address], [place]. tel:[phone] Referring Provider: Katherine Monte, [facility] [address], [place], [address]. tel:[phone] Family History Family Member Type Diagnosis Age At Onset Father Problem (finding) gout Brother Problem (finding) gout Payers Payer name Insurance type Covered republican ID Authoriza tiroberta(s) [employer] Medicare Advantage/Plat inum Blue BL [id number] Social History Type Description Quantity Date Captured [...]
--- OUTSIDE RECORDS SUMMARY | 2024-09-25 00:38 | XMS_ITS | Clinical Summary ---
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 Name Role Phone Maria G Valdivia MD [...] 9:00 AM CDT Ancillary Procedure [facility] [address] [facility] [address] [place] [address] 07/28/2024 Travel 07/26/2024 Telephone [facility] [address] [place] [address] Maria G Valdivia MD Questions (CT CARDIAC CORONARY ARTERIES RAD DUAL READ/CT CARDIAC CORONARY ARTERIES CV DUAL READ/) 07/23/2024 Travel 07/22/2024 3:05 PM INDUSTRIAL REFRIGERATION MECHANIC Office Visit [facility] [address] [place] [address] Maria G Valdivia MD Concerns (ER visit- everything came back good in the ER /Patient feels like something is off with his heart /Jerky motions /Dizzy spells ) 07/22/2024 Travel 07/21/2024 Orders Only [facility] Scanner 1 scan: (1-Ord) NORMAL ECG, 07/21/2024 07/21/2024 Orders Only [facility] Scanner 1 scan: (1-Ord) [facility], MULTIPLE LABS, 07/21/2024 07/21/2024 Orders Only [facility] Scanner 1 scan: (1-Ord) [facility], XR CHEST 2V, 07/21/2024 07/21/2024 Telephone [facility] [address] [place] [address] Maria G Valdivia MD Appointment Request from [...] on file Legal Sex Male 5:26 AM INDUSTRIAL REFRIGERATION MECHANIC Gender Identity Not on file Sexual Orientation Not on file Obstetrics History Last Filed Vital Signs Vital Sign Reading Time Taken Comments Blood Pressure 92/61 07/22/2024 3:08 PM INDUSTRIAL REFRIGERATION MECHANIC Pulse 83 07/22/2024 3:08 PM INDUSTRIAL REFRIGERATION MECHANIC Temperature 36.6 C (97.9 F) 05/03/2022 11:25 AM INDUSTRIAL REFRIGERATION MECHANIC Respiratory Rate 16 05/03/2022 11:25 AM INDUSTRIAL REFRIGERATION MECHANIC Oxygen Saturation 99% 07/22/2024 3:08 PM INDUSTRIAL REFRIGERATION MECHANIC Inhaled Oxygen Concentration - - Weight 87.6 kg (193 lb 1.6 oz) 07/22/2024 3:08 P M INDUSTRIAL REFRIGERATION MECHANIC Height 180.3 cm (5' 11) 04/30/2022 7:03 AM INDUSTRIAL REFRIGERATION MECHANIC Body Mass Index 26.93 04/30/2022 7:03 AM INDUSTRIAL REFRIGERATION MECHANIC Plan of Treatment Health Maintenance Due Date [...] history exists Medical Devices Implanted Type Area Shell Coremaker Device Identifier Shelf Expiration Date Model / Serial / Lot [id number] one Matrix 3cc Lizet Dbf Putty Dbm Implanted:Qty: 1 on 04/30/2022 by Ella Douglas MD at [facility] [employer] [facility] 02/26/2024 [id number] / [id number] / Bone Matrix 3cc [place] Dbf Putty Dbm - [id number] Implanted:Qty: 1 on 04/30/2022 by Ella Douglas MD at [facility] [employer] [facility] 02/26/2024 [id number] / [id number] / Bone 1-4mm 60cc Med[employer]onic Fine Canclls Freeze Dried - [id number] Implanted:Qty: 1 on 04/30/2022 by Ella Douglas MD at [facility] [employer] [facility] 02/19/2026 [id number] / [id number] / Spacer Lmbr 21k39bo Capstone Tlif Peek - [id number] Implanted:Qty: 1 on 04/30/2022 by Ella Douglas MD at [facility] [employer] [facility] 05/22/2025 [id number] / / [id number] Spacer Lmbr [id number] Capstone Tlif Peek - [id number] Implanted:Qty: 1 on 04/30/2022 by Ella Douglas MD at [facility] [employer] [facility] 12/06/2024 [id number] / / [id number] Set Screw Lmbr Ant 5.5mm Solera Break Off - [id number] Implanted:Qty: 6 on 04/30/2022 by Ella Douglas MD at [facility] [employer] [facility] [id number] / / Wong Lmbr 70x5.5mm Solera 5.5/6 Cvd Titnm - [id number] Implanted:Qty: 2 on 04/30/2022 by Ella Douglas MD at [facility] [employer] [facility] [id number] / / Screw Lmbr Post 6.5x50mm Solera 5.5/6 Va Cocr - [id number] Implanted:Qty: 6 on 04/30/2022 by Ella Douglas MD at [facility] [employer] [id number] / / Procedures Procedure Name Priority Date/Time Associated Diagnosis Comments CT CARDIAC CORONARY ARTERIES CV DUAL READ Routine 07/28/2024 9:59 AM CDT Atypical chest pain CT CARDIAC CORONARY ARTERIES RAD DUAL READ Routine 07/28/2024 9:59 AM CDT Atypical chest pain CBC WITH AUTO DIFFERENTIAL Routine 07/22/2024 4:25 PM INDUSTRIAL REFRIGERATION MECHANIC Anemia, unspecified type FERRITIN Routine 07/22/2024 4:25 PM INDUSTRIAL REFRIGERATION MECHANIC Anemia, unspecified type VITAMIN B12 Routine 07/22/2024 4:25 PM INDUSTRIAL REFRIGERATION MECHANIC Anemia, unspecified type SCAN-ELECTROCARDIOGRA M EKG 07/21/2024 12:00 AM INDUSTRIAL REFRIGERATION MECHANIC SCAN-LABORATORY REPORT 07/21/2024 12:00 AM INDUSTRIAL REFRIGERATION MECHANIC SCAN-RADIOLOGY REPORT 07/21/2024 12:00 AM INDUSTRIAL REFRIGERATION MECHANIC COLONOSCOPY SCREENING Routine 04/28/2023 8:07 AM INDUSTRIAL REFRIGERATION MECHANIC History of colon polyps CT CHEST WO Routine 07/07/2017 11:47 AM INDUSTRIAL REFRIGERATION MECHANIC Lung nodule < 6cm on CT LIPID PANEL Routine 04/17/2009 7:59 AM INDUSTRIAL REFRIGERATION MECHANIC Unspecified Chest Pain from Last 3 Months or Most Recently Relevant to Health Maintenance Results * CT CARDIAC CORONARY ARTERIES CV DUAL READ (07/28/2024 9:59 AM CDT) Anatomical Region Laterality Modality HEART Computed Tomogra phy 07/28/2024 8:29 AM CDT Narrative 07/28/2024 2:25 PM CDT [facility] Card[facility] CT Report Name: GUS MOOK Katarzyna : Scan Date: Accession Number: [id number] Status: Final Electronically signed by Mook Martinez [...] SCORING: Total coronary artery calcium score 80. [place] percentile based on age, gender, and race [...] TYPE: Calcium score, Coronary CT Angiography SCANNER PROCUREMENT ENGINEER: SIEMENS SCANNER MODEL: [employer] DOSE REDUCTION ALGORITHM: Prospective/Asqr-[id number] PHASE UNITS: % START PHASE: 65 % [...] G VALDIVIA TECHNOLOGIST: Adrianna Brandon Patient Account [id number] ICD10 Codes R07.89 Report generated by [employer], a product of [employer] us Maria G Valdivia MD CT Final [...] conjunction with the services provided by the [facility] ([facility]). INDICATION: Cardiac over-read. FINDINGS: No lower central [...] in conjunction with the services provided bythe [facility] ([facility]). INDICATION: Cardiac over-read. FINDINGS: No lower central [...] (ABNORMAL) CBC AND DIFFERENTIAL (07/22/2024 4:25 PM INDUSTRIAL REFRIGERATION MECHANIC) WHITE BLOOD CELL COUNT 6.1 3.8 - [...] BLOOD SPECIMEN / Unknown 07/22/2024 4:25 PM INDUSTRIAL REFRIGERATION MECHANIC 07/22/2024 4:25 PM INDUSTRIAL REFRIGERATION MECHANIC Maria G Valdivia MD HEMATOLOGY Final Result [facility] [address] [facility] [place] [address], [place] [phone] [facility] [address] [facility] [place] [address] * FERRITIN (07/22/2024 4:25 PM INDUSTRIAL REFRIGERATION MECHANIC) [facility] FERRITIN 179 24 - 380 ng/mL [facility] [place] Blood BLOOD SPECIMEN / Unknown 07/22/2024 4:25 PM INDUSTRIAL REFRIGERATION MECHANIC 07/22/2024 4:25 PM INDUSTRIAL REFRIGERATION MECHANIC Maria G Valdivia MD CHEMISTRY Final Result [facility] [address] [facility] [address], [place] [phone] [facility] [address] [facility] [place] [address] * VITAMIN B12 (07/22/2024 4:25 PM INDUSTRIAL REFRIGERATION MECHANIC) [facility] VITAMIN B12 487 200 - 1,100 pg/mL [facility] Blood BLOOD SPECIMEN / Unknown 07/22/2024 4:25 PM INDUSTRIAL REFRIGERATION MECHANIC 07/22/2024 4:25 PM INDUSTRIAL REFRIGERATION MECHANIC us Maria G Valdivia MD CHEMISTRY Final Result [facility] [address] [place] [address], [facility] [address] [place] [address] * SCAN-RADIOLOGY REPORT (07/21/2024 12:00 AM INDUSTRIAL REFRIGERATION MECHANIC) Anatomical Region Laterality Modality Other us Scanner OTHER Final Result * SCAN-LABORATORY REPORT (07/21/2024 12:00 AM INDUSTRIAL REFRIGERATION MECHANIC) us Scanner OTHER Final Result * SCAN-ELECTROCARDIOGRAM EKG (07/21/2024 12:00 AM INDUSTRIAL REFRIGERATION MECHANIC) us Scanner OTHER Final Result * [place] COLONOSCOPY W/BIOPSY SINGLE/MULTIPLE (04/28/2023 12:00 AM INDUSTRIAL REFRIGERATION MECHANIC) us Beto Brito MD PB - DIGESTIVE SYSTEM SER VICES Final Result * CT CHEST WO (07/07/2017 11:47 AM INDUSTRIAL REFRIGERATION MECHANIC) Anatomical Region Laterality Modality CHEST, THORAX, HEART Computed To mography 07/07/2017 12:4 0 PM INDUSTRIAL REFRIGERATION MECHANIC Narrative 07/07/2017 12:40 PM INDUSTRIAL REFRIGERATION MECHANIC INDICATION: Followup ground-glass right upper lobe pulmonary [...] ground-glass opacity in the right upper lobe. [facility] 2017 guidelines for management of incidentally [...] * (ABNORMAL) LIPID PANEL (04/17/2009 7:59 AM INDUSTRIAL REFRIGERATION MECHANIC) CHOLESTEROL,TOTAL 238(H) 110 - 199 mg/dL [facility] TRIGLYCERIDES 58 <150 mg/dL [facility] HDL CHOLESTEROL 63 >40 mg/dL [facility] CHOL/HDL RATIO 3.78 <4.51 [facility] LDL CHOLESTEROL 163(H) <131 mg/dL [facility] PATIENT STATUS Fasting [facility] Blood specimen (specimen) BLOOD SPECIMEN / Unknown 04/17/2009 7:59 AM INDUSTRIAL REFRIGERATION MECHANIC 04/17/2009 7:55 AM INDUSTRIAL REFRIGERATION MECHANIC us Herbie Simon MD CHEMISTRY Final Re sult [facility] [address] [place] [address] from Last 3 Months or Most Recently Relevant to Health Maintenance Insurance [employer] [place] [address] MEDICARE PART B HB ONLY MEDICARE PART A HB ONLY [employer] [place] [employer] MR PB ONLY WORKERS COMP [address] [facility] [place] [id number] Advance Directives * Full Code (Latest Code Status on File) Date Activated Date Inactivated Comments 04/30/2022 6:35 PM 05/03/2022 5:27 PM Question Answer Comments Code Status Discussion: Unable to Assess Preferences, Provider to review later Care Teams Retail Field Merchandiser Relationship Specialty Start Date End Date Maria G Valdivia MD [address] [place] [address] PCP - General Family Practice 08/04/15
[2024-09-25 00:39] LABS: Basophils Absolute Auto 0.03 K/uL (0.00-0.30); Basophils Percent Auto 0.3 % (0.0-3.0); Eosinophils Absolute Auto 0.11 K/uL (0.00-0.50); Eosinophils Percent Auto 1.3 % (0.0-7.0); Hematocrit 38.6 % (37.0-53.0); Hemoglobin* 12.7 gm/dL (13.5-17.5); Immature Granulocytes Abs Auto 0.12 K/uL (0.00-0.30); Immature Granulocytes Pct Auto 1.4 %; Lymphocytes Percent Auto 11.8 % (20-44); Mean Corpuscular HGB Conc 33 gm/dL (32-36); Mean Corpuscular Hemoglobin 32 pg (26-34); Mean Corpuscular Volume 97 fL (80-100); Monocytes Percent Auto 7.8 % (0.0-11.0); Neutrophils Percent Auto 77.4 % (42.0-72.0); Platelet Count* 188 K/uL (140-440); RDW Coefficient of Variation % 12.9 % (11.5-15.5); White Blood Count* 8.79 K/uL (4.50-11.00)
[2024-09-25 00:40] LABS: Lactate Sepsis w/Reflex* 1.6 mmol/L (0.5-1.9)
--- OUTSIDE RECORDS SUMMARY | 2024-09-25 00:40 | XMS_ITS | Continuity of Care Document ---
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 CALCULATIO N 13 mg/dL <29 - 29 07/28 Specimen Type: PLASMA No comment entered. Ordering Provider: ASHLEY MALONE Report Released Date/Time: Oct 24, 2023 02:23 PM Reporting Lab: [facility] [address] Performing Lab: [facility] [address] [place] [facility] LIPID PANEL,NO N-FASTIN G CHOLESTERO L NON HDL [MASS/VOLU ME] IN SERUM OR PLASMA 114 mg/dL <129 - 129 07/28 Specimen Type: PLASMA No comment entered. Ordering Provider: ASHLEY MALONE Report Released Date/Time: Oct 24, 2023 02:23 PM Reporting Lab: [facility] [address] Performing Lab: [facility] [address] [place] [facility] LIPID PANEL,NO N-FASTIN G TRIGLYCERI DE [MASS/VOLU ME] IN SERUM OR PLASMA 67 mg/dL <149 - 149 07/28 Specimen Type: PLASMA No comment entered. Ordering Provider: ASHLEY MALONE Report Released Date/Time: Oct 24, 2023 02:23 PM Reporting Lab: [facility] [address] Performing Lab: [facility] [address] [place] [facility] DRUG SCREEN PANEL,UR INE BARBITURAT ES [PRESENCE] IN URINE BY SCREEN METHOD Negative 03/25 Specimen Type: URINE Comment: Presumptive Positive by screen, results not confirmed. Ordering Provider: MARYJANE MATHEW Report Released Date/Time: Mar 25, 2024 08:40 AM Reporting Lab: [facility] [address] Performing Lab: [facility] [address] [place] [facility] DRUG SCREEN PANEL,UR INE AMPHETAMIN ES [PRESENCE] IN URINE Negative 03/25 Specimen Type: URINE Comment: Presumptive Positive by screen, results not confirmed. Ordering Provider: MARYJANE MATHEW Report Released Date/Time: Mar 25, 2024 08:40 AM Reporting Lab: [facility] [address] Performing Lab: [facility] [address] [place] [facility] DRUG SCREEN PANEL,UR INE COCAINE [PRESENCE] IN URINE Negative 03/25 Specimen Type: URINE Comment: Presumptive Positive by screen, results not confirmed. Ordering Provider: MARYJANE MATHEW Report Released Date/Time: Mar 25, 2024 08:40 AM Reporting Lab: [facility] [address] Performing Lab: [facility] [address] [place] [facility] DRUG SCREEN PANEL,UR INE BENZODIAZE PINES [PRESENCE] IN URINE BY SCREEN METHOD Negative 03/25 Specimen Type: URINE Comment: Presumptive Positive by screen, results not confirmed. Ordering Provider: MARYJANE MATHEW Report Released Date/Time: Mar 25, 2024 08:40 AM Reporting Lab: [facility] [address] Performing Lab: [facility] [address] [place] [facility] DRUG SCREEN PANEL,UR INE CANNABINOI DS [PRESENCE] IN URINE BY SCREEN METHOD Negative 03/25 Specimen Type: URINE Comment: Presumptive Positive by screen, results not confirmed. Ordering Provider: MARYJANE MATHEW Report Released Date/Time: Mar 25, 2024 08:40 AM Reporting Lab: [facility] [address] Performing Lab: [facility] [address] [place] [facility] DRUG SCREEN PANEL,UR INE METHADONE [PRESENCE] IN URINE Negative 03/25 Specimen Type: URINE Comment: Presumptive Positive by screen, results not confirmed. Ordering Provider: MARYJANE MATHEW Report Released Date/Time: Mar 25, 2024 08:40 AM Reporting Lab: [facility] [address] Performing Lab: [facility] [address] [place] [facility] DRUG SCREEN PANEL,UR INE OPIATES [PRESENCE] IN URINE BY SCREEN METHOD Negative 03/25 Specimen Type: URINE Comment: Presumptive Positive by screen, results not confirmed. Ordering Provider: MARYJANE MATHEW Report Released Date/Time: Mar 25, 2024 08:40 AM Reporting Lab: [facility] [address] Performing Lab: [facility] [address] [place] [facility] DRUG SCREEN PANEL,UR INE PHENCYCLID INE [PRESENCE] IN URINE Negative 03/25 Specimen Type: URINE Comment: Presumptive Positive by screen, results not confirmed. Ordering Provider: MARYJANE MATHEW Report Released Date/Time: Mar 25, 2024 08:40 AM Reporting Lab: [facility] [address] Performing Lab: [facility] [address] [place] [facility] DRUG SCREEN PANEL,UR INE ETHANOL [MASS/VOLU ME] IN URINE Negative 03/25 Specimen Type: URINE Comment: Presumptive Positive by screen, results not confirmed. Ordering Provider: MARYJANE MATHEW Report Released Date/Time: Mar 25, 2024 08:40 AM Reporting Lab: [facility] [address] Performing Lab: [facility] [address] [place] [facility] DRUG SCREEN PANEL,UR INE CREATININE [MASS/VOLU ME] IN URINE 63.5 mg/dL 20.0 03/25 Specimen Type: URINE Comment: Presumptive Positive by screen, results not confirmed. Ordering Provider: MARYJANE MATHEW Report Released Date/Time: Mar 25, 2024 08:40 AM Reporting Lab: [facility] [address] Performing Lab: [facility] [address] [place] [facility] DRUG SCREEN PANEL,UR INE OXYCODONE [PRESENCE] IN URINE BY SCREEN METHOD Negative 03/25 Specimen Type: URINE Comment: Presumptive Positive by screen, results not confirmed. Ordering Provider: MARYJANE MATHEW Report Released Date/Time: Mar 25, 2024 08:40 AM Reporting Lab: [facility] [address] Performing Lab: [facility] [address] [place] [facility] DRUG SCREEN PANEL,UR INE BUPRENORPH INE+NORBUP RENORPHINE [PRESENCE] IN URINE POSITIVE 03/25 H Specimen Type: URINE Comment: Presumptive Positive by screen, results not confirmed. Ordering Provider: MARYJANE MATHEW Report Released Date/Time: Mar 25, 2024 08:40 AM Reporting Lab: [facility] [address] Performing Lab: [facility] [address] [place] [facility] DRUG SCREEN PANEL,UR INE TRAMADOL CUTOFF [MASS/VOLU ME] IN URINE FOR SCREEN METHOD Negative 03/25 Specimen Type: URINE Comment: Presumptive Positive by screen, results not confirmed. Ordering Provider: MARYJANE MATHEW Report Released Date/Time: Mar 25, 2024 08:40 AM Reporting Lab: [facility] [address] Performing Lab: [facility] [address] [place] [facility] DRUG SCREEN PANEL,UR INE FENTANYL [PRESENCE] IN URINE Negative 03/25 Specimen Type: URINE Comment: Presumptive Positive by screen, results not confirmed. Ordering Provider: MARYJANE MATHEW Report Released Date/Time: Mar 25, 2024 08:40 AM Reporting Lab: [facility] [address] Performing Lab: [facility] [address] [place] [facility] B 12 COBALAMIN (VITAMIN B12) [MASS/VOLU ME] IN SERUM OR PLASMA 433 pg/mL 213 - 816 02/04 Specimen Type: SERUM No comment entered. Ordering Provider: MANNY SOOD Report Released Date/Time: Jan 01, 2024 11:17 AM Reporting Lab: [facility] [address] Performing Lab: [facility] [address] [facility] FOLATE FOLATE [MASS/VOLU ME] IN SERUM OR PLASMA >20.0ng/ mL 7.0 02/04 Specimen Type: PLASMA No comment entered. Ordering Provider: MANNY SOOD Report Released Date/Time: Jan 01, 2024 11:17 AM Reporting Lab: [facility] [address] Performing Lab: [facility] [address] [place] [facility] TESTOSTE ZAHRA TESTOSTERO NE [MASS/VOLU ME] IN SERUM OR PLASMA 293 ng/dL 221 - 870 02/04 Specimen Type: SERUM No comment entered. Ordering Provider: MANNY SOOD Report Released Date/Time: Jan 01, 2024 11:17 AM Reporting Lab: [facility] [address] Performing Lab: [facility] [address] [facility] W/REFLEX TO FREE T4 THYROTROPI N [UNITS/VOL UME] IN SERUM OR PLASMA 1.44 u[IU]/mL 0.35 - 4.94 02/04 Specimen Type: PLASMA No comment entered. Ordering Provider: MANNY SOOD Report Released Date/Time: Jan 01, 2024 11:17 AM Reporting Lab: [facility] [address] Performing Lab: [facility] [address] [facility] VIT D 25-OH,TO YNES 25-HYDROXY VITAMIN D3 [MASS/VOLU ME] IN SERUM OR PLASMA 42 ng/mL 12 - 50 02/04 Specimen Type: SERUM No comment entered. Ordering Provider: MANNY SOOD Report Released Date/Time: Jan 01, 2024 11:17 AM Reporting Lab: [facility] [address] Performing Lab: [facility] [address] [place] [facility] Vital Signs Combined list of inpatient and outpatient Vital Signs from Department of Defense and Veterans Affairs, ranging from 12 months to all on record, depending upon the facility. Vital Sign Value Date Comments Source SYSTOLIC BLOOD PRESSURE 137 09/15/2024 14:54:24 [facility] DIASTOLIC BLOOD PRESSURE 75 09/15/2024 14:54:24 [facility] PULSE OXIMETRY 95 09/15/2024 14:54:24 M [...] SYSTOLIC BLOOD PRESSURE 115 05/18/2024 09:40:27 [place] [facility] DIASTOLIC BLOOD PRESSURE 70 05/18/2024 09:40:27 [facility] TEMPERATURE 97.7 05/18/2024 09:40:27 [facility] P[facility] 73 05/18/2024 09:40:27 [facility] Encounters Combined list of: 1) Encounters from Department of [facility] Affairs facilities going backup to the last 18 months, not all [place] inpatient encounters are included; 2) Encounters from the Department of [facility] facilities going backup to 280 months. Location Location Details Encounter Type Encounter Number Reason For Visit Attending Provider ADM Date DC Date Status Disposition Source [facility] OFFICE O/P EST HI 40-54 MIN [id number] Diagnos is: ICD-10- CM F10.20 Alcohol depende nce, uncompl icated Unique BRICEÑO ATRICIA J 03/31 [facility] [place] [facility] Outpatient Encounter [id number] JOEY ECHAVARRIA ICA D 04/04 [facility] THERAPEUTI C EXERCISES [id number] Diagnos is: ICD-10- CM Z73.3 Stress, not elsewhe re classif ied OPHELIA LARSON 04/09 [facility] [place] [facility] Outpatient Encounter [id number] 04/11 [facility] [place] [facility] Outpatient Encounter [id number] 04/15 [facility] PT EDUCATION [employer]OC [employer] [id number] Diagnos is: ICD-10- CM 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, 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 TA Orr 04/24 [facility] [place] [facility] Outpatient Encounter [id number] 04/28 [facility] [place] [facility] OFFICE O/P EST HI 40-54 MIN [id number] Diagnos is: ICD-10- CM F34.1 Dysthym ic disorde r INDIGO,ELIANA DSEY E 04/29 [facility] Outpatient Encounter [id number] NICK MORRIS URTNEY E 05/07 [facility] OFFICE O/P EST MOD 30-39 MIN [id number] Diagnos is: ICD-10- CM M43.26 Fusion of spine, lumbar region MARCO ANTONIO COMBS 05/08 [facility] Outpatient Encounter [id number] JOSE BAE A 05/21 [facility] Outpatient Encounter [id number] Diagnos is: ICD-10- CM Z77.29 Contact with and exposur e to other hazardo us substan SAE Martini B 05/26 [facility] Outpatient Encounter [id number] Diagnos is: ICD-10- CM F11.21 Opioid depende nce, in remissi on BOB MATHEW RTNEY E 05/27 [facility] Outpatient Encounter [id number] Diagnos is: ICD-10- CM F11.21 Opioid depende nce, in remissi on BOB MATHEW RTNEY E 05/27 [facility] Outpatient Encounter [id number] Diagnos is: ICD-10- CM Z23 Encount er for immuniz CAT King 05/28 [facility] OFF/OP EST MAY X REQ PHY/QHP [id number] Diagnos is: ICD-10- CM F11.21 Opioid depende nce, in remissi on MATHEW,BOB RTNEY E 05/28 [facility] RE-EVAL,ES T PT,PROBLEM FOCUS [id number] Diagnos is: ICD-10- CM G47.33 Obstruc tive sleep apnea (adult) ([facility]) VILLANUEVAKELSEY MARIA GUADALUPE N 06/09 [facility] PRO PHONE CALL 5-10 MIN [id number] Diagnos is: ICD-10- CM F43.12 Post-tr aumatic stress disorde r, chronic PORTILLO,JAYANT OLE M 06/17 [facility] Outpatient Encounter [id number] 06/20 [facility] PRO PHONE CALL 5-10 MIN [id number] Diagnos is: ICD-10- CM F43.12 Post-tr aumatic stress disorde r, chronic WIPPLER, HLEY L 06/23 [facility] OFF/OP EST MAY X REQ PHY/QHP [id number] Diagnos is: ICD-10- CM F11.21 Opioid depende nce, in remissi on BOB MATHEW RTJUSTIN E 06/26 [facility] OFFICE O/P EST HI 40 MIN [id number] Diagnos is: ICD-10- CM F34.1 Dysthym ic disorde r ELIANA SOODEY E 07/04 [facility] Outpatient Encounter [id number] 07/10 [facility] FLUOROGUID E FOR SPINE INJECT [id number] Diagnos is: ICD-10- CM F43.12 Post-tr aumatic stress disorde r, chronic PAIDIN,MAR K E 07/10 [facility] Outpatient Encounter [id number] [facility] OFF/OP EST MAY X REQ PHY/QHP [id number] Diagnos is: ICD-10- CM F11.21 Opioid depende nce, in remissi on [place] RTNEY E 07/24 [place] [facility] DENTAL SURFACE SCAN DIR 3D [id number] Diagnos is: ICD-10- CM G47.33 Obstruc tive sleep apnea (adult) ([facility]) CATALINOJOSE Frazier 07/24 [facility] OFF/OP EST MAY X REQ PHY/QHP [id number] Diagnos is: ICD-10- CM F11.21 Opioid depende nce, in remissi on [place] RTNEY E 08/21 [facility] Outpatient Encounter [id number] [facility] RTNEY E 08/28 [facility] OFFICE O/P EST HI 40 MIN [id number] Diagnos is: ICD-10- CM F33.9 Major depress mare disorde r, recurre nt, unspeci fied ELIANA SOOD E 08/31 [facility] OCCLUSAL ORTHOTIC APPLIANCE [id number] Diagnos is: ICD-10- CM G47.33 Obstruc tive sleep apnea (adult) ([facility]) JOSE BAE 09/04 [facility] OFF/OP EST MAY X REQ PHY/QHP [id number] Diagnos is: ICD-10- CM F11.21 Opioid depende nce, in remissi on [place] RTNEY E 09/18 [facility] OFFICE O/P EST HI 40 MIN [id number] Diagnos is: ICD-10- CM G89.4 Chronic pain syndrom e OTF,RU PA P 09/28 [facility] Outpatient Encounter [id number] 10/09 [facility] OFF/OP EST MAY X REQ PHY/QHP [id number] Diagnos is: ICD-10- CM F11.21 Opioid depende nce, in remissi on PRIYANKABOB RTNEY E 10/16 [facility] Outpatient Encounter [id number] BOB MATHEW RTNEY E 10/22 [facility] REPAIR CUST SLEEP APNEA APPL [id number] Diagnos is: ICD-10- CM G47.33 Obstruc tive sleep apnea (adult) ([facility]) JOSE BAE 10/22 [facility] OFFICE O/P EST HI 40 MIN [id number] Diagnos is: ICD-10- CM R53.82 Chronic fatigue , unspeci ASHLEY Kendrick 10/22 [facility] IMG RTA DETCJ/MNTR DS STAFF [id number] Diagnos is: ICD-10- CM Z01.00 Encount er for exam of eyes and vision w/o abnorma l finding s CONNER HAUSER 10/22 [facility] Outpatient Encounter [id number] Diagnos is: ICD-10- CM Z01.01 Encount er for exam of eyes and vision w abnorma l finding s ALEXANDRE10/26 [facility] OFFICE O/P EST HI 40 MIN [id number] Diagnos is: ICD-10- CM F33.9 Major depress mare disorde r, recurre nt, unspeci ELIANA Contreras 10/29 [facility] Outpatient Encounter [id number] 11/03 [facility] OFF/OP EST MAY X REQ PHY/QHP [id number] Diagnos is: ICD-10- CM F11.21 Opioid depende nce, in remissi on MATHEW,COX BRANSON RTNEY E 11/13 [facility] Outpatient Encounter [id number] 11/24 [facility] OFF/OP EST MAY X REQ PHY/QHP [id number] Diagnos is: ICD-10- CM F11.21 Opioid depende nce, in remissi on MATHEWCOX BRANSON RTNEY E 12/11 [facility] Outpatient Encounter [id number] 12/25 [facility] OFFICE O/P EST HI 40 MIN [id number] Diagnos is: ICD-10- CM F34.1 Dysthym ic disorde r ELIANA SOOD E 12/31 [facility] PSYCHOTHER APY [id number] Diagnos is: ICD-10- CM F10.20 Alcohol depende nce, uncompl icated WALTER SIMS O 01/13 [facility] HC PRO PHONE CALL 21-30 MIN [phone] Diagnos is: ICD-10- CM F43.10 Post-tr aumatic stress disorde r, unspeci fiTHEA Benavides 01/29 [facility] Outpatient Encounter [id number] 02/04 [facility] OFFICE O/P EST MOD 30 MIN [id number] Diagnos is: ICD-10- CM H35.371 Puckeri ng of macula, right eye Matthew JENSEN 02/04 [facility] [place] [facility] Outpatient [facility]counter [id number] 02/04 [facility] OFF[facility] O/P EST MOD 30 MIN [id number] Diagnos is: ICD-10- CM R53.82 Chronic fatigue , unspeci ASHLEY Kendrick 02/04 [facility] [place] [facility] Outpatient [facility]counter [id number] 02/05 [facility] Outpatient [facility]counter [id number] 02/16 [facility] Outpatient Encounter [id number] 02/22 [facility] [place] [facility] Outpatient Encounter [id number] 02/22 [facility] MTMS BY PHARM EST 15 MIN [id number] Diagnos is: ICD-10- CM M54.2 Cervica Queenie Polk 02/24 [facility] OFFICE O/P EST HI 40 MIN [id number] Diagnos is: ICD-10- CM F33.9 Major depress mare disorde r, recurre nt, unspeci fiELIANA Trinidad E 03/25 [facility] OFF[facility] O/P EST SF 10 MIN [id number] Diagnos is: ICD-10- CM H02.834 Dermato chalasi s of left upper eyelid Matthew LYONS 03/25 [facility] Outpatient Encounter [id number] 03/26 [place] [facility] ADJUNCTIVE PROCEDURE [id number] Diagnos is: ICD-10- CM G47.33 Obstruc tive sleep apnea (adult) ([facility]) JOSE BAE A 05/05 [facility] [place] [facility] Outpatient Encounter [id number] 05/06 [facility] DENTAL SURFACE SCAN DIR 3D [id number] Diagnos is: ICD-10- CM G47.33 Obstruc tive sleep apnea (adult) ([facility]) [facility]AE A 05[facility] SYNCH AUDIO-VIDE O EST HI 40 [id number] Diagnos is: ICD-10- CM F33.9 Major depress mare disorde r, recurre nt, unspeci fied ELIANA SOOD E 05/27 [facility] [place] [facility] Outpatient Encounter [id number] 06/06 [facility] [place] [facility] Outpatient Encounter [id number] 06/06 [facility] [place] [facility] Outpatient Encounter [id number] CODY RODRIGUEZ R 06/06 [facility] [place] [facility] Outpatient Encounter [id number] BOB MATHEW E 06/22 [facility] OFFICE O/P EST HI 40 MIN [id number] Diagnos is: ICD-10- CM F34.1 Dysthym ic disorde r ASHLEY MALONE 07/28 [facility] [place] [facility] Outpatient Encounter [id number] 08/04 [facility] EXT ECG>48HR<7 D REV&INTERP J [id number] Diagnos is: ICD-10- CM R42 Dizzine ss and giddine ss LAUREN BLOUNT A 08/25 [facility] SYNCH AUDIO-VIDE [place] EST HI 40 [id number] Diagnos is: ICD-10- CM F33.9 Major depress mare disorde r, recurre nt, unspeci fied ELIANA SOODEY E 09/02 [facility] PH1 ASSMT&MGMT NQHP 11-20 [id number] Diagnos is: ICD-10- CM Z71.89 Other specifi ed substance abuse counselor SIN Lancaster A 09/02 [facility] ORAL DEVICE/RIGOBERTO LIANCE CUSFAB [id number] Diagnos is: ICD-10- CM G47.33 Obstruc tive sleep apnea (adult) ([facility]) JOSE BAE A 09/03 [facility] OFFICE O/P NEW HI 60 MIN [id number] Diagnos is: ICD-10- CM R55 Syncope and collaps e SIDRA GUNN O 09/15 [facility] Outpatient Encounter [id number] 09/22 [facility] Social History Combined list of available smoking, tobacco, and other social history from Department of Defense and [facility] Affairs facilities. Social History Type Response Date Comment Sourc e Tobacco smoking status NDIS VA-TOBACCO FORMER USER 10/23/2023 [facility] History of tobacco use [place]-TOBACCO QUIT 5 TO < 15 YRS 10/23/2023 [facility] History of tobacco use VA-TOBACCO FORMER USER 09/05/2022 [facility] History of tobacco use VA-TOBACCO FORMER USER 06/12/2021 [facility] History of tobacco use VA-TOBACCO FORMER USER 06/13/2020 [facility] History of tobacco use TN-TOBACCO QUIT 1 5 YRS OR MORE 12/03/2018 [facility] History of tobacco use FORMER TOBACCO US E >1Y <7Y 11/26/2017 [facility] History of tobacco use FORMER TOBACCO US E >1Y <7Y 04/01/2017 [facility] History of tobacco use INPT NO TOBACCO U SE IN LAST 30 DAYS 11/27/2016 [facility] History 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 Additional future care activities may be listed in the Assessment and Plan section. Date/Time Care Activity Care Activity Detail Facili ty 11/09/2024 AMBULATORY - NONE AMBULATORY - NONE [facility]
[2024-09-25 00:42] LABS: Slide Review Reflex No
[2024-09-25 00:43] LABS: Albumin* 4.8 g/dL (3.3-5.0); Chloride* 103 mmol/L (96-114); Sodium* 138 mmol/L (135-149)
[2024-09-25 00:44] LABS: Potassium* 3.8 mmol/L (3.6-5.1)
[2024-09-25 00:46] LABS: Alanine Aminotransferase* 32 U/L (4-50); Aspartate Amino Transferase* 53 U/L (12-35); Blood Urea Nitrogen* 22 mg/dL (7-30); Creatinine* 1.4 mg/dL (0.5-1.5); Est. Creatinine Clearance* 50.04; Estimated Glomerular Filt Rate 52 ml/min
[2024-09-25 00:47] LABS: Alkaline Phosphatase* 77 U/L (40-150); Anion Gap 11 mEq/L (7-15); Bilirubin Total* 0.8 mg/dL (0.1-1.5); Carbon Dioxide* 24 mmol/L (20-32); Glucose* 117 mg/dL (60-115); Lipase* 87 U/L (23-300); Total Protein* 7.2 g/dL (6.0-8.3)
[2024-09-25 01:05] VITALS: BP 180/82; PULSE 60; RESP 24; TEMP 36.9; O2SAT 99
[2024-09-25 01:05] LABS: C Reactive Protein* < 0.5 mg/dL (0.5-1.0)
[2024-09-25 01:21] LABS: Appearance Urine Clear (Clear); Bilirubin Urine Negative (Negative); Blood Urine 1+ (Negative); Color Urine Yellow (Yellow); Glucose Urine Negative (Negative); Ketones Urine Trace (Negative); Leukocyte Esterase Urine Negative (Negative); Nitrite Urine Negative (Negative); Protein Urine Negative (Negative); Specific Gravity Urine 1.015 (1.000-1.030); Urobilinogen Urine 0.2 (0.2-1.0); pH Urine 8.5 (5.0-8.5)
[2024-09-25] MEDS: KETOROLAC 15 MG/ML inj IVP (01:23)
[2024-09-25 01:35] LABS: RBC Urine 0-2 (0-2)
[2024-09-25 01:36] LABS: WBC Urine 0-2 (0-5)
== END 2024-09-25 01:50 | disposition home or self-care (01) ==
PROVIDERS: Emergency Provider Family Medicine; PCP Family Medicine
DX: N20.1 Calculus of ureter (principal)
CPT/HCPCS: 36415; 74177; 80053; 81001; 81003; 82565; 83605; 83690; 85025; 86140; 94761; 96374; 96375; 99284; 99285; J1171; J1885; J2405; Q9967